=== PATIENT | male | born 1940 | race Caucasian/White ===

== ENCOUNTER 2023-04-25 12:57 | Inpatient (IN) | payer MEDICARE ==
[2023-04-25] MEDS ORDERED: ASPIRIN 300 MG SUPP RECTAL STA (13:10)
--- NOTE | 2023-04-25 13:12 | ED ---
CPR HPI - General Chief Complaint: Cardiac Arrest/CPR Stated Complaint: Cardiac Arrest Time Seen by Provider: 04/25/23 13:05 Source: EMS Mode of arrival: EMS Limitations: no limitations - History of Present Illness Initial Comments: 82-year-old male with unknown past medical history who presents to the emergency department after cardiac arrest. EMS states that the patient was at his home when he had a choking episode. Family was unable to clear his airway and the patient went into cardiac arrest. When EMS found the patient, they began CPR. He was found to be in V. fib and he was shocked back into normal sinus rhythm. Patient was brought into the emergency department and was being bagged. He does not follow commands or answer any questions. He was not provided with any medications. HPI is limited because of the patient's current condition. Upon speaking with family when they arrive they state that the patient was complaining of some jaw pain. He does not take any medications and does not see a doctor - Related Data Home Medications Medication Instructions Recorded Confirmed Cetirizine HCl [Zyrtec] 10 mg PO DAILY 04/25/23 04/25/23 Allergies Allergy/AdvReac Type Severity Reaction Status Date / Time No Known Allergies Allergy Verified 04/25/23 16:17 Review of Systems ROS Statement: Those systems with pertinent positive or pertinent negative responses have been documented in the HPI. ROS Other: All systems not noted in ROS Statement are negative. Past Medical History Past Medical History: No Reported History History of Any Multi-Drug Resistant Organisms: None Reported Past Surgical History: No Surgical Hx Reported Past Psychological History: No Psychological Hx Reported Smoking Status: Never smoker Past Alcohol Use History: None Reported Past Drug Use History: None Reported General Exam Limitations: altered mental status General appearance: obtunded, in distress Head exam: Present: atraumatic, normocephalic, normal inspection Eye exam: Present: other (3 mm, non-reactive) ENT exam: Present: mucous membranes moist, other (small amount of food material in mouth and posterior pharynx) Respiratory exam: Present: other (agonal, shallow breaths) Cardiovascular Exam: Present: regular rate, normal rhythm, normal heart sounds. Absent: systolic murmur, diastolic murmur, rubs, gallop, clicks GI/Abdominal exam: Present: soft, normal bowel sounds. Absent: distended, tenderness, guarding, rebound, rigid Extremities exam: Absent: pedal edema, joint swelling Neurological exam: Present: altered, other (does not follow commands. minimal withdrawal to pain. once intubated, patient does spontanous move arms and legs) Skin exam: Present: pallor Course Vital Signs 04/25/23 04/25/23 04/25/23 13:02 13:08 13:10 Temperature 96.8 F L Pulse Rate 109 H 102 H Pulse Rate [ 109 H Bilateral Dorsalis Pedis] Pulse Rate [ 109 H Superintendent [employer] ] Respiratory 5 L 15 5 L Rate Blood Pressure 176/130 156/113 O2 Sat by Pulse 98 98 Oximetry Fraction of 100 Inspired Oxygen (FIO2) 04/25/23 04/25/23 13:15 13:16 Temperature Pulse Rate 105 H Pulse Rate [ Bilateral Dorsalis Pedis] Pulse Rate [ [employer] ] Respiratory 16 Rate Blood Pressure 153/101 O2 Sat by Pulse 98 Oximetry Fraction of 100 Inspired Oxygen (FIO2) Procedures - Intubation Sedative: Etomidate Mg Given: 20 Paralytic: Succinylcholine Mg Given: 80 Laryngoscope: fiber optic video scope Size: 4 ET Tube Size: 7.5 ET Tube Uncuffed: No Tube Secured Depth (cm): 26 Tube Secured Location: teeth Tube Placement Confirmation: visualized tube passing through cords, equal breath sounds bilaterally, no breath sounds over epigastrium, confirmation by capnometry Patient Tolerated Procedure: well, no complications Medical Decision Making - Medical Decision Making Was pt. sent in by a medical professional or institution (CONCEPCION Reece, LONGWALL SHEARER OPERATOR, urgent care, hospital, or fpc...) When possible be specific @ -No Did you speak to anyone other than the patient for history (EMS, parent, family, police, friend...)? What history was obtained from this source @ -EMS and family Did you review nursing and triage notes (agree or disagree)? Why? @ -I reviewed and agree with nursing and triage notes Were old charts reviewed (outside hosp., previous admission, EMS record, old EKG, old radiological studies, urgent care reports/EKG's, fpc records)? Report findings @ -No old charts were reviewed Differential Diagnosis (chest pain, altered mental status, abdominal pain women, abdominal pain men, vaginal bleeding, weakness, fever, dyspnea, syncope, headache, dizziness, GI bleed, back pain, seizure, CVA, palpatations, mental health, musculoskeletal)? @ -choking episode, aspiration, cva, cardiac arrest, STEMI EKG interpreted by me (3pts min.). @ - EKG completed at 1258 demonstrates sinus tachycardia with a rate of 105. AR interval 214. QRS 98. QTC of 397. ST elevation 1 and aVL with inferior changes in 2, 3, aVF Repeat EKG done at 1303 continues to demonstrate sinus rhythm with rate of 99. AR interval 200. QRS 13. QTC of 4:15. ST elevation 1 and aVL with inferior and anterior reciprocal changes X-rays interpreted by me (1pt min.). @ -Yes and ET tube is too low therefore it is pulled back CT interpreted by me (1pt min.). @ -None done U/S interpreted by me (1pt. min.). @ -None done What testing was considered but not performed or refused? (CT, X-rays, U/S, labs)? Why? 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 Why? @ -None Did you discuss the management of the patient with other professionals (professionals i.e. , PA, LONGWALL SHEARER OPERATOR, lab, RT, psych nurse, high school social studies teacher, medical coding technician, teacher, property disposal officer, family service caseworker)? Give summary @ -Dr. Kiser, Dr. Oglesby, Dr. Ramírez Was smoking cessation discussed for >3mins.? @ -No Was critical care preformed (if so, how long)? @ -yes, 45 minutes Were there social determinants of health that impacted care today? How? (Homelessness, low income, unemployed, alcoholism, drug addiction, transportation, low edu. Level, literacy, decrease access to med. care, assisted, rehab)? @ -No Was there de-escalation of care discussed even if they declined (Discuss DNR or withdrawal of care, Hospice)? DNR status @ -No What co-morbidities impacted this encounter? (DM, HTN, Smoking, COPD, CAD, Cancer, CVA, ARF, Chemo, Hep., AIDS, mental health diagnosis, sleep apnea, morbid obesity)? @ -None Was patient admitted / discharged? Hospital course, mention meds given and route, prescriptions, significant lab abnormalities, going to OR and other pertinent info. @ -Upon arrival patient was promptly placed into trauma 2. A thorough history and physical exam was performed. Patient arrives being bagged. He is intubated for airway protection. Accu-Chek is performed. 12-lead EKG is performed which demonstrates ST segment elevation in the lateral leads. Patient is a Rosc patient and therefore we do completed a second EKG which continues to demonstrate STEMI changes. Because of this code STEMI is activated. I spoke with Dr. Kiser who will cath the patient. He is given 4000 units of heparin and a rectal aspirin. Goodson and NG tube is placed. Porbital chest x-ray was performed which demonstrated that the tube was at the kaylyn. Tube was retracted 2 cm before going to 3. I did update the family when they arrived at the emergency department and they were taken up to the Compliance Vice President waiting room. Patient was admitted to Dr. oglesby with cardiology and Dr. Ramírez to consult Undiagnosed new problem with uncertain prognosis? @ -Yes Drug Therapy requiring intensive monitoring for toxicity (Heparin, Nitro, Insulin, Cardizem)? @ -No Were any procedures done? @ -Patient was intubated with a 7-1/2-Montenegrin ET tube 26 cm at the teeth. Chest x-ray demonstrated that the tube was at the kaylyn. The tube was retracted 2 cm to 24 some liters at the teeth before the patient was taken to Compliance Vice President Diagnosis/symptom? @ -acute cardiac arrest - vifb, ventilator dependance, s/p choking episode, aspiration, STEMI Acute, or Chronic, or Acute on Chronic? @ -acute Uncomplicated (without systemic symptoms) or Complicated (systemic symptoms)? @ -complicated Side effects of treatment? @ -No Exacerbation, Progression, or Severe Exacerbation? @ -No Poses a threat to life or bodily function? How? (Chest pain, [place], [place], pneumonia, PE, COPD, DKA, ARF, appy, cholecystitis, CVA, Diverticulitis, Homicidal, Suicidal, threat to staff... and all critical care pts) @ -Yes, patient on life support - Lab Data Result diagrams: 04/26/23 04:42 04/26/23 04:42 Lab Results 04/25/23 04/25/23 04/25/23 Range/Units 13:08 13:11 13:11 WBC 14.4 H (3.8-10.6) k/uL RBC 5.54 (4.30-5.90) m/uL Hgb 17.2 (13.0-17.5) gm/dL Hct 52.0 (39.0-53.0) % MCV 93.9 (80.0-100.0) fL MCH 31.1 (25.0-35.0) pg MCHC 33.1 (31.0-37.0) g/dL RDW 12.5 (11.5-15.5) % Plt Count 228 (150-450) k/uL MPV 8.9 Neutrophils % 74 % Lymphocytes % 21 % Monocytes % 3 % Eosinophils % 1 % Basophils % 0 % Neutrophils # 10.6 H (1.3-7.7) k/uL Lymphocytes # 3.0 (1.0-4.8) k/uL Monocytes # 0.5 (0-1.0) k/uL Eosinophils # 0.1 (0-0.7) k/uL Basophils # 0.1 (0-0.2) k/uL PT 10.4 (9.0-12.0) sec INR 1.0 (<1.2) APTT 22.7 (22.0-30.0) sec Sodium (137-145) mmol/L Potassium (3.5-5.1) mmol/L Chloride (98-107) mmol/L Carbon Dioxide (22-30) mmol/L Anion Gap mmol/L BUN (9-20) mg/dL Creatinine (0.66-1.25) mg/dL Est GFR (CKD-EPI)AfAm (>60 ml/min/1.73 sqM) Est GFR (CKD-EPI)NonAf (>60 ml/min/1.73 sqM) Glucose (74-99) mg/dL POC Glucose (mg/dL) 153 H (70-110) mg/dL POC Glu [employer] Sales Representative ID Emy Domínguez Calcium (8.4-10.2) mg/dL Total Bilirubin (0.2-1.3) mg/dL AST (17-59) U/L ALT (4-49) U/L Alkaline Phosphatase (38-126) U/L Troponin I (0.000-0.034) ng/mL Total Protein (6.3-8.2) g/dL Albumin (3.5-5.0) g/dL 04/25/23 04/25/23 Range/Units 13:11 13:11 WBC (3.8-10.6) k/uL RBC (4.30-5.90) m/uL Hgb (13.0-17.5) gm/dL Hct (39.0-53.0) % MCV (80.0-100.0) fL MCH (25.0-35.0) pg MCHC (31.0-37.0) g/dL RDW (11.5-15.5) % Plt Count (150-450) k/uL MPV Neutrophils % % Lymphocytes % % Monocytes % % Eosinophils % % Basophils % % Neutrophils # (1.3-7.7) k/uL Lymphocytes # (1.0-4.8) k/uL Monocytes # (0-1.0) k/uL Eosinophils # (0-0.7) k/uL Basophils # (0-0.2) k/uL PT (9.0-12.0) sec INR (<1.2) APTT (22.0-30.0) sec Sodium 139 (137-145) mmol/L Potassium 3.7 (3.5-5.1) mmol/L Chloride 107 (98-107) mmol/L Carbon Dioxide 17 L (22-30) mmol/L Anion Gap 15 mmol/L BUN 18 (9-20) mg/dL Creatinine 1.33 H (0.66-1.25) mg/dL Est GFR (CKD-EPI)AfAm 58 (>60 ml/min/1.73 sqM) Est GFR (CKD-EPI)NonAf 50 (>60 ml/min/1.73 sqM) Glucose 199 H (74-99) mg/dL POC Glucose (mg/dL) (70-110) mg/dL POC Glu [employer] Sales Representative ID Calcium 8.5 (8.4-10.2) mg/dL Total Bilirubin 1.1 (0.2-1.3) mg/dL AST 216 H (17-59) U/L ALT 149 H (4-49) U/L Alkaline Phosphatase 92 (38-126) U/L Troponin I 0.018 (0.000-0.034) ng/mL Total Protein 7.4 (6.3-8.2) g/dL Albumin 4.3 (3.5-5.0) g/dL Disposition Clinical Impression: Cardiac arrest, Ventricular fibrillation, Choking episode, STEMI (ST elevation myocardial infarction) Disposition: ADMITTED IP TO THIS [facility] Condition: Critical Is patient prescribed a controlled substance at d/c from ED?: No Time of Disposition: 13:28 Decision to Admit Reason: Admit from EC Decision Date: 04/25/23 Decision Time: 13:28
[2023-04-25] MEDS ORDERED: ETOMIDATE 2 MG/ML 10 ML VIAL IVP STA (13:16)
[2023-04-25] MEDS ORDERED: SUCCINYLCHOLINE CHLORIDE 200 MG/10 ML VIAL IV STA (13:17)
[2023-04-25 13:18] LABS: Glucose,Whole Blood 153 mg/dL (70-110)
[2023-04-25] MEDS ORDERED: HEPARIN SODIUM 1,000 UN/ML (10ML VL) IV ONE (13:18)
[2023-04-25 13:24] LABS: Basophils # (A) 0.1 k/uL (0-0.2); Basophils % (A) 0 %; Eosinophils # (A) 0.1 k/uL (0-0.7); Eosinophils % (A) 1 %; HGB 17.2 gm/dL (13.0-17.5); Lymphocytes % (A) 21 %; MCH 31.1 pg (25.0-35.0); MCHC 33.1 g/dL (31.0-37.0); MCV 93.9 fL (80.0-100.0); Mean Platelet Volume 8.9; Monocytes # (A) 0.5 k/uL (0-1.0); Monocytes % (A) 3 %; Neutrophils # (A) 10.6 k/uL (1.3-7.7); Neutrophils % (A) 74 %; Platelet Count 228 k/uL (150-450); RBC 5.54 m/uL (4.30-5.90); RDW 12.5 % (11.5-15.5); WBC 14.4 k/uL (3.8-10.6)
--- NOTE | 2023-04-25 13:28 | XR ---
EXAMINATION TYPE: XR chest 1V portable DATE OF EXAM: 04/25/2023 COMPARISON: None INDICATION: Chest pain, cardiac arrest TECHNIQUE: Single frontal view of the chest is obtained. FINDINGS: The heart size is normal. The pulmonary vasculature is somewhat prominent. No acute pulmonary process. Endotracheal tube tip is at the kaylyn. This should be pulled back 2 to 3 cm. Nasogastric tube transv erses the thorax with tip in left upper quadrant of the abdomen. No rib fractures are identified. IMPRESSION: 1. No acute pulmonary process. 2. Mild prominence of the pulmonary vascular markings. 3. Endotracheal tube tip at the kaylyn. This should be pulled back 2 to 3 cm.
[2023-04-25] MEDS ORDERED: NALOXONE 0.4 MG/ML 1 ML VIAL IV PRN ×2 (13:35→14:59)
[2023-04-25] MEDS ORDERED: LIDOCAINE 1% INJ 10MG/ML (20 ML MDV) SQ ONE (13:39)
[2023-04-25 13:40] LABS: Partial Thromboplastin Time 22.7 sec (22.0-30.0); Prothrombin Time 10.4 sec (9.0-12.0)
[2023-04-25] MEDS ORDERED: VERAPAMIL SYRINGE (5 MG/10 ML) INTRAARTER ONE (13:40)
[2023-04-25 13:42] LABS: ALT 149 U/L (4-49); AST 216 U/L (17-59); African American GFR (CKD) 58 (>60 ml/min/1.73 sqM); Albumin 4.3 g/dL (3.5-5.0); Alkaline Phosphatase 92 U/L (38-126); Anion Gap 15 mmol/L; Blood Urea Nitrogen 18 mg/dL (9-20); Calcium 8.5 mg/dL (8.4-10.2); Carbon Dioxide 17 mmol/L (22-30); Chloride 107 mmol/L (98-107); Glucose 199 mg/dL (74-99); Non-African American GFR(CKD) 50 (>60 ml/min/1.73 sqM); Potassium 3.7 mmol/L (3.5-5.1); Sodium 139 mmol/L (137-145); Total Bilirubin 1.1 mg/dL (0.2-1.3); Total Protein 7.4 g/dL (6.3-8.2)
[2023-04-25] MEDS ORDERED: IV FLUID CONTINUATION 1,000 ML IV ONE (13:44)
[2023-04-25] MEDS ORDERED: SODIUM CHLORIDE 0.9% 1,000 ML IV ONE (13:44)
[2023-04-25] MEDS: HEPARIN SODIUM 1,000 UN/ML (10ML VL) IV ONE ×2 (13:47→14:17)
[2023-04-25] MEDS: NITROGLYCERIN 1000MCG/10ML SYRINGE INTRACORON ONE ×2 (13:53→13:57)
[2023-04-25] MEDS ORDERED: CLOPIDOGREL 75 MG TAB NG-TUBE ONE (13:55)
[2023-04-25] MEDS ORDERED: RX INFO: IV CONTRAST WAS GIVEN 1 EACH MISC MISCELLANE PRN (14:03)
[2023-04-25] MEDS ORDERED: ATROPINE SULFATE 0.1 MG/ML 10ML SYRINGE IV PRN (14:03)
[2023-04-25] MEDS ORDERED: ZOLPIDEM 5 MG TAB PO PRN (14:03)
[2023-04-25] MEDS ORDERED: MAG HYDROX/AL HYDROX/SIMETH 30 ML CUP PO PRN (14:03)
[2023-04-25] MEDS ORDERED: NITROGLYCERIN SL TABS 0.4 MG TAB SUBLINGUAL PRN (14:03)
[2023-04-25] MEDS ORDERED: IOPAMIDOL-370 100ML BTL INJ ONE (14:04)
[2023-04-25] MEDS ORDERED: cefTRIAXone 1,000 MG VIAL (IM USE) IM STA (14:13)
[2023-04-25] MEDS ORDERED: SODIUM CHLORIDE 0.9% 1,000 ML in EMPTY BAG 1 BAG IV SCH (14:15)
[2023-04-25 14:32] LABS: Glucose,Whole Blood 209 mg/dL (70-110)
[2023-04-25] MEDS: HYDROmorphone 1 MG/ML 1 ML SYRINGE IVP PRN ×3 (14:37→21:16)
--- NOTE | 2023-04-25 14:47 | P.CNPUL ---
History of Present Illness Consult date: 04/25/23 Requesting physician: Obie E Sheet Reason for consult: other Chief complaint: Cardiac arrest, myocardial infarction. History of present illness: Pulmonary consult dated 04/25/2023. 82-year-old male seen in the emergency room, after having an [id number] cardiac arrest. The patient apparently had a choking episode. Subsequent to that, the patient apparently went into cardiac arrest. EMS arrived, and started CPR, and the patient was found to have intrinsic either fibrillation, and was defibrillated back into sinus rhythm. In the emergency room, he was intubated by the ER physician, Dr. Vargas. She call me on the phone to give me report. The patient went to the catheterization laboratory, and had a stent placed in the LAD. The patient was admitted back to the intensive care unit. The patient had a downtime of about 12-15 minutes according to the ER physician. The patient apparently is an 82-year-old male, who does not have any major medical problems, and does not see a physician on a regular basis. I was told he takes no medications on a regular basis. The patient is currently seen in the ICU, and room 257 the patient is currently on the ventilator, settings, volume assist control, rate 18, tidal volume 450, FiO2 100%, and PEEP of 5. A blood gas is not yet been done. Endotracheal tube is too far down the trachea, and was pulled back by respiratory. The patient's currently on propofol at 50 mcg/kg/m. I have ordered a blood gas. I will also order some Dilaudid 1 mg every 1-2 hours as needed, and some lactated Ringer's at 75 mL an hour. White count 14.4, with a normal hemoglobin, hematocrit, and platelet count. Coagulation studies are normal. Sodium 139, potassium 3.7, chlorides 107, CO2 17, anion gap 15, BUN/creatinine were 18 and 1.33. AST is 216, ALT is 149. Glucose 209. Chest x-ray does not show an acute process. Endotracheal tube was at the tip of the kaylyn. It was pulled back by respiratory. EKG shows some significant ST changes, and 1, and aVL. Review of Systems REVIEW OF SYSTEMS: A review of systems cannot be obtained as the patient's currently sedated and intubated. Apparently according to the ER mirian, the patient had a choking episode at home, and was found by EMS to have ventricular fibrillation, and was defibrillated. CONSTITUTIONAL: [Negative.] NEUROLOGIC: [ Negative.] HEENT: [ Negative.] CARDIAC: [Negative.] PULMONARY: [Negative.] GI: [Negative.] : [Negative.] RHEUMATOLOGIC: [ Negative.] IMMUNOLOGIC: [ Negative.] ENDOCRINE: [Negative. ] DERMATOLOGIC: [Negative.] Past Medical History Past Medical History: No Reported History History of Any Multi-Drug Resistant Organisms: None Reported Past Surgical History: No Surgical Hx Reported Past Psychological History: No Psychological Hx Reported Smoking Status: Never smoker Past Alcohol Use History: None Reported Past Drug Use History: None Reported Medications and Allergies Allergies Allergy/AdvReac Type Severity Reaction Status Date / Time Unable to Assess Allergy Verified 04/25/23 14:06 Physical Exam Osteopathic Statement: *. No significant issues noted on an osteopathic structural exam other than those noted in the History and Physical/Consult. Vitals: Vital Signs Temp Pulse Resp BP Pulse Ox FiO2 04/25/23 13:20 106 H 16 162/113 98 04/25/23 13:16 100 04/25/23 13:15 105 H 16 153/101 98 04/25/23 13:10 100 04/25/23 13:08 102 H 15 156/113 98 04/25/23 13:02 96.8 F L 109 H 5 L 176/130 98 Intake and Output 04/24/23 04/25/23 04/25/23 22:59 06:59 14:59 Intake Total 120.816 Output Total 400 Balance -279.184 Intake: IV 120 Intake, IV Titration 0.816 Amount propofoL 1,000 mg In 0.816 Empty Bag 1 bag @ 15 MCG/ KG/MIN 7.348 mls/hr IV . [id number] [facility] Rx#:[id number] Output: Urine 400 Uretheral (Goodson) 400 Other: Weight 81.647 kg No acute distress, sedated, and intubated with an orally placed endotracheal tube. HEENT examination is grossly unremarkable. Neck supple. Full range of motion. No adenopathy thyromegaly or neck vein distention. Cardiovascular examination reveals regular rhythm rate. S1-S2 normal. No S3 or S4. No discernible murmur noted. Heart rate 106 bpm. Lungs reveal clear breath sounds. Breath sounds are equal bilaterally. No adventitious lung sounds including wheezes rhonchi or crackles. Saturations are 98% on the ventilator. Abdomen soft without bowel sounds. Extremities are intact. No cyanosis clubbing or edema. Skin is without rash or lesion. Neurologic examination cannot be adequately assessed. Results - Laboratory Findings CBC and BMP: 04/25/23 13:11 04/25/23 13:11 PT/INR, D-dimer PT 10.4 sec (9.0-12.0) 04/25/23 13:11 INR 1.0 (<1.2) 04/25/23 13:11 Abnormal lab findings: Abnormal Labs 04/25/23 04/25/23 04/25/23 13:08 13:11 13:11 WBC 14.4 H Neutrophils # 10.6 H Carbon Dioxide 17 L Creatinine 1.33 H Glucose 199 H POC Glucose (mg/dL) 153 H AST 216 H ALT 149 H 04/25/23 14:30 WBC Neutrophils # Carbon Dioxide Creatinine Glucose POC Glucose (mg/dL) 209 H AST ALT - Diagnostic Findings Chest x-ray: image reviewed Assessment and Plan Assessment: Gfw-rz-hervnclz cardiopulmonary arrest, secondary to a choking episode, with an ST segment elevation myocardial infarction, status post stent placement in the LAD. Acute hypoxemic respiratory failure, status post intubation and mechanical ventilation on 04/25/2023. No apparent past medical history. Plan: Plan dated 04/25/2023. The patient is evaluated in the intensive care unit, and labs, x-rays, and medications are reviewed. The patient had an nde-[id number] cardiopulmonary arrest, secondary to a choking episode. The patient had a downtime about 12-15 minutes, and was resuscitated by EMS, having received defibrillation, for the patient's ventricular fibrillation. The patient was intubated in the emergency room, by the ER physician. The patient went to the catheterization laboratory, and apparently had a plaque rupture, and had a stent placed in the LAD. The patient was seen in the intensive care unit, having been placed on the mechanical ventilator. Blood gases have been ordered. I've also ordered some lactated Ringer's at 75 mL an hour, as well as Dilaudid 1 mg every 1-2 hours when necessary. The patient's currently on propofol at 50 mcg/kg/m. The endotracheal tube was at the kaylyn and was pulled back by respiratory. Time with Patient: Greater than 30
[2023-04-25 14:48] LABS: Glucose,Whole Blood 129 mg/dL (70-110)
--- NOTE | 2023-04-25 15:04 | P.HPIM ---
History of Present Illness This is a pleasant gentleman of 82 years old, unknown past medical history. Patient currently intubated and cannot provide information As per records patient was eating he started choking and then collapsed, EMS was called and he got a shock with return of the pulse area he was been back and hereafter emergency room where he got intubated. As per ER staff that [place] was about 15 minutes Currently blood pressure 162/113, he is tachycardic around 106. He has mild leukocytosis of 14.4, rest of CBC, INR is unremarkable. Creatinine 1.3 which he had it before, possible patient has chronic kidney disease Glucose 199, liver enzymes AST mildly elevated 216 and ALT 149. Bilirubin is 1.1. Troponin is -0.018. No acute cardiopulmonary process. Endotracheal tube at the tip of the kaylyn EKG was showing ST elevation TX of the lateral limits at I, aVL with reciprocal changes Patient was taken to the Social Service Coordinator and he underwent emergent PCI to LAD Review of Systems ROS unobtainable: due to endotracheal tube Past Medical History Past Medical History: No Reported History History of Any Multi-Drug Resistant Organisms: None Reported Past Surgical History: No Surgical Hx Reported Past Psychological History: No Psychological Hx Reported Smoking Status: Never smoker Past Alcohol Use History: None Reported Past Drug Use History: None Reported Medications and Allergies Allergies Allergy/AdvReac Type Severity Reaction Status Date / Time Unable to Assess Allergy Verified 04/25/23 14:06 Physical Exam Vitals: Vital Signs Temp Pulse Resp BP Pulse Ox FiO2 04/25/23 13:20 106 H 16 162/113 98 04/25/23 13:16 100 04/25/23 13:15 105 H 16 153/101 98 04/25/23 13:10 100 04/25/23 13:08 102 H 15 156/113 98 04/25/23 13:02 96.8 F L 109 H 5 L 176/130 98 Intake and Output 04/24/23 04/25/23 04/25/23 22:59 06:59 14:59 Intake Total 120.816 Output Total 400 Balance -279.184 Intake: IV 120 Intake, IV Titration 0.816 Amount propofoL 1,000 mg In 0.816 Empty Bag 1 bag @ 15 MCG/ KG/MIN 7.348 mls/hr IV . [id number] [facility] Rx#:[id number] Output: Urine 400 Uretheral (Goodson) 400 Other: Weight 81.647 kg -GENERAL: The patient is intubated and sedated, HEENT: Pupils are round and equally reacting to light. EOMI. No scleral icterus. No conjunctival pallor. Normocephalic, atraumatic. No pharyngeal erythema. No thyromegaly. CARDIOVASCULAR: S1 and S2 present. No murmurs, rubs, or gallops. PULMONARY: Chest is clear to auscultation, no wheezing , no crackles. ABDOMEN: Soft, nontender, nondistended, normoactive bowel sounds. No palpable organomegaly. MUSCULOSKELETAL: No joint swelling or deformity. EXTREMITIES: No cyanosis, clubbing, or pedal edema. NEUROLOGICAL: Gross neurological examination did not reveal any focal deficits. SKIN: No rashes. no petechiae. Results CBC & Chem 7: 04/25/23 13:11 04/25/23 13:11 Labs: Abnormal Lab Results - Last 24 Hours (Table) 04/25/23 04/25/23 04/25/23 Range/Units 13:08 13:11 13:11 WBC 14.4 H (3.8-10.6) k/uL Neutrophils # 10.6 H (1.3-7.7) k/uL Carbon Dioxide 17 L (22-30) mmol/L Creatinine 1.33 H (0.66-1.25) mg/dL Glucose 199 H (74-99) mg/dL POC Glucose (mg/dL) 153 H (70-110) mg/dL AST 216 H (17-59) U/L ALT 149 H (4-49) U/L 04/25/23 Range/Units 14:30 WBC (3.8-10.6) k/uL Neutrophils # (1.3-7.7) k/uL Carbon Dioxide (22-30) mmol/L Creatinine (0.66-1.25) mg/dL Glucose (74-99) mg/dL POC Glucose (mg/dL) 209 H (70-110) mg/dL AST (17-59) U/L ALT (4-49) U/L Assessment and Plan Assessment: Cardiac arrest at home status post CPR and electric shock with return of circulation. [place] about 15 minutes Acute lateral STEMI status post emergent PCI to LAD Acute hypoxic respiratory failure secondary to above Metabolic encephalopathy secondary to above Mild leukocytosis Mild transaminitis Possible chronic kidney disease Plan: Continue on mechanical ventilation Pulmonary/critical care team with help with vent management Continue with dual antiplatelet therapy, currently on aspirin and Plavix Metoprolol Small dose lisinopril Labs and medication were reviewed.. Continue same treatment. Continue with sym ptomatic treatment. Resume home medication. Monitor labs and vitals. DVT and GI prophylaxis. Further recommendations as per clinical course of the patient DVT prophylaxis: Aspirin and Plavix GI Prophylaxis: Pepcid Prognosis is guarded
[2023-04-25] MEDS: LACTATED RINGERS 1,000 ML IV SCH (15:09)
[2023-04-25 15:11] LABS: ABG Base Excess -3.3 mmol/L; ABG HCO3 23 mmol/L (21-25); ABG PCO2 45 mmHg (35-45); ABG PH 7.32 (7.35-7.45); ABG PO2 94 mmHg (83-108); ABG TCO2 24 mmol/L (19-24)
--- NOTE | 2023-04-25 15:45 | XR ---
EXAMINATION TYPE: XR chest 1V portable DATE OF EXAM: 04/25/2023 COMPARISON: 04/25/2023 INDICATION: Tube placement TECHNIQUE: Single frontal view of the chest is obtained. FINDINGS: The heart size is normal. The pulmonary vasculature is normal. Small left pleural effusion is present. r endotracheal tube is been pulled back just to located 2.1 cm above the kaylyn. Nasogastric tube tra nsverses the thorax. EKG leads overlie the chest. IMPRESSION: 1. Endotracheal tube pulled back with tip 2 cm above kaylyn. 2. Small left pleural effusion
[2023-04-25] MEDS ORDERED: Magnesium Replacement Protocol 1 EACH MISC MISCELLANE PRN (16:28)
[2023-04-25] MEDS ORDERED: Potassium Replacement Protocol 1 EACH MISC MISCELLANE PRN (16:28)
[2023-04-25] MEDS ORDERED: POTASSIUM BICARBONATE/CIT AC 20 MEQ TABLET.EFF NG-TUBE ONE (16:45)
[2023-04-25 17:42] LABS: Glucose,Whole Blood 99 mg/dL (70-110)
--- NOTE | 2023-04-25 20:33 | P.PCN ---
Date of Procedure: 04/25/23 Operative Findings: Cardiac catheterization and percutaneous coronary intervention Performing physician Suhas Kiser MD Procedure performed 1. Selective right and left coronary angiogram 2. Left heart catheterization 3. Successful stenting of the mid LAD using 3.5 x 23 mm Xience MARLENY with an excellent angiographic results and reduction of stenosis from 99.9% to 0% with adjunctive use of intravascular imaging Indication Acute anterior ST elevation myocardial infarction complicated by cardiac arrest Level of sedation Moderate with a sedation length of 30 minutes Door to balloon 35 minutes Complications None Procedure description After obtaining informed consent the patient was brought to the cardiac laborer/key man. The right radial artery was cannulated using micropuncture technique under ultrasound guidance and micropuncture wire passed easily and then I placed a 6 [place] sheath at the right radial artery. After that I did selective right coronary angiogram using JR4 catheter and selective left coronary angiogram using CLS 3.0 guiding catheter. After that I did intervene on the left anterior descending artery. The procedure was completed was no complication. Selective coronary angiogram The RCA is a large caliber vessel and a dominant vessel with mild disease in the midportion The left main is angiographically normal. Bifurcates into LCx and LAD The LCx is a large caliber vessel and nondominant vessel with mild disease only The LAD has a critical lesion in the midportion with a thrombus burden. The LAD in the proximal and distal portions appear to have mild disease only PCI of the LAD Anticoagulation was initiated using heparin with continuous ACT monitoring. Subsequently I did wire the LAD using a run-through wire. I did pull angioplasty using 2.5 x 12 mm balloon. After that I did enter a vascular ultrasound which showed a diameter between 3.25-3.5 mm. I did stenting of the mid LAD using 3.5 x 23 mm stent were the stent was positioned under fluoroscopy guidance and deployed under its nominal pressure. Final angiogram was performed and showed good angiographic results and the procedure was completed with no complication Hemodynamic The LVEDP was 12 mmHg was no significant gradient across aortic valve Postprocedure management Dual antiplatelet therapy using aspirin and Plavix for at least 12 months Aggressive cholesterol control Risk factors modification Follow-up with the patient
[2023-04-25] MEDS: ATORVASTATIN 80 MG TAB PO SCH (21:10)
[2023-04-25] MEDS: METOPROLOL TARTRATE 25 MG TAB PO SCH (21:10)
[2023-04-25] MEDS: CHLORHEXIDINE GLUCONATE 15 ML CUP MUCOUS MEM SCH (21:10)
[2023-04-25 23:53] LABS: Glucose,Whole Blood 99 mg/dL (70-110)
[2023-04-26] MEDS ORDERED: SODIUM CHLORIDE 0.9% 500 ML 500 ML IV ONE ×2 (00:23→02:34)
[2023-04-26] MEDS: HYDROmorphone 1 MG/ML 1 ML SYRINGE IVP PRN (01:39)
[2023-04-26] MEDS: LACTATED RINGERS 1,000 ML IV SCH ×2 (02:48→18:53)
[2023-04-26] MEDS ORDERED: SODIUM CHLORIDE 0.9% 1,000 ML IV ONE (05:00)
[2023-04-26 05:04] LABS: Basophils # (A) 0.1 k/uL (0-0.2); Basophils % (A) 0 %; Eosinophils % (A) 0 %; HGB 14.2 gm/dL (13.0-17.5); Lymphocytes # (A) 0.9 k/uL (1.0-4.8); Lymphocytes % (A) 4 %; MCH 30.9 pg (25.0-35.0); MCHC 32.9 g/dL (31.0-37.0); Mean Platelet Volume 8.6; Monocytes # (A) 0.6 k/uL (0-1.0); Monocytes % (A) 3 %; Neutrophils # (A) 20.6 k/uL (1.3-7.7); Neutrophils % (A) 93 %; Platelet Count 185 k/uL (150-450); RBC 4.58 m/uL (4.30-5.90); RDW 12.8 % (11.5-15.5); WBC 22.3 k/uL (3.8-10.6)
[2023-04-26 05:08] LABS: African American GFR (CKD) 50 (>60 ml/min/1.73 sqM); Anion Gap 5 mmol/L; Blood Urea Nitrogen 22 mg/dL (9-20); Calcium 7.5 mg/dL (8.4-10.2); Carbon Dioxide 24 mmol/L (22-30); Chloride 110 mmol/L (98-107); Glucose 112 mg/dL (74-99); Magnesium 1.7 mg/dL (1.6-2.3); Non-African American GFR(CKD) 43 (>60 ml/min/1.73 sqM); Potassium 4.6 mmol/L (3.5-5.1); Sodium 139 mmol/L (137-145)
[2023-04-26 05:26] LABS: Glucose,Whole Blood 108 mg/dL (70-110)
[2023-04-26 06:03] LABS: ABG Base Excess -2.6 mmol/L; ABG HCO3 23 mmol/L (21-25); ABG Oxygen Saturation 97.7 % (94-97); ABG PCO2 44 mmHg (35-45); ABG PH 7.33 (7.35-7.45); ABG PO2 112 mmHg (83-108); ABG TCO2 25 mmol/L (19-24); Allen Test Performed? Yes
[2023-04-26] MEDS ORDERED: MAGNESIUM SULFATE-D5W PMX 1 GM in DEXTROSE/WATER 1 100ML.BAG IVPB ONE (06:10)
[2023-04-26] MEDS ORDERED: Magnesium Replacement Protocol 1 EACH MISC MISCELLANE PRN (06:10)
[2023-04-26] MEDS: NOREPINEPHRINE 4 MG in SODIUM CHLORIDE 0.9% 250 ML IV SCH (07:04)
[2023-04-26] MEDS: CLOPIDOGREL 75 MG TAB PO SCH (08:02)
[2023-04-26] MEDS: METOPROLOL TARTRATE 25 MG TAB PO SCH ×2 (08:03→21:10)
[2023-04-26] MEDS: FAMOTIDINE 20 MG/2 ML VIAL IV SCH (08:03)
[2023-04-26] MEDS: CHLORHEXIDINE GLUCONATE 15 ML CUP MUCOUS MEM SCH ×2 (08:03→22:10)
[2023-04-26] MEDS: ASPIRIN 81 MG PO SCH (08:03)
--- NOTE | 2023-04-26 09:09 | XR ---
EXAMINATION TYPE: XR chest 1V portable DATE OF EXAM: 04/26/2023 COMPARISON: 04/25/2023 HISTORY: Tube placement TECHNIQUE: Single frontal view of the chest is obtained. FINDINGS: ET and NG tube noted. There is bilateral consolidation and small effusion. No pneumothorax . Diffuse osteopenia with arthropathy of the shoulder. Hypertrophic and degenerative changes in the s pine. IMPRESSION: Bilateral infiltrate and small effusion correlate for COPD.
--- NOTE | 2023-04-26 10:48 | P.PN ---
Subjective Progress Note Date: 04/26/23 The patient is an 82-year-old male who suffered a V. fib arrest at home after a choking episode. Approximate downtime 15 minutes according to EMS. Patient was intubated in the emergency room. Initial EKG showed sinus tachycardia with ST elevation in leads 1 and aVL and inferior changes and to 3 and aVF. He was ruled in as an ST elevated myocardial infarction and therefore underwent coronary angiogram with Dr. Kiser. He was found to have a critical lesion in the mid LAD with thrombus, otherwise mild disease in the left circumflex and the RCA. Successful stenting was performed and he was transferred to the ICU for supportive management. At the time of my examination the patient remained intubated and sedated. According to nursing staff he does have low urine output despite having 2 L of fluid boluses. LVEDP was 12 mmHg GENERAL: Well-appearing, well-nourished and in no acute distress. NECK: Supple without JVD or thyromegaly. LUNGS: Breath sounds clear to auscultation bilaterally. Respiration equal and unlabored. No wheezes, rales or rhonchi. HEART: Regular rate and rhythm without murmurs, rubs or gallops. S1 and S2 heard. EXTREMITIES: Normal range of motion, no edema. No clubbing or cyanosis. Peripheral pulses intact and strong. Right radial site has no hematoma or bruit TELEMETRY: Sinus rhythm overnight LABS: WBC 22.3, hemoglobin 14.2, hematocrit 43.0, platelet 185, sodium 139, potassium 4.6, BUN 22, creatinine 1.52, magnesium 1.7, AST 216, ALT 149 IMPRESSION: Acute ST elevated myocardial infarction Status post stenting of the mid LAD Ventricular fibrillation cardiac arrest at home, approximate downtime 15 minutes PLAN: Continue IV fluids for low urine output Continue supportive treatment Awaiting echocardiogram results Further recommendations to be based on clinical course I am dictating on behalf of Dr Anselmo Dean's history/physical and assessment/plan. Objective - Vital Signs Vital signs: Vital Signs Temp 98.1 F 04/26/23 08:00 Pulse 71 04/26/23 10:00 Resp 25 H 04/26/23 10:00 BP 117/67 04/26/23 10:00 Pulse Ox 95 04/26/23 10:00 FiO2 50 04/26/23 10:00 Intake & Output 04/25/23 04/26/23 04/26/23 18:59 06:59 18:59 Intake Total 525.889 6689.399 270.068 Output Total 1400 270 80 Balance -690.827 0198.399 190.068 Weight 81.647 kg 97.5 kg Intake: IV 120 2899 225 Lactated Ringers 1,000 ml 900 225 @ 75 mls/hr IV .[id number] [facility] Rx#:[id number] Sodium Chloride 0.9% 1, 999 000 ml @ 999 mls/hr IV . Q1H1M ONE Rx#:[id number] Sodium Chloride 0.9% 500 500 ml 500 ml @ 999 mls/hr IV .Q31M ONE Rx#:[id number] Sodium Chloride 0.9% 500 500 ml 500 ml @ 999 mls/hr IV .Q31M ONE Rx#:[id number] Intake, IV Titration 373.092 286.399 45.068 Amount Lactated Ringers 1,000 ml 305 @ 75 mls/hr IV .[id number] [facility] Rx#:[id number] propofoL 1,000 mg In 68.092 286.399 45.068 Empty Bag 1 bag @ 15 MCG/ KG/MIN 7.348 mls/hr IV . [id number] [facility] Rx#:[id number] Output: Urine 1400 270 80 Uretheral (Goodson) 400 Other: Voiding Method Indwelling Catheter Indwelling Catheter Indwelling Catheter - Labs CBC & Chem 7: 04/26/23 04:42 04/26/23 04:42 Labs: Abnormal Lab Results - Last 24 Hours (Table) 04/25/23 04/25/23 04/25/23 Range/Units 13:08 13:11 13:11 WBC 14.4 H (3.8-10.6) k/uL Neutrophils # 10.6 H (1.3-7.7) k/uL Lymphocytes # (1.0-4.8) k/uL ABG pH (7.35-7.45) ABG pO2 (83-108) mmHg ABG Total CO2 (19-24) mmol/L ABG O2 Saturation (94-97) % Chloride (98-107) mmol/L Carbon Dioxide 17 L (22-30) mmol/L BUN (9-20) mg/dL Creatinine 1.33 H (0.66-1.25) mg/dL Glucose 199 H (74-99) mg/dL POC Glucose (mg/dL) 153 H (70-110) mg/dL Calcium (8.4-10.2) mg/dL AST 216 H (17-59) U/L ALT 149 H (4-49) U/L 04/25/23 04/25/23 04/25/23 Range/Units 14:30 14:46 15:02 WBC (3.8-10.6) k/uL Neutrophils # (1.3-7.7) k/uL Lymphocytes # (1.0-4.8) k/uL ABG pH 7.32 L (7.35-7.45) ABG pO2 (83-108) mmHg ABG Total CO2 (19-24) mmol/L ABG O2 Saturation (94-97) % Chloride (98-107) mmol/L Carbon Dioxide (22-30) mmol/L BUN (9-20) mg/dL Creatinine (0.66-1.25) mg/dL Glucose (74-99) mg/dL POC Glucose (mg/dL) 209 H 129 H (70-110) mg/dL Calcium (8.4-10.2) mg/dL AST (17-59) U/L ALT (4-49) U/L 04/26/23 04/26/23 04/26/23 Range/Units 04:42 04:42 05:58 WBC 22.3 H (3.8-10.6) k/uL Neutrophils # 20.6 H (1.3-7.7) k/uL Lymphocytes # 0.9 L (1.0-4.8) k/uL ABG pH 7.33 L (7.35-7.45) ABG pO2 112 H (83-108) mmHg ABG Total CO2 25 H (19-24) mmol/L ABG O2 Saturation 97.7 H (94-97) % Chloride 110 H (98-107) mmol/L Carbon Dioxide (22-30) mmol/L BUN 22 H (9-20) mg/dL Creatinine 1.52 H (0.66-1.25) mg/dL Glucose 112 H (74-99) mg/dL POC Glucose (mg/dL) (70-110) mg/dL Calcium 7.5 L (8.4-10.2) mg/dL AST (17-59) U/L ALT (4-49) U/L Microbiology - Last 24 Hours (Table) 04/25/23 13:10 Gram Stain - Preliminary Sputum
--- NOTE | 2023-04-26 11:21 | P.PN ---
Subjective This is a pleasant gentleman of 82 years old, unknown past medical history. Patient currently intubated and cannot provide information As per records patient was eating he started choking and then collapsed, EMS was called and he got a shock with return of the pulse area he was been back and hereafter emergency room where he got intubated. As per ER staff that [place] was about 15 minutes Currently blood pressure 162/113, he is tachycardic around 106. He has mild leukocytosis of 14.4, rest of CBC, INR is unremarkable. Creatinine 1.3 which he had it before, possible patient has chronic kidney disease Glucose 199, liver enzymes AST mildly elevated 216 and ALT 149. Bilirubin is 1.1. Troponin is -0.018. No acute cardiopulmonary process. Endotracheal tube at the tip of the kaylyn EKG was showing ST elevation OK of the lateral limits at I, aVL with reciprocal changes Patient was taken to the Stucco Plasterer and he underwent emergent PCI to LAD 04/26/2023 Patient remains in the ICU intubated and sedated. This P Rubio 8 and FiO2 is 50% Has a Goodson catheter draining yellow brown urine. He is also on small dose of pressors with Levophed at 0.03. Labs showing worsening mild leukocytosis at 22.3, creatinine went up to 1.3 up to 1.5. ABG showing combine metabolic acidosis and respiratory acidosis however the respiratory company and looks a chronic and both are mild. Patient is also mildly tachypneic. He remains on dual antiplatelet therapy ASPIRIN 81 and Plavix 75 blade to per hour Patient currently on finger lactates, however he might benefit from sodium bicarb drip, we will defer that to pulmonary/critical care team. Normal Active Medications Generic Name Dose Route Start Last Admin Trade Name Freq PRN Reason Stop Dose Admin Al Hydroxide/Mg Hydroxide 30 ml 04/25/23 14:03 Mag Hydrox/Al Hydrox/Simeth 30 Ml Cup PO 05/25/23 14:04 Q4HR PRN Heartburn Aspirin 81 mg 04/26/23 09:00 04/26/23 08:03 Aspirin 81 Mg PO 05/26/23 09:01 81 mg DAILY SHANNA Administration Atorvastatin Calcium 80 mg 04/25/23 21:00 04/25/23 21:10 Atorvastatin 80 Mg Tab PO 05/25/23 21:01 80 mg HS SHANNA Administration Atropine Sulfate 0.5 mg 04/25/23 14:03 Atropine Sulfate 0.1 Mg/Ml 10ml Syringe IV 05/25/23 14:04 ONCE PRN Symptomatic Bradycardia Chlorhexidine Gluconate 15 ml 04/25/23 21:00 04/26/23 08:03 Chlorhexidine Gluconate 15 Ml Cup MUCOUS MEM 15 ml BID SHANNA Administration Clopidogrel Bisulfate 75 mg 04/26/23 09:00 04/26/23 08:02 Clopidogrel 75 Mg Tab PO 05/26/23 09:01 75 mg DAILY SHANNA Administration Protocol Famotidine 20 mg 04/26/23 09:00 04/26/23 08:03 Famotidine 20 Mg/2 Ml Vial IV 20 mg DAILY SHANNA Administration Hydromorphone HCl 1 mg 04/25/23 14:33 04/26/23 01:39 Hydromorphone 1 Mg/Ml 1 Ml Syringe IVP 1 mg Q2H PRN Administration Pain Propofol 1,000 mg/ IV Solution 100 mls @ 7.348 mls/hr 04/25/23 13:15 04/26/23 10:00 IV 15 mcg/kg/min .[id number] SHANNA 7.348 mls/hr Titration Protocol 15 MCG/KG/MIN Lactated Ringer's 1,000 mls @ 75 mls/hr 04/25/23 15:15 04/26/23 02:48 Lactated Ringers IV 75 mls/hr .[id number] SHANNA Administration Norepinephrine Bitartrate 4 mg 254 mls @ 11.144 mls/hr 04/26/23 06:45 04/26/23 07:04 / Sodium Chloride IV 0.03 mcg/kg/min .[id number] SHANNA 11.144 mls/hr Administration Protocol 0.03 MCG/KG/MIN Lisinopril 2.5 mg 04/26/23 09:00 04/26/23 08:03 Lisinopril 2.5 Mg Tab PO 05/26/23 09:01 Not Given DAILY SHANNA Metoprolol Tartrate 25 mg 04/25/23 21:00 04/26/23 08:03 Metoprolol Tartrate 25 Mg Tab PO 05/25/23 21:01 Not Given BID [facility] Miscellaneous Information 1 each 04/25/23 14:03 Rx Info: Iv Contrast Was Given 1 Each Misc MISCELLANE 04/27/23 14:04 DAILY PRN Per Protocol Miscellaneous Information 1 each 04/25/23 16:28 Magnesium Replacement Protocol 1 Each [facility] MISCELLANE DAILY PRN Per Protocol Protocol Miscellaneous Information 1 each 04/25/23 16:28 Potassium Replacement Protocol 1 Each [facility] MISCELLANE DAILY PRN Per Protocol Protocol Miscellaneous Information 1 each 04/26/23 06:10 Magnesium Replacement Protocol 1 Each [facility] MISCELLANE DAILY PRN Per Protocol Protocol Naloxone HCl 0.2 mg 04/25/23 13:35 Naloxone 0.4 Mg/Ml 1 Ml Vial IV 05/25/23 13:36 Q2M PRN Opioid Reversal Naloxone HCl 0.2 mg 04/25/23 14:59 Naloxone 0.4 Mg/Ml 1 Ml Vial IV Q2M PRN Opioid Reversal Nitroglycerin 0.4 mg 04/25/23 14:03 Nitroglycerin Sl Tabs 0.4 Mg Tab SUBLINGUAL 05/25/23 14:04 Q5M PRN Chest Pain Zolpidem Tartrate 5 mg 04/25/23 14:03 Zolpidem 5 Mg Tab PO 05/25/23 14:04 HS PRN Insomnia Objective - Vital Signs Vital signs: Vital Signs Temp 98.1 F 04/26/23 08:00 Pulse 71 04/26/23 10:00 Resp 25 H 04/26/23 10:00 BP 117/67 04/26/23 10:00 Pulse Ox 95 04/26/23 10:00 FiO2 50 04/26/23 11:00 Intake & Output 04/25/23 04/26/23 04/26/23 18:59 06:59 18:59 Intake Total 700.379 0943.399 270.068 Output Total 1400 270 80 Balance -165.917 7565.399 190.068 Weight 81.647 kg 97.5 kg Intake: IV 120 2899 225 Lactated Ringers 1,000 ml 900 225 @ 75 mls/hr IV .[id number] [facility] Rx#:[id number] Sodium Chloride 0.9% 1, 999 000 ml @ 999 mls/hr IV . Q1H1M ONE Rx#:[id number] Sodium Chloride 0.9% 500 500 ml 500 ml @ 999 mls/hr IV .Q31M [facility] Rx#:[id number] Sodium Chloride 0.9% 500 500 ml 500 ml @ 999 mls/hr IV .Q31M ONE Rx#:[id number] Intake, IV Titration 373.092 286.399 45.068 Amount Lactated Ringers 1,000 ml 305 @ 75 mls/hr IV .[id number] [facility] Rx#:[id number] propofoL 1,000 mg In 68.092 286.399 45.068 Empty Bag 1 bag @ 15 MCG/ KG/MIN 7.348 mls/hr IV . [id number] [facility] Rx#:[id number] Output: Urine 1400 270 80 Uretheral (Goodson) 400 Other: Voiding Method Indwelling Catheter Indwelling Catheter Indwelling Catheter - Exam -GENERAL: The patient is intubated and sedated HEENT: Pupils are round and equally reacting to light. EOMI. No scleral icterus. No conjunctival pallor. Normocephalic, atraumatic. No pharyngeal erythema. No thyromegaly. CARDIOVASCULAR: S1 and S2 present. No murmurs, rubs, or gallops. -PULMONARY: Chest is clear to auscultation, no wheezing , no crackles. Mildly tachypneic ABDOMEN: Soft, nontender, nondistended, normoactive bowel sounds. No palpable organomegaly. MUSCULOSKELETAL: No joint swelling or deformity. EXTREMITIES: No cyanosis, clubbing, or pedal edema. NEUROLOGICAL: Gross neurological examination did not reveal any focal deficits. SKIN: No rashes. no petechiae. - Labs CBC & Chem 7: 04/26/23 04:42 04/26/23 04:42 Labs: Abnormal Lab Results - Last 24 Hours (Table) 04/25/23 04/25/23 04/25/23 Range/Units 13:08 13:11 13:11 WBC 14.4 H (3.8-10.6) k/uL Neutrophils # 10.6 H (1.3-7.7) k/uL Lymphocytes # (1.0-4.8) k/uL ABG pH (7.35-7.45) ABG pO2 (83-108) mmHg ABG Total CO2 (19-24) mmol/L ABG O2 Saturation (94-97) % Chloride (98-107) mmol/L Carbon Dioxide 17 L (22-30) mmol/L BUN (9-20) mg/dL Creatinine 1.33 H (0.66-1.25) mg/dL Glucose 199 H (74-99) mg/dL POC Glucose (mg/dL) 153 H (70-110) mg/dL Calcium (8.4-10.2) mg/dL AST 216 H (17-59) U/L ALT 149 H (4-49) U/L 04/25/23 04/25/23 04/25/23 Range/Units 14:30 14:46 15:02 WBC (3.8-10.6) k/uL Neutrophils # (1.3-7.7) k/uL Lymphocytes # (1.0-4.8) k/uL ABG pH 7.32 L (7.35-7.45) ABG pO2 (83-108) mmHg ABG Total CO2 (19-24) mmol/L ABG O2 Saturation (94-97) % Chloride (98-107) mmol/L Carbon Dioxide (22-30) mmol/L BUN (9-20) mg/dL Creatinine (0.66-1.25) mg/dL Glucose (74-99) mg/dL POC Glucose (mg/dL) 209 H 129 H (70-110) mg/dL Calcium (8.4-10.2) mg/dL AST (17-59) U/L ALT (4-49) U/L 04/26/23 04/26/23 04/26/23 Range/Units 04:42 04:42 05:58 WBC 22.3 H (3.8-10.6) k/uL Neutrophils # 20.6 H (1.3-7.7) k/uL Lymphocytes # 0.9 L (1.0-4.8) k/uL ABG pH 7.33 L (7.35-7.45) ABG pO2 112 H (83-108) mmHg ABG Total CO2 25 H (19-24) mmol/L ABG O2 Saturation 97.7 H (94-97) % Chloride 110 H (98-107) mmol/L Carbon Dioxide (22-30) mmol/L BUN 22 H (9-20) mg/dL Creatinine 1.52 H (0.66-1.25) mg/dL Glucose 112 H (74-99) mg/dL POC Glucose (mg/dL) (70-110) mg/dL Calcium 7.5 L (8.4-10.2) mg/dL AST (17-59) U/L ALT (4-49) U/L Microbiology - Last 24 Hours (Table) 04/25/23 13:10 Gram Stain - Preliminary Sputum Assessment and Plan Assessment: Cardiac arrest at home status post CPR and electric shock with return of circulation. [place] about 15 minutes Acute lateral STEMI status post emergent PCI to LAD Acute hypoxic respiratory failure secondary to above Mild combined metabolic acidosis which looks more acute and chronic respiratory acidosis. Mild acute kidney injury with good urine output Metabolic encephalopathy secondary to above Mild leukocytosis Mild transaminitis Possible chronic kidney disease Plan: Continue on mechanical ventilation Pulmonary/critical care team with help with vent management Continue with dual antiplatelet therapy, currently on aspirin and Plavix Metoprolol Small dose lisinopril continue with IV fluids, currently on Ringer lactate. Monitor creatinine Labs and medication were reviewed.. Continue same treatment. Continue with symptomatic treatment. Resume home medication. Monitor labs and vitals. DVT and GI prophylaxis. Further recommendations as per clinical course of the patient DVT prophylaxis: Aspirin and Plavix GI Prophylaxis: Pepcid Prognosis is guarded
[2023-04-26 11:41] LABS: Glucose,Whole Blood 113 mg/dL (70-110)
--- NOTE | 2023-04-26 12:21 | P.PN ---
Subjective Progress Note Date: 04/26/23 Principal diagnosis: Cardiopulmonary arrest. Pulmonary consult dated 04/25/2023. 82-year-old male seen in the emergency room, after having an yeo-xx-ggmeuwlc cardiac arrest. The patient apparently had a choking episode. Subsequent to that, the patient apparently went into cardiac arrest. EMS arrived, and started CPR, and the patient was found to have intrinsic either fibrillation, and was defibrillated back into sinus rhythm. In the emergency room, he was intubated by the ER physician, Dr. Vargas. She call me on the phone to give me report. The patient went to the catheterization laboratory, and had a stent placed in the LAD. The patient was admitted back to the intensive care unit. The patient had a downtime of about 12-15 minutes according to the ER physician. The patient apparently is an 82-year-old male, who does not have any major medical problems, and does not see a physician on a regular basis. I was told he takes no medications on a regular basis. The patient is currently seen in the ICU, and room 257 the patient is currently on the ventilator, settings, volume assist control, rate 18, tidal volume 450, FiO2 100%, and PEEP of 5. A blood gas is not yet been done. Endotracheal tube is too far down the trachea, and was pulled back by respiratory. The patient's currently on propofol at 50 mcg/kg/m. I have ordered a blood gas. I will also order some Dilaudid 1 mg every 1-2 hours as needed, and some lactated Ringer's at 75 mL an hour. White count 14.4, with a normal hemoglobin, hematocrit, and platelet count. Coagulation studies are normal. Sodium 139, potassium 3.7, chlorides 107, CO2 17, anion gap 15, BUN/creatinine were 18 and 1.33. AST is 216, ALT is 149. Glucose 209. Chest x-ray does not show an acute process. Endotracheal tube was at the tip of the kaylyn. It was pulled back by respiratory. EKG shows some significant ST changes, and 1, and aVL. Progress note dated 04/26/2023. 82-year-old male who was initially seen in consultation for a bak-lt-lrrmihbb cardiac arrest. The patient initially had a choking episode, and subsequently developed ventricular fibrillation, requiring defibrillation. The patient had about a 15 minute downtime. The patient came to the hospital, went to the catheterization laboratory, and had a stent placed in his LAD. Currently, he remains on mechanical ventilator. He is on assist control, rate 18, tidal volume 450, FiO2 50%, and PEEP of 8. Blood gases show pO2 112, pCO2 44, pH is 7.33. The patient's on propofol at 25 mcg/kg/m, and lactated Ringer's at 75 mL an hour. Norepinephrine has been weaned off. The patient does not have any tube feedings. Today, he'll get a daily interruption of sedation and a spontaneous breathing trial with pressure support of 8 and a CPAP of 5. White count 22.3, hemoglobin 14.2, hematocrit 43, and platelet count normal. Sodium 139, potassium 4.6, chlorides 110, CO2 24, BUN 22, and creatinine 1.52. TSH is normal. Chest x-ray shows bibasilar infiltrates or atelectasis. Objective - Vital Signs Vital signs: Vital Signs Temp 98.1 F 04/26/23 08:00 Pulse 71 04/26/23 10:00 Resp 25 H 04/26/23 10:00 BP 117/67 04/26/23 10:00 Pulse Ox 95 04/26/23 10:00 FiO2 50 04/26/23 11:00 Intake & Output 04/25/23 04/26/23 04/26/23 18:59 06:59 18:59 Intake Total 050.221 1776.399 270.068 Output Total 1400 270 80 Balance -810.420 1482.399 190.068 Weight 81.647 kg 97.5 kg Intake: IV 120 2899 225 Lactated Ringers 1,000 ml 900 225 @ 75 mls/hr IV [id number] [facility] Rx#:[id number] Sodium Chloride 0.9% 1, 999 000 ml @ 999 mls/hr IV . Q1H1M [facility] Rx#:[id number] Sodium Chloride 0.9% 500 500 ml 500 ml @ 999 mls/hr IV .Q31M [facility] Rx#:[id number] Sodium Chloride 0.9% 500 500 ml 500 ml @ 999 mls/hr IV .Q31M [facility] Rx#:[id number] Intake, IV Titration 373.092 286.399 45.068 Amount Lactated Ringers 1,000 ml 305 @ 75 mls/hr IV .[id number] [facility] Rx#:[id number] propofoL 1,000 mg In 68.092 286.399 45.068 Empty Bag 1 bag @ 15 MCG/ KG/MIN 7.348 mls/hr IV . [id number] [facility] Rx#:[id number] Output: Urine 1400 270 80 Uretheral ([place]) 400 Other: Voiding Method Indwelling Catheter Indwelling Catheter Indwelling Catheter - Exam No acute distress, sedated, and intubated with an orally placed endotracheal tube. HEENT examination is grossly unremarkable. Neck supple. Full range of motion. No adenopathy thyromegaly or neck vein distention. Cardiovascular examination reveals regular rhythm rate. S1-S2 normal. No S3 or S4. No discernible murmur noted. Heart rate 71 bpm. Lungs reveal clear breath sounds. Breath sounds are equal bilaterally. No adventitious lung sounds including wheezes rhonchi or crackles. Saturations are 95 % on the ventilator. Abdomen soft without bowel sounds. Extremities are intact. No cyanosis clubbing or edema. Skin is without rash or lesion. Neurologic examination cannot be adequately assessed. - Labs CBC & Chem 7: 04/26/23 04:42 04/26/23 04:42 Labs: Abnormal Lab Results - Last 24 Hours (Table) 04/25/23 04/25/23 04/25/23 Range/Units 13:08 13:11 13:11 WBC 14.4 H (3.8-10.6) k/uL Neutrophils # 10.6 H (1.3-7.7) k/uL Lymphocytes # (1.0-4.8) k/uL ABG pH (7.35-7.45) ABG pO2 (83-108) mmHg ABG Total CO2 (19-24) mmol/L ABG O2 Saturation (94-97) % Chloride (98-107) mmol/L Carbon Dioxide 17 L (22-30) mmol/L BUN (9-20) mg/dL Creatinine 1.33 H (0.66-1.25) mg/dL Glucose 199 H (74-99) mg/dL POC Glucose (mg/dL) 153 H (70-110) mg/dL Calcium (8.4-10.2) mg/dL AST 216 H (17-59) U/L ALT 149 H (4-49) U/L 04/25/23 04/25/23 04/25/23 Range/Units 14:30 14:46 15:02 WBC (3.8-10.6) k/uL Neutrophils # (1.3-7.7) k/uL Lymphocytes # (1.0-4.8) k/uL ABG pH 7.32 L (7.35-7.45) ABG pO2 (83-108) mmHg ABG Total CO2 (19-24) mmol/L ABG O2 Saturation (94-97) % Chloride (98-107) mmol/L Carbon Dioxide (22-30) mmol/L BUN (9-20) mg/dL Creatinine (0.66-1.25) mg/dL Glucose (74-99) mg/dL POC Glucose (mg/dL) 209 H 129 H (70-110) mg/dL Calcium (8.4-10.2) mg/dL AST (17-59) U/L ALT (4-49) U/L 04/26/23 04/26/23 04/26/23 Range/Units 04:42 04:42 05:58 WBC 22.3 H (3.8-10.6) k/uL Neutrophils # 20.6 H (1.3-7.7) k/uL Lymphocytes # 0.9 L (1.0-4.8) k/uL ABG pH 7.33 L (7.35-7.45) ABG pO2 112 H (83-108) mmHg ABG Total CO2 25 H (19-24) mmol/L ABG O2 Saturation 97.7 H (94-97) % Chloride 110 H (98-107) mmol/L Carbon Dioxide (22-30) mmol/L BUN 22 H (9-20) mg/dL Creatinine 1.52 H (0.66-1.25) mg/dL Glucose 112 H (74-99) mg/dL POC Glucose (mg/dL) (70-110) mg/dL Calcium 7.5 L (8.4-10.2) mg/dL AST (17-59) U/L ALT (4-49) U/L 04/26/23 Range/Units 11:39 WBC (3.8-10.6) k/uL Neutrophils # (1.3-7.7) k/uL Lymphocytes # (1.0-4.8) k/uL ABG pH (7.35-7.45) ABG pO2 (83-108) mmHg ABG Total CO2 (19-24) mmol/L ABG O2 Saturation (94-97) % Chloride (98-107) mmol/L Carbon Dioxide (22-30) mmol/L BUN (9-20) mg/dL Creatinine (0.66-1.25) mg/dL Glucose (74-99) mg/dL POC Glucose (mg/dL) 113 H (70-110) mg/dL Calcium (8.4-10.2) mg/dL AST (17-59) U/L ALT (4-49) U/L Microbiology - Last 24 Hours (Table) 04/25/23 13:10 Gram Stain - Preliminary Sputum Assessment and Plan Assessment: Ybv-qh-kaybzzsi cardiopulmonary arrest, secondary to a choking episode, with an ST segment elevation myocardial infarction, status post stent placement in the LAD. Rule out anoxic brain injury. Acute hypoxemic respiratory failure, status post intubation and mechanical ventilation on 04/25/2023. No apparent past medical history. Plan: Plan dated 04/25/2023. The patient is evaluated in the intensive care unit, and labs, x-rays, and medications are reviewed. The patient had an qun-lw-bsylszad cardiopulmonary arrest, secondary to a choking episode. The patient had a downtime about 12-15 minutes, and was resuscitated by EMS, having received defibrillation, for the patient's ventricular fibrillation. The patient was intubated in the emergency room, by the ER physician. The patient went to the catheterization laboratory, and apparently had a plaque rupture, and had a stent placed in the LAD. The patient was seen in the intensive care unit, having been placed on the mechanical ventilator. Blood gases have been ordered. I've also ordered some lactated Ringer's at 75 mL an hour, as well as Dilaudid 1 mg every 1-2 hours when necessary. The patient's currently on propofol at 50 mcg/kg/m. The endotracheal tube was at the kay[place] and was pulled back by respiratory. Plan dated 04/26/2023. The patient will have a daily interruption of sedation, and a spontaneous breathing trial, on both pressure support and CPAP. The patient remains on propofol at 25 mcg/kg/m. Norepinephrine has been weaned off. The patient's getting lactated Ringer's at 75 mL an hour. Labs, x-rays, and medications have all been reviewed. The patient had a stent placed in his LAD. We will continue to follow the patient and make recommendations along the way. Were hoping that we can get the patient extubated today. Prognosis is guarded. Time with Patient: Greater than 30
--- NOTE | 2023-04-26 12:23 | CA ---
Transthoracic Echo Report Name: Bryan Salmon Age: 82 Gender: M : 1940 Exam Date: 04/26/2023 09:12 Exam Location: [facility] Ht (in): 70 Wt (lb): 180 Ordering Physician: Suhas Kiser MD ([id number]) Attending/Referring Phys: Computerized Mill Recorder Pancho Moon Procedure CPT: Indications: lvef Cardiac Hx: Technical Quality: Technically difficult study Contrast 1: Total Dose (mL): Contrast 2: Total Dose (mL): MEASUREMENTS (Male / Female) Normal Values 2D ECHO LV Diastolic Diameter PLAX 4.4 cm 4.2 - 5.9 / 3.9 - 5.3 cm LV Systolic Diameter PLAX 2.3 cm IVS Diastolic Thickness 1.1 cm 0.6 - 1.0 / 0.6 - 0.9 cm LVPW Diastolic Thickness 1.2 cm 0.6 - 1.0 / 0.6 - 0.9 cm LV Relative Wall Thickness 0.5 RV Internal Dim ED PLAX 2.8 cm LVOT Diameter 2.1 cm Aortic Root Diameter 3.2 cm LA Systolic Diameter LX 2.0 cm 3.0 - 4.0 / 2.7 - 3.8 cm LV Diastolic Volume MOD BP 70.8 cm??? 67 - 155 / 56 - 104 cm??? LV Systolic Volume MOD BP 34.5 cm??? 22 - 58 / 19 - 49 cm??? LV Ejection Fraction MOD BP 51.3 % >= 55 % LV Cardiac Index MOD BP 1331.3 cm???/min???m??? LV Diastolic Volume MOD 4C 78.5 cm??? LV Systolic Volume MOD 4C 33.6 cm??? LV Ejection Fraction MOD 4C 57.2 % LV Cardiac Index MOD 4C 1645.0 cm???/min???m??? LV Diastolic Length 4C 8.0 cm LV Systolic Length 4C 6.4 cm LV Diastolic Volume MOD 2C 60.3 cm??? LV Systolic Volume MOD 2C 35.4 cm??? LV Ejection Fraction MOD 2C 41.3 % LV Cardiac Index MOD 2C 912.0 cm???/min???m??? LV Diastolic Length 2C 7.5 cm LV Systolic Length 2C 6.5 cm LA Volume 39.1 cm??? 18 - 58 / 22 - 52 cm??? Ascending Aorta Diameter 3.2 cm DOPPLER AV Peak Velocity 131.9 cm/s AV Peak Gradient 7.0 mmHg AI Peak Velocity 183.4 cm/s AI Peak Gradient 13.4 mmHg AI Pressure Half Time 475.9 ms LVOT Peak Velocity 110.2 cm/s LVOT Peak Gradient 4.9 mmHg LVOT Velocity Time Integral 23.9 cm LVOT Stroke Volume 86.8 cm??? LVOT Stroke Volume Index 43.5 ml/m??? LVOT Cardiac Index 3182.2 cm???/min???m??? AV Area Cont Eq pk 3.0 cm??? MV Peak Velocity 84.6 cm/s MV Peak Gradient 2.9 mmHg MV Mean Velocity 39.6 cm/s MV Mean Gradient 0.8 mmHg MV Velocity Time Integral 25.6 cm Mitral E Point Velocity 60.7 cm/s Mitral A Point Velocity 71.9 cm/s Mitral E to A Ratio 0.8 MV Deceleration Time 158.3 ms TR Peak Velocity 219.0 cm/s TR Peak Gradient 19.2 mmHg Right Ventricular Systolic Press 24.2 mmHg PV Peak Velocity 106.0 cm/s PV Peak Gradient 4.5 mmHg FINDINGS Left Ventricle Normal LV size and wall thickness. Left ventricular ejection fraction is estimated at 55 %. Right Ventricle Normal right ventricular size. RVSP= 21mmHg. Right Atrium Normal right atrial size. Left Atrium Normal left atrial size. Mitral Valve Structurally normal mitral valve. No mitral regurgitation. No mitral stenosis. Aortic Valve Trileaflet aortic valve. Mild AI. Tricuspid Valve Structurally normal tricuspid valve. Trace TR. Pulmonic Valve Pulmonic valve not well visualized. Mild PI. Pericardium Normal pericardium. Aorta Normal size aortic root and proximal ascending aorta. CONCLUSIONS Normal LV size and systolic function. Mild aortic valve sclerosis and mitral annular calcification. Mild aortic insufficiency. No pericardial effusion. No significant pulmonary hypertension. Previewed by: Dr. Bigg Felix MD (Electronically Signed) Final Date: 26 April 2023 12:22
[2023-04-26 16:48] LABS: Chol/HDL Ratio 3.21 Ratio; LDL Cholesterol,Calculated 91.2 mg/dL (0.0-131.0); VLDL Calculation 17.58 mg/dL (5.00-40.00)
--- NOTE | 2023-04-26 16:48 | CT ---
EXAMINATION TYPE: CT brain wo con DATE OF EXAM: 04/26/2023 COMPARISON: None INDICATION: Facial droop DLP: 1248.4 mGycm, Automated exposure control for dose reduction was used. CONTRAST: None CT of the brain is performed utilizing 3 mm thick sections through the posterior fossa and 3 mm thick sections through the remaining calvarium. Study is performed within 24 hours of arrival to the hosp ital. No abnormal hyperdensity is present to suggest an acute intracranial hemorrhage. No mass lesion is evident. No acute infarcts are evident. Periventricular white matter hypodensity is present, likely on the bas is of chronic white matter ischemic changes. Ventricles and sulci are somewhat prominent for the patient age. Paranasal sinuses and mastoid air cells within the gclhi-hj-srww are clear. IMPRESSION: 1. Atrophy with chronic appearing periventricular white matter ischemic changes. Follow-up MRI can be performed as clinically indicated.
[2023-04-26 17:25] LABS: Glucose,Whole Blood 112 mg/dL (70-110)
--- NOTE | 2023-04-26 19:00 | CT ---
EXAMINATION TYPE: CT angio head neck CT DLP: 628.9 mGycm, Automated exposure control for dose reduction was used. DATE OF EXAM: 04/26/2023 6:39 PM COMPARISON: CT brain same day. CLINICAL INDICATION:Male, 82 years old with history of stroke. right facial droop and dysarthria, str parker. right facial droop and dysarthria TECHNIQUE: Axially acquired helical CT angiogram of the head and neck was obtained with contrast. Axi al images are supplemented with 3D reconstructions which [facility] NASCET criteria used. Contrast used:65ml mL of Isovue 370 with IV Contrast, Oral contrast used: None. FINDINGS: CTA HEAD: No evidence of acute intracranial hemorrhage, mass effect, or midline shift. The ventricles, sulci, a nd cisterns are unremarkable. Atherosclerotic sclerosis of the carotid siphons without hemodynamicall y significant stenosis. The visualized portions of the internal carotid arteries, middle cerebral arteries, anterior cerebral arteries, and posterior cerebral arteries are patent. The basilar and vertebral arteries are patent. There is dominant right and diminutive left vertebral artery. The left vertebral artery appears to terminate as a posterior inferior cerebellar artery. CTA NECK: Right Carotid System: The common carotid and external carotid arteries are patent. There is less than 25% stenosis at the c arotid bifurcation secondary to calcified/noncalcified plaque. The rest of the internal carotid arter y is patent. Left Carotid System: The common carotid and external carotid arteries are patent. There is less than 25% stenosis at the c arotid bifurcation secondary to calcified/noncalcified plaque. The rest of the internal carotid arter y is patent. Vertebral arteries are patent without evidence hemodynamically significant stenosis. There is a three-vessel aortic arch. The origins of the great vessels are patent. No evidence of hemo dynamically significant stenosis. Pulmonary vascular congestion in the lung apices. The heart appears mildly enlarged for size. IMPRESSION: 1. No evidence of dissection of the cervical internal carotid arteries or vertebral arteries or any e vidence of significant stenosis at the carotid bifurcations. 2. No evidence of intracranial high-grade stenosis or intracranial aneurysm. 3. Pulmonary vascular congestion.
[2023-04-26] MEDS: HEPARIN SODIUM,PORCINE 5,000 UNIT/ML 1 ML VIAL SQ SCH (20:04)
--- NOTE | 2023-04-26 20:48 | US ---
EXAMINATION TYPE: US carotid duplex BILAT DATE OF EXAM: 04/26/2023 COMPARISON: CTA: Today CLINICAL INDICATION: Male, 82 years old with history of stroke; stroke TECHNIQUE: Carotid duplex ultrasound examination. Indirect Doppler criteria was utilized. FINDINGS: EXAM MEASUREMENTS: RIGHT: Peak Systolic Velocity (PSV) cm/sec ----- Right CCA: 77.4 ----- Right ICA: 91.8 ----- Right ECA: 147.6 ICA/CCA ratio: 1.2 RIGHT: End Diastole cm/sec ----- Right CCA: 14.4 ----- Right ICA: 21.9 ----- Right ECA: 0.0 LEFT: Peak Systolic Velocity (PSV) cm/sec ----- Left CCA: 77.4 ----- Left ICA: 74.1 ----- Left ECA: 112.9 ICA/CCA ratio: 1.0 LEFT: End Diastole cm/sec ----- Left CCA: 19.2 ----- Left ICA: 16.0 ----- Left ECA: 0.0 VERTEBRALS (direction of flow): Right Vertebral: Antegrade Left Vertebral: Not visualized Rhythm: Normal CATERING COORDINATOR NOTES: Mild plaque seen in bilateral bulbs. IMPRESSION: Less than 50% stenosis of the bilateral carotid bifurcations. Criteria for Assigning % of Stenosis / Diameter reduction (Estimation based on the indirect measurements of the internal carotid artery velocities (ICA PSV). 1. Normal (no stenosis)=ICA PSV < 125 cm/s: ratio < 2.0: ICA EDV<40 cm/s. 2. Less than 50% stenosis=ICA PSV < 125 cm/s: ratio < 2.0: ICA EDV<40 cm/s. 3. 50 to 69% stenosis=ICA PSV of 125 to 230 cm/s: ration 2.0 ? 4.0: ICA EDV 40-100 cm/s. 4. Greater than 70% stenosis to near occlusion= ICA PSV > 230 cm/s: ratio > 4.0: ICA EDV > 100 cm/s. 5. Near occlusion= ICA PSV velocities may be low or undetectable: variable ratio and ICA EDV. 6. Total occlusion=unable to detect flow.
[2023-04-26] MEDS: ATORVASTATIN 80 MG TAB PO SCH (22:10)
[2023-04-26 23:59] LABS: Glucose,Whole Blood 101 mg/dL (70-110)
[2023-04-27 05:00] LABS: African American GFR (CKD) 74 (>60 ml/min/1.73 sqM); Anion Gap 4 mmol/L; Blood Urea Nitrogen 21 mg/dL (9-20); Calcium 7.8 mg/dL (8.4-10.2); Carbon Dioxide 23 mmol/L (22-30); Chloride 111 mmol/L (98-107); Glucose 106 mg/dL (74-99); Non-African American GFR(CKD) 64 (>60 ml/min/1.73 sqM); Sodium 138 mmol/L (137-145)
[2023-04-27 05:27] LABS: Basophils % (A) 0 %; Eosinophils # (A) 0.1 k/uL (0-0.7); Eosinophils % (A) 1 %; HCT 39.5 % (39.0-53.0); HGB 13.3 gm/dL (13.0-17.5); Lymphocytes # (A) 0.6 k/uL (1.0-4.8); Lymphocytes % (A) 5 %; MCH 31.7 pg (25.0-35.0); MCHC 33.8 g/dL (31.0-37.0); MCV 93.9 fL (80.0-100.0); Mean Platelet Volume 9.3; Monocytes # (A) 0.5 k/uL (0-1.0); Monocytes % (A) 4 %; Neutrophils % (A) 90 %; Platelet Count 136 k/uL (150-450); WBC 13.4 k/uL (3.8-10.6)
[2023-04-27] MEDS: LACTATED RINGERS 1,000 ML IV SCH ×2 (06:00→20:12)
[2023-04-27] MEDS: POTASSIUM CHLORIDE 10 MEQ in WATER FOR INJECTION 1 100ML.BAG IVPB SCH ×2 (06:00→09:11)
[2023-04-27 06:11] LABS: Glucose,Whole Blood 103 mg/dL (70-110)
[2023-04-27 06:48] LABS: Glucose,Whole Blood 113 mg/dL (70-110)
[2023-04-27] MEDS: CHLORHEXIDINE GLUCONATE 15 ML CUP MUCOUS MEM SCH ×2 (09:10→20:04)
[2023-04-27] MEDS: NOREPINEPHRINE 4 MG in SODIUM CHLORIDE 0.9% 250 ML IV SCH (09:10)
[2023-04-27] MEDS: FAMOTIDINE 20 MG/2 ML VIAL IV SCH (09:10)
[2023-04-27] MEDS: HEPARIN SODIUM,PORCINE 5,000 UNIT/ML 1 ML VIAL SQ SCH ×2 (09:10→20:12)
[2023-04-27] MEDS: METOPROLOL TARTRATE 25 MG TAB PO SCH (09:42)
--- NOTE | 2023-04-27 09:51 | P.PN ---
Subjective Progress Note Date: 04/27/23 The patient is an 82-year-old male who suffered a V. fib arrest at home after a choking episode. Approximate downtime 15 minutes according to EMS. Patient was intubated in the emergency room. Initial EKG showed sinus tachycardia with ST elevation in leads 1 and aVL and inferior changes and to 3 and aVF. He was ruled in as an ST elevated myocardial infarction and therefore underwent coronary angiogram with Dr. Kiser. He was found to have a critical lesion in the mid LAD with thrombus, otherwise mild disease in the left circumflex and the RCA. Successful stenting was performed and he was transferred to the ICU for supportive management. The patient was extubated on 04/26/2023. Postextubation, code Stroke was notified for new right facial droop and garbled speech. This is a new finding for the patient. Echocardiogram reveals normal LV function with no significant valvular abnormalities. Carotid Doppler shows no significant disease. No infarcts noted on CT of the brain. The patient was interviewed and examined sitting up on the side of the bed. He denies any chest pain or pressure. No difficulty breathing. He is a little disoriented and off balance. GENERAL: Well-appearing, well-nourished and in no acute distress. NECK: Supple without JVD or thyromegaly. LUNGS: Breath sounds are coarse to auscultation bilaterally. Respiration equal and unlabored. Rhonchi throughout HEART: Regular rate and rhythm without murmurs, rubs or gallops. S1 and S2 heard. EXTREMITIES: Normal range of motion, no edema. No clubbing or cyanosis. Peripheral pulses intact and strong. TELEMETRY: Sinus rhythm overnight LABS: WBC 13.4, hemoglobin 13.3, hematocrit 39.5, platelet 136, sodium 138, potassium 4.0, BUN 21, creatinine 1.09, triglycerides 87, LDL 91, HDL 49, hemoglobin A1c 5.6 IMPRESSION: Acute ST elevated myocardial infarction Status post stenting of the mid LAD Ventricular fibrillation cardiac arrest at home, approximate downtime 15 minutes Possible TIA PLAN: Aggressive pulmonary hygiene Continue with neurological evaluation for possible TIA Further recommendations based on clinical course I am dictating on behalf of Dr Anselmo Dean's history/physical and assessment/plan. Objective - Vital Signs Vital signs: Vital Signs Temp 99.7 F H 04/27/23 04:00 Pulse 75 04/27/23 07:00 Resp 25 H 04/27/23 07:00 BP 144/80 04/27/23 07:00 Pulse Ox 93 L 04/27/23 07:00 FiO2 50 04/26/23 12:00 Intake & Output 04/26/23 04/27/23 04/27/23 18:59 06:59 18:59 Intake Total 870.068 900 Output Total 330 635 Balance 540.068 265 Weight 94 kg Intake: IV 825 900 Lactated Ringers 1,000 ml 825 900 @ 75 mls/hr IV .[id number] [facility] Rx#:[id number] Intake, IV Titration 45.068 Amount propofoL 1,000 mg In 45.068 Empty Bag 1 bag @ 15 MCG/ KG/MIN 7.348 mls/hr IV . [id number] [facility] Rx#:[id number] Output: Urine 330 635 Other: Voiding Method Indwelling Catheter Indwelling Catheter - Labs CBC & Chem 7: 04/27/23 04:09 04/27/23 04:09 Labs: Abnormal Lab Results - Last 24 Hours (Table) 04/26/23 04/26/23 04/27/23 Range/Units 11:39 17:24 04:09 WBC 13.4 H (3.8-10.6) k/uL RBC 4.20 L (4.30-5.90) m/uL Plt Count 136 L (150-450) k/uL Neutrophils # 12.0 H (1.3-7.7) k/uL Lymphocytes # 0.6 L (1.0-4.8) k/uL Chloride (98-107) mmol/L BUN (9-20) mg/dL Glucose (74-99) mg/dL POC Glucose (mg/dL) 113 H 112 H (70-110) mg/dL Calcium (8.4-10.2) mg/dL 04/27/23 04/27/23 Range/Units 04:09 06:46 WBC (3.8-10.6) k/uL RBC (4.30-5.90) m/uL Plt Count (150-450) k/uL Neutrophils # (1.3-7.7) k/uL Lymphocytes # (1.0-4.8) k/uL Chloride 111 H (98-107) mmol/L BUN 21 H (9-20) mg/dL Glucose 106 H (74-99) mg/dL POC Glucose (mg/dL) 113 H (70-110) mg/dL Calcium 7.8 L (8.4-10.2) mg/dL Microbiology - Last 24 Hours (Table) 04/25/23 13:10 Gram Stain - Preliminary Sputum Sputum Culture - Preliminary
--- NOTE | 2023-04-27 12:04 | P.CNNES ---
History of Present Illness Consult date: 04/27/23 Requesting physician: James Ramírez Reason for Consult: right facial droop History of Present Illness: This is an 82-year-old gentleman who had onset of the hospital cardiopulmonary arrest and yesterday had right facial droop yesterday. The history is obtained from the patient nurse and the the medical record. It seems that the patient presented to the hospital because of the out of the hospital cardiopulmonary arrest. Apparently he had a choking episode and then went into cardiac arrest so Cipro had to be done and according to patient nurse he was in V. fib and was shocked. He went for cardiac cath and had a stent on the LAD. During this hospital stay the patient was intubated and according the patient nurse she was extubated around 11 AM on 04/26/2023 and she noticed right facial droop with dysarthria around 12 PM and she was unsure if he had this upon extubation or prior. According to the nurse is right facial droop is better today compared to yesterday but continues to have facial droop and dysarthria. CT of the head and CT angiography of the head and neck was completed yesterday and there is no acute ischemia or any significant stenosis. No IV TPA since unknown last normal and the risk outweighed the benefit. Some other workup during this hospital visit consisted of: Lipid panel is triglyceride of 87, cholesterol is 158, LDL of 91 and HDL of 49. Hemoglobin A1c is 5.[address] of the head is reported as atrophy with chronic appearing periventricular white matter ischemic changes. CT angiography of the head and neck was reported as no evidence of dissection of the cervical internal carotid artery or vertebral artery or any evidence of significant stenosis at the carotid bifurcation. No evidence of intracranial high-grade stenosis or intracranial aneurysm. Pulmonary vascular congestion. Carotid duplex is reported as less than 50% stenosis of bilateral carotid bifurcation. 2-D echo was reported as normal left ventricular size and systolic function. Mild aortic valve sclerosis and mitral annular calcification. Mild aortic insufficiency. No pericardial effusion. No significant pulmonary hypertension. Review of Systems The pertinent positive and negative as per HPI. Past Medical History Past Medical History: No Reported History History of Any Multi-Drug Resistant Organisms: None Reported Past Surgical History: No Surgical Hx Reported Past Psychological History: No Psychological Hx Reported Smoking Status: Never smoker Past Alcohol Use History: None Reported Past Drug Use History: None Reported Medications and Allergies Home Medications Medication Instructions Recorded Confirmed Type Cetirizine HCl [Zyrtec] 10 mg PO DAILY 04/25/23 04/25/23 History Allergies Allergy/AdvReac Type Severity Reaction Status Date / Time No Known Allergies Allergy Verified 04/25/23 16:17 Physical Examination - Vital Signs Vital Signs: Vital Signs Temp Pulse Resp BP Pulse Ox FiO2 04/27/23 08:00 98.6 F 79 25 H 131/71 94 L 04/27/23 07:00 75 25 H 144/80 93 L 04/27/23 06:00 80 16 135/71 93 L 04/27/23 05:00 82 20 132/71 94 L 04/27/23 04:00 99.7 F H 81 10 L 124/62 93 L 04/27/23 03:00 81 21 136/74 92 L 04/27/23 02:00 73 22 127/65 95 04/27/23 01:00 76 25 H 122/63 94 L 04/27/23 00:00 99 F 77 23 130/66 94 L 04/26/23 23:00 76 16 121/67 95 04/26/23 22:00 75 25 H 124/66 96 04/26/23 21:00 77 10 L 130/65 94 L 04/26/23 20:00 98.6 F 78 20 131/66 96 04/26/23 19:00 76 18 130/66 93 L 04/26/23 18:00 123/72 04/26/23 17:00 21 129/79 94 L 04/26/23 16:00 97.4 F L 75 24 125/65 94 L 04/26/23 15:00 14 125/69 96 04/26/23 14:00 80 24 118/67 94 L 04/26/23 13:00 79 23 124/77 97 04/26/23 12:00 98.2 F 69 19 126/71 96 50 Intake and Output 04/26/23 04/27/23 04/27/23 22:59 06:59 14:59 Intake Total 525 675 0 Output Total 320 440 60 Balance 205 235 -60 Intake: IV 525 675 0 Lactated Ringers 1,000 ml 525 675 0 @ 75 mls/hr IV .[id number] Rx#:[id number] Output: Urine 320 440 60 Other: Voiding Method Indwelling Catheter Indwelling Catheter Indwelling Catheter Weight 94 kg GENERAL: The patient is sitting in a recliner chair and is not in acute distress. NEUROLOGICAL: Higher mental function: The patient is awake, alert, oriented to self, he stated he was in the hospital. He stated the month is July and year is 2023. Patient is following commands. No aphasia and no neglect. Cranial nerves: The pupils are round, equal and reactive to light. Visual han are full to confrontation throughout. Extraocular movement is intact no nystagmus is noted. Facial sensation is normal to touch throughout. Mild right lower facial droop. Hearing is moderately to severely decreased bilaterally to hand rub. Tongue is midline and moved [id number] without any difficulty. Mild to moderate dysarthria. Shoulder shrug is normal bilaterally. Motor: The strength is right upper extremity is 4+. Otherwise 5 over 5 throughout. Normal tone and bulk. Cerebellum: Normal finger to nose bilaterally. Sensation: Sensation is normal to touch throughout. Reflexes (right/left): 1+ throughout Plantars are mute bilaterally. Results - Laboratory Findings CBC and BMP: 04/27/23 04:09 04/27/23 04:09 Abnormal Lab Findings: Abnormal Labs 04/25/23 04/25/23 04/25/23 13:08 13:11 13:11 WBC 14.4 H RBC Plt Count Neutrophils # 10.6 H Lymphocytes # ABG pH ABG pO2 ABG Total CO2 ABG O2 Saturation Chloride Carbon Dioxide 17 L BUN Creatinine 1.33 H Glucose 199 H POC Glucose (mg/dL) 153 H Calcium AST 216 H ALT 149 H 04/25/23 04/25/23 04/25/23 14:30 14:46 15:02 WBC RBC Plt Count Neutrophils # Lymphocytes # ABG pH 7.32 L ABG pO2 ABG Total CO2 ABG O2 Saturation Chloride Carbon Dioxide BUN Creatinine Glucose POC Glucose (mg/dL) 209 H 129 H Calcium AST ALT 04/26/23 04/26/23 04/26/23 04:42 04:42 05:58 WBC 22.3 H RBC Plt Count Neutrophils # 20.6 H Lymphocytes # 0.9 L ABG pH 7.33 L ABG pO2 112 H ABG Total CO2 25 H ABG O2 Saturation 97.7 H Chloride 110 H Carbon Dioxide BUN 22 H Creatinine 1.52 H Glucose 112 H POC Glucose (mg/dL) Calcium 7.5 L AST ALT 04/26/23 04/26/23 04/27/23 11:39 17:24 04:09 WBC 13.4 H RBC 4.20 L Plt Count 136 L Neutrophils # 12.0 H Lymphocytes # 0.6 L ABG pH ABG pO2 ABG Total CO2 ABG O2 Saturation Chloride Carbon Dioxide BUN Creatinine Glucose POC Glucose (mg/dL) 113 H 112 H Calcium AST ALT 04/27/23 04/27/23 04:09 06:46 WBC RBC Plt Count Neutrophils # Lymphocytes # ABG pH ABG pO2 ABG Total CO2 ABG O2 Saturation Chloride 111 H Carbon Dioxide BUN 21 H Creatinine Glucose 106 H POC Glucose (mg/dL) 113 H Calcium 7.8 L AST ALT Assessment and Plan Assessment: This is a 82-year-old gentleman who had a out of hospital cardiopulmonary arrest secondary due to choking and yesterday was extubated and he was noted to have right facial weakness and dysarthria. Unknown last normal. Acute right facial weakness with dysarthria and on examination he had right upper extremity weakness likely due to acute ischemic stroke. No IV TPA since unknown last normal and the risk outweighed the benefit Out of the hospital cardiopulmonary arrest secondary due to choking episode with ST segment elevation myocardial infarction status post stent in the LAD Plan: MRI of the brain is ordered and is pending Patient was started on aspirin 81 mg and Plavix 75 mg as well as Lipitor 80 mg daily at bedtime cardiology team. Continue neuro checks Cardiac monitoring PT OT and PSYCHIATRIC NURSE are consulted Cardiology is on board We'll defer the rest of the medical management to the primary team and other specialists DVT prophylaxis I started the patient on subq heparin 5000U every 12 hours. The plan was discussed with the patient and his nurse Thank for the consultation Time with Patient: Greater than 30
[2023-04-27 12:23] LABS: Glucose,Whole Blood 97 mg/dL (70-110)
[2023-04-27] MEDS: ASPIRIN 81 MG PO SCH (12:24)
[2023-04-27] MEDS: CLOPIDOGREL 75 MG TAB PO SCH (12:24)
--- NOTE | 2023-04-27 13:08 | P.PN ---
Subjective Progress Note Date: 04/27/23 Principal diagnosis: Cardiopulmonary arrest. Pulmonary consult dated 04/25/2023. 82-year-old male seen in the emergency room, after having an ksi-go-igpuoyor cardiac arrest. The patient apparently had a choking episode. Subsequent to that, the patient apparently went into cardiac arrest. EMS arrived, and started CPR, and the patient was found to have intrinsic either fibrillation, and was defibrillated back into sinus rhythm. In the emergency room, he was intubated by the ER physician, Dr. Vargas. She call me on the phone to give me report. The patient went to the catheterization laboratory, and had a stent placed in the LAD. The patient was admitted back to the intensive care unit. The patient had a downtime of about 12-15 minutes according to the ER physician. The patient apparently is an 82-year-old male, who does not have any major medical problems, and does not see a physician on a regular basis. I was told he takes no medications on a regular basis. The patient is currently seen in the ICU, and room 257 the patient is currently on the ventilator, settings, volume assist control, rate 18, tidal volume 450, FiO2 100%, and PEEP of 5. A blood gas is not yet been done. Endotracheal tube is too far down the trachea, and was pulled back by respiratory. The patient's currently on propofol at 50 mcg/kg/m. I have ordered a blood gas. I will also order some Dilaudid 1 mg every 1-2 hours as needed, and some lactated Ringer's at 75 mL an hour. White count 14.4, with a normal hemoglobin, hematocrit, and platelet count. Coagulation studies are normal. Sodium 139, potassium 3.7, chlorides 107, CO2 17, anion gap 15, BUN/creatinine were 18 and 1.33. AST is 216, ALT is 149. Glucose 209. Chest x-ray does not show an acute process. Endotracheal tube was at the tip of the kaylyn. It was pulled back by respiratory. EKG shows some significant ST changes, and 1, and aVL. Progress note dated 04/26/2023. 82-year-old male who was initially seen in consultation for a [id number] cardiac arrest. The patient initially had a choking episode, and subsequently developed ventricular fibrillation, requiring defibrillation. The patient had about a 15 minute downtime. The patient came to the hospital, went to the catheterization laboratory, and had a stent placed in his LAD. Currently, he remains on mechanical ventilator. He is on assist control, rate 18, tidal volume 450, FiO2 50%, and PEEP of 8. Blood gases show pO2 112, pCO2 44, pH is 7.33. The patient's on propofol at 25 mcg/kg/m, and lactated Ringer's at 75 mL an hour. Norepinephrine has been weaned off. The patient does not have any tube feedings. Today, he'll get a daily interruption of sedation and a spontaneous breathing trial with pressure support of 8 and a CPAP of 5. White count 22.3, hemoglobin 14.2, hematocrit 43, and platelet count normal. Sodium 139, potassium 4.6, chlorides 110, CO2 24, BUN 22, and creatinine 1.52. TSH is normal. Chest x-ray shows bibasilar infiltrates or atelectasis. Progress note dated 04/27/2023. 82-year-old male who was initially seen in consultation for a [id number]-[id number]-[id number] cardiac arrest. The patient initially had a choking episode, and subsequently developed ventricular fibrillation, requiring defibrillation. The patient had about a 15 minute downtime. The patient came to the hospital, went to the catheterization laboratory, and had a stent placed in his LAD. Today, April 26, the patient was extubated. He is currently on 4 L of oxygen. He is getting lactated Ringer's at 75 mL an hour. After the extubation, the nurse noted that he had a right facial droop, and the patient had a computed tomography scan of the brain which was negative, and CT angiography which was also negative. Neurology was consulted. White count 13.4, hemoglobin 13.3, hematocrit 39.5, and platelet count 136,000. Sodium 138, potassium 4, chlorides 111, CO2 23, BUN 21, and creatinine 1.09. Objective - Vital Signs Vital signs: Vital Signs Temp 98.6 F 04/27/23 12:00 Pulse 83 04/27/23 12:00 Resp 11 L 04/27/23 12:00 BP 150/90 04/27/23 12:00 Pulse Ox 96 04/27/23 12:00 FiO2 50 04/26/23 12:00 Intake & Output 04/26/23 04/27/23 04/27/23 18:59 06:59 18:59 Intake Total 870.068 900 0 Output Total 330 635 60 Balance 540.068 265 -60 Weight 94 kg 94 kg Intake: IV 825 900 0 Lactated Ringers 1,000 ml 825 900 0 @ 75 mls/hr IV .[id number] [facility] Rx#:[id number] Intake, IV Titration 45.068 Amount propofoL 1,000 mg In 45.068 Empty Bag 1 bag @ 15 MCG/ KG/MIN 7.348 mls/hr IV . [id number] [facility] Rx#:[id number] Output: Urine 330 635 60 Other: Voiding Method Indwelling Catheter Indwelling Catheter Indwelling Catheter - Exam No acute distress, currently on 4 L of oxygen. Awake and alert. HEENT examination is grossly unremarkable. Neck supple. Full range of motion. No adenopathy thyromegaly or neck vein distention. Cardiovascular examination reveals regular rhythm rate. S1-S2 normal. No S3 or S4. No discernible murmur noted. Heart rate 83 bpm. Lungs reveal clear breath sounds. Breath sounds are equal bilaterally. No adventitious lung sounds including wheezes rhonchi or crackles. Abdomen soft without bowel sounds. Extremities are intact. No cyanosis clubbing or edema. Skin is without rash or lesion. Neurologic examination continues to revealed a mild right facial droop. The patient's awake and alert. - Labs CBC & Chem 7: 04/27/23 04:09 04/27/23 04:09 Labs: Abnormal Lab Results - Last 24 Hours (Table) 04/26/23 04/27/23 04/27/23 Range/Units 17:24 04:09 04:09 WBC 13.4 H (3.8-10.6) k/uL RBC 4.20 L (4.30-5.90) m/uL Plt Count 136 L (150-450) k/uL Neutrophils # 12.0 H (1.3-7.7) k/uL Lymphocytes # 0.6 L (1.0-4.8) k/uL Chloride 111 H (98-107) mmol/L BUN 21 H (9-20) mg/dL Glucose 106 H (74-99) mg/dL POC Glucose (mg/dL) 112 H (70-110) mg/dL Calcium 7.8 L (8.4-10.2) mg/dL 04/27/23 Range/Units 06:46 WBC (3.8-10.6) k/uL RBC (4.30-5.90) m/uL Plt Count (150-450) k/uL Neutrophils # (1.3-7.7) k/uL Lymphocytes # (1.0-4.8) k/uL Chloride (98-107) mmol/L BUN (9-20) mg/dL Glucose (74-99) mg/dL POC Glucose (mg/dL) 113 H (70-110) mg/dL Calcium (8.4-10.2) mg/dL Microbiology - Last 24 Hours (Table) 04/25/23 13:10 Gram Stain - Final Sputum Sputum Culture - Final Assessment and Plan Assessment: Yja-ed-fhqiinlz cardiopulmonary arrest, secondary to a choking episode, with an ST segment elevation myocardial infarction, status post stent placement in the LAD. S/P extubation, 04/26/2023. Right facial droop, rule out CVA. Rule out anoxic brain injury. Acute hypoxemic respiratory failure, status post intubation and mechanical ventilation on 04/25/2023. No apparent past medical history. Plan: Plan dated 04/25/2023. The patient is evaluated in the intensive care unit, and labs, x-rays, and medications are reviewed. The patient had an ery-fe-didgfhks cardiopulmonary arrest, secondary to a choking episode. The patient had a downtime about 12-15 minutes, and was resuscitated by EMS, having received defibrillation, for the patient's ventricular fibrillation. The patient was intubated in the emergency room, by the ER physician. The patient went to the catheterization laboratory, and apparently had a plaque rupture, and had a stent placed in the LAD. The patient was seen in the intensive care unit, having been placed on the [facility] ventilator. Blood gases have been ordered. I've also ordered some lactated Ringer's at 75 mL an hour, as well as Dilaudid 1 mg every 1-2 hours when necessary. The patient's currently on propofol at 50 mcg/kg/m. The endotracheal tube was at the [place] and was pulled back by respiratory. Plan dated 04/26/2023. The patient will have a daily interruption of sedation, and a spontaneous breathing trial, on both pressure support and CPAP. The patient remains on propofol at 25 mcg/kg/m. Norepinephrine has been weaned off. The patient's getting lactated Ringer's at 75 mL an hour. Labs, x-rays, and medications have all been reviewed. The patient had a stent placed in his LAD. We will continue to follow the patient and make recommendations along the way. Were hoping that we can get the patient extubated today. Prognosis is guarded. Plan dated 04/27/2023. The patient will be seen by neurology. The patient appears to have a new right facial droop, which is improved, compared to yesterday. The patient's brain scan was negative. CT angiography was negative. The patient will likely need an MRI. Labs, x-rays, and medications are reviewed. Overall prognosis remains guarded. The patient remains on oxygen at 4 L. Lactated Ringer's is running at 75 mL an hour. Labs, x-rays, and medications are all reviewed. Time with Patient: Greater than 30
--- NOTE | 2023-04-27 19:23 | P.PN ---
Subjective This is a pleasant gentleman of 82 years old, unknown past medical history. Patient currently intubated and cannot provide information As per records patient was eating he started choking and then collapsed, EMS was called and he got a shock with return of the pulse area he was been back and hereafter emergency room where he got intubated. As per ER staff that downtown was about 15 minutes Currently blood pressure 162/113, he is tachycardic around 106. He has mild leukocytosis of 14.4, rest of CBC, INR is unremarkable. Creatinine 1.3 which he had it before, possible patient has chronic kidney disease Glucose 199, liver enzymes AST mildly elevated 216 and ALT 149. Bilirubin is 1.1. Troponin is -0.018. No acute cardiopulmonary process. Endotracheal tube at the tip of the kaylyn EKG was showing ST elevation SC of the lateral limits at I, aVL with reciprocal changes Patient was taken to the [facility] and he underwent emergent PCI to LAD 04/26/2023 Patient remains in the ICU intubated and sedated. This P Rubio 8 and FiO2 is 50% Has a Goodson catheter draining yellow brown urine. He is also on small dose of pressors with Levophed at 0.03. Labs showing worsening mild leukocytosis at 22.3, creatinine went up to 1.3 up to 1.5. ABG showing combine metabolic acidosis and respiratory acidosis however the respiratory company and looks a chronic and both are mild. Patient is also mildly tachypneic. He remains on dual antiplatelet therapy ASPIRIN 81 and Plavix 75 blade to per hour Patient currently on finger lactates, however he might benefit from sodium bicarb drip, we will defer that to pulmonary/critical care team. Normal 04/27/2023 Patient status post extubation, he is lethargic. He denies chest pain. He says breathing is okay no coughing Patient noticed by staff to have right facial droop and neurological workup was ordered. Evidence of right upper extremity weakness and dysarthria. CT of the brain and CT of the brain were both negative for acute process. Patient already on aspirin Plavix and Lipitor. But not to be a since unknown duration. Labs showing WBCs 13, creatinine 1.0 which is improvement Carotid Doppler less than 50% stenosis and ejection fraction about 55%. Vital stable and patient is afebrile Active Medications Generic Name Dose Route Start Last Admin Trade Name Freq PRN Reason Stop Dose Admin Al Hydroxide/Mg Hydroxide 30 ml 04/25/23 14:03 Mag Hydrox/Al Hydrox/Simeth 30 Ml Cup PO 05/25/23 14:04 Q4HR PRN Heartburn Aspirin 81 mg 04/26/23 09:00 04/27/23 12:24 Aspirin 81 Mg PO 05/26/23 09:01 81 mg DAILY SHANNA Administration Atorvastatin Calcium 80 mg 04/25/23 21:00 04/26/23 22:10 Atorvastatin 80 Mg Tab PO 05/25/23 21:01 Not Given HS SHANNA Atropine Sulfate 0.5 mg 04/25/23 14:03 Atropine Sulfate 0.1 Mg/Ml 10ml Syringe IV 05/25/23 14:04 ONCE PRN Symptomatic Bradycardia Chlorhexidine Gluconate 15 ml 04/25/23 21:00 04/27/23 09:10 Chlorhexidine Gluconate 15 Ml Cup MUCOUS MEM 15 ml BID SHANNA Administration Clopidogrel Bisulfate 75 mg 04/26/23 09:00 04/27/23 12:24 Clopidogrel 75 Mg Tab PO 05/26/23 09:01 75 mg DAILY SHANNA Administration Protocol Famotidine 20 mg 04/26/23 09:00 04/27/23 09:10 Famotidine 20 Mg/2 Ml Vial IV 20 mg DAILY SHANNA Administration Heparin Sodium (Porcine) 5,000 unit 04/26/23 21:00 04/27/23 09:10 Heparin Sodium,Porcine 5,000 Unit/Ml 1 Ml Vial SQ 5,000 unit Q12HR SHANNA Administration Hydromorphone HCl 1 mg 04/25/23 14:33 04/26/23 01:39 Hydromorphone 1 Mg/Ml 1 Ml Syringe IVP 1 mg Q2H PRN Administration Pain Propofol 1,000 mg/ IV Solution 100 mls @ 7.348 mls/hr 04/25/23 13:15 04/26/23 10:00 IV 15 mcg/kg/min .[id number] SHANNA 7.348 mls/hr Titration Protocol 15 MCG/KG/MIN Lactated Ringer's 1,000 mls @ 75 mls/hr 04/25/23 15:15 04/27/23 06:00 Lactated Ringers IV 75 mls/hr .[id number] SHANNA Administration Norepinephrine Bitartrate 4 mg 254 mls @ 11.144 mls/hr 04/26/23 06:45 04/27/23 09:10 / Sodium Chloride IV Not Given .[id number] SHANNA Protocol 0.03 MCG/KG/MIN Lisinopril 2.5 mg 04/26/23 09:00 04/27/23 12:24 Lisinopril 2.5 Mg Tab PO 05/26/23 09:01 2.5 mg DAILY SHANNA Administration Metoprolol Tartrate 50 mg 04/27/23 21:00 Metoprolol Tartrate 50 Mg Tab PO 05/25/23 21:01 BID SHANNA Miscellaneous Information 1 each 04/25/23 16:28 Magnesium Replacement Protocol 1 Each Misc MISCELLANE DAILY PRN Per Protocol Protocol Miscellaneous Information 1 each 04/25/23 16:28 Potassium Replacement Protocol 1 Each Misc MISCELLANE DAILY PRN Per Protocol Protocol Miscellaneous Information 1 each 04/26/23 06:10 Magnesium Replacement Protocol 1 Each Misc MISCELLANE DAILY PRN Per Protocol Protocol Naloxone HCl 0.2 mg 04/25/23 13:35 Naloxone 0.4 Mg/Ml 1 Ml Vial IV 05/25/23 13:36 Q2M PRN Opioid Reversal Naloxone HCl 0.2 mg 04/25/23 14:59 Naloxone 0.4 Mg/Ml 1 Ml Vial IV Q2M PRN Opioid Reversal Nitroglycerin 0.4 mg 04/25/23 14:03 Nitroglycerin Sl Tabs 0.4 Mg Tab SUBLINGUAL 05/25/23 14:04 Q5M PRN Chest Pain Objective - Vital Signs Vital signs: Vital Signs Temp 98.6 F 04/27/23 08:00 Pulse 79 04/27/23 08:00 Resp 25 H 04/27/23 08:00 BP 131/71 04/27/23 08:00 Pulse Ox 94 L 04/27/23 08:00 FiO2 50 04/26/23 12:00 Intake & Output 04/26/23 04/27/23 04/27/23 18:59 06:59 18:59 Intake Total 870.068 900 0 Output Total 330 635 60 Balance 540.068 265 -60 Weight 94 kg Intake: IV 825 900 0 Lactated Ringers 1,000 ml 825 900 0 @ 75 mls/hr IV .[id number] [facility] Rx#:[id number] Intake, IV Titration 45.068 Amount propofoL 1,000 mg In 45.068 Empty Bag 1 bag @ 15 MCG/ KG/MIN 7.348 mls/hr IV . [id number] [facility] Rx#:[id number] Output: Urine 330 635 60 Other: Voiding Method Indwelling Catheter Indwelling Catheter Indwelling Catheter - Exam --GENERAL: The patient is awake alert, follow command, has difficulty talking with low [place]. But answers appropriately HEENT: Pupils are round and equally reacting to light. EOMI. No scleral icterus. No conjunctival pallor. Normocephalic, atraumatic. No pharyngeal erythema. No thyromegaly. CARDIOVASCULAR: S1 and S2 present. No murmurs, rubs, or gallops. -PULMONARY: Chest is clear to auscultation, no wheezing , no crackles. Mildly tachypneic ABDOMEN: Soft, nontender, nondistended, normoactive bowel sounds. No palpable organomegaly. MUSCULOSKELETAL: No joint swelling or deformity. EXTREMITIES: No cyanosis, clubbing, or pedal edema. -NEUROLOGICAL: Dysarthria, or extremity weakness. Motor exam of the other extremities 5/5. Right facial droop. Sensation intact. Meningeal signs are absent SKIN: No rashes. no petechiae. - Labs CBC & Chem 7: 04/27/23 04:09 04/27/23 04:09 Labs: Abnormal Lab Results - Last 24 Hours (Table) 04/26/23 04/26/23 04/27/23 Range/Units 11:39 17:24 04:09 WBC 13.4 H (3.8-10.6) k/uL RBC 4.20 L (4.30-5.90) m/uL Plt Count 136 L (150-450) k/uL Neutrophils # 12.0 H (1.3-7.7) k/uL Lymphocytes # 0.6 L (1.0-4.8) k/uL Chloride (98-107) mmol/L BUN (9-20) mg/dL Glucose (74-99) mg/dL POC Glucose (mg/dL) 113 H 112 H (70-110) mg/dL Calcium (8.4-10.2) mg/dL 04/27/23 04/27/23 Range/Units 04:09 06:46 WBC (3.8-10.6) k/uL RBC (4.30-5.90) m/uL Plt Count (150-450) k/uL Neutrophils # (1.3-7.7) k/uL Lymphocytes # (1.0-4.8) k/uL Chloride 111 H (98-107) mmol/L BUN 21 H (9-20) mg/dL Glucose 106 H (74-99) mg/dL POC Glucose (mg/dL) 113 H (70-110) mg/dL Calcium 7.8 L (8.4-10.2) mg/dL Microbiology - Last 24 Hours (Table) 04/25/23 13:10 Gram Stain - Final Sputum Sputum Culture - Final Assessment and Plan Assessment: Cardiac arrest at home status post CPR and electric shock with return of circulation. [place] about 15 minutes Acute lateral STEMI status post emergent PCI to LAD Acute stroke is suspected with right upper extremity weakness, right facial droop and dysarthria Acute hypoxic respiratory failure, improved Mild combined metabolic acidosis which looks more acute and chronic respiratory acidosis. Improved Mild acute kidney injury with good urine output. Resolved Mild leukocytosis Mild transaminitis Possible chronic kidney disease Plan: With aspirin and Plavix and Lipitor neurologist on the case and MRI of the brain is ordered Pulmonary/critical care team with help with vent management Continue with dual antiplatelet therapy, currently on aspirin and Plavix Metoprolol Small dose lisinopril continue with IV fluids, currently on Ringer lactate. Monitor creatinine Labs and medication were reviewed.. Continue same treatment. Continue with symptomatic treatment. Resume home medication. Monitor labs and vitals. DVT and GI prophylaxis. Further recommendations as per clinical course of the patient DVT prophylaxis: Aspirin and Plavix GI Prophylaxis: Pepcid Prognosis is guarded
[2023-04-27] MEDS: ATORVASTATIN 80 MG TAB PO SCH (20:12)
[2023-04-27] MEDS: METOPROLOL TARTRATE 50 MG TAB PO SCH (20:13)
[2023-04-27 23:42] LABS: Glucose,Whole Blood 104 mg/dL (70-110)
--- NOTE | 2023-04-28 01:28 | CT ---
EXAM: CT Head Without Intravenous Contrast CLINICAL HISTORY: ITS.REASON CT Reason: Neuro status TECHNIQUE: Axial computed tomography images of the head/brain without intravenous contrast. CTDI is 49.2 mGy and DLP is 1173.4 mGy-cm. This CT exam was performed using one or more of the following dose reduction techniques: automated exposure control, adjustment of the mA and/or kV according to patient size, and/or use of iterative reconstruction technique. COMPARISON: No relevant prior studies available. FINDINGS: Brain: No hemorrhage, herniation, or mass effect. Chronic microvascular ischemic changes. Ventricles: No hydrocephalus. Age related cerebral volume loss. Bones/joints: Unremarkable. Soft tissues: Unremarkable. Sinuses: Unremarkable. Mastoid air cells: Clear. IMPRESSION: No acute hemorrhage, hydrocephalus, or mass effect.
[2023-04-28 05:33] LABS: Basophils % (A) 0 %; Eosinophils # (A) 0.1 k/uL (0-0.7); Eosinophils % (A) 1 %; HCT 38.1 % (39.0-53.0); HGB 12.6 gm/dL (13.0-17.5); Lymphocytes # (A) 0.7 k/uL (1.0-4.8); Lymphocytes % (A) 6 %; MCH 30.9 pg (25.0-35.0); MCHC 33.2 g/dL (31.0-37.0); MCV 93.1 fL (80.0-100.0); Monocytes # (A) 0.6 k/uL (0-1.0); Monocytes % (A) 5 %; Neutrophils # (A) 10.4 k/uL (1.3-7.7); Neutrophils % (A) 87 %; Platelet Count 158 k/uL (150-450); RDW 12.6 % (11.5-15.5); WBC 11.8 k/uL (3.8-10.6)
[2023-04-28 06:27] LABS: Glucose,Whole Blood 108 mg/dL (70-110)
[2023-04-28 06:47] LABS: African American GFR (CKD) 86 (>60 ml/min/1.73 sqM); Anion Gap 3 mmol/L; Blood Urea Nitrogen 21 mg/dL (9-20); Calcium 7.9 mg/dL (8.4-10.2); Carbon Dioxide 24 mmol/L (22-30); Chloride 109 mmol/L (98-107); Glucose 103 mg/dL (74-99); Non-African American GFR(CKD) 74 (>60 ml/min/1.73 sqM); Sodium 136 mmol/L (137-145)
[2023-04-28] MEDS: NOREPINEPHRINE 4 MG in SODIUM CHLORIDE 0.9% 250 ML IV SCH (07:26)
[2023-04-28] MEDS: METOPROLOL TARTRATE 50 MG TAB PO SCH ×2 (08:51→20:55)
[2023-04-28] MEDS: CLOPIDOGREL 75 MG TAB PO SCH (08:51)
[2023-04-28] MEDS: ASPIRIN 81 MG PO SCH (08:51)
[2023-04-28] MEDS: FAMOTIDINE 20 MG/2 ML VIAL IV SCH (08:52)
[2023-04-28] MEDS: lisinopriL 5 MG TAB PO SCH (08:52)
[2023-04-28] MEDS: HEPARIN SODIUM,PORCINE 5,000 UNIT/ML 1 ML VIAL SQ SCH ×2 (08:52→20:55)
--- NOTE | 2023-04-28 09:16 | XR ---
EXAMINATION TYPE: XR chest 1V portable DATE OF EXAM: 04/28/2023 Comparison: 04/26/2023 Clinical History: 82-year-old male increased oxygen demands Findings: Interval removal of ET tube and NG tube. Heart borderline in size. Interstitial opacities and perihil ar opacities have increased. Ongoing retrocardiac opacity. Impression: 1. Interval extubation and removal of NG tube. 2. Interval increase in diffuse interstitial and perihilar opacities. Correlate for developing inters titial pulmonary edema. 3. Ongoing retrocardiac/left basilar consolidation/atelectasis.
--- NOTE | 2023-04-28 09:39 | P.PN ---
Subjective Progress Note Date: 04/28/23 The patient is an 82-year-old male who suffered a V. fib arrest at home after a choking episode. Approximate downtime 15 minutes according to EMS. Patient was intubated in the emergency room. Initial EKG showed sinus tachycardia with ST elevation in leads 1 and aVL and inferior changes and to 3 and aVF. He was ruled in as an ST elevated myocardial infarction and therefore underwent coronary angiogram with Dr. Kiser. He was found to have a critical lesion in the mid LAD with thrombus, otherwise mild disease in the left circumflex and the RCA. Successful stenting was performed and he was transferred to the ICU for supportive management. The patient was extubated on 04/26/2023. Postextubation, code Stroke was notified for new right facial droop and garbled speech. This is a new finding for the patient. Echocardiogram reveals normal LV function with no significant valvular abnormalities. Carotid Doppler shows no significant disease. No infarcts noted on CT of the brain. MRI of the brain pending The patient was interviewed and examined resting in bed. He is more alert today. No chest pain or difficulty breathing GENERAL: Well-appearing, well-nourished and in no acute distress. NECK: Supple without JVD or thyromegaly. LUNGS: Breath sounds are coarse to auscultation bilaterally. Respiration equal and unlabored. HEART: Regular rate and rhythm without murmurs, rubs or gallops. S1 and S2 heard. EXTREMITIES: Normal range of motion, no edema. No clubbing or cyanosis. Peripheral pulses intact and strong. TELEMETRY: Sinus rhythm overnight LABS: WBC 11.8, hemoglobin 12.6, hematocrit 38.1, platelet 158, sodium 136, potassium 4.0, BUN 21, creatinine 0.97 IMPRESSION: Acute ST elevated myocardial infarction Status post stenting of the mid LAD Ventricular fibrillation cardiac arrest at home, approximate downtime 15 minutes Possible TIA Hypertension PLAN: Maximize lisinopril for blood pressure control Aggressive pulmonary hygiene Further recommendations based upon clinical course I am dictating on behalf of Dr Anselmo Dean's history/physical and assessment/plan. Objective - Vital Signs Vital signs: Vital Signs Temp 98.2 F 04/28/23 08:00 Pulse 71 04/28/23 08:00 Resp 24 04/28/23 08:00 BP 139/67 04/28/23 08:00 Pulse Ox 98 09/28/23 08:11 FiO2 50 04/26/23 12:00 Intake & Output 04/27/23 04/28/23 04/28/23 18:59 06:59 18:59 Intake Total 100 675 Output Total 360 220 Balance -260 455 Weight 94 kg 92.6 kg Intake: IV 100 675 Lactated Ringers 1,000 ml 100 675 @ 75 mls/hr IV .[id number] [facility] Rx#:[id number] Output: Urine 360 220 Other: Voiding Method Indwelling Catheter Indwelling Catheter Indwelling Catheter - Labs CBC & Chem 7: 04/28/23 05:21 04/28/23 05:21 Labs: Abnormal Lab Results - Last 24 Hours (Table) 04/28/23 04/28/23 Range/Units 05:21 05:21 WBC 11.8 H (3.8-10.6) k/uL RBC 4.10 L (4.30-5.90) m/uL Hgb 12.6 L (13.0-17.5) gm/dL Hct 38.1 L (39.0-53.0) % Neutrophils # 10.4 H (1.3-7.7) k/uL Lymphocytes # 0.7 L (1.0-4.8) k/uL Sodium 136 L (137-145) mmol/L Chloride 109 H (98-107) mmol/L BUN 21 H (9-20) mg/dL Glucose 103 H (74-99) mg/dL Calcium 7.9 L (8.4-10.2) mg/dL Microbiology - Last 24 Hours (Table) 04/25/23 13:10 Gram Stain - Final Sputum Sputum Culture - Final
[2023-04-28 11:49] LABS: Glucose,Whole Blood 162 mg/dL (70-110)
--- NOTE | 2023-04-28 11:54 | P.PN ---
Subjective Progress Note Date: 04/28/23 Principal diagnosis: Cardiopulmonary arrest. Pulmonary consult dated 04/25/2023. 82-year-old male seen in the emergency room, after having an xts-zx-ocwtmail cardiac arrest. The patient apparently had a choking episode. Subsequent to that, the patient apparently went into cardiac arrest. EMS arrived, and started CPR, and the patient was found to have intrinsic either fibrillation, and was defibrillated back into sinus rhythm. In the emergency room, he was intubated by the ER physician, Dr. Vargas. She call me on the phone to give me report. The patient went to the catheterization laboratory, and had a stent placed in the LAD. The patient was admitted back to the intensive care unit. The patient had a downtime of about 12-15 minutes according to the ER physician. The patient apparently is an 82-year-old male, who does not have any major medical problems, and does not see a physician on a regular basis. I was told he takes no medications on a regular basis. The patient is currently seen in the ICU, and room 257 the patient is currently on the ventilator, settings, volume assist control, rate 18, tidal volume 450, FiO2 100%, and PEEP of 5. A blood gas is not yet been done. Endotracheal tube is too far down the trachea, and was pulled back by respiratory. The patient's currently on propofol at 50 mcg/kg/m. I have ordered a blood gas. I will also order some Dilaudid 1 mg every 1-2 hours as needed, and some lactated Ringer's at 75 mL an hour. White count 14.4, with a normal hemoglobin, hematocrit, and platelet count. Coagulation studies are normal. Sodium 139, potassium 3.7, chlorides 107, CO2 17, anion gap 15, BUN/creatinine were 18 and 1.33. AST is 216, ALT is 149. Glucose 209. Chest x-ray does not show an acute process. Endotracheal tube was at the tip of the kaylyn. It was pulled back by respiratory. EKG shows some significant ST changes, and 1, and aVL. Progress note dated 04/26/2023. 82-year-old male who was initially seen in consultation for a [id number] cardiac arrest. The patient initially had a choking episode, and subsequently developed ventricular fibrillation, requiring defibrillation. The patient had about a 15 minute downtime. The patient came to the hospital, went to the catheterization laboratory, and had a stent placed in his LAD. Currently, he remains on mechanical ventilator. He is on assist control, rate 18, tidal volume 450, FiO2 50%, and PEEP of 8. Blood gases show pO2 112, pCO2 44, pH is 7.33. The patient's on propofol at 25 mcg/kg/m, and lactated Ringer's at 75 mL an hour. Norepinephrine has been weaned off. The patient does not have any tube feedings. Today, he'll get a daily interruption of sedation and a spontaneous breathing trial with pressure support of 8 and a CPAP of 5. White count 22.3, hemoglobin 14.2, hematocrit 43, and platelet count normal. Sodium 139, potassium 4.6, chlorides 110, CO2 24, BUN 22, and creatinine 1.52. TSH is normal. Chest x-ray shows bibasilar infiltrates or atelectasis. Progress note dated 04/27/2023. 82-year-old male who was initially seen in consultation for a kag-hi-xyyoozst cardiac arrest. The patient initially had a choking episode, and subsequently developed ventricular fibrillation, requiring defibrillation. The patient had about a 15 minute downtime. The patient came to the hospital, went to the catheterization laboratory, and had a stent placed in his LAD. Today, April 26, the patient was extubated. He is currently on 4 L of oxygen. He is getting lactated Ringer's at 75 mL an hour. After the extubation, the nurse noted that he had a right facial droop, and the patient had a computed tomography scan of the brain which was negative, and CT angiography which was also negative. Neurology was consulted. White count 13.4, hemoglobin 13.3, hematocrit 39.5, and platelet count 136,000. Sodium 138, potassium 4, chlorides 111, CO2 23, BUN 21, and creatinine 1.09. Progress note dated 04/28/2023. 82-year-old male who was seen in consultation for an qec-pj-qovgdltg cardiac arrest. The patient initially presented with a choking episode, and subsequently developed ventricular fibrillation, requiring defibrillation. The patient had about a 15 minute downtime, and was intubated, in the emergency room. He went to the catheterization laboratory, and had stent placed to his LAD. The patient was extubated on April 26. He was noted to have a right facial droop, but a computed tomography scan, and CT angiography, were both negative. Currently, he is seen today in room 257. He is on 4 L of oxygen. He is getting lactated Ringer's at 75 mL an hour. Clinically, the patient has been stable, and had an uneventful night. White count 11.8, hemoglobin 12.6, hematocrit 38.1, with a normal platelet count. Sodium 136, potassium 4, chlorides 109, CO2 24, BUN 21, creatinine 0.97. Chest x-ray shows some mild interstitial edema. Computed tomography scan of the brain, showed nothing acute. Objective - Vital Signs Vital signs: Vital Signs Temp 98.2 F 04/28/23 08:00 Pulse 71 04/28/23 08:00 Resp 24 04/28/23 08:00 BP 139/67 04/28/23 08:00 Pulse Ox 98 04/28/23 08:11 FiO2 50 04/26/23 12:00 Intake & Output 04/27/23 04/28/23 04/28/23 18:59 06:59 18:59 Intake Total 100 675 0 Output Total 360 220 350 Balance -260 455 -350 Weight 94 kg 92.6 kg Intake: IV 100 675 0 Lactated Ringers 1,000 ml 100 675 0 @ 75 mls/hr IV .[id number] [facility] Rx#:[id number] Output: Urine 360 220 350 Other: Voiding Method Indwelling Catheter Indwelling Catheter Indwelling Catheter - Exam No acute distress, currently on 4 L of oxygen. Awake and alert. HEENT examination is grossly unremarkable. Neck supple. Full range of motion. No adenopathy thyromegaly or neck vein distention. Cardiovascular examination reveals regular rhythm rate. S1-S2 normal. No S3 or S4. No discernible murmur noted. Heart rate 71 bpm. Heart sounds are distant. Lungs reveal clear breath sounds. Breath sounds are equal bilaterally. No adventitious lung sounds including wheezes rhonchi or crackles. 4 L saturation is 98%. Abdomen soft without bowel sounds. Extremities are intact. No cyanosis clubbing or edema. Skin is without rash or lesion. Neurologic examination continues to revealed a mild right facial droop. The patient's awake and alert. - Labs CBC & Chem 7: 04/28/23 05:21 04/28/23 05:21 Labs: Abnormal Lab Results - Last 24 Hours (Table) 04/28/23 04/28/23 04/28/23 Range/Units 05:21 05:21 11:48 WBC 11.8 H (3.8-10.6) k/uL RBC 4.10 L (4.30-5.90) m/uL Hgb 12.6 L (13.0-17.5) gm/dL Hct 38.1 L (39.0-53.0) % Neutrophils # 10.4 H (1.3-7.7) k/uL Lymphocytes # 0.7 L (1.0-4.8) k/uL Sodium 136 L (137-145) mmol/L Chloride 109 H (98-107) mmol/L BUN 21 H (9-20) mg/dL Glucose 103 H (74-99) mg/dL POC Glucose (mg/dL) 162 H (70-110) mg/dL Calcium 7.9 L (8.4-10.2) mg/dL Microbiology - Last 24 Hours (Table) 04/25/23 13:10 Gram Stain - Final Sputum Sputum Culture - Final Assessment and Plan Assessment: Pmt-ut-bsvjfllc cardiopulmonary arrest, secondary to a choking episode, with an ST segment elevation myocardial infarction, status post stent placement in the LAD. S/P extubation, 04/26/2023. Right facial droop, rule out CVA. Rule out anoxic brain injury. Acute hypoxemic respiratory failure, status post intubation and mechanical angelic tilation on 04/25/2023. No apparent past medical history. Plan: Plan dated 04/25/2023. The patient is evaluated in the intensive care unit, and labs, x-rays, and medications are reviewed. The patient had an bvs-md-qzrmqzfk cardiopulmonary arrest, secondary to a choking episode. The patient had a downtime about 12-15 minutes, and was resuscitated by EMS, having received defibrillation, for the patient's ventricular fibrillation. The patient was intubated in the emergency room, by the ER physician. The patient went to the catheterization laboratory, and apparently had a plaque rupture, and had a stent placed in the LAD. The patient was seen in the intensive care unit, having been placed on the mechanical ventilator. Blood gases have been ordered. I've also ordered some lactated Ringer's at 75 mL an hour, as well as Dilaudid 1 mg every 1-2 hours when necessary. The patient's currently on propofol at 50 mcg/kg/m. The endotracheal tube was at the [place] and was pulled back by respiratory. Plan dated 04/26/2023. The patient will have a daily interruption of sedation, and a spontaneous breathing trial, on both pressure support and CPAP. The patient remains on p ropofol at 25 mcg/kg/m. Norepinephrine has been weaned off. The patient's getting lactated Ringer's at 75 mL an hour. Labs, x-rays, and medications have all been reviewed. The patient had a stent placed in his LAD. We will continue to follow the patient and make recommendations along the way. Were hoping that we can get the patient extubated today. Prognosis is guarded. Plan dated 04/27/2023. The patient will be seen by neurology. The patient appears to have a new right facial droop, which is improved, compared to yesterday. The patient's brain scan was negative. CT angiography was negative. The patient will likely need an MRI. Labs, x-rays, and medications are reviewed. Overall prognosis remains guarded. The patient remains on oxygen at 4 L. Lactated Ringer's is running at 75 mL an hour. Labs, x-rays, and medications are all reviewed. Plan dated 04/28/2023. The patient appears to be doing reasonably well. He stable from the respiratory status, and cardiovascular status. He continues to have a right facial droop. Labs, x-rays, and medications are reviewed. The patient continues on oxygen at 4 L. He is getting lactated Ringer's at 75 mL an hour, which will be discontinued. The patient will be seen by speech pathology. He continues with GI and DVT prophylaxis. The patient could be considered for transfer out of the intensive care unit. Time with Patient: Less than 30
--- NOTE | 2023-04-28 13:00 | P.PN ---
Subjective Progress Note Date: 04/28/23 I am following-up with patient and it seem overnight patient was having respiratory issues. He had repeat CT head and reported as negative. I reviewed and it and I did not feel there is acute changes and no bleeding. Objective - Vital Signs Vital signs: Vital Signs Temp 98.6 F 04/28/23 12:00 Pulse 75 04/28/23 12:00 Resp 24 04/28/23 12:00 BP 139/90 04/28/23 12:00 Pulse Ox 99 04/28/23 12:00 FiO2 50 04/26/23 12:00 Intake & Output 04/27/23 04/28/23 04/28/23 18:59 06:59 18:59 Intake Total 100 675 0 Output Total 360 220 350 Balance -260 455 -350 Weight 94 kg 92.6 kg Intake: IV 100 675 0 Lactated Ringers 1,000 ml 100 675 0 @ 75 mls/hr IV .[id number] [facility] Rx#:[id number] Output: Urine 360 220 350 Other: Voiding Method Indwelling Catheter Indwelling Catheter Indwelling Catheter - Exam GENERAL: The patient is sitting in a recliner chair and is not in acute distress. NEUROLOGICAL: Higher mental function: The patient is awake, oriented to self, He again did not know month or year. Patient is somewhat slow responding and appears confused. Patient is following few simple commands. No aphasia from limited language. Cranial nerves: The pupils are round, equal and reactive to light. Visual han are full to confrontation throughout. Extraocular movement is intact no nystagmus is noted.Mild right lower facial droop. Hearing is moderately to severely decreased bilaterally to hand rub. Tongue is midline and moved [id number] without any difficulty. Mild to moderate dysarthria. Shoulder shrug is normal bilaterally. Motor: The strength is right upper extremity is 4+. Otherwise 5 over 5 thr oughout. Normal tone and bulk. Some other workup during this hospital visit consisted of: Lipid panel is triglyceride of 87, cholesterol is 158, LDL of 91 and HDL of 49. Hemoglobin A1c is 5.[address] of the head is reported as atrophy with chronic appearing periventricular w otilio matter ischemic changes. CT angiography of the head and neck was reported as no evidence of dissection of the cervical internal carotid artery or vertebral artery or any evidence of significant stenosis at the carotid bifurcation. No evidence of intracranial high-grade stenosis or intracranial aneurysm. Pulmonary vascular congestion. Carotid duplex is reported as less than 50% stenosis of bilateral carotid bifurcation. 2-D echo was reported as normal left ventricular size and systolic function. Mild aortic valve sclerosis and mitral annular calcification. Mild aortic insufficiency. No pericardial effusion. No significant pulmonary hypertension. Repeat CT head: It is reported as No acute hemorrhage, hydrocephalus or mass effect. I felt patient has lacunar basal ganglia stroke - Labs CBC & Chem 7: 04/28/23 05:21 04/28/23 05:21 Labs: Abnormal Lab Results - Last 24 Hours (Table) 04/28/23 04/28/23 04/28/23 Range/Units 05:21 05:21 11:48 WBC 11.8 H (3.8-10.6) k/uL RBC 4.10 L (4.30-5.90) m/uL Hgb 12.6 L (13.0-17.5) gm/dL Hct 38.1 L (39.0-53.0) % Neutrophils # 10.4 H (1.3-7.7) k/uL Lymphocytes # 0.7 L (1.0-4.8) k/uL Sodium 136 L (137-145) mmol/L Chloride 109 H (98-107) mmol/L BUN 21 H (9-20) mg/dL Glucose 103 H (74-99) mg/dL POC Glucose (mg/dL) 162 H (70-110) mg/dL Calcium 7.9 L (8.4-10.2) mg/dL Microbiology - Last 24 Hours (Table) 04/25/23 13:10 Gram Stain - Final Sputum Sputum Culture - Final Assessment and Plan Assessment: This is a 82-year-old gentleman who had a out of hospital cardiopulmonary arrest secondary due to choking and yesterday was extubated and he was noted to have right facial weakness and dysarthria. Unknown last normal. Acute right facial weakness with dysarthria and on examination he had right upper extremity weakness likely due to acute ischemic stroke. No IV TPA since unknown last normal and the risk outweighed the benefit Out of the hospital cardiopulmonary arrest secondary due to choking episode with ST segment elevation myocardial infarction status post stent in the LAD Plan: MRI of the brain is ordered and is pending Patient was started on aspirin 81 mg and Plavix 75 mg as well as Lipitor 80 mg daily at bedtime cardiology team. Continue neuro checks Cardiac monitoring PT OT and [employer] are consulted Cardiology is on board We'll defer the rest of the medical management to the primary team and other specialists DVT prophylaxis On subq heparin 5000U every 12 hours. Will continue to follow. Time with Patient: Less than 30
--- NOTE | 2023-04-28 13:33 | P.PN ---
Subjective This is a pleasant gentleman of 82 years old, unknown past medical history. Patient currently intubated and cannot provide information As per records patient was eating he started choking and then collapsed, EMS was called and he got a shock with return of the pulse area he was been back and hereafter emergency room where he got intubated. As per ER staff that downtown was about 15 minutes Currently blood pressure 162/113, he is tachycardic around 106. He has mild leukocytosis of 14.4, rest of CBC, INR is unremarkable. Creatinine 1.3 which he had it before, possible patient has chronic kidney disease Glucose 199, liver enzymes AST mildly elevated 216 and ALT 149. Bilirubin is 1.1. Troponin is -0.018. No acute cardiopulmonary process. Endotracheal tube at the tip of the kaylyn EKG was showing ST elevation AR of the lateral limits at I, aVL with reciprocal changes Patient was taken to the [facility] and he underwent emergent PCI to LAD 04/26/2023 Patient remains in the ICU intubated and sedated. This P Rubio 8 and FiO2 is 50% Has a Goodson catheter draining yellow brown urine. He is also on small dose of pressors with Levophed at 0.03. Labs showing worsening mild leukocytosis at 22.3, creatinine went up to 1.3 up to 1.5. ABG showing combine metabolic acidosis and respiratory acidosis however the respiratory company and looks a chronic and both are mild. Patient is also mildly tachypneic. He remains on dual antiplatelet therapy ASPIRIN 81 and Plavix 75 blade to per hour Patient currently on finger lactates, however he might benefit from sodium bicarb drip, we will defer that to pulmonary/critical care team. Normal 04/27/2023 Patient status post extubation, he is lethargic. He denies chest pain. He says breathing is okay no coughing Patient noticed by staff to have right facial droop and neurological workup was ordered. Evidence of right upper extremity weakness and dysarthria. CT of the brain and CT of the brain were both negative for acute process. Patient already on aspirin Plavix and Lipitor. But not to be a since unknown duration. Labs showing WBCs 13, creatinine 1.0 which is improvement Carotid Doppler less than 50% stenosis and ejection fraction about 55%. Vital stable and patient is afebrile 04/28/2023 Patient lying in bed comfortable No chest pain or dyspnea. There is very minimal facial diffusion, there is minimal or no weakness of the right upper extremity. Patient himself denies any weakness in extremities or numbness. No headache or dizziness. His speech also looks close to baseline Vitals stable. Labs are stable as well. the Ringer lactate IV fluid to be discontinued Objective - Vital Signs Vital signs: Vital Signs Temp 98.5 F 04/28/23 04:00 Pulse 67 04/28/23 04:00 Resp 20 04/28/23 04:00 BP 148/94 04/28/23 04:00 Pulse Ox 98 04/28/23 08:11 FiO2 50 04/26/23 12:00 Intake & Output 04/27/23 04/28/23 04/28/23 18:59 06:59 18:59 Intake Total 100 675 Output Total 360 220 Balance -260 455 Weight 94 kg 92.6 kg Intake: IV 100 675 Lactated Ringers 1,000 ml 100 675 @ 75 mls/hr IV .[id number] [facility] Rx#:[id number] Output: Urine 360 220 Other: Voiding Method Indwelling Catheter Indwelling Catheter - Exam --GENERAL: The patient is awake alert, follow command, has difficulty talking with low Ryan. But answers appropriately HEENT: Pupils are round and equally reacting to light. EOMI. No scleral icterus. No conjunctival pallor. Normocephalic, atraumatic. No pharyngeal erythema. No thyromegaly. CARDIOVASCULAR: S1 and S2 present. No murmurs, rubs, or gallops. -PULMONARY: Chest is clear to auscultation, no wheezing , no crackles. Mildly tachypneic ABDOMEN: Soft, nontender, nondistended, normoactive bowel sounds. No palpable organomegaly. MUSCULOSKELETAL: No joint swelling or deformity. EXTREMITIES: No cyanosis, clubbing, or pedal edema. -NEUROLOGICAL: Dysarthria, or extremity weakness. Motor exam of the other extremities 5/5. Right facial droop. Sensation intact. Meningeal signs are absent SKIN: No rashes. no petechiae. - Labs CBC & Chem 7: 04/28/23 05:21 04/28/23 05:21 Labs: Abnormal Lab Results - Last 24 Hours (Table) 04/28/23 04/28/23 Range/Units 05:21 05:21 WBC 11.8 H (3.8-10.6) k/uL RBC 4.10 L (4.30-5.90) m/uL Hgb 12.6 L (13.0-17.5) gm/dL Hct 38.1 L (39.0-53.0) % Neutrophils # 10.4 H (1.3-7.7) k/uL Lymphocytes # 0.7 L (1.0-4.8) k/uL Sodium 136 L (137-145) mmol/L Chloride 109 H (98-107) mmol/L BUN 21 H (9-20) mg/dL Glucose 103 H (74-99) mg/dL Calcium 7.9 L (8.4-10.2) mg/dL Microbiology - Last 24 Hours (Table) 04/25/23 13:10 Gram Stain - Final Sputum Sputum Culture - Final Assessment and Plan Assessment: Cardiac arrest at home status post CPR and electric shock with return of circulation. [place] about 15 minutes Acute lateral STEMI status post emergent PCI to LAD Acute stroke is suspected with right upper extremity weakness, right facial d christiano and dysarthria Acute hypoxic respiratory failure, improved Mild combined metabolic acidosis which looks more acute and chronic respiratory acidosis. Improved Mild acute kidney injury with good urine output. Resolved Mild leukocytosis Mild transaminitis Possible chronic kidney disease Plan: With aspirin and Plavix and Lipitor neurologist on the case and MRI of the brain is ordered Pulmonary/critical care team with help with vent management Continue with dual antiplatelet therapy, currently on aspirin and Plavix Metoprolol Small dose lisinopril patient can be transferred out of the ICU continue with IV fluids, currently on Ringer lactate. Monitor creatinine Labs and medication were reviewed.. Continue same treatment. Continue with symptomatic treatment. Resume home medication. Monitor labs and vitals. DVT and GI prophylaxis. Further recommendations as per clinical course of the patient DVT prophylaxis: Aspirin and Plavix GI Prophylaxis: Pepcid Prognosis is guarded
[2023-04-28 17:42] LABS: Glucose,Whole Blood 127 mg/dL (70-110)
[2023-04-28] MEDS: ATORVASTATIN 80 MG TAB PO SCH (20:55)
[2023-04-29 00:01] LABS: Glucose,Whole Blood 107 mg/dL (70-110)
--- NOTE | 2023-04-29 05:31 | P.EN ---
A- team: Indication: Fall Arrived on Scene to find: Patient resting comfortably in bed Vital signs reviewed: BP 158/70, pulse 56, respiratory rate 24, temp 98.9F, SpO2 92% on room air Patient seen and examined at bedside. Patient reports that while using the commode, he slipped and fell onto his left hip. He denies experiencing head trauma. He also denies pain elsewhere including his hip. Denies chest discomfort, shortness of breath, palpitations. General: [non toxic], [no distress], [appears at stated age] Derm: [warm], [dry] Head: [atraumatic], [normocephalic], [symmetric] Eyes: [EOMI], [no lid lag], [anicteric sclera] Mouth: [no lip lesion], [mucus membranes moist] Cardiovascular: [S1S2 reg], [no murmur], [positive posterior tibial pulse bilateral], Lungs: [CTA bilateral], [no rhonchi, no rales] , [no accessory muscle use] Abdominal: [soft], [ nontender to palpation], [no guarding], [no appreciable organomegaly] Ext: [no gross muscle atrophy], [no edema], [no contractures] Neuro: [ CN II-XI grossly intact], [no focal neuro deficits] Psych: Sleepy, oriented to person, place, time Assessment: Mechanical fall Plan: Obtain CT brain without contrast
[2023-04-29 06:36] LABS: Glucose,Whole Blood 105 mg/dL (70-110)
--- NOTE | 2023-04-29 07:48 | CT ---
EXAMINATION TYPE: CT brain wo con DATE OF EXAM: 04/29/2023 COMPARISON: 04/20/2023 HISTORY: 82-year-old male fall from commode last night, injury and pain TECHNIQUE: Examination was done in axial plane without intravenous contrast. Coronal and sagittal r econstructions performed. CT DLP: 1173.4 mGycm Automated exposure control for dose reduction was used. FINDINGS: There is no evidence of acute intracranial hemorrhage, acute ischemic changes, mass, mass-effect, or extra-axial fluid collection. There is no effacement of cerebral sulci or basal subarachnoid cister ns. There is no hydrocephalus. There is no midline shift. Woodard-white matter distinction is preserv ed. There are moderate white matter hypodensities in both cerebral hemispheres. Discrete calcifications i n the carotid siphons. Rightward nasal septal deviation. Scattered mild mucosal thickening ethmoid air cells. Mastoid air ce lls are well pneumatized. No calvarial fracture. Suspected remote blowout fracture right orbital floo r. IMPRESSION: No acute intracranial abnormality seen. Similar moderate burden of chronic small vessel ischemic dise ase.
[2023-04-29] MEDS ORDERED: lisinopriL 5 MG TAB PO STA (09:20)
--- NOTE | 2023-04-29 09:24 | P.PN ---
Subjective Progress Note Date: 04/29/23 The patient is an 82-year-old male who suffered a V. fib arrest at home after a choking episode. Approximate downtime 15 minutes according to EMS. Patient was intubated in the emergency room. Initial EKG showed sinus tachycardia with ST elevation in leads 1 and aVL and inferior changes and to 3 and aVF. He was ruled in as an ST elevated myocardial infarction and therefore underwent coronary angiogram with Dr. Kiser. He was found to have a critical lesion in the mid LAD with thrombus, otherwise mild disease in the left circumflex and the RCA. Successful stenting was performed and he was transferred to the ICU for supportive management. The patient was extubated on 04/26/2023. Postextubation, code Stroke was notified for new right facial droop and garbled speech. This is a new finding for the patient. Echocardiogram reveals normal LV function with no significant valvular abnormalities. Carotid Doppler shows no significant disease. No infarcts noted on CT of the brain. The patient had a fall yesterday. He denies any dizziness prior. The patient was interviewed and examined sitting up in the recliner chair. He is more alert today and will be working with physical therapy. No chest pain or difficulty breathing GENERAL: Well-appearing, well-nourished and in no acute distress. NECK: Supple without JVD or thyromegaly. LUNGS: Breath sounds are coarse to auscultation bilaterally. Respiration equal and unlabored. HEART: Regular rate and rhythm without murmurs, rubs or gallops. S1 and S2 heard. EXTREMITIES: Normal range of motion, no edema. No clubbing or cyanosis. Peripheral pulses intact and strong. TELEMETRY: Sinus rhythm overnight IMPRESSION: Acute ST elevated myocardial infarction Status post stenting of the mid LAD Ventricular fibrillation cardiac arrest at home, approximate downtime 15 minutes Possible TIA Hypertension PLAN: Maximize lisinopril for blood pressure control Aggressive pulmonary hygiene May be transferred to stepdown Further recommendations based upon clinical course I am dictating on behalf of Dr Anselmo Dean's history/physical and asses sment/plan. Objective - Vital Signs Vital signs: Vital Signs Temp 97.9 F 04/29/23 08:00 Pulse 63 04/29/23 08:00 Resp 19 04/29/23 08:00 BP 153/86 04/29/23 08:00 Pulse Ox 92 L 04/29/23 08:00 FiO2 50 04/26/23 12:00 Intake & Output 04/28/23 04/29/23 04/29/23 18:59 06:59 18:59 Intake Total 100 Output Total 700 200 Balance -600 -200 Weight 92.6 kg 92.5 kg Intake: IV 100 Lactated Ringers 1,000 ml 100 @ 75 mls/hr IV .[id number] [facility] Rx#:[id number] Output: Urine 700 200 Other: Voiding Method Indwelling Catheter Urinal - Labs CBC & Chem 7: 04/28/23 05:21 04/28/23 05:21 Labs: Abnormal Lab Results - Last 24 Hours (Table) 04/28/23 04/28/23 Range/Units 11:48 17:40 POC Glucose (mg/dL) 162 H 127 H (70-110) mg/dL
[2023-04-29] MEDS: HEPARIN SODIUM,PORCINE 5,000 UNIT/ML 1 ML VIAL SQ SCH ×2 (10:40→21:23)
[2023-04-29] MEDS: FAMOTIDINE 20 MG/2 ML VIAL IV SCH (10:40)
[2023-04-29] MEDS: ASPIRIN 81 MG PO SCH (10:40)
[2023-04-29] MEDS: METOPROLOL TARTRATE 50 MG TAB PO SCH ×2 (10:41→21:23)
[2023-04-29] MEDS: CLOPIDOGREL 75 MG TAB PO SCH (10:41)
--- NOTE | 2023-04-29 11:04 | P.PN ---
Subjective Progress Note Date: 04/29/23 Principal diagnosis: Cardiopulmonary arrest. Pulmonary consult dated 04/25/2023. 82-year-old male seen in the emergency room, after having an low-sc-pygwxwks cardiac arrest. The patient apparently had a choking episode. Subsequent to that, the patient apparently went into cardiac arrest. EMS arrived, and started CPR, and the patient was found to have intrinsic either fibrillation, and was defibrillated back into sinus rhythm. In the emergency room, he was intubated by the ER physician, Dr. Vargas. She call me on the phone to give me report. The patient went to the catheterization laboratory, and had a stent placed in the LAD. The patient was admitted back to the intensive care unit. The patient had a downtime of about 12-15 minutes according to the ER physician. The patient apparently is an 82-year-old male, who does not have any major medical problems, and does not see a physician on a regular basis. I was told he takes no medications on a regular basis. The patient is currently seen in the ICU, and room 257 the patient is currently on the ventilator, settings, volume assist control, rate 18, tidal volume 450, FiO2 100%, and PEEP of 5. A blood gas is not yet been done. Endotracheal tube is too far down the trachea, and was pulled back by respiratory. The patient's currently on propofol at 50 mcg/kg/m. I have ordered a blood gas. I will also order some Dilaudid 1 mg every 1-2 hours as needed, and some lactated Ringer's at 75 mL an hour. White count 14.4, with a normal hemoglobin, hematocrit, and platelet count. Coagulation studies are normal. Sodium 139, potassium 3.7, chlorides 107, CO2 17, anion gap 15, BUN/creatinine were 18 and 1.33. AST is 216, ALT is 149. Glucose 209. Chest x-ray does not show an acute process. Endotracheal tube was at the tip of the kaylyn. It was pulled back by respiratory. EKG shows some significant ST changes, and 1, and aVL. Progress note dated 04/26/2023. 82-year-old male who was initially seen in consultation for a vku-fj-bnvddzfi cardiac arrest. The patient initially had a choking episode, and subsequently developed ventricular fibrillation, requiring defibrillation. The patient had about a 15 minute downtime. The patient came to the hospital, went to the catheterization laboratory, and had a stent placed in his LAD. Currently, he remains on mechanical ventilator. He is on assist control, rate 18, tidal volume 450, FiO2 50%, and PEEP of 8. Blood gases show pO2 112, pCO2 44, pH is 7.33. The patient's on propofol at 25 mcg/kg/m, and lactated Ringer's at 75 mL an hour. Norepinephrine has been weaned off. The patient does not have any tube feedings. Today, he'll get a daily interruption of sedation and a spontaneous breathing trial with pressure support of 8 and a CPAP of 5. White count 22.3, hemoglobin 14.2, hematocrit 43, and platelet count normal. Sodium 139, potassium 4.6, chlorides 110, CO2 24, BUN 22, and creatinine 1.52. TSH is normal. Chest x-ray shows bibasilar infiltrates or atelectasis. Progress note dated 04/27/2023. 82-year-old male who was initially seen in consultation for a dux-bp-gkcqvcff cardiac arrest. The patient initially had a choking episode, and subsequently developed ventricular fibrillation, requiring defibrillation. The patient had about a 15 minute downtime. The patient came to the hospital, went to the catheterization laboratory, and had a stent placed in his LAD. Today, April 26, the patient was extubated. He is currently on 4 L of oxygen. He is getting lactated Ringer's at 75 mL an hour. After the extubation, the nurse noted that he had a right facial droop, and the patient had a computed tomography scan of the brain which was negative, and CT angiography which was also negative. Neurology was consulted. White count 13.4, hemoglobin 13.3, hematocrit 39.5, and platelet count 136,000. Sodium 138, potassium 4, chlorides 111, CO2 23, BUN 21, and creatinine 1.09. Progress note dated 04/28/2023. 82-year-old male who was seen in consultation for an pwr-dl-vsenicfl cardiac arrest. The patient initially presented with a choking episode, and subsequently developed ventricular fibrillation, requiring defibrillation. The patient had about a 15 minute downtime, and was intubated, in the emergency room. He went to the catheterization laboratory, and had stent placed to his LAD. The patient was extubated on April 26. He was noted to have a right facial droop, but a computed tomography scan, and CT angiography, were both negative. Currently, he is seen today in room 257. He is on 4 L of oxygen. He is getting lactated Ringer's at 75 mL an hour. Clinically, the patient has been stable, and had an uneventful night. White count 11.8, hemoglobin 12.6, hematocrit 38.1, with a normal platelet count. Sodium 136, potassium 4, chlorides 109, CO2 24, BUN 21, creatinine 0.97. Chest x-ray shows some mild interstitial edema. Computed tomography scan of the brain, showed nothing acute. Progress note dated 04/29/2023. 82-year-old male who was seen in consultation for khk-kp-qmrdhhbs cardiac arrest. The patient apparently had a choking episode, and developed ventricular fibrillation, requiring defibrillation. He had about a 15 minute downtime, and was intubated in the emergency department. He went to the catheterization laboratory, and had a stent placed to his LAD. He was extubated successfully and April 26. He was noted to have a right facial droop, but computed to mography scan of the head, and CT angiography were both negative. The patient is scheduled for an MRI today. He's currently on room air, and not receiving any IV fluids. No new labs today other than a glucose of 105. Objective - Vital Signs Vital signs: Vital Signs Temp 97.9 F 04/29/23 08:00 Pulse 63 04/29/23 08:00 Resp 19 04/29/23 08:00 BP 153/86 04/29/23 08:00 Pulse Ox 92 L 04/29/23 08:00 FiO2 50 04/26/23 12:00 Intake & Output 04/28/23 04/29/23 04/29/23 18:59 06:59 18:59 Intake Total 100 Output Total 700 200 Balance -600 -200 Weight 92.6 kg 92.5 kg Intake: IV 100 Lactated Ringers 1,000 ml 100 @ 75 mls/hr IV .[id number] [facility] Rx#:[id number] Output: Urine 700 200 Other: Voiding Method Indwelling Catheter Urinal - Exam No acute distress, currently on room air. The patient is awake and alert. HEENT examination is grossly unremarkable. Neck supple. Full range of motion. No adenopathy thyromegaly or neck vein distention. Cardiovascular examination reveals regular rhythm rate. S1-S2 normal. No S3 or S4. No discernible murmur noted. Heart rate 75 bpm. Heart sounds are distant. Lungs reveal clear breath sounds. Breath sounds are equal bilaterally. No adventitious lung sounds including wheezes rhonchi or crackles. Room air saturation is 92%. Abdomen soft without bowel sounds. Extremities are intact. No cyanosis clubbing or edema. Skin is without rash or lesion. Neurologic examination continues to revealed a mild right facial droop. The p atient's awake and alert. - Labs CBC & Chem 7: 04/28/23 05:21 04/28/23 05:21 Labs: Abnormal Lab Results - Last 24 Hours (Table) 04/28/23 04/28/23 Range/Units 11:48 17:40 POC Glucose (mg/dL) 162 H 127 H (70-110) mg/dL Assessment and Plan Assessment: Vib-cj-ubsoowii cardiopulmonary arrest, secondary to a choking episode, with an ST segment elevation myocardial infarction, status post stent placement in the LAD. S/P extubation, 04/26/2023. Right facial droop, rule out CVA. Rule out anoxic brain injury. Acute hypoxemic respiratory failure, status post intubation and mechanical ventilation on 04/25/2023. No apparent past medical history. Plan: Plan dated 04/25/2023. The patient is evaluated in the intensive care unit, and labs, x-rays, and medications are reviewed. The patient had an yiy-nl-yceqclcj cardiopulmonary ar rest, secondary to a choking episode. The patient had a downtime about 12-15 minutes, and was resuscitated by EMS, having received defibrillation, for the patient's ventricular fibrillation. The patient was intubated in the emergency room, by the ER physician. The patient went to the catheterization laboratory, and apparently had a plaque rupture, and had a stent placed in the LAD. The patient was seen in the intensive care unit, having been placed on the mechanical ventilator. Blood gases have been ordered. I've also ordered some lactated Ringer's at 75 mL an hour, as well as Dilaudid 1 mg every 1-2 hours when necessary. The patient's currently on propofol at 50 mcg/kg/m. The endotr acheal tube was at the kaylyn and was pulled back by respiratory. Plan dated 04/26/2023. The patient will have a daily interruption of sedation, and a spontaneous breathing trial, on both pressure support and CPAP. The patient remains on propofol at 25 mcg/kg/m. Norepinephrine has been weaned off. The patient's getting lactated Ringer's at 75 mL an hour. Labs, x-rays, and medications have all been reviewed. The patient had a stent placed in his LAD. We will continue to follow the patient and make recommendations along the way. Were hoping that we can get the patient extubated today. Prognosis is guarded. Plan dated 04/27/2023. The patient will be seen by neurology. The patient appears to have a new right facial droop, which is improved, compared to yesterday. The patient's brain scan was negative. CT angiography was negative. The patient will likely need an MRI. Labs, x-rays, and medications are reviewed. Overall prognosis remains guarded. The patient remains on oxygen at 4 L. Lactated Ringer's is running at 75 mL an hour. Labs, x-rays, and medications are all reviewed. Plan dated 04/28/2023. The patient appears to be doing reasonably well. He stable from the respiratory status, and cardiovascular status. He continues to have a right facial droop. Labs, x-rays, and medications are reviewed. The patient continues on oxygen at 4 L. He is getting lactated Ringer's at 75 mL an hour, which will be discontinued. The patient will be seen by speech pathology. He continues with GI and DVT prophylaxis. The patient could be considered for transfer out of the intensive care unit. Plan dated 04/29/2023. The patient could be transferred out of the intensive care unit. The patient is not receiving any supplemental oxygen, or IV fluids. Labs, x-rays, medications are reviewed. Prognosis is guarded. The patient is going for an MRI of the brain today. We suspect that he's had a CVA. Continue with the right facial droop. We will continue to follow and make recommendations along the way. Prognosis is guarded. Time with Patient: Less than 30
--- NOTE | 2023-04-29 11:51 | P.CONS ---
History of Present Illness - Reason for Consult Consult date: 04/29/23 rehab recommendations - Chief Complaint debility - History of Present Illness Mr. Salmon is a 82 y.o. male , left handed, , who lives in a 2 story home, with his Radha and his sister in law Kaya. He has 3 PITO with railing. patient does have bed and bath on the main level. Prior to admission, he was ambulating without an assistive device. He was independent for basic/advanced ADLs. Current driving: yes. 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 Support system: and sister in law He was admitted to [facility] on 04/25 after cardiac arrest. He presented to the ED via EMS with c/o a choking episode at home. This episode was witnessed by family who was unable to clear his airway, which resulted in cardiac arrest. CPR was initiated on arrival of EMS. Patient was found to be in V-fib and was shocked once successfully. On arrival to the ED patient was being ventilated with an ambu-bag. Upon family arrival to the ED they reported that the patient was complaining of some jaw pain prior to the episode. Family reports that the patient's downtime was about 15 minutes. Family also reported that he does not take any medications nor does he see a doctor. Patient was intubated and admitted to the ICU. EKG showed ST elevation ME. The patient was taken to the [facility] and underwent emergency PCI to the LAD. Patient was extubated 04/26. He was noted to have right facial droop, therefore neurology was consulted. He had a CT of the head showing chronic appearing changes. CTA of the head and neck showed no evidence of dissection of the cervical internal carotid artery or vertebral artery or any evidence of significant stenosis of the carotid bifurcation. Carotid duplex showed no significant stenosis. 2D echo showed EF of 55%. Patient remains in ICU. He is now on room air. 04/29/23 AM: Patient was found sitting in the recliner at bedside resting. He easily woke to name. Appears very fatigued, required frequent name calling to stay awake and engaged in conversation. Patient denies CP, SOB and abdominal pain. He denies dizziness and headaches. He denies issues with bowels and urination. He reports that he is eating and sleeping well. He denies pain. Patient denies any concerns at this time. He states that he is willing to work with therapy and is looking forward to gaining strength back and returning home. Per patient, his and sister in law are both in good health and able to provide assist upon discharge. Of note, patient had fall this morning, with no known injury, CT of head showing nothing acute. 04/29/23 PM: He was much less fatigued and was able to follow simple commands including the ability to go through a more appropriate physical exam. PM&R consulted for rehab recommendations. Therapy evaluations reviewed; patient needing mod assistance for transfers, max assist for bed mobility, patient unabl e to ambulate at time of evaluation due to weakness in the lower extremities, bathing max assist, UB dressing mod assist, LB dressing total assist, grooming mod assist, toileting total assist, toilet transfer mod assist Review of Systems negative unless noted in HPI Past Medical History Past Medical History: No Reported History History of Any Multi-Drug Resistant Organisms: None Reported Past Surgical History: No Surgical Hx Reported Past Psychological History: No Psychological Hx Reported Smoking Status: Never smoker Past Alcohol Use History: None Reported Past Drug Use History: None Reported Medications and Allergies Home Medications Medication Instructions Recorded Confirmed Type Cetirizine HCl [Zyrtec] 10 mg PO DAILY 04/25/23 04/25/23 History Allergies Allergy/AdvReac Type Severity Reaction Status Date / Time No Known Allergies Allergy Verified 04/25/23 16:17 Physical Exam Osteopathic Statement: *. No significant issues noted on an osteopathic structural exam other than those noted in the History and Physical/Consult. Vitals: Vital Signs Temp Pulse Resp BP Pulse Ox 04/28/23 12:00 98.6 F 75 24 139/90 99 04/28/23 11:00 75 34 H 100 04/28/23 10:00 79 21 98 04/28/23 08:11 98 04/28/23 08:00 98.2 F 71 24 139/67 98 04/28/23 04:00 98.5 F 67 20 148/94 96 04/28/23 00:03 95 04/28/23 00:00 99 F 69 26 H 152/77 95 04/27/23 20:00 98.7 F 83 12 166/79 93 L Intake and Output 09/28/23 09/28/23 09/28/23 06:59 14:59 22:59 Intake Total 675 0 Output Total 220 350 Balance 455 -350 Intake: IV 675 0 Lactated Ringers 1,000 ml 675 0 @ 75 mls/hr IV .[id number] [facility] Rx#:[id number] Output: Urine 220 350 Other: Voiding Method Indwelling Catheter Indwelling Catheter Weight 92.6 kg 92.6 kg EXAM; General: WDWN, male, seen getting assisted from the recliner to his bed, NAD Head: Atraumatic. Slight right facial droop Eyes: Symmetric, glasses on Ears: Symmetric. Hearing within normal limits. Mouth: Clear, poor oral hygiene Neck: Supple. Cardiac: monitor technician on. Calves supple, non tender, no edema Lungs: Breathing comfortably on RA. Chest symmetric. Abdomen: Soft, nontender. Extremities: Arthritic changes consistent with age. Neurological: Alert and oriented x2-3; RUE dysmetria Speech is slurred, fluent without paraphasic errors, slightly delayed Cranial nerves: CN II-XII: intact. Sensation: Intact and symmetrical limbs. Musculoskeletal: ROM WFL EXCEPT: generalized weakness MMT UE Sh Abd EE EF FABD WE HG Right 4- 3- 4- 4- 4- 3 Left 4 3+ 4 4 4 4 MMT LE HF KE DF EHL Right 3- 3- 4 4 Left 3+ 3+ 4 4 Reflexes Biceps Triceps Brachioradialis Patella Achilles Babinski Hoffmans Right 2 2 2 2 Neg Neg Left 2 2 2 2 Neg Neg Skin: Skin intact where visible to head, neck, and bilateral upper and lower extremities EXCEPT: multiple areas of ecchymosis to bilat upper extremities, PIV Psych: Calm, cooperative Results CBC & Chem 7: 04/30/23 04:00 04/30/23 04:00 Labs: Abnormal Lab Results - Last 24 Hours (Table) 04/28/23 04/28/23 04/28/23 Range/Units 05:21 05:21 11:48 WBC 11.8 H (3.8-10.6) k/uL RBC 4.10 L (4.30-5.90) m/uL Hgb 12.6 L (13.0-17.5) gm/dL Hct 38.1 L (39.0-53.0) % Neutrophils # 10.4 H (1.3-7.7) k/uL Lymphocytes # 0.7 L (1.0-4.8) k/uL Sodium 136 L (137-145) mmol/L Chloride 109 H (98-107) mmol/L BUN 21 H (9-20) mg/dL Glucose 103 H (74-99) mg/dL POC Glucose (mg/dL) 162 H (70-110) mg/dL Calcium 7.9 L (8.4-10.2) mg/dL Assessment and Plan Assessment: #Critical illness myopathy s/p cardiac arrest with STEMI and cardiac catheterization with PCI to the LAD -Cardiology following -Aspirin, Lipitor, Plavix #Impaired gait/ADL deficit secondary to above #fall 04/29 with no known injury -fall precautions, CT negative #S/p cardiac arrest with ventricular fibrillation #STEMI s/p emergent cardiac catheterization with PCI to the LAD #Acute hypoxic respiratory failure s/p mechanical ventilation -on room air #Choking episode #Metabolic encephalopathy #Right facial droop with slight weakness on the right compared to the left -CT and CTA of head/ neck negative of acute findings, carotid Doppler negative for significant stenosis, MRI pending -Neurology following #Dysphagia secondary to above #Bowel/ Bladder: Nursing to monitor and report concerns if any. #Diet -Dysphagia level 1 pured diet, honey thick liquids, no straws, aspiration precautions, 1:1 supervision #Skin/wound: Skin/Wound care to follow as needed #Pain Management -Dilaudid 1 mg IV push every 2 hours as needed #DVT Prophylaxis: -Subq heparin #Comorbidities: Lack of healthcare as patient has not seen a doctor, possible underlying CAD #Your medical dx and mgt Goals: Modified Independent mobility and ADLS both basic and advanced; increased functional mobility/strength; increased balance, safety, endurance. Improvement in medical issues through your care. Barriers: Weakness, endurance, cardio/respiratory status, pain, right hemiparesis Discharge recommendation: patient requiring mod-max assistance for mobility/ADL's. Patient would benefit from structured IPR when medically cleared. He is still in the ICU at this time. Will continue to follow. Patient seen and examined in coordination with Dr. Pickard Author: Minal Waller NP
--- NOTE | 2023-04-29 13:03 | P.PN ---
Subjective Progress Note Date: 04/29/23 I am following-up with patient and per nurse it seems overnight patient was on a Camode then fell as result him being weak. No reported seizure-like activity or confusion. Today he sitting in a recliner chair and feels about the same. CT head is negative for any bleed. Objective - Vital Signs Vital signs: Vital Signs Temp 97.9 F 04/29/23 08:00 Pulse 79 04/29/23 12:00 Resp 18 04/29/23 12:00 BP 151/87 04/29/23 12:00 Pulse Ox 96 04/29/23 12:00 FiO2 50 04/26/23 12:00 Intake & Output 04/28/23 04/29/23 04/29/23 18:59 06:59 18:59 Intake Total 100 Output Total 700 200 Balance -600 -200 Weight 92.6 kg 92.5 kg Intake: IV 100 Lactated Ringers 1,000 ml 100 @ 75 mls/hr IV .[id number] [facility] Rx#:[id number] Output: Urine 700 200 Other: Voiding Method Indwelling Catheter Urinal - Exam GENERAL: The patient is sitting in a recliner chair and is not in acute distress. NEUROLOGICAL: Higher mental function: The patient is awake, oriented to self, He again did not know month or year. Patient is mildly slow responding and appears confused. Patient is following few simple commands. No aphasia from limited language. Cranial nerves: The pupils are round, equal and reactive to light. Visual han are full to confrontation throughout. Extraocular movement is intact no nystagmus is noted.Mild right lower facial droop. Hearing is moderately to severely decreased bilaterally to hand rub. Tongue is midline and moved [id number] without any difficulty. Mild to moderate dysarthria. Shoulder shrug is normal bilaterally. Motor: The strength is right upper extremity is 4+. Otherwise 5 over 5 th roughout. Normal tone and bulk. Some other workup during this hospital visit consisted of: Lipid panel is triglyceride of 87, cholesterol is 158, LDL of 91 and HDL of 49. Hemoglobin A1c is 5.[address] of the head is reported as atrophy with chronic appearing periventricular white matter ischemic changes. CT angiography of the head and neck was reported as no evidence of dissection of the cervical internal carotid artery or vertebral artery or any evidence of significant stenosis at the carotid bifurcation. No evidence of intracranial high-grade stenosis or intracranial aneurysm. Pulmonary vascular congestion. Carotid duplex is reported as less than 50% stenosis of bilateral carotid bifurcation. 2-D echo was reported as normal left ventricular size and systolic function. Mild aortic valve sclerosis and mitral annular calcification. Mild aortic insufficiency. No pericardial effusion. No significant pulmonary hypertension. Repeat CT head: It is reported as No acute hemorrhage, hydrocephalus or mass effect. I felt patient has lacunar basal ganglia stroke Repeat CT head today: As no acute intracranial normality seen. Similar moderate burden of chronic small vessel ischemic disease. - Labs CBC & Chem 7: 04/28/23 05:21 04/28/23 05:21 Labs: Abnormal Lab Results - Last 24 Hours (Table) 04/28/23 Range/Units 17:40 POC Glucose (mg/dL) 127 H (70-110) mg/dL Assessment and Plan Assessment: This is a 82-year-old gentleman who had a out of hospital cardiopulmonary arrest secondary due to choking and yesterday was extubated and he was noted to have right facial weakness and dysarthria. Unknown last normal. Acute right facial weakness with dysarthria and on examination he had right upper extremity weakness likely due to acute ischemic stroke. No IV TPA since unknown last normal and the risk outweighed the benefit Out of the hospital cardiopulmonary arrest secondary due to choking episode with ST segment elevation myocardial infarction status post stent in the LAD Plan: MRI of the brain is pending Patient was started on aspirin 81 mg and Plavix 75 mg as well as Lipitor 80 mg daily at bedtime cardiology team. Continue neuro checks Cardiac monitoring PT OT and COUNSELOR/ART THERAPIST are consulted Cardiology is on board We'll defer the rest of the medical management to the primary team and other specialists DVT prophylaxis On subq heparin 5000U every 12 hours. Plan discussed with the patient's brother was at bedside as well as his nurse. Will continue to follow. Time with Patient: Less than 30
--- NOTE | 2023-04-29 14:18 | MR ---
EXAMINATION TYPE: MR brain wo con DATE OF EXAM: 04/29/2023 12:51 PM COMPARISON: NONE HISTORY: Right facial droop. FINDINGS: The ventricles, basal cisterns and sulci overlying the cerebral convexities are mildly enlarged. There is evidence of moderate confluent periventricular white matter ischemic demyelination. Remote deep white matter insults are also noted. Diffusion-weighted Imaging demonstrates a approximately 7 date scattered foci of increased signal sma ll in size within the right cerebral hemisphere. Within the left cerebral hemisphere approximately 13 foci of increased signal are noted scattered throughout the largest being within the left globus pal lidus. This measures 1.9 cm maximal dimension. There is also a small focus of edema left cerebellar h emisphere. Findings are compatible with multifocal acute ischemic insult. Correlate for embolic proce ss. There is no evidence for midline shift or mass effect. Acute intracranial hemorrhage or extra-axial collection is not evident. The paranasal sinuses are well-aerated. Thickening of the mastoid air cells compatible with chronic m astoiditis. IMPRESSION: 1. Multiple bilateral foci of increased signal on diffusion-weighted imaging as discussed above with the largest within the left globus pallidus. The findings are compatible with multifocal acute ischem ic insults. Correlate for embolic process.
--- NOTE | 2023-04-29 15:21 | P.PN ---
Subjective Progress Note Date: 04/29/23 82 years old, unknown past medical history. Patient currently intubated and cannot provide information As per records patient was eating he started choking and then collapsed, EMS was called and he got a shock with return of the pulse area he was been back and hereafter emergency room where he got intubated. As per ER staff that downtown was about 15 minutes Currently blood pressure 162/113, he is tachycardic around 106. He has mild leukocytosis of 14.4, rest of CBC, INR is unremarkable. Creatinine 1.3 which he had it before, possible patient has chronic kidney disease Glucose 199, liver enzymes AST mildly elevated 216 and ALT 149. Bilirubin is 1.1. Troponin is -0.018. No acute cardiopulmonary process. Endotracheal tube at the tip of the kaylyn EKG was showing ST elevation [place] of the lateral limits at I, aVL with reciprocal changes Patient was taken to the [facility] and he underwent emergent PCI to LAD Objective - Vital Signs Vital signs: Vital Signs Temp 97.9 F 04/29/23 08:00 Pulse 63 04/29/23 08:00 Resp 19 04/29/23 08:00 BP 153/86 04/29/23 08:00 Pulse Ox 92 L 04/29/23 08:00 FiO2 50 04/26/23 12:00 Intake & Output 04/28/23 04/29/23 04/29/23 18:59 06:59 18:59 Intake Total 100 Output Total 700 200 Balance -600 -200 Weight 92.6 kg 92.5 kg Intake: IV 100 Lactated Ringers 1,000 ml 100 @ 75 mls/hr IV .[id number] [facility] Rx#:[id number] Output: Urine 700 200 Other: Voiding Method Indwelling Catheter Urinal - Exam --GENERAL: The patient is awake alert, follow command, has difficulty talking with low [place]. But answers appropriately HEENT: Pupils are round and equally reacting to light. EOMI. No scleral icterus. No conjunctival pallor. Normocephalic, atraumatic. No pharyngeal erythema. No thyromegaly. CARDIOVASCULAR: S1 and S2 present. No murmurs, rubs, or gallops. -PULMONARY: Chest is clear to auscultation, no wheezing , no crackles. Mildly tachypneic ABDOMEN: Soft, nontender, nondistended, normoactive bowel sounds. No palpable organomegaly. MUSCULOSKELETAL: No joint swelling or deformity. EXTREMITIES: No cyanosis, clubbing, or pedal edema. -NEUROLOGICAL: Dysarthria, or extremity weakness. Motor exam of the other extremities 5/5. Right facial droop. Sensation intact. Meningeal signs are absent SKIN: No rashes. no petechiae. - Labs CBC & Chem 7: 04/28/23 05:21 04/28/23 05:21 Labs: Abnormal Lab Results - Last 24 Hours (Table) 04/28/23 04/28/23 Range/Units 11:48 17:40 POC Glucose (mg/dL) 162 H 127 H (70-110) mg/dL Assessment and Plan Assessment: Cardiac arrest at home status post CPR and electric shock with return of circulation. [place] about 15 minutes Acute lateral STEMI status post emergent PCI to LAD Acute stroke is suspected with right upper extremity weakness, right facial droop and dysarthria Acute hypoxic respiratory failure, improved Mild combined metabolic acidosis which looks more acute and chronic respiratory acidosis. Improved Mild acute kidney injury with good urine output. Resolved Mild leukocytosis Mild transaminitis Possible chronic kidney disease Plan: With aspirin and Plavix and Lipitor neurologist on the case and MRI of the brain is ordered Pulmonary/critical care team with help with vent management Continue with dual antiplatelet therapy, currently on aspirin and Plavix Metoprolol Small dose lisinopril patient can be transferred out of the ICU continue with IV fluids, currently on Ringer lactate. Monitor creatinine Labs and medication were reviewed.. Continue same treatment. Continue with symptomatic treatment. Resume home medication. Monitor labs and vitals. DVT and GI prophylaxis. Further recommendations as per clinical course of the patient DVT prophylaxis: Aspirin and Plavix GI Prophylaxis: Pepcid Prognosis is guarded
[2023-04-29] MEDS: lisinopriL 5 MG TAB PO SCH (17:20)
[2023-04-29 18:44] LABS: Glucose,Whole Blood 111 mg/dL (70-110)
[2023-04-29] MEDS: ATORVASTATIN 80 MG TAB PO SCH (21:23)
[2023-04-29 23:09] LABS: Glucose,Whole Blood 121 mg/dL (70-110)
[2023-04-30 04:36] LABS: HCT 38.6 % (39.0-53.0); HGB 13.6 gm/dL (13.0-17.5); MCH 31.9 pg (25.0-35.0); MCHC 35.2 g/dL (31.0-37.0); MCV 90.8 fL (80.0-100.0); Mean Platelet Volume 9.5; Platelet Count 188 k/uL (150-450); RBC 4.26 m/uL (4.30-5.90); RDW 12.5 % (11.5-15.5); WBC 9.4 k/uL (3.8-10.6)
[2023-04-30 05:08] LABS: African American GFR (CKD) 83 (>60 ml/min/1.73 sqM); Anion Gap 6 mmol/L; Blood Urea Nitrogen 21 mg/dL (9-20); Carbon Dioxide 24 mmol/L (22-30); Chloride 107 mmol/L (98-107); Glucose 106 mg/dL (74-99); Non-African American GFR(CKD) 72 (>60 ml/min/1.73 sqM); Potassium 3.8 mmol/L (3.5-5.1); Sodium 137 mmol/L (137-145)
[2023-04-30 06:41] LABS: Glucose,Whole Blood 117 mg/dL (70-110)
[2023-04-30] MEDS: HEPARIN SODIUM,PORCINE 5,000 UNIT/ML 1 ML VIAL SQ SCH (10:21)
[2023-04-30] MEDS: ASPIRIN 81 MG PO SCH (10:22)
[2023-04-30] MEDS: FAMOTIDINE 20 MG/2 ML VIAL IV SCH (10:22)
[2023-04-30] MEDS: CLOPIDOGREL 75 MG TAB PO SCH (10:22)
--- NOTE | 2023-04-30 11:31 | P.PN ---
Subjective Progress Note Date: 04/30/23 Principal diagnosis: Cardiopulmonary arrest. Pulmonary consult dated 04/25/2023. 82-year-old male seen in the emergency room, after having an htq-fl-shoqtrte cardiac arrest. The patient apparently had a choking episode. Subsequent to that, the patient apparently went into cardiac arrest. EMS arrived, and started CPR, and the patient was found to have intrinsic either fibrillation, and was defibrillated back into sinus rhythm. In the emergency room, he was intubated by the ER physician, Dr. Vargas. She call me on the phone to give me report. The patient went to the catheterization laboratory, and had a stent placed in the LAD. The patient was admitted back to the intensive care unit. The patient had a downtime of about 12-15 minutes according to the ER physician. The patient apparently is an 82-year-old male, who does not have any major medical problems, and does not see a physician on a regular basis. I was told he takes no medications on a regular basis. The patient is currently seen in the ICU, and room 257 the patient is currently on the ventilator, settings, volume assist control, rate 18, tidal volume 450, FiO2 100%, and PEEP of 5. A blood gas is not yet been done. Endotracheal tube is too far down the trachea, and was pulled back by respiratory. The patient's currently on propofol at 50 mcg/kg/m. I have ordered a blood gas. I will also order some Dilaudid 1 mg every 1-2 hours as needed, and some lactated Ringer's at 75 mL an hour. White count 14.4, with a normal hemoglobin, hematocrit, and platelet count. Coagulation studies are normal. Sodium 139, potassium 3.7, chlorides 107, CO2 17, anion gap 15, BUN/creatinine were 18 and 1.33. AST is 216, ALT is 149. Glucose 209. Chest x-ray does not show an acute process. Endotracheal tube was at the tip of the kaylyn. It was pulled back by respiratory. EKG shows some significant ST changes, and 1, and aVL. Progress note dated 04/26/2023. 82-year-old male who was initially seen in consultation for a kas-vi-uvckgcot cardiac arrest. The patient initially had a choking episode, and subsequently developed ventricular fibrillation, requiring defibrillation. The patient had about a 15 minute downtime. The patient came to the hospital, went to the catheterization laboratory, and had a stent placed in his LAD. Currently, he remains on mechanical ventilator. He is on assist control, rate 18, tidal volume 450, FiO2 50%, and PEEP of 8. Blood gases show pO2 112, pCO2 44, pH is 7.33. The patient's on propofol at 25 mcg/kg/m, and lactated Ringer's at 75 mL an hour. Norepinephrine has been weaned off. The patient does not have any tube feedings. Today, he'll get a daily interruption of sedation and a spontaneous breathing trial with pressure support of 8 and a CPAP of 5. White count 22.3, hemoglobin 14.2, hematocrit 43, and platelet count normal. Sodium 139, potassium 4.6, chlorides 110, CO2 24, BUN 22, and creatinine 1.52. TSH is normal. Chest x-ray shows bibasilar infiltrates or atelectasis. Progress note dated 04/27/2023. 82-year-old male who was initially seen in consultation for a mys-pm-gwgcnhsy cardiac arrest. The patient initially had a choking episode, and subsequently developed ventricular fibrillation, requiring defibrillation. The patient had about a 15 minute downtime. The patient came to the hospital, went to the catheterization laboratory, and had a stent placed in his LAD. Today, April 26, the patient was extubated. He is currently on 4 L of oxygen. He is getting lactated Ringer's at 75 mL an hour. After the extubation, the nurse noted that he had a right facial droop, and the patient had a computed tomography scan of the brain which was negative, and CT angiography which was also negative. Neurology was consulted. White count 13.4, hemoglobin 13.3, hematocrit 39.5, and platelet count 136,000. Sodium 138, potassium 4, chlorides 111, CO2 23, BUN 21, and creatinine 1.09. Progress note dated 04/28/2023. 82-year-old male who was seen in consultation for an vxe-ix-lfknovjs cardiac arrest. The patient initially presented with a choking episode, and subsequently developed ventricular fibrillation, requiring defibrillation. The patient had about a 15 minute downtime, and was intubated, in the emergency room. He went to the catheterization laboratory, and had stent placed to his LAD. The patient was extubated on April 26. He was noted to have a right facial droop, but a computed tomography scan, and CT angiography, were both negative. Currently, he is seen today in room 257. He is on 4 L of oxygen. He is getting lactated Ringer's at 75 mL an hour. Clinically, the patient has been stable, and had an uneventful night. White count 11.8, hemoglobin 12.6, hematocrit 38.1, with a normal platelet count. Sodium 136, potassium 4, chlorides 109, CO2 24, BUN 21, creatinine 0.97. Chest x-ray shows some mild interstitial edema. Computed tomography scan of the brain, showed nothing acute. Progress note dated 04/29/2023. 82-year-old male who was seen in consultation for vpo-nm-deyrjtpr cardiac arrest. The patient apparently had a choking episode, and developed ventricular fibrillation, requiring defibrillation. He had about a 15 minute downtime, and was intubated in the emergency department. He went to the catheterization laboratory, and had a stent placed to his LAD. He was extubated successfully and April 26. He was noted to have a right facial droop, but computed to mography scan of the head, and CT angiography were both negative. The patient is scheduled for an MRI today. He's currently on room air, and not receiving any IV fluids. No new labs today other than a glucose of 105. Progress note dated 04/30/2023. 82-year-old male who was seen in consultation for ufz-jj-yoglsocr cardiac arrest. The patient apparently had a choking episode, and developed ventricular fibrillation, requiring defibrillation. He had about a 15 minute downtime, and was intubated in the emergency department. He went to the catheterization laboratory, and had a stent placed to his LAD. He was extubated successfully and April 26. He was noted to have a right facial droop, but computed tomography scan of the head, and CT angiography were both negative. The patient had a brain MRI on April 29, showing multiple areas of ischemic infarct. A ALIYAH was recommended by neurology, to rule out embolic disease. White count 9.4, he will 13.6, hematocrit 38.6, and platelet count is normal. Electrolytes look pretty good, including a BUN of 21 and a creatinine of 0.99. Potassium is 3.8. Calcium is 8.0. Objective - Vital Signs Vital signs: Vital Signs Temp 97.4 F L 04/30/23 08:00 Pulse 71 04/30/23 08:00 Resp 24 04/30/23 08:00 BP 153/77 04/30/23 08:00 Pulse Ox 94 L 04/30/23 08:00 FiO2 50 04/26/23 12:00 Intake & Output 04/29/23 04/30/23 04/30/23 18:59 06:59 18:59 Intake Total 450 200 Output Total 510 200 Balance 450 -510 0 Weight 91.7 kg Intake: Oral 450 200 Output: Urine 510 200 Other: Voiding Method Incontinent Incontinent External Catheter # Voids 1 - Exam No acute distress, currently on room air. The patient is awake and alert. Room air saturation is 94%. 2 L saturation is 98%. HEENT examination is grossly unremarkable. Neck supple. Full range of motion. No adenopathy thyromegaly or neck vein distention. Cardiovascular examination reveals regular rhythm rate. S1-S2 normal. No S3 or S4. No discernible murmur noted. Heart rate 71 bpm. Heart sounds are distant. Lungs reveal clear breath sounds. Breath sounds are equal bilaterally. No adventitious lung sounds including wheezes rhonchi or crackles. Room air saturation is 94 %. Abdomen soft without bowel sounds. Extremities are intact. No cyanosis clubbing or edema. Skin is without rash or lesion. Neurologic examination continues to revealed a mild right facial droop. The patient's awake and alert. - Labs CBC & Chem 7: 04/30/23 04:00 04/30/23 04:00 Labs: Abnormal Lab Results - Last 24 Hours (Table) 04/29/23 04/29/23 04/30/23 Range/Units 18:42 23:08 04:00 RBC 4.26 L (4.30-5.90) m/uL Hct 38.6 L (39.0-53.0) % BUN (9-20) mg/dL Glucose (74-99) mg/dL POC Glucose (mg/dL) 111 H 121 H (70-110) mg/dL Calcium (8.4-10.2) mg/dL 04/30/23 04/30/23 Range/Units 04:00 06:39 RBC (4.30-5.90) m/uL Hct (39.0-53.0) % BUN 21 H (9-20) mg/dL Glucose 106 H (74-99) mg/dL POC Glucose (mg/dL) 117 H (70-110) mg/dL Calcium 8.0 L (8.4-10.2) mg/dL Assessment and Plan Assessment: Zar-rt-rhbgzpmf cardiopulmonary arrest, secondary to a choking episode, with an ST segment elevation myocardial infarction, status post stent placement in the LAD. S/P extubation, 04/26/2023. Right facial droop, rule out CVA. MRI showing multiple areas of infarct, potentially consistent with embolic ischemic disease. Rule out anoxic brain injury. Acute hypoxemic respiratory failure, status post intubation and mechanical ventilation on 04/25/2023. No apparent past medical history. Plan: Plan dated 04/25/2023. The patient is evaluated in the intensive care unit, and labs, x-rays, and medications are reviewed. The patient had an end-uy-fvwstnzb cardiopulmonary arrest, secondary to a choking episode. The patient had a downtime about 12-15 minutes, and was resuscitated by EMS, having received defibrillation, for the patient's ventricular fibrillation. The patient was intubated in the emergency room, by the ER physician. The patient went to the catheterization laboratory, and apparently had a plaque rupture, and had a stent placed in the LAD. The patient was seen in the intensive care unit, having been placed on the mechanical ventilator. Blood gases have been ordered. I've also ordered some lactated Ringer's at 75 mL an hour, as well as Dilaudid 1 mg every 1-2 hours when necessary. The patient's currently on propofol at 50 mcg/kg/m. The endotracheal tube was at the kaylyn and was pulled back by respiratory. Plan dated 04/26/2023. The patient will have a daily interruption of sedation, and a spontaneous breathing trial, on both pressure support and CPAP. The patient remains on propofol at 25 mcg/kg/m. Norepinephrine has been weaned off. The patient's getting lactated Ringer's at 75 mL an hour. Labs, x-rays, and medications have all been reviewed. The patient had a stent placed in his LAD. We will continue to follow the patient and make recommendations along the way. Were hoping that we can get the patient extubated today. Prognosis is guarded. Plan dated 04/27/2023. The patient will be seen by neurology. The patient appears to have a new right facial droop, which is improved, compared to yesterday. The patient's brain scan was negative. CT angiography was negative. The patient will likely need an MRI. Labs, x-rays, and medications are reviewed. Overall prognosis remains guarded. The patient remains on oxygen at 4 L. Lactated Ringer's is running at 75 mL an hour. Labs, x-rays, and medications are all reviewed. Plan dated 04/28/2023. The patient appears to be doing reasonably well. He stable from the respiratory status, and cardiovascular status. He continues to have a right facial droop. Labs, x-rays, and medications are reviewed. The patient continues on oxygen at 4 L. He is getting lactated Ringer's at 75 mL an hour, which will be discontinued. The patient will be seen by speech pathology. He continues with GI and DVT prophylaxis. The patient could be considered for transfer out of the intensive care unit. Plan dated 04/29/2023. The patient could be transferred out of the intensive care unit. The patient is not receiving any supplemental oxygen, or IV fluids. Labs, x-rays, medications are reviewed. Prognosis is guarded. The patient is going for an MRI of the brain today. We suspect that he's had a CVA. Continue with the right facial droop. We will continue to follow and make recommendations along the way. Prognosis is guarded. Plan dated 04/30/2023. The patient remains stable in the intensive care unit. Brain MRI showed multiple areas of ischemic infarct, potentially consistent with embolic disease. A transesophageal echocardiogram was recommended. Labs, x-rays, and medications are reviewed. The patient's overall prognosis remains guarded. He still has a bit of a right facial droop. Labs, x-rays, and medications are reviewed. We will continue to follow. Prognosis is guarded. Time with Patient: Less than 30
--- NOTE | 2023-04-30 12:14 | P.PN ---
Subjective Progress Note Date: 04/30/23 This is Boris Leonard NP, I'm dictating on behalf of Dr. Dean's H&P and A&P. Patient was interviewed and examined. Patient is a pleasant 82-year-old male who suffered a ventricular fibrillation arrest at home after having a choking episode, with approximate down time of 15 minutes. Patient was diagnosed with an ST elevated myocardial infarction and underwent coronary angiogram with Dr. Victor. Patient was successfully stented, and transferred to the ICU for supportive management. Patient did he reports she's feeling okay. He is denying chest pain, and shortness of breath. He does state that he is breathing okay. His blood pressure has improved. GENERAL: Well-appearing, well-nourished and in no acute distress. NECK: Supple without JVD or thyromegaly. LUNGS: Breath sounds clear to auscultation bilaterally. Respiration equal and unlabored. No wheezes, rales or rhonchi. HEART: Regular rate and rhythm without murmurs, rubs or gallops. S1 and S2 heard. EXTREMITIES: Normal range of motion, no edema. No clubbing or cyanosis. Peripheral pulses intact and strong. VITALS: Temp 97.4, pulse 71, respirations 24, blood pressure 153/77, O2 saturation 94% on room air TELEMETRY: Normal sinus rhythm LABS: White count 9.4, hemoglobin 13.6, sodium 137, potassium 3.8, B1 21, creatinine 0.99, calcium 8.0 IMPRESSION: 1. Acute ST elevated IN 2. Status post stenting of the mid LAD 3. Ventricular fibrillation cardiac arrest at home, approximate down time 15 minutes 4. Possible TIA 5. Hypertension PLAN: Continue current medications as previously prescribed. Patient may be transferred to cardiac stepdown. Continue aggressive pulmonary hygiene. Further recommendations based on patient's clinical course. Objective - Vital Signs Vital signs: Vital Signs Temp 97.4 F L 04/30/23 08:00 Pulse 71 04/30/23 08:00 Resp 24 04/30/23 08:00 BP 153/77 04/30/23 08:00 Pulse Ox 94 L 04/30/23 08:00 FiO2 50 04/26/23 12:00 Intake & Output 04/29/23 04/30/23 04/30/23 18:59 06:59 18:59 Intake Total 450 200 Output Total 510 200 Balance 450 -510 0 Weight 91.7 kg Intake: Oral 450 200 Output: Urine 510 200 Other: Voiding Method Incontinent Incontinent Incontinent External Catheter External Catheter # Voids 1 - Labs CBC & Chem 7: 04/30/23 04:00 04/30/23 04:00 Labs: Abnormal Lab Results - Last 24 Hours (Table) 04/29/23 04/29/23 04/30/23 Range/Units 18:42 23:08 04:00 RBC 4.26 L (4.30-5.90) m/uL Hct 38.6 L (39.0-53.0) % BUN (9-20) mg/dL Glucose (74-99) mg/dL POC Glucose (mg/dL) 111 H 121 H (70-110) mg/dL Calcium (8.4-10.2) mg/dL 04/30/23 04/30/23 Range/Units 04:00 06:39 RBC (4.30-5.90) m/uL Hct (39.0-53.0) % BUN 21 H (9-20) mg/dL Glucose 106 H (74-99) mg/dL POC Glucose (mg/dL) 117 H (70-110) mg/dL Calcium 8.0 L (8.4-10.2) mg/dL
[2023-04-30 12:15] LABS: Glucose,Whole Blood 115 mg/dL (70-110)
--- NOTE | 2023-04-30 14:09 | P.PN ---
Subjective Progress Note Date: 04/30/23 I am following-up with patient and he feels he is doing well. Denies of any new neurological issues. Objective - Vital Signs Vital signs: Vital Signs Temp 97.6 F 04/30/23 12:00 Pulse 69 04/30/23 12:00 Resp 29 H 04/30/23 12:00 BP 84/63 04/30/23 12:00 Pulse Ox 90 L 04/30/23 12:00 FiO2 50 04/26/23 12:00 Intake & Output 04/29/23 04/30/23 04/30/23 18:59 06:59 18:59 Intake Total 450 200 Output Total 510 200 Balance 450 -510 0 Weight 91.7 kg Intake: Oral 450 200 Output: Urine 510 200 Other: Voiding Method Incontinent Incontinent Incontinent External Catheter External Catheter # Voids 1 - Exam GENERAL: The patient is sitting in a recliner chair and is not in acute distress. NEUROLOGICAL: Higher mental function: The patient is awake, oriented to self, He again did not know month or year. Patient is mildly slow responding and appears confused. Patient is following few simple commands. No aphasia from limited language. Cranial nerves: The pupils are round, equal and reactive to light. Visual han are full to confrontation throughout. Extraocular movement is intact no nystagmus is noted.Mild right lower facial droop. Hearing is moderately to severely decreased bilaterally to hand rub. Tongue is midline and moved [id number] without any difficulty. Mild to moderate dysarthria. Shoulder shrug is normal bilaterally. Motor: The strength is right upper extremity is 4+. Otherwise 5 over 5 thr oughout. Normal tone and bulk. Some other workup during this hospital visit consisted of: Lipid panel is triglyceride of 87, cholesterol is 158, LDL of 91 and HDL of 49. Hemoglobin A1c is 5.[address] of the head is reported as atrophy with chronic appearing periventricular w otilio matter ischemic changes. CT angiography of the head and neck was reported as no evidence of dissection of the cervical internal carotid artery or vertebral artery or any evidence of significant stenosis at the carotid bifurcation. No evidence of intracranial high-grade stenosis or intracranial aneurysm. Pulmonary vascular congestion. Carotid duplex is reported as less than 50% stenosis of bilateral carotid bifurcation. 2-D echo was reported as normal left ventricular size and systolic function. Mild aortic valve sclerosis and mitral annular calcification. Mild aortic insufficiency. No pericardial effusion. No significant pulmonary hypertension. Repeat CT head: It is reported as No acute hemorrhage, hydrocephalus or mass effect. I felt patient has lacunar basal ganglia stroke Repeat CT head today: As no acute intracranial normality seen. Similar moderate burden of chronic small vessel ischemic disease. MRI Brain reported as multiple bilateral foci of increased signal on diffusion weighted imaging as discussed above with largest in the left globus pallidus. The findings are compatible with multifocal acute ischemic insult. Correlate for embolic process. It's involving bilateral hemispheric in the body of the report. I personally reviewed the MRI and agree that the patient has multiple diffusion restriction of over bilateral hemisphere. - Labs CBC & Chem 7: 04/30/23 04:00 04/30/23 04:00 Labs: Abnormal Lab Results - Last 24 Hours (Table) 04/29/23 04/29/23 04/30/23 Range/Units 18:42 23:08 04:00 RBC 4.26 L (4.30-5.90) m/uL Hct 38.6 L (39.0-53.0) % BUN (9-20) mg/dL Glucose (74-99) mg/dL POC Glucose (mg/dL) 111 H 121 H (70-110) mg/dL Calcium (8.4-10.2) mg/dL 04/30/23 04/30/23 04/30/23 Range/Units 04:00 06:39 12:13 RBC (4.30-5.90) m/uL Hct (39.0-53.0) % BUN 21 H (9-20) mg/dL Glucose 106 H (74-99) mg/dL POC Glucose (mg/dL) 117 H 115 H (70-110) mg/dL Calcium 8.0 L (8.4-10.2) mg/dL Assessment and Plan Assessment: This is a 82-year-old gentleman who had a out of hospital cardiopulmonary arrest secondary due to choking and yesterday was extubated and he was noted to have right facial weakness and dysarthria. Unknown last normal. Acute right facial weakness with dysarthria and on examination he had right upper extremity weakness due to acute ischemic stroke. On MRI the patient had multiple bilateral hemispheric foci diffusion restriction compatible with multifocal acute ischemic insult and it appears ?cardioembolic in nature. No IV TPA since unknown last normal and the risk outweighed the benefit Out of the hospital cardiopulmonary arrest secondary due to choking episode with ST segment elevation myocardial infarction status post stent in the LAD Plan: Patient was started on aspirin 81 mg and Plavix 75 mg as well as Lipitor 80 mg daily at bedtime cardiology team. Continue neuro checks Cardiac monitoring. So far no A. fib or flutter per the ICU nurse. Recommend a transesophageal echocardiogram and if negative recommend a 30 minute event monitor or a loop recorder. Per nurse, ICU attending ordered ALIYAH. PT OT and CEO NA are consulted Cardiology is on board We'll defer the rest of the medical management to the primary team and other specialists DVT prophylaxis On subq heparin 5000U every 12 hours. The plan is discussed with patient's via phone and nurse. Will continue to follow. Dr. Olsen will start neurology service on 05/02/23 A.M. Time with Patient: Less than 30
[2023-04-30] MEDS ORDERED: HEPARIN SODIUM 1,000 UN/ML (10ML VL) IV ONE (14:21)
[2023-04-30] MEDS: METOPROLOL TARTRATE 50 MG TAB PO SCH ×2 (14:28→21:53)
[2023-04-30] MEDS: lisinopriL 10 MG TAB PO SCH (14:28)
[2023-04-30] MEDS: SODIUM CHLORIDE 0.9% 250 ML IV SCH ×2 (14:31→16:50)
[2023-04-30] MEDS: HEPARIN SOD,PORK IN 0.45% NACL 25,000 UNIT in 0.45% NACL 1 250ML.BAG IV SCH (14:43)
[2023-04-30 15:18] LABS: ABG Base Excess -2.9 mmol/L; ABG HCO3 22 mmol/L (21-25); ABG Oxygen Saturation 95.5 % (94-97); ABG PCO2 34 mmHg (35-45); ABG PH 7.41 (7.35-7.45); ABG PO2 78 mmHg (83-108); ABG TCO2 23 mmol/L (19-24); Allen Test Performed? Yes
--- NOTE | 2023-04-30 15:35 | XR ---
EXAMINATION TYPE: XR chest 1V portable DATE OF EXAM: 04/30/2023 COMPARISON: 04/20/2023 HISTORY: Shortness of breath TECHNIQUE: Single frontal view of the chest is obtained. FINDINGS: There is diffuse interstitial opacity and dense consolidative retrocardiac opacity. Degree of interst itial opacity has worsened in the interval particularly in the right lower lung zone and there may be a small right pleural effusion.. Heart size is normal. The osseous structures are intact IMPRESSION: Marked acute cardiopulmonary disease with interval worsening in the right lung as descri bed above.
[2023-04-30] MEDS: DEXMEDETOMIDINE/0.9% NACL(PMX) 400 MCG in EMPTY BAG 1 BAG IV SCH (16:24)
[2023-04-30 18:17] LABS: Glucose,Whole Blood 117 mg/dL (70-110)
[2023-04-30] MEDS: NOREPINEPHRINE 4 MG in SODIUM CHLORIDE 0.9% 250 ML IV SCH ×2 (18:53→22:55)
[2023-04-30] MEDS: HYDROmorphone 1 MG/ML 1 ML SYRINGE IVP PRN (19:05)
[2023-04-30] MEDS ORDERED: propofoL 100 ML IV ONE (19:35)
--- NOTE | 2023-04-30 20:03 | XR ---
EXAMINATION TYPE: XR chest 1V portable DATE OF EXAM: 04/30/2023 COMPARISON: 04/30/2023 HISTORY: Tube placement TECHNIQUE: Single frontal view of the chest is obtained. FINDINGS: ET tube with tip approximately 4 cm above kaylyn. NG tube seen extending the abdomen. Diffuse bilateral airspace disease with small effusion. Heart size stable. Hypertrophic and degenerat william change of the spine and bilateral shoulder. IMPRESSION: 1. ET tube in good position with diffuse bilateral airspace disease correlate for pulmonary edema, AR DS or diffuse pneumonia.
[2023-04-30 20:16] LABS: ABG Base Excess -5.6 mmol/L; ABG HCO3 20 mmol/L (21-25); ABG PCO2 37 mmHg (35-45); ABG PH 7.35 (7.35-7.45); ABG PO2 114 mmHg (83-108); ABG TCO2 21 mmol/L (19-24); Allen Test Performed? Yes
[2023-04-30] MEDS: HEPARIN SODIUM 1,000 UN/ML (10ML VL) IV PRN (21:36)
[2023-04-30] MEDS: CHLORHEXIDINE GLUCONATE 15 ML CUP MUCOUS MEM SCH (21:53)
[2023-04-30] MEDS: ATORVASTATIN 80 MG TAB PO SCH (21:53)
[2023-04-30] MEDS: VASOPRESSIN 20 UNIT in SODIUM CHLORIDE 0.9% 50 ML IV SCH (23:23)
[2023-05-01 00:37] LABS: Glucose,Whole Blood 118 mg/dL (70-110)
[2023-05-01] MEDS: NOREPINEPHRINE 4 MG in SODIUM CHLORIDE 0.9% 250 ML IV SCH ×7 (01:33→23:38)
[2023-05-01] MEDS: VASOPRESSIN 20 UNIT in SODIUM CHLORIDE 0.9% 50 ML IV SCH ×3 (02:57→23:39)
[2023-05-01] MEDS ORDERED: LACTATED RINGERS 1,000 ML IV SCH (04:15)
[2023-05-01] MEDS: HEPARIN SODIUM 1,000 UN/ML (10ML VL) IV PRN (04:34)
[2023-05-01 05:57] LABS: Basophils # (A) 0.1 k/uL (0-0.2); Basophils % (A) 0 %; Eosinophils % (A) 0 %; HCT 40.8 % (39.0-53.0); HGB 13.3 gm/dL (13.0-17.5); Lymphocytes # (A) 1.5 k/uL (1.0-4.8); Lymphocytes % (A) 7 %; MCH 30.3 pg (25.0-35.0); MCHC 32.6 g/dL (31.0-37.0); MCV 92.8 fL (80.0-100.0); Mean Platelet Volume 9.8; Monocytes # (A) 1.6 k/uL (0-1.0); Monocytes % (A) 8 %; Neutrophils # (A) 18.1 k/uL (1.3-7.7); Neutrophils % (A) 84 %; Platelet Count 237 k/uL (150-450); RDW 12.5 % (11.5-15.5); WBC 21.6 k/uL (3.8-10.6)
[2023-05-01 06:05] LABS: INR 1.2 (<1.2)
[2023-05-01 06:16] LABS: ALT 30 U/L (4-49); AST 43 U/L (17-59); African American GFR (CKD) 35 (>60 ml/min/1.73 sqM); Albumin 2.2 g/dL (3.5-5.0); Alkaline Phosphatase 64 U/L (38-126); Anion Gap 12 mmol/L; Blood Urea Nitrogen 39 mg/dL (9-20); Calcium 7.4 mg/dL (8.4-10.2); Carbon Dioxide 16 mmol/L (22-30); Chloride 113 mmol/L (98-107); Glucose 145 mg/dL (74-99); Non-African American GFR(CKD) 30 (>60 ml/min/1.73 sqM); Potassium 4.4 mmol/L (3.5-5.1); Sodium 141 mmol/L (137-145); Total Bilirubin 1.3 mg/dL (0.2-1.3); Total Protein 4.6 g/dL (6.3-8.2)
[2023-05-01 06:20] LABS: Glucose,Whole Blood 136 mg/dL (70-110)
[2023-05-01 06:28] LABS: ABG Base Excess -7.4 mmol/L; ABG HCO3 18 mmol/L (21-25); ABG Oxygen Saturation 97.9 % (94-97); ABG PCO2 34 mmHg (35-45); ABG PH 7.35 (7.35-7.45); ABG PO2 122 mmHg (83-108); ABG TCO2 19 mmol/L (19-24); Allen Test Performed? Yes
[2023-05-01] MEDS: HEPARIN SOD,PORK IN 0.45% NACL 25,000 UNIT in 0.45% NACL 1 250ML.BAG IV SCH (06:57)
[2023-05-01] MEDS ORDERED: IPRATROPIUM-ALBUTEROL 3 ML NEB INHALATION PRN (08:06)
--- NOTE | 2023-05-01 08:29 | XR ---
EXAMINATION TYPE: XR chest 1V portable DATE OF EXAM: 05/01/2023 COMPARISON: 04/30/2023 HISTORY: Tube placement and shortness of breath TECHNIQUE: Single frontal view of the chest is obtained. FINDINGS: ET tube is 5.5 cm above the kaylyn. There is an NG tube within the stomach.. There are marked bilateral infiltrates unchanged compared to previous. There is no large pleural effusion and no pneumothorax. The pulmonary vasculature is not appear conge sted. The osseous structures are intact IMPRESSION: . 1. ET tube 5.5 cm above the kaylyn. 2. Marked acute cardiopulmonary disease with bilateral lung infiltrates and no interval change.
[2023-05-01] MEDS: FAMOTIDINE 20 MG/2 ML VIAL IV SCH (08:43)
[2023-05-01] MEDS: CLOPIDOGREL 75 MG TAB PO SCH (08:43)
[2023-05-01] MEDS: CHLORHEXIDINE GLUCONATE 15 ML CUP MUCOUS MEM SCH ×2 (08:43→20:10)
[2023-05-01] MEDS: ASPIRIN 81 MG PO SCH (08:43)
[2023-05-01] MEDS: lisinopriL 10 MG TAB PO SCH (09:06)
[2023-05-01] MEDS: METOPROLOL TARTRATE 50 MG TAB PO SCH ×2 (09:06→20:10)
[2023-05-01] MEDS ORDERED: CISATRACURIUM 2 MG/ML 5 ML VIAL IV ONE ×2 (09:09→10:08)
[2023-05-01] MEDS: HYDROCORTISONE SUCCINATE 100 MG/2 ML VIAL IV SCH ×2 (09:11→17:47)
--- NOTE | 2023-05-01 09:37 | P.PN ---
Subjective Progress Note Date: 04/30/23 82 years old, unknown past medical history. Patient currently intubated and cannot provide information As per records patient was eating he started choking and then collapsed, EMS was called and he got a shock with return of the pulse area he was been back and hereafter emergency room where he got intubated. As per ER staff that [place] was about 15 minutes Currently blood pressure 162/113, he is tachycardic around 106. He has mild leukocytosis of 14.4, rest of CBC, INR is unremarkable. Creatinine 1.3 which he had it before, possible patient has chronic kidney disease Glucose 199, liver enzymes AST mildly elevated 216 and ALT 149. Bilirubin is 1.1. Troponin is -0.018. No acute cardiopulmonary process. Endotracheal tube at the tip of the kaylyn EKG was showing ST elevation [place] of the lateral limits at I, aVL with reciprocal changes Patient was taken to the [facility] and he underwent emergent PCI to LAD 04/30/2023 Patient is seen and evaluated resting in bed; discussed with nursing staff; no new concerns Vital signs are reviewed with temperature of 97.4, pulse 71, respiration 24 and blood pressure 153/77, O2 saturation of 94% Blood work reveals a WBC of 9.4, hemoglobin 30.6, hematocrit 38.6 and platelet count of 118, sodium 137, potassium 3.8, BUN/creatinine of 21/0.99 MRI of the brain reveals multiple areas of ischemic infarct consistent with embolic phenomena Neurology on board and recommending ALIYAH; if ALIYAH is negative patient is recommending at event monitor or loop recorder; cardiology is on board Patient is admitted with acute ST elevation AZ with V. fib cardiac arrest at home with an approximate downtime of 15 minutes; patient is status post stenting of mid LAD; cardiology recommending to continue with current medications -- Prognosis remains guarded Objective - Vital Signs Vital signs: Vital Signs Temp 98.4 F 04/30/23 04:00 Pulse 62 04/30/23 04:00 Resp 27 H 04/30/23 04:00 BP 153/77 04/30/23 04:00 Pulse Ox 92 L 04/30/23 04:00 FiO2 50 04/26/23 12:00 Intake & Output 04/29/23 04/30/23 04/30/23 18:59 06:59 18:59 Intake Total 450 Output Total 510 Balance 450 -510 Weight 91.7 kg Intake: Oral 450 Output: Urine 510 Other: Voiding Method Incontinent Incontinent External Catheter # Voids 1 - Exam --GENERAL: The patient is awake alert, follow command, has difficulty talking with low Roland. But answers appropriately HEENT: Pupils are round and equally reacting to light. EOMI. No scleral icterus. No conjunctival pallor. Normocephalic, atraumatic. No pharyngeal erythema. No thyromegaly. CARDIOVASCULAR: S1 and S2 present. No murmurs, rubs, or gallops. -PULMONARY: Chest is clear to auscultation, no wheezing , no crackles. Mildly tachypneic ABDOMEN: Soft, nontender, nondistended, normoactive bowel sounds. No palpable organomegaly. MUSCULOSKELETAL: No joint swelling or deformity. EXTREMITIES: No cyanosis, clubbing, or pedal edema. -NEUROLOGICAL: Dysarthria, or extremity weakness. Motor exam of the other extremities 5/5. Right facial droop. Sensation intact. Meningeal signs are absent SKIN: No rashes. no petechiae. - Labs CBC & Chem 7: 05/01/23 05:00 05/01/23 05:00 Labs: Abnormal Lab Results - Last 24 Hours (Table) 04/29/23 04/29/23 04/30/23 Range/Units 18:42 23:08 04:00 RBC 4.26 L (4.30-5.90) m/uL Hct 38.6 L (39.0-53.0) % BUN (9-20) mg/dL Glucose (74-99) mg/dL POC Glucose (mg/dL) 111 H 121 H (70-110) mg/dL Calcium (8.4-10.2) mg/dL 04/30/23 04/30/23 Range/Units 04:00 06:39 RBC (4.30-5.90) m/uL Hct (39.0-53.0) % BUN 21 H (9-20) mg/dL Glucose 106 H (74-99) mg/dL POC Glucose (mg/dL) 117 H (70-110) mg/dL Calcium 8.0 L (8.4-10.2) mg/dL Assessment and Plan Assessment: Cardiac arrest at home status post CPR and electric shock with return of circulation. [place] about 15 minutes Acute lateral STEMI status post emergent PCI to LAD Acute stroke is suspected with right upper extremity weakness, right facial droo p and dysarthria Acute hypoxic respiratory failure, improved Mild combined metabolic acidosis which looks more acute and chronic respiratory acidosis. Improved Mild acute kidney injury with good urine output. Resolved Mild leukocytosis Mild transaminitis Possible chronic kidney disease Plan: With aspirin and Plavix and Lipitor neurologist on the case and MRI of the brain is ordered Pulmonary/critical care team with help with vent management Continue with dual antiplatelet therapy, currently on aspirin and Plavix Metoprolol Small dose lisinopril patient can be transferred out of the ICU continue with IV fluids, currently on Ringer lactate. Monitor creatinine Labs and medication were reviewed.. Continue same treatment. Continue with symptomatic treatment. Resume home medication. Monitor labs and vitals. DVT and GI prophylaxis. Further recommendations as per clinical course of the patient DVT prophylaxis: Aspirin and Plavix GI Prophylaxis: Pepcid Prognosis is guarded
[2023-05-01 10:52] LABS: Magnesium 1.7 mg/dL (1.6-2.3); Phosphorus 5.2 mg/dL (2.5-4.5)
[2023-05-01 11:02] LABS: Amorphous Sediment,Urine Few /hpf; Appearance,Urine Turbid (Clear); Bilirubin,Urine 1+ (Negative); Blood,Urine Large (Negative); Color,Urine Dark Brown; Glucose,Urine (UA) Negative (Negative); Hyaline Casts,Urine 3 /lpf (0-2); Ketones,Urine Negative (Negative); Leukocyte Esterase,Urine Negative (Negative); Mucus,Urine Occasional /hpf; Nitrite,Urine Negative (Negative); PH, Urine 5.5 (5.0-8.0); Protein,Urine 1+ (Negative); RBC,Urine 38 /hpf (0-5); Specific Gravity,Urine 1.025 (1.001-1.035); Squamous Epithelial Cell,Urine 1 /hpf (0-4); WBC,Urine 3 /hpf (0-5)
--- NOTE | 2023-05-01 11:16 | XR ---
EXAMINATION TYPE: XR chest 1V confirm line [facility] DATE OF EXAM: 05/01/2023 COMPARISON: 04/30/2023 HISTORY: Tube placement TECHNIQUE: Single frontal view of the chest is obtained. FINDINGS: There is a left jugular central venous catheter the tip of which is in the SVC/R junction. There is a n NG tube within the stomach. ET tube is 6 cm above the kaylyn There is been no change in the diffuse bilateral infiltrates. There is no pneumothorax. IMPRESSION: 1. ET tube 6 cm above the kaylyn. 2. Left jugular central venous catheter in the SVC/R junction. 3. NG tube within the stomach. 4. Marked acute cardiopulmonary disease with diffuse bilateral infiltrates unchanged compared to prev ious.
--- NOTE | 2023-05-01 11:30 | P.PN ---
Subjective Progress Note Date: 05/01/23 I am following-up with patient and per nurse his cardiac condition has worsened and he is on IV heparin drip. EKG showed ST depression. Because of worsening of his condition he had to be intubated and is on IV propofol. Objective - Vital Signs Vital signs: Vital Signs Temp 99.5 F 05/01/23 08:00 Pulse 95 05/01/23 11:00 Resp 24 05/01/23 11:00 BP 105/67 05/01/23 11:00 Pulse Ox 95 05/01/23 11:00 FiO2 60 05/01/23 11:19 Intake & Output 04/30/23 05/01/23 05/01/23 18:59 06:59 18:59 Intake Total 277.441 7553.197 402.739 Output Total 440 185 100 Balance -005.431 4312.197 302.739 Weight 93 kg Intake: IV 1000 Lactated Ringers 1,000 ml 1000 @ 999 mls/hr IV .Q1H1M SHANNA Rx#:[id number] Intake, IV Titration 28.733 1346.197 402.739 Amount Dexmedetomidine/0.9% NaCl 28.733 23.307 (Pmx) 400 mcg In Empty Bag 1 bag @ 0.2 MCG/KG/HR 4.585 mls/hr IV .[id number] SHANNA Rx#:[id number] Heparin Sod,Pork in 0.45% 192.487 NaCl 25,000 unit In 0.45 % NaCl 1 250ml.bag @ 10. 905 UNITS/KG/HR 10 mls/hr IV .Q24H SHANNA Rx#: [id number] Norepinephrine 4 mg In 949.475 302.739 Sodium Chloride 0.9% 250 ml @ 0.03 MCG/KG/MIN 10. 481 mls/hr IV .Q24H SHANNA Rx#:[id number] Vasopressin 20 unit In 16.371 Sodium Chloride 0.9% 50 ml @ 0.03 UNITS/MIN 4.59 mls/hr IV .Q11H7M SHANNA Rx# :[id number] propofoL 1,000 mg In 164.557 100 Empty Bag 1 bag @ 15 MCG/ KG/MIN 8.253 mls/hr IV . Q12H8M SHANNA Rx#:[id number] Oral 200 Output: Urine 440 185 100 Other: Voiding Method Incontinent Indwelling Catheter Indwelling Catheter External Catheter ABP, PAP, CO, CI - Last Documented Arterial Blood Pressure 97/50 - Exam GENERAL: The patient is lying in bed and does not appear in acute distress. RESPIRATORY: Intubated on vent. NEUROLOGICAL: Limited because of his over condition and is on IV Propofol 40mcg/kg/min Pupils are 1-2mm and sluggishly reactive to light if any. No facial weakness. Otherwise limited. Some other workup during this hospital visit consisted of: Lipid panel is triglyceride of 87, cholesterol is 158, LDL of 91 and HDL of 49. Hemoglobin A1c is 5.6 [address] is [address] of the head is reported as atrophy with chronic appearing periventricular white matter ischemic changes. CT angiography of the head and neck was reported as no evidence of dissection of the cervical internal carotid artery or vertebral artery or any evidence of significant stenosis at the carotid bifurcation. No evidence of intracranial high-grade stenosis or intracranial aneurysm. Pulmonary vascular congestion. Carotid duplex is reported as less than 50% stenosis of bilateral carotid bifurcation. 2-D echo was reported as normal left ventricular size and systolic function. Mild aortic valve sclerosis and mitral annular calcification. Mild aortic ins ufficiency. No pericardial effusion. No significant pulmonary hypertension. Repeat CT head: It is reported as No acute hemorrhage, hydrocephalus or mass effect. I felt patient has lacunar basal ganglia stroke Repeat CT head today: As no acute intracranial normality seen. Similar moderate burden of chronic small vessel ischemic disease. MRI Brain reported as multiple bilateral foci of increased signal on diffusion weighted imaging as discussed above with largest in the left globus pallidus. The findings are compatible with multifocal acute ischemic insult. Correlate for embolic process. It's involving bilateral hemispheric in the body of the report. I personally reviewed the MRI and agree that the patient has multiple diffusion restriction of over bilateral hemisphere. - Labs CBC & Chem 7: 05/01/23 05:00 05/01/23 05:00 Labs: Abnormal Lab Results - Last 24 Hours (Table) 04/30/23 04/30/23 04/30/23 Range/Units 12:13 15:16 18:15 WBC (3.8-10.6) k/uL Neutrophils # (1.3-7.7) k/uL Monocytes # (0-1.0) k/uL INR (<1.2) APTT (22.0-30.0) sec ABG pCO2 34 L (35-45) mmHg ABG pO2 78 L (83-108) mmHg ABG HCO3 (21-25) mmol/L ABG O2 Saturation (94-97) % Chloride (98-107) mmol/L Carbon Dioxide (22-30) mmol/L BUN (9-20) mg/dL Creatinine (0.66-1.25) mg/dL Glucose (74-99) mg/dL POC Glucose (mg/dL) 115 H 117 H (70-110) mg/dL Calcium (8.4-10.2) mg/dL Phosphorus (2.5-4.5) mg/dL Total Protein (6.3-8.2) g/dL Albumin (3.5-5.0) g/dL Urine Protein (Negative) Urine Blood (Negative) Urine Bilirubin (Negative) Urine RBC (0-5) /hpf Amorphous Sediment (None) /hpf Hyaline Casts (0-2) /lpf Urine Mucus (None) /hpf 04/30/23 04/30/23 05/01/23 Range/Units 20:04 20:29 00:36 WBC (3.8-10.6) k/uL Neutrophils # (1.3-7.7) k/uL Monocytes # (0-1.0) k/uL INR (<1.2) APTT 30.3 H (22.0-30.0) sec ABG pCO2 (35-45) mmHg ABG pO2 114 H (83-108) mmHg ABG HCO3 20 L (21-25) mmol/L ABG O2 Saturation (94-97) % Chloride (98-107) mmol/L Carbon Dioxide (22-30) mmol/L BUN (9-20) mg/dL Creatinine (0.66-1.25) mg/dL Glucose (74-99) mg/dL POC Glucose (mg/dL) 118 H (70-110) mg/dL Calcium (8.4-10.2) mg/dL Phosphorus (2.5-4.5) mg/dL Total Protein (6.3-8.2) g/dL Albumin (3.5-5.0) g/dL Urine Protein (Negative) Urine Blood (Negative) Urine Bilirubin (Negative) Urine RBC (0-5) /hpf Amorphous Sediment (None) /hpf Hyaline Casts (0-2) /lpf Urine Mucus (None) /hpf 05/01/23 05/01/23 05/01/23 Range/Units 03:44 05:00 05:00 WBC 21.6 H (3.8-10.6) k/uL Neutrophils # 18.1 H (1.3-7.7) k/uL Monocytes # 1.6 H (0-1.0) k/uL INR 1.2 H (<1.2) APTT 39.2 H (22.0-30.0) sec ABG pCO2 (35-45) mmHg ABG pO2 (83-108) mmHg ABG HCO3 (21-25) mmol/L ABG O2 Saturation (94-97) % Chloride (98-107) mmol/L Carbon Dioxide (22-30) mmol/L BUN (9-20) mg/dL Creatinine (0.66-1.25) mg/dL Glucose (74-99) mg/dL POC Glucose (mg/dL) (70-110) mg/dL Calcium (8.4-10.2) mg/dL Phosphorus (2.5-4.5) mg/dL Total Protein (6.3-8.2) g/dL Albumin (3.5-5.0) g/dL Urine Protein (Negative) Urine Blood (Negative) Urine Bilirubin (Negative) Urine RBC (0-5) /hpf Amorphous Sediment (None) /hpf Hyaline Casts (0-2) /lpf Urine Mucus (None) /hpf 05/01/23 05/01/23 05/01/23 Range/Units 05:00 06:19 06:23 WBC (3.8-10.6) k/uL Neutrophils # (1.3-7.7) k/uL Monocytes # (0-1.0) k/uL INR (<1.2) APTT (22.0-30.0) sec ABG pCO2 34 L (35-45) mmHg ABG pO2 122 H (83-108) mmHg ABG HCO3 18 L (21-25) mmol/L ABG O2 Saturation 97.9 H (94-97) % Chloride 113 H (98-107) mmol/L Carbon Dioxide 16 L (22-30) mmol/L BUN 39 H (9-20) mg/dL Creatinine 2.02 H (0.66-1.25) mg/dL Glucose 145 H (74-99) mg/dL POC Glucose (mg/dL) 136 H (70-110) mg/dL Calcium 7.4 L (8.4-10.2) mg/dL Phosphorus 5.2 H (2.5-4.5) mg/dL Total Protein 4.6 L (6.3-8.2) g/dL Albumin 2.2 L (3.5-5.0) g/dL Urine Protein (Negative) Urine Blood (Negative) Urine Bilirubin (Negative) Urine RBC (0-5) /hpf Amorphous Sediment (None) /hpf Hyaline Casts (0-2) /lpf Urine Mucus (None) /hpf 05/01/23 05/01/23 Range/Units 10:00 10:25 WBC (3.8-10.6) k/uL Neutrophils # (1.3-7.7) k/uL Monocytes # (0-1.0) k/uL INR (<1.2) APTT 48.1 H (22.0-30.0) sec ABG pCO2 (35-45) mmHg ABG pO2 (83-108) mmHg ABG HCO3 (21-25) mmol/L ABG O2 Saturation (94-97) % Chloride (98-107) mmol/L Carbon Dioxide (22-30) mmol/L BUN (9-20) mg/dL Creatinine (0.66-1.25) mg/dL Glucose (74-99) mg/dL POC Glucose (mg/dL) (70-110) mg/dL Calcium (8.4-10.2) mg/dL Phosphorus (2.5-4.5) mg/dL Total Protein (6.3-8.2) g/dL Albumin (3.5-5.0) g/dL Urine Protein 1+ H (Negative) Urine Blood Large H (Negative) Urine Bilirubin 1+ H (Negative) Urine RBC 38 H (0-5) /hpf Amorphous Sediment Few H (None) /hpf Hyaline Casts 3 H (0-2) /lpf Urine Mucus Occasional H (None) /hpf Assessment and Plan Assessment: This is a 82-year-old gentleman who had a out of hospital cardiopulmonary arrest secondary due to choking and yesterday was extubated and he was noted to have right facial weakness and dysarthria. Unknown last normal. Acute right facial weakness with dysarthria and on examination he had right upper extremity weakness due to acute ischemic stroke. On MRI the patient had multiple bilateral hemispheric foci diffusion restriction compatible with multifocal acute ischemic insult and it appears ?cardioembolic in nature. No IV TPA since unknown last normal and the risk outweighed the benefit Out of the hospital cardiopulmonary arrest secondary due to choking episode with ST segment elevation myocardial infarction status post stent in the LAD ST depression on EKG and result placed on IV heparin drip. Plan: Patient was started on aspirin 81 mg and Plavix 75 mg as well as Lipitor 80 mg d aily at bedtime cardiology team. He was started on IV heparin drip for EKG changes. Continue neuro checks Cardiac monitoring. So far no A. fib or flutter per the ICU nurse. Recommend a transesophageal echocardiogram which is ordered by ICU attending and if negative recommend a 30 minute event monitor or a loop recorder. PT OT and GRAB HOOKER are consulted Cardiology is on board We'll defer the rest of the medical management to the primary team and other specialists DVT prophylaxis On heparin Overall condition is critical. I feels patient prognosis appears poor because of multifactorial events. The plan is discussed with patient's ICU attending and nurse. Will continue to follow. Dr. Olsen will start neurology service on 05/02/23 A.M. Time with Patient: Less than 30
[2023-05-01] MEDS: IPRATROPIUM-ALBUTEROL 3 ML NEB INHALATION SCH ×3 (11:39→20:35)
--- NOTE | 2023-05-01 12:04 | P.PN ---
Subjective Progress Note Date: 05/01/23 Principal diagnosis: Cardiopulmonary arrest. Pulmonary consult dated 04/25/2023. 82-year-old male seen in the emergency room, after having an ovy-lt-qlaejhgu cardiac arrest. The patient apparently had a choking episode. Subsequent to that, the patient apparently went into cardiac arrest. EMS arrived, and started CPR, and the patient was found to have intrinsic either fibrillation, and was defibrillated back into sinus rhythm. In the emergency room, he was intubated by the ER physician, Dr. Vargas. She call me on the phone to give me report. The patient went to the catheterization laboratory, and had a stent placed in the LAD. The patient was admitted back to the intensive care unit. The patient had a downtime of about 12-15 minutes according to the ER physician. The patient apparently is an 82-year-old male, who does not have any major medical problems, and does not see a physician on a regular basis. I was told he takes no medications on a regular basis. The patient is currently seen in the ICU, and room 257 the patient is currently on the ventilator, settings, volume assist control, rate 18, tidal volume 450, FiO2 100%, and PEEP of 5. A blood gas is not yet been done. Endotracheal tube is too far down the trachea, and was pulled back by respiratory. The patient's currently on propofol at 50 mcg/kg/m. I have ordered a blood gas. I will also order some Dilaudid 1 mg every 1-2 hours as needed, and some lactated Ringer's at 75 mL an hour. White count 14.4, with a normal hemoglobin, hematocrit, and platelet count. Coagulation studies are normal. Sodium 139, potassium 3.7, chlorides 107, CO2 17, anion gap 15, BUN/creatinine were 18 and 1.33. AST is 216, ALT is 149. Glucose 209. Chest x-ray does not show an acute process. Endotracheal tube was at the tip of the kaylyn. It was pulled back by respiratory. EKG shows some significant ST changes, and 1, and aVL. Progress note dated 04/26/2023. 82-year-old male who was initially seen in consultation for a pmv-jo-slxqrldz cardiac arrest. The patient initially had a choking episode, and subsequently developed ventricular fibrillation, requiring defibrillation. The patient had about a 15 minute downtime. The patient came to the hospital, went to the catheterization laboratory, and had a stent placed in his LAD. Currently, he remains on mechanical ventilator. He is on assist control, rate 18, tidal volume 450, FiO2 50%, and PEEP of 8. Blood gases show pO2 112, pCO2 44, pH is 7.33. The patient's on propofol at 25 mcg/kg/m, and lactated Ringer's at 75 mL an hour. Norepinephrine has been weaned off. The patient does not have any tube feedings. Today, he'll get a daily interruption of sedation and a spontaneous breathing trial with pressure support of 8 and a CPAP of 5. White count 22.3, hemoglobin 14.2, hematocrit 43, and platelet count normal. Sodium 139, potassium 4.6, chlorides 110, CO2 24, BUN 22, and creatinine 1.52. TSH is normal. Chest x-ray shows bibasilar infiltrates or atelectasis. Progress note dated 04/27/2023. 82-year-old male who was initially seen in consultation for a szc-de-dtrvnoml cardiac arrest. The patient initially had a choking episode, and subsequently developed ventricular fibrillation, requiring defibrillation. The patient had about a 15 minute downtime. The patient came to the hospital, went to the catheterization laboratory, and had a stent placed in his LAD. Today, April 26, the patient was extubated. He is currently on 4 L of oxygen. He is getting lactated Ringer's at 75 mL an hour. After the extubation, the nurse noted that he had a right facial droop, and the patient had a computed tomography scan of the brain which was negative, and CT angiography which was also negative. Neurology was consulted. White count 13.4, hemoglobin 13.3, hematocrit 39.5, and platelet count 136,000. Sodium 138, potassium 4, chlorides 111, CO2 23, BUN 21, and creatinine 1.09. Progress note dated 04/28/2023. 82-year-old male who was seen in consultation for an ewj-jo-cxqboyvj cardiac arrest. The patient initially presented with a choking episode, and subsequently developed ventricular fibrillation, requiring defibrillation. The patient had about a 15 minute downtime, and was intubated, in the emergency room. He went to the catheterization laboratory, and had stent placed to his LAD. The patient was extubated on April 26. He was noted to have a right facial droop, but a computed tomography scan, and CT angiography, were both negative. Currently, he is seen today in room 257. He is on 4 L of oxygen. He is getting lactated Ringer's at 75 mL an hour. Clinically, the patient has been stable, and had an uneventful night. White count 11.8, hemoglobin 12.6, hematocrit 38.1, with a normal platelet count. Sodium 136, potassium 4, chlorides 109, CO2 24, BUN 21, creatinine 0.97. Chest x-ray shows some mild interstitial edema. Computed tomography scan of the brain, showed nothing acute. Progress note dated 04/29/2023. 82-year-old male who was seen in consultation for dbq-dp-vsklrbxu cardiac arrest. The patient apparently had a choking episode, and developed ventricular fibrillation, requiring defibrillation. He had about a 15 minute downtime, and was intubated in the emergency department. He went to the catheterization laboratory, and had a stent placed to his LAD. He was extubated successfully and April 26. He was noted to have a right facial droop, but computed to mography scan of the head, and CT angiography were both negative. The patient is scheduled for an MRI today. He's currently on room air, and not receiving any IV fluids. No new labs today other than a glucose of 105. Progress note dated 04/30/2023. 82-year-old male who was seen in consultation for ekz-zh-vsrjijbv cardiac arrest. The patient apparently had a choking episode, and developed ventricular fibrillation, requiring defibrillation. He had about a 15 minute downtime, and was intubated in the emergency department. He went to the catheterization laboratory, and had a stent placed to his LAD. He was extubated successfully and April 26. He was noted to have a right facial droop, but computed tomography scan of the head, and CT angiography were both negative. The patient had a brain MRI on April 29, showing multiple areas of ischemic infarct. A ALIYAH was recommended by neurology, to rule out embolic disease. White count 9.4, he will 13.6, hematocrit 38.6, and platelet count is normal. Electrolytes look pretty good, including a BUN of 21 and a creatinine of 0.99. Potassium is 3.8. Calcium is 8.0. Progress note dated 05/01/2023. 82-year-old male who had an vvq-wd-bbgpfkmz cardiac arrest. The patient had a choking episode, followed by ventricular fibrillation, requiring defibrillation, at the scene, by EMS. The patient apparently had about a 15 minute downtime. In the ER, the patient was intubated for airway protection by the ER physician. He went to the catheterization laboratory and had a stent placed to his LAD. He was successfully extubated on April 26. Subsequent to extubation, he was noted to have a right facial droop, but computed tomography scan of the head and CT angiography were both negative. MRI, on April 29, showed multiple areas of ischemic infarct. Unfortunately, the patient's neurologic status deteriorated yesterday and he required reintubation. Currently, he is on the volume assist control, rate 24, tidal volume 450, FiO2 60%, and PEEP of 8. Blood gases, showed pO2 of 122, pCO2 of 34, and pH is 7.35. The blood gases were done on 70% oxygen. The patient's currently on 0.9 at 20 mL an hour, heparin via weightbase protocol, propofol at 40 mcg/kg/m, norepinephrine at 20 mcg/m, vasopressin at 0.03 units per minute, and tube feedings, will be started, at 10 mL an hour. White count 21.6, hemoglobin 13.3, hematocrit 40.8, with a normal platelet count. ETT is 48.1. Sodium 141, potassium 4.4, chlorides 113, CO2 16, BUN 39, and creatinine 2.02. Chest x-ray shows diffuse bilateral infiltrates. Objective - Vital Signs Vital signs: Vital Signs Temp 99.5 F 05/01/23 08:00 Pulse 93 05/01/23 11:49 Resp 24 05/01/23 11:00 BP 105/67 05/01/23 11:00 Pulse Ox 95 05/01/23 11:00 FiO2 60 05/01/23 11:19 Intake & Output 04/30/23 05/01/23 05/01/23 18:59 06:59 18:59 Intake Total 275.980 6744.197 402.739 Output Total 440 185 100 Balance -316.465 2389.197 302.739 Weight 93 kg Intake: IV 1000 Lactated Ringers 1,000 ml 1000 @ 999 mls/hr IV .Q1H1M SHANNA Rx#:[id number] Intake, IV Titration 28.733 1346.197 402.739 Amount Dexmedetomidine/0.9% NaCl 28.733 23.307 (Pmx) 400 mcg In Empty Bag 1 bag @ 0.2 MCG/KG/HR 4.585 mls/hr IV .[id number] SHANNA Rx#:[id number] Heparin Sod,Pork in 0.45% 192.487 NaCl 25,000 unit In 0.45 % NaCl 1 250ml.bag @ 10. 905 UNITS/KG/HR 10 mls/hr IV .Q24H SHANNA Rx#: [id number] Norepinephrine 4 mg In 949.475 302.739 Sodium Chloride 0.9% 250 ml @ 0.03 MCG/KG/MIN 10. 481 mls/hr IV .Q24H SHANNA Rx#:[id number] Vasopressin 20 unit In 16.371 Sodium Chloride 0.9% 50 ml @ 0.03 UNITS/MIN 4.59 mls/hr IV .Q11H7M SHANNA Rx# :[id number] propofoL 1,000 mg In 164.557 100 Empty Bag 1 bag @ 15 MCG/ KG/MIN 8.253 mls/hr IV . Q12H8M SHANNA Rx#:[id number] Oral 200 Output: Urine 440 185 100 Other: Voiding Method Incontinent Indwelling Catheter Indwelling Catheter External Catheter ABP, PAP, CO, CI - Last Documented Arterial Blood Pressure 97/50 - Exam No acute distress, currently on the ventilator. The patient's currently sedated, and has an orally placed endotracheal tube, and NG tube. HEENT examination is grossly unremarkable. Neck supple. Full range of motion. No adenopathy thyromegaly or neck vein distention. Cardiovascular examination reveals regular rhythm rate. S1-S2 normal. No S3 or S4. No discernible murmur noted. Heart rate 93 bpm. Heart sounds are distant. Lungs reveal clear breath sounds. Breath sounds are equal bilaterally. No adventitious lung sounds including wheezes rhonchi or crackles. Room air saturation is 95 %. Abdomen soft without bowel sounds. Extremities are intact. No cyanosis clubbing or edema. Skin is without rash or lesion. Neurologic examination cannot be assessed at this time, as the patient's currently mechanically ventilated. - Labs CBC & Chem 7: 05/01/23 05:00 05/01/23 05:00 Labs: Abnormal Lab Results - Last 24 Hours (Table) 04/30/23 04/30/23 04/30/23 Range/Units 12:13 15:16 18:15 WBC (3.8-10.6) k/uL Neutrophils # (1.3-7.7) k/uL Monocytes # (0-1.0) k/uL INR (<1.2) APTT (22.0-30.0) sec ABG pCO2 34 L (35-45) mmHg ABG pO2 78 L (83-108) mmHg ABG HCO3 (21-25) mmol/L ABG O2 Saturation (94-97) % Chloride (98-107) mmol/L Carbon Dioxide (22-30) mmol/L BUN (9-20) mg/dL Creatinine (0.66-1.25) mg/dL Glucose (74-99) mg/dL POC Glucose (mg/dL) 115 H 117 H (70-110) mg/dL Calcium (8.4-10.2) mg/dL Phosphorus (2.5-4.5) mg/dL Total Protein (6.3-8.2) g/dL Albumin (3.5-5.0) g/dL Urine Protein (Negative) Urine Blood (Negative) Urine Bilirubin (Negative) Urine RBC (0-5) /hpf Amorphous Sediment (None) /hpf Hyaline Casts (0-2) /lpf Urine Mucus (None) /hpf 04/30/23 04/30/23 05/01/23 Range/Units 20:04 20:29 00:36 WBC (3.8-10.6) k/uL Neutrophils # (1.3-7.7) k/uL Monocytes # (0-1.0) k/uL INR (<1.2) APTT 30.3 H (22.0-30.0) sec ABG pCO2 (35-45) mmHg ABG pO2 114 H (83-108) mmHg ABG HCO3 20 L (21-25) mmol/L ABG O2 Saturation (94-97) % Chloride (98-107) mmol/L Carbon Dioxide (22-30) mmol/L BUN (9-20) mg/dL Creatinine (0.66-1.25) mg/dL Glucose (74-99) mg/dL POC Glucose (mg/dL) 118 H (70-110) mg/dL Calcium (8.4-10.2) mg/dL Phosphorus (2.5-4.5) mg/dL Total Protein (6.3-8.2) g/dL Albumin (3.5-5.0) g/dL Urine Protein (Negative) Urine Blood (Negative) Urine Bilirubin (Negative) Urine RBC (0-5) /hpf Amorphous Sediment (None) /hpf Hyaline Casts (0-2) /lpf Urine Mucus (None) /hpf 05/01/23 05/01/23 05/01/23 Range/Units 03:44 05:00 05:00 WBC 21.6 H (3.8-10.6) k/uL Neutrophils # 18.1 H (1.3-7.7) k/uL Monocytes # 1.6 H (0-1.0) k/uL INR 1.2 H (<1.2) APTT 39.2 H (22.0-30.0) sec ABG pCO2 (35-45) mmHg ABG pO2 (83-108) mmHg ABG HCO3 (21-25) mmol/L ABG O2 Saturation (94-97) % Chloride (98-107) mmol/L Carbon Dioxide (22-30) mmol/L BUN (9-20) mg/dL Creatinine (0.66-1.25) mg/dL Glucose (74-99) mg/dL POC Glucose (mg/dL) (70-110) mg/dL Calcium (8.4-10.2) mg/dL Phosphorus (2.5-4.5) mg/dL Total Protein (6.3-8.2) g/dL Albumin (3.5-5.0) g/dL Urine Protein (Negative) Urine Blood (Negative) Urine Bilirubin (Negative) Urine RBC (0-5) /hpf Amorphous Sediment (None) /hpf Hyaline Casts (0-2) /lpf Urine Mucus (None) /hpf 05/01/23 05/01/23 05/01/23 Range/Units 05:00 06:19 06:23 WBC (3.8-10.6) k/uL Neutrophils # (1.3-7.7) k/uL Monocytes # (0-1.0) k/uL INR (<1.2) APTT (22.0-30.0) sec ABG pCO2 34 L (35-45) mmHg ABG pO2 122 H (83-108) mmHg ABG HCO3 18 L (21-25) mmol/L ABG O2 Saturation 97.9 H (94-97) % Chloride 113 H (98-107) mmol/L Carbon Dioxide 16 L (22-30) mmol/L BUN 39 H (9-20) mg/dL Creatinine 2.02 H (0.66-1.25) mg/dL Glucose 145 H (74-99) mg/dL POC Glucose (mg/dL) 136 H (70-110) mg/dL Calcium 7.4 L (8.4-10.2) mg/dL Phosphorus 5.2 H (2.5-4.5) mg/dL Total Protein 4.6 L (6.3-8.2) g/dL Albumin 2.2 L (3.5-5.0) g/dL Urine Protein (Negative) Urine Blood (Negative) Urine Bilirubin (Negative) Urine RBC (0-5) /hpf Amorphous Sediment (None) /hpf Hyaline Casts (0-2) /lpf Urine Mucus (None) /hpf 05/01/23 05/01/23 Range/Units 10:00 10:25 WBC (3.8-10.6) k/uL Neutrophils # (1.3-7.7) k/uL Monocytes # (0-1.0) k/uL INR (<1.2) APTT 48.1 H (22.0-30.0) sec ABG pCO2 (35-45) mmHg ABG pO2 (83-108) mmHg ABG HCO3 (21-25) mmol/L ABG O2 Saturation (94-97) % Chloride (98-107) mmol/L Carbon Dioxide (22-30) mmol/L BUN (9-20) mg/dL Creatinine (0.66-1.25) mg/dL Glucose (74-99) mg/dL POC Glucose (mg/dL) (70-110) mg/dL Calcium (8.4-10.2) mg/dL Phosphorus (2.5-4.5) mg/dL Total Protein (6.3-8.2) g/dL Albumin (3.5-5.0) g/dL Urine Protein 1+ H (Negative) Urine Blood Large H (Negative) Urine Bilirubin 1+ H (Negative) Urine RBC 38 H (0-5) /hpf Amorphous Sediment Few H (None) /hpf Hyaline Casts 3 H (0-2) /lpf Urine Mucus Occasional H (None) /hpf Assessment and Plan Assessment: Ymn-me-chybsruv cardiopulmonary arrest, secondary to a choking episode, with an ST segment elevation myocardial infarction, status post stent placement in the LAD. S/P extubation, 04/26/2023. Worsening neurologic status, requiring reintubation, 04/30/2023. Severe hypotension, rule out sepsis. Right facial droop, rule out CVA. MRI showing multiple areas of infarct, potentially consistent with embolic ischemic disease. Rule out anoxic brain injury. Acute hypoxemic respiratory failure, status post intubation and mechanical ventilation on 04/25/2023. No apparent past medical history. Plan: Plan dated 04/25/2023. The patient is evaluated in the intensive care unit, and labs, x-rays, and medications are reviewed. The patient had an yhk-vj-ntlzynhf cardiopulmonary arrest, secondary to a choking episode. The patient had a downtime about 12-15 minutes, and was resuscitated by EMS, having received defibrillation, for the patient's ventricular fibrillation. The patient was intubated in the emergency room, by the ER physician. The patient went to the catheterization laboratory, and apparently had a plaque rupture, and had a stent placed in the LAD. The patient was seen in the intensive care unit, having been placed on the mechanical ventilator. Blood gases have been ordered. I've also ordered some lactated Ringer's at 75 mL an hour, as well as Dilaudid 1 mg every 1-2 hours when necessary. The patient's currently on propofol at 50 mcg/kg/m. The endotracheal tube was at the kaylyn and was pulled back by respiratory. Plan dated 04/26/2023. The patient will have a daily interruption of sedation, and a spontaneous breathing trial, on both pressure support and CPAP. The patient remains on propofol at 25 mcg/kg/m. Norepinephrine has been weaned off. The patient's getting lactated Ringer's at 75 mL an hour. Labs, x-rays, and medications have all been reviewed. The patient had a stent placed in his LAD. We will continue to follow the patient and make recommendations along the way. Were hoping that we can get the patient extubated today. Prognosis is guarded. Plan dated 04/27/2023. The patient will be seen by neurology. The patient appears to have a new right facial droop, which is improved, compared to yesterday. The patient's brain scan was negative. CT angiography was negative. The patient will likely need an MRI. Labs, x-rays, and medications are reviewed. Overall prognosis remains guarded. The patient remains on oxygen at 4 L. Lactated Ringer's is running at 75 mL an hour. Labs, x-rays, and medications are all reviewed. Plan dated 04/28/2023. The patient appears to be doing reasonably well. He stable from the respiratory status, and cardiovascular status. He continues to have a right facial droop. Labs, x-rays, and medications are reviewed. The patient continues on oxygen at 4 L. He is getting lactated Ringer's at 75 mL an hour, which will be discontinued. The patient will be seen by speech pathology. He continues with GI and DVT prophylaxis. The patient could be considered for transfer out of the intensive care unit. Plan dated 04/29/2023. The patient could be transferred out of the intensive care unit. The patient is not receiving any supplemental oxygen, or IV fluids. Labs, x-rays, medications are reviewed. Prognosis is guarded. The patient is going for an MRI of the brain today. We suspect that he's had a CVA. Continue with the right facial droop. We will continue to follow and make recommendations along the way. Prognosis is guarded. Plan dated 04/30/2023. The patient remains stable in the intensive care unit. Brain MRI showed multiple areas of ischemic infarct, potentially consistent with embolic disease. A transesophageal echocardiogram was recommended. Labs, x-rays, and medications are reviewed. The patient's overall prognosis remains guarded. He still has a bit of a right facial droop. Labs, x-rays, and medications are reviewed. We will continue to follow. Prognosis is guarded. Plan dated 05/01/2023. The patient is started on Zosyn empirically. We will await culture data, including blood urine and sputum sampling, as well as a pro-calcitonin level. The patient's currently on both norepinephrine, and vasopressin. We will ask nephrology to see the patient, and put the patient on hydrocortisone, 50 mg, IV push, every 6 hours for relative adrenal insufficiency. The patient's cortisol level is relatively low, given the seriousness of his illness. In addition, we'll place a triple-lumen catheter. An art line was placed by the COYOTE HUNTER, who intubated the patient last night. No additional recommendations are made. Prognosis is very guarded. We will continue to follow make recommendations along the way. Time with Patient: Greater than 30
[2023-05-01 12:40] VITALS: BP 90/35
--- NOTE | 2023-05-01 14:31 | P.NPCON ---
History of Present Illness - Reason for Consult Consult date: 05/01/23 acute renal failure - Chief Complaint Acute kidney injury - History of Present Illness Admitted to the hospital on 04/25/2023 with out of hospital cardiac arrest, downtime of 15 minutes. He was intubated, cardiac cath showed LAD obstruction status post stent placement. He was extubated, reintubated yesterday for hypoxia. Chest x-ray showed worsening infiltrates. Also on vasopressors now. On 04/29/2023 he developed facial droop CT head was negative, MRI showed multiple infarct. He underwent CT angiogram. Baseline creatinine 0.9 MG per DL, 2.02 MG per DL today. Urine output dropped. Family at bedside. Review of Systems Constitutional: Reports as per HPI Past Medical History Past Medical History: No Reported History History of Any Multi-Drug Resistant Organisms: None Reported Past Surgical History: No Surgical Hx Reported Past Psychological History: No Psychological Hx Reported Smoking Status: Never smoker Past Alcohol Use History: None Reported Past Drug Use History: None Reported Medications and Allergies Home Medications Medication Instructions Recorded Confirmed Type Cetirizine HCl [Zyrtec] 10 mg PO DAILY 04/25/23 04/25/23 History Allergies Allergy/AdvReac Type Severity Reaction Status Date / Time No Known Allergies Allergy Verified 04/25/23 16:17 Physical Exam Vitals: Vital Signs Temp Pulse Pulse Resp BP BP Pulse Ox 05/01/23 13:00 105 H 28 H 90/35 96 05/01/23 12:00 99.5 F 105 H 17 90/35 92 L 05/01/23 11:49 93 05/01/23 11:40 93 05/01/23 11:19 05/01/23 11:00 95 24 105/67 95 05/01/23 10:00 87 26 H 109/77 94 L 05/01/23 09:00 96 30 H 106/71 92 L 05/01/23 08:00 99.5 F 90 26 H 99/61 94 L 05/01/23 07:47 05/01/23 07:00 83 25 H 102/65 96 05/01/23 06:45 90 26 H 96 05/01/23 06:30 85 25 H 97 05/01/23 06:15 85 26 H 96 05/01/23 06:00 85 25 H 103/64 97 05/01/23 05:45 87 25 H 103/64 96 05/01/23 05:30 89 25 H 96 05/01/23 05:15 85 26 H 103/64 96 05/01/23 05:00 81 26 H 110/42 96 05/01/23 04:45 92 31 H 96 05/01/23 04:30 85 24 97 05/01/23 04:15 85 26 H 110/42 97 05/01/23 04:00 98.6 F 89 27 H 97 05/01/23 03:45 89 26 H 97 05/01/23 03:30 86 26 H 97 05/01/23 03:29 05/01/23 03:15 90 25 H 97 05/01/23 03:00 90 28 H 112/67 97 05/01/23 02:45 86 24 97 05/01/23 02:30 86 27 H 97 05/01/23 02:15 89 25 H 97 05/01/23 02:00 90 25 H 112/65 97 05/01/23 01:45 96 24 98 05/01/23 01:30 89 26 H 97 05/01/23 01:15 87 26 H 97 05/01/23 01:00 87 27 H 116/76 98 05/01/23 00:45 87 26 H 98 05/01/23 00:30 89 25 H 98 05/01/23 00:15 90 24 97 05/01/23 00:14 89 25 H 97 05/01/23 00:00 98.5 F 91 26 H 97 04/30/23 23:52 04/30/23 23:45 91 26 H 97 04/30/23 23:30 91 25 H 96 04/30/23 23:15 93 20 96 04/30/23 23:00 87 25 H 94 L 04/30/23 22:45 90 25 H 95 04/30/23 22:30 85 24 97/64 96 04/30/23 22:15 92 25 H 102/69 96 04/30/23 22:14 04/30/23 22:00 92 25 H 103/71 96 04/30/23 21:45 93 14 96 04/30/23 21:30 25 H 95 04/30/23 21:15 93 25 H 96 04/30/23 21:00 26 H 92/62 95 04/30/23 20:45 92 28 H 95 09/30/23 20:30 91 17 95 04/30/23 20:15 92 23 95 04/30/23 20:05 04/30/23 20:00 89 24 93/69 99 04/30/23 19:25 04/30/23 19:00 64 43 H 76/55 91 L 04/30/23 18:00 77 59 H 82/54 93 L 04/30/23 17:00 76 27 H 91/65 93 L 04/30/23 16:00 98.8 F 79 34 H 85/64 95 04/30/23 15:43 04/30/23 15:00 93 31 H 84/64 92 L 04/30/23 14:51 90 21 84/64 93 L FiO2 05/01/23 13:00 05/01/23 12:00 05/01/23 11:49 05/01/23 11:40 05/01/23 11:19 60 05/01/23 11:00 05/01/23 10:00 05/01/23 09:00 05/01/23 08:00 60 05/01/23 07:47 60 05/01/23 07:00 05/01/23 06:45 05/01/23 06:30 70 05/01/23 06:15 70 05/01/23 06:00 05/01/23 05:45 05/01/23 05:30 05/01/23 05:15 05/01/23 05:00 05/01/23 04:45 05/01/23 04:30 05/01/23 04:15 05/01/23 04:00 80 05/01/23 03:45 05/01/23 03:30 05/01/23 03:29 80 05/01/23 03:15 05/01/23 03:00 05/01/23 02:45 05/01/23 02:30 05/01/23 02:15 05/01/23 02:00 05/01/23 01:45 05/01/23 01:30 05/01/23 01:15 05/01/23 01:00 05/01/23 00:45 05/01/23 00:30 05/01/23 00:15 05/01/23 00:14 05/01/23 00:00 80 04/30/23 23:52 80 04/30/23 23:45 04/30/23 23:30 04/30/23 23:15 04/30/23 23:00 04/30/23 22:45 04/30/23 22:30 04/30/23 22:15 04/30/23 22:14 90 04/30/23 22:00 04/30/23 21:45 04/30/23 21:30 04/30/23 21:15 04/30/23 21:00 04/30/23 20:45 04/30/23 20:30 04/30/23 20:15 04/30/23 20:05 100 04/30/23 20:00 100 04/30/23 19:25 100 04/30/23 19:00 04/30/23 18:00 04/30/23 17:00 04/30/23 16:00 04/30/23 15:43 60 04/30/23 15:00 04/30/23 14:51 Intake and Output 04/30/23 05/01/23 05/01/23 22:59 06:59 14:59 Intake Total 050.343 4074.196 595.479 Output Total 335 90 155 Balance 52.734 1897.196 440.479 Intake: IV 1000 Lactated Ringers 1,000 ml 1000 @ 999 mls/hr IV .Q1H1M [facility] Rx#:[id number] Intake, IV Titration 387.734 987.196 595.479 Amount Dexmedetomidine/0.9% NaCl 52.040 (Pmx) 400 mcg In Empty Bag 1 bag @ 0.2 MCG/KG/HR 4.585 mls/hr IV .[id number] [facility] Rx#:[id number] Heparin Sod,Pork in 0.45% 68.833 123.654 NaCl 25,000 unit In 0.45 % NaCl 1 250ml.bag @ 10. 905 UNITS/KG/HR 10 mls/hr IV .Q24H [facility] Rx#: [id number] Norepinephrine 4 mg In 256.911 692.564 495.479 Sodium Chloride 0.9% 250 ml @ 0.03 MCG/KG/MIN 10. 481 mls/hr IV .Q24H [facility] Rx#:[id number] Vasopressin 20 unit In 16.371 Sodium Chloride 0.9% 50 ml @ 0.03 UNITS/MIN 4.59 mls/hr IV .Q11H7M [facility] Rx# :[id number] propofoL 1,000 mg In 9.950 154.607 100 Empty Bag 1 bag @ 15 MCG/ KG/MIN 8.253 mls/hr IV . Q12H8M [facility] Rx#:[id number] Output: Urine 335 90 155 Other: Voiding Method Indwelling Catheter Indwelling Catheter Indwelling Catheter Weight 93 kg ABP, PAP, CO, CI - Last 8 Hours Arterial Blood Pressure 94/47 Arterial Blood Pressure 124/68 Arterial Blood Pressure 97/50 Arterial Blood Pressure 103/56 Arterial Blood Pressure 113/59 Arterial Blood Pressure 100/60 Arterial Blood Pressure 89/56 Arterial Blood Pressure 95/60 Arterial Blood Pressure 90/57 No acute distress, on ventilator S1-S2 heard Decreased breath sounds Abdomen soft No edema Results - Lab Results Most recent lab results ABG pH 7.35 (7.35-7.45) 05/01/23 06:23 ABG pCO2 34 mmHg (35-45) L 05/01/23 06:23 ABG pO2 122 mmHg (83-108) H 05/01/23 06:23 ABG HCO3 18 mmol/L (21-25) L 05/01/23 06:23 ABG O2 Saturation 97.9 % (94-97) H 05/01/23 06:23 Calcium 7.4 mg/dL (8.4-10.2) L 05/01/23 05:00 Phosphorus 5.2 mg/dL (2.5-4.5) H 05/01/23 05:00 Magnesium 1.7 mg/dL (1.6-2.3) 05/01/23 05:00 05/01/23 05:00 05/01/23 05:00 Assessment and Plan Assessment: #1 acute kidney injury secondary to hemodynamic ATN with low blood pressures, recent contrast use -Baseline creatinine 0.9 MG per DL #2 severe sepsis with septic shock #3 CAD status post stent #4 out of hospital cardiac arrest #5 ventilator dependent respiratory failure Plan: #1 renal function worsening with oliguria. #2 discontinue lisinopril #3 if renal function continues to worsen with oliguria, discussed with the family regarding the need for dialysis. #4 ICU care
[2023-05-01 14:49] LABS: Glucose,Whole Blood 155 mg/dL (70-110)
[2023-05-01] MEDS: DEXMEDETOMIDINE/0.9% NACL(PMX) 400 MCG in EMPTY BAG 1 BAG IV SCH (14:57)
--- NOTE | 2023-05-01 16:16 | P.PN ---
Subjective Progress Note Date: 05/01/23 The patient is an 82-year-old male who suffered a V. fib arrest at home after a choking episode. Approximate downtime 15 minutes according to EMS. Patient was intubated in the emergency room. Initial EKG showed sinus tachycardia with ST elevation in leads 1 and aVL and inferior changes and to 3 and aVF. He was ruled in as an ST elevated myocardial infarction and therefore underwent coronary angiogram with Dr. Kiser. He was found to have a critical lesion in the mid LAD with thrombus, otherwise mild disease in the left circumflex and the RCA. Successful stenting was performed and he was transferred to the ICU for supportive management. The patient was extubated on 04/26/2023. Postextubation, code Stroke was notified for new right facial droop and garbled speech. This is a new finding for the patient. Echocardiogram reveals normal LV function with no significant valvular abnormalities. Carotid Doppler shows no significant disease. No infarcts noted on CT of the brain. On 04/20/1923 the patient developed acute respiratory distress status post subsequently reintubated. He is now on vasopressor support. GENERAL: Well-appearing, well-nourished. Sedated on ventilator. NECK: Supple without JVD or thyromegaly. LUNGS: Breath sounds are coarse to auscultation bilaterally. Respiration equal and unlabored. HEART: Regular rate and rhythm without murmurs, rubs or gallops. S1 and S2 heard. EXTREMITIES: Normal range of motion, no edema. No clubbing or cyanosis. Peripheral pulses intact and strong. TELEMETRY: Sinus tachycardia IMPRESSION: Acute ST elevated myocardial infarction Status post stenting of the mid LAD Ventricular fibrillation cardiac arrest at home, approximate downtime 15 minutes Possible TIA Hypertension Acute kidney injury PLAN: Continue supportive treatment Wean vasopressors as tolerated Further recommendations to be based on clinical course I am dictating on behalf of Dr Anselmo Dean's history/physical and assessment/plan. Objective - Vital Signs Vital signs: Vital Signs Temp 99.5 F 05/01/23 12:00 Pulse 102 H 05/01/23 15:10 Resp 29 H 05/01/23 15:00 BP 90/35 05/01/23 13:00 Pulse Ox 96 05/01/23 15:00 FiO2 50 05/01/23 14:58 Intake & Output 04/30/23 05/01/2323 18:59 06:59 18:59 Intake Total 817.409 6455.197 783.466 Output Total 440 185 222 Balance -359.534 0701.197 561.466 Weight 93 kg Intake: IV 1000 Lactated Ringers 1,000 ml 1000 @ 999 mls/hr IV .Q1H1M [facility] Rx#:[id number] Intake, IV Titration 28.733 1346.197 753.466 Amount Dexmedetomidine/0.9% NaCl 28.733 23.307 (Pmx) 400 mcg In Empty Bag 1 bag @ 0.2 MCG/KG/HR 4.585 mls/hr IV .[id number] [facility] Rx#:[id number] Heparin Sod,Pork in 0.45% 192.487 NaCl 25,000 unit In 0.45 % NaCl 1 250ml.bag @ 10. 905 UNITS/KG/HR 10 mls/hr IV .Q24H [facility] Rx#: [id number] Norepinephrine 4 mg In 949.475 502.466 Sodium Chloride 0.9% 250 ml @ 0.03 MCG/KG/MIN 10. 481 mls/hr IV .Q24H [facility] Rx#:[id number] Vasopressin 20 unit In 16.371 51 Sodium Chloride 0.9% 50 ml @ 0.03 UNITS/MIN 4.59 mls/hr IV .Q11H7M [facility] Rx# :[id number] propofoL 1,000 mg In 164.557 200 Empty Bag 1 bag @ 15 MCG/ KG/MIN 8.253 mls/hr IV . Q12H8M [facility] Rx#:[id number] Oral 200 Tube Feeding 30 Output: Urine 440 185 222 Other: Voiding Method Incontinent Indwelling Catheter Indwelling Catheter External Catheter ABP, PAP, CO, CI - Last Documented Arterial Blood Pressure 106/58 - Labs CBC & Chem 7: 05/01/23 05:00 05/01/23 05:00 Labs: Abnormal Lab Results - Last 24 Hours (Table) 04/30/23 04/30/23 04/30/23 Range/Units 15:55 18:15 20:04 WBC (3.8-10.6) k/uL Neutrophils # (1.3-7.7) k/uL Monocytes # (0-1.0) k/uL INR (<1.2) APTT (22.0-30.0) sec ABG pCO2 (35-45) mmHg ABG pO2 114 H (83-108) mmHg ABG HCO3 20 L (21-25) mmol/L ABG O2 Saturation (94-97) % Chloride (98-107) mmol/L Carbon Dioxide (22-30) mmol/L BUN (9-20) mg/dL Creatinine (0.66-1.25) mg/dL Glucose (74-99) mg/dL POC Glucose (mg/dL) 117 H (70-110) mg/dL Calcium (8.4-10.2) mg/dL Phosphorus (2.5-4.5) mg/dL Total Protein (6.3-8.2) g/dL Albumin (3.5-5.0) g/dL Procalcitonin 0.38 H (0.02-0.09) ng/mL Urine Protein (Negative) Urine Blood (Negative) Urine Bilirubin (Negative) Urine RBC (0-5) /hpf Amorphous Sediment (None) /hpf Hyaline Casts (0-2) /lpf Urine Mucus (None) /hpf 04/30/23 05/01/23 05/01/23 Range/Units 20:29 00:36 03:44 WBC (3.8-10.6) k/uL Neutrophils # (1.3-7.7) k/uL Monocytes # (0-1.0) k/uL INR (<1.2) APTT 30.3 H 39.2 H (22.0-30.0) sec ABG pCO2 (35-45) mmHg ABG pO2 (83-108) mmHg ABG HCO3 (21-25) mmol/L ABG O2 Saturation (94-97) % Chloride (98-107) mmol/L Carbon Dioxide (22-30) mmol/L BUN (9-20) mg/dL Creatinine (0.66-1.25) mg/dL Glucose (74-99) mg/dL POC Glucose (mg/dL) 118 H (70-110) mg/dL Calcium (8.4-10.2) mg/dL Phosphorus (2.5-4.5) mg/dL Total Protein (6.3-8.2) g/dL Albumin (3.5-5.0) g/dL Procalcitonin (0.02-0.09) ng/mL Urine Protein (Negative) Urine Blood (Negative) Urine Bilirubin (Negative) Urine RBC (0-5) /hpf Amorphous Sediment (None) /hpf Hyaline Casts (0-2) /lpf Urine Mucus (None) /hpf 05/01/23 05/01/23 05/01/23 Range/Units 05:00 05:00 05:00 WBC 21.6 H (3.8-10.6) k/uL Neutrophils # 18.1 H (1.3-7.7) k/uL Monocytes # 1.6 H (0-1.0) k/uL INR 1.2 H (<1.2) APTT (22.0-30.0) sec ABG pCO2 (35-45) mmHg ABG pO2 (83-108) mmHg ABG HCO3 (21-25) mmol/L ABG O2 Saturation (94-97) % Chloride 113 H (98-107) mmol/L Carbon Dioxide 16 L (22-30) mmol/L BUN 39 H (9-20) mg/dL Creatinine 2.02 H (0.66-1.25) mg/dL Glucose 145 H (74-99) mg/dL POC Glucose (mg/dL) (70-110) mg/dL Calcium 7.4 L (8.4-10.2) mg/dL Phosphorus 5.2 H (2.5-4.5) mg/dL Total Protein 4.6 L (6.3-8.2) g/dL Albumin 2.2 L (3.5-5.0) g/dL Procalcitonin (0.02-0.09) ng/mL Urine Protein (Negative) Urine Blood (Negative) Urine Bilirubin (Negative) Urine RBC (0-5) /hpf Amorphous Sediment (None) /hpf Hyaline Casts (0-2) /lpf Urine Mucus (None) /hpf 05/01/23 05/01/23 05/01/23 Range/Units 06:19 06:23 10:00 WBC (3.8-10.6) k/uL Neutrophils # (1.3-7.7) k/uL Monocytes # (0-1.0) k/uL INR (<1.2) APTT 48.1 H (22.0-30.0) sec ABG pCO2 34 L (35-45) mmHg ABG pO2 122 H (83-108) mmHg ABG HCO3 18 L (21-25) mmol/L ABG O2 Saturation 97.9 H (94-97) % Chloride (98-107) mmol/L Carbon Dioxide (22-30) mmol/L BUN (9-20) mg/dL Creatinine (0.66-1.25) mg/dL Glucose (74-99) mg/dL POC Glucose (mg/dL) 136 H (70-110) mg/dL Calcium (8.4-10.2) mg/dL Phosphorus (2.5-4.5) mg/dL Total Protein (6.3-8.2) g/dL Albumin (3.5-5.0) g/dL Procalcitonin (0.02-0.09) ng/mL Urine Protein (Negative) Urine Blood (Negative) Urine Bilirubin (Negative) Urine RBC (0-5) /hpf Amorphous Sediment (None) /hpf Hyaline Casts (0-2) /lpf Urine Mucus (None) /hpf 05/01/23 05/01/23 Range/Units 10:25 14:46 WBC (3.8-10.6) k/uL Neutrophils # (1.3-7.7) k/uL Monocytes # (0-1.0) k/uL INR (<1.2) APTT (22.0-30.0) sec ABG pCO2 (35-45) mmHg ABG pO2 (83-108) mmHg ABG HCO3 (21-25) mmol/L ABG O2 Saturation (94-97) % Chloride (98-107) mmol/L Carbon Dioxide (22-30) mmol/L BUN (9-20) mg/dL Creatinine (0.66-1.25) mg/dL Glucose (74-99) mg/dL POC Glucose (mg/dL) 155 H (70-110) mg/dL Calcium (8.4-10.2) mg/dL Phosphorus (2.5-4.5) mg/dL Total Protein (6.3-8.2) g/dL Albumin (3.5-5.0) g/dL Procalcitonin (0.02-0.09) ng/mL Urine Protein 1+ H (Negative) Urine Blood Large H (Negative) Urine Bilirubin 1+ H (Negative) Urine RBC 38 H (0-5) /hpf Amorphous Sediment Few H (None) /hpf Hyaline Casts 3 H (0-2) /lpf Urine Mucus Occasional H (None) /hpf
[2023-05-01] MEDS: PIPERACILLIN-TAZOBACTAM 3.375 GM in SODIUM CHLORIDE 0.9% 100 ML IVPB SCH (16:35)
--- NOTE | 2023-05-01 16:47 | PCN ---
PROCEDURE NOTE PROCEDURE PERFORMED: Left internal jugular triple-lumen catheter. PREOPERATIVE DIAGNOSES: 1. Hypotension. 2. Administration of fluids and pressors. POSTOPERATIVE DIAGNOSES: 1. Hypotension. 2. Administration of fluids and pressors. CO-TYPE ROLLING MACHINE OPERATOR: Dr. Ho. There was informed consent and universal timeout. The patient's procedure took place in room 257. TRIPLE LUMEN CATHETER PLACEMENT: Indication: Hemodynamic monitoring/Intravenous access. A time-out was completed verifying correct patient, procedure, site, positioning, and implant(s) or special equipment if applicable. The patient was placed in a dependent position appropriate for triple lumen catheter placement based on the vein to be cannulated. The patient's left shoulder or left neck or left groin was prepped and draped in sterile fashion. 1% Lidocaine was used to anesthetize the surrounding skin area. A triple lumen 9F Cordis catheter was introduced into the left subclavian or internal jugular or common femoral vein using Seldinger technique. The catheter was threaded smoothly over the guide wire and appropriate blood return was obtained. Each lumen of the catheter was evacuated of air and flushed with sterile saline. The catheter was then sutured in place to the skin and a sterile dressing applied. Perfusion to the extremity distal to the point of catheter insertion was checked and found to be adequate. We used the left internal jugular vein. We went via the posterior approach. There was no immediate complication. There was good blood return from all 3 ports. The catheter was sutured in place and a sterile dressing was applied by the nurse. A chest x-ray was ordered. The tip of the catheter was seen at the junction of superior vena cava and right atrium. There was no immediate complication. MMODL / IJN: [id number] /
[2023-05-01] MEDS ORDERED: MAGNESIUM SULFATE-D5W PMX 1 GM in DEXTROSE/WATER 1 100ML.BAG IVPB ONE (17:29)
--- NOTE | 2023-05-01 17:59 | P.PN ---
Subjective Progress Note Date: 05/01/23 82 years old, unknown past medical history. Patient currently intubated and cannot provide information As per records patient was eating he started choking and then collapsed, EMS was called and he got a shock with return of the pulse area he was been back and hereafter emergency room where he got intubated. As per ER staff that downtown was about 15 minutes Currently blood pressure 162/113, he is tachycardic around 106. He has mild leukocytosis of 14.4, rest of CBC, INR is unremarkable. Creatinine 1.3 which he had it before, possible patient has chronic kidney disease Glucose 199, liver enzymes AST mildly elevated 216 and ALT 149. Bilirubin is 1.1. Troponin is -0.018. No acute cardiopulmonary process. Endotracheal tube at the tip of the kaylyn EKG was showing ST elevation SD of the lateral limits at I, aVL with reciprocal changes Patient was taken to the [facility] and he underwent emergent PCI to LAD 04/30/2023 Patient is seen and evaluated resting in bed; discussed with nursing staff; no new concerns Vital signs are reviewed with temperature of 97.4, pulse 71, respiration 24 and blood pressure 153/77, O2 saturation of 94% Blood work reveals a WBC of 9.4, hemoglobin 30.6, hematocrit 38.6 and platelet count of 118, sodium 137, potassium 3.8, BUN/creatinine of 21/0.99 MRI of the brain reveals multiple areas of ischemic infarct consistent with embolic phenomena Neurology on board and recommending ALIYAH; if ALIYAH is negative patient is recommending at event monitor or loop recorder; cardiology is on board Patient is admitted with acute ST elevation SD with V. fib cardiac arrest at home with an approximate downtime of 15 minutes; patient is status post stenting of mid LAD; cardiology recommending to continue with current medications -- Prognosis remains guarded 05/01/2023 Patient is seen and evaluated in room and bedside; has been intubated; family is present at bedside; patient's condition and updated Currently, he is on the volume assist control, rate 24, tidal volume 450, FiO2 60%, and PEEP of 8. Blood gases, showed pO2 of 122, pCO2 of 34, and pH is 7.35. White count 21.6, hemoglobin 13.3, hematocrit 40.8, with a normal platelet count. ETT is 48.1. Sodium 141, potassium 4.4, chlorides 113, CO2 16, BUN 39, and creatinine 2.02. Chest x-ray shows diffuse bilateral infiltrates. Patient has been placed on IV Zosyn empirically; has been pancultured; Procardia calcitonin is ordered and pending Nephrology is consulted for uptrending creatinine Critical care recommending hydrocortisone 50 mg IV every 6 hours for relative adrenal insufficiency Objective - Vital Signs Vital signs: Vital Signs Temp 99.5 F 05/01/23 08:00 Pulse 90 05/01/23 08:00 Resp 26 H 05/01/23 08:00 BP 99/61 05/01/23 08:00 Pulse Ox 94 L 05/01/23 08:00 FiO2 60 05/01/23 08:00 Intake & Output 04/30/23 05/01/23 05/01/23 18:59 06:59 18:59 Intake Total 942.909 0132.197 48.739 Output Total 440 185 0 Balance -017.174 1227.197 48.739 Weight 93 kg Intake: IV 1000 Lactated Ringers 1,000 ml 1000 @ 999 mls/hr IV .Q1H1M [facility] Rx#:[id number] Intake, IV Titration 28.733 1346.197 48.739 Amount Dexmedetomidine/0.9% NaCl 28.733 23.307 (Pmx) 400 mcg In Empty Bag 1 bag @ 0.2 MCG/KG/HR 4.585 mls/hr IV .[id number] [facility] Rx#:[id number] Heparin Sod,Pork in 0.45% 192.487 NaCl 25,000 unit In 0.45 % NaCl 1 250ml.bag @ 10. 905 UNITS/KG/HR 10 mls/hr IV .Q24H [facility] Rx#: [id number] Norepinephrine 4 mg In 949.475 48.739 Sodium Chloride 0.9% 250 ml @ 0.03 MCG/KG/MIN 10. 481 mls/hr IV .Q24H [facility] Rx#:[id number] Vasopressin 20 unit In 16.371 Sodium Chloride 0.9% 50 ml @ 0.03 UNITS/MIN 4.59 mls/hr IV .Q11H7M [facility] Rx# :[id number] propofoL 1,000 mg In 164.557 Empty Bag 1 bag @ 15 MCG/ KG/MIN 8.253 mls/hr IV . Q12H8M [facility] Rx#:[id number] Oral 200 Output: Urine 440 185 0 Other: Voiding Method Incontinent Indwelling Catheter Indwelling Catheter External Catheter ABP, PAP, CO, CI - Last Documented Arterial Blood Pressure 100/60 - Exam --GENERAL: The patient is awake alert, follow command, has difficulty talking with low Ryan. But answers appropriately HEENT: Pupils are round and equally reacting to light. EOMI. No scleral icterus. No conjunctival pallor. Normocephalic, atraumatic. No pharyngeal erythema. No thyromegaly. CARDIOVASCULAR: S1 and S2 present. No murmurs, rubs, or gallops. -PULMONARY: Chest is clear to auscultation, no wheezing , no crackles. Mildly tachypneic ABDOMEN: Soft, nontender, nondistended, normoactive bowel sounds. No palpable organomegaly. MUSCULOSKELETAL: No joint swelling or deformity. EXTREMITIES: No cyanosis, clubbing, or pedal edema. -NEUROLOGICAL: Dysarthria, or extremity weakness. Motor exam of the other extremities 5/5. Right facial droop. Sensation intact. Meningeal signs are absent SKIN: No rashes. no petechiae. - Labs CBC & Chem 7: 05/01/23 05:00 05/01/23 05:00 Labs: Abnormal Lab Results - Last 24 Hours (Table) 04/30/23 04/30/23 04/30/23 Range/Units 12:13 15:16 18:15 WBC (3.8-10.6) k/uL Neutrophils # (1.3-7.7) k/uL Monocytes # (0-1.0) k/uL INR (<1.2) APTT (22.0-30.0) sec ABG pCO2 34 L (35-45) mmHg ABG pO2 78 L (83-108) mmHg ABG HCO3 (21-25) mmol/L ABG O2 Saturation (94-97) % Chloride (98-107) mmol/L Carbon Dioxide (22-30) mmol/L BUN (9-20) mg/dL Creatinine (0.66-1.25) mg/dL Glucose (74-99) mg/dL POC Glucose (mg/dL) 115 H 117 H (70-110) mg/dL Calcium (8.4-10.2) mg/dL Total Protein (6.3-8.2) g/dL Albumin (3.5-5.0) g/dL 04/30/23 04/30/23 05/01/23 Range/Units 20:04 20:29 00:36 WBC (3.8-10.6) k/uL Neutrophils # (1.3-7.7) k/uL Monocytes # (0-1.0) k/uL INR (<1.2) APTT 30.3 H (22.0-30.0) sec ABG pCO2 (35-45) mmHg ABG pO2 114 H (83-108) mmHg ABG HCO3 20 L (21-25) mmol/L ABG O2 Saturation (94-97) % Chloride (98-107) mmol/L Carbon Dioxide (22-30) mmol/L BUN (9-20) mg/dL Creatinine (0.66-1.25) mg/dL Glucose (74-99) mg/dL POC Glucose (mg/dL) 118 H (70-110) mg/dL Calcium (8.4-10.2) mg/dL Total Protein (6.3-8.2) g/dL Albumin (3.5-5.0) g/dL 05/01/23 05/01/23 05/01/23 Range/Units 03:44 05:00 05:00 WBC 21.6 H (3.8-10.6) k/uL Neutrophils # 18.1 H (1.3-7.7) k/uL Monocytes # 1.6 H (0-1.0) k/uL INR 1.2 H (<1.2) APTT 39.2 H (22.0-30.0) sec ABG pCO2 (35-45) mmHg ABG pO2 (83-108) mmHg ABG HCO3 (21-25) mmol/L ABG O2 Saturation (94-97) % Chloride (98-107) mmol/L Carbon Dioxide (22-30) mmol/L BUN (9-20) mg/dL Creatinine (0.66-1.25) mg/dL Glucose (74-99) mg/dL POC Glucose (mg/dL) (70-110) mg/dL Calcium (8.4-10.2) mg/dL Total Protein (6.3-8.2) g/dL Albumin (3.5-5.0) g/dL 05/01/23 05/01/23 05/01/23 Range/Units 05:00 06:19 06:23 WBC (3.8-10.6) k/uL Neutrophils # (1.3-7.7) k/uL Monocytes # (0-1.0) k/uL INR (<1.2) APTT (22.0-30.0) sec ABG pCO2 34 L (35-45) mmHg ABG pO2 122 H (83-108) mmHg ABG HCO3 18 L (21-25) mmol/L ABG O2 Saturation 97.9 H (94-97) % Chloride 113 H (98-107) mmol/L Carbon Dioxide 16 L (22-30) mmol/L BUN 39 H (9-20) mg/dL Creatinine 2.02 H (0.66-1.25) mg/dL Glucose 145 H (74-99) mg/dL POC Glucose (mg/dL) 136 H (70-110) mg/dL Calcium 7.4 L (8.4-10.2) mg/dL Total Protein 4.6 L (6.3-8.2) g/dL Albumin 2.2 L (3.5-5.0) g/dL Assessment and Plan Assessment: Cardiac arrest at home status post CPR and electric shock with return of circul ation. [place] about 15 minutes Acute lateral STEMI status post emergent PCI to LAD Acute stroke is suspected with right upper extremity weakness, right facial droop and dysarthria Acute hypoxic respiratory failure, improved Mild combined metabolic acidosis which looks more acute and chronic respiratory acidosis. Improved Mild acute kidney injury with good urine output. Resolved Mild leukocytosis Mild transaminitis Possible chronic kidney disease Plan: With aspirin and Plavix and Lipitor neurologist on the case and MRI of the brain is ordered Pulmonary/critical care team with help with vent management Continue with dual antiplatelet therapy, currently on aspirin and Plavix Metoprolol Small dose lisinopril patient can be transferred out of the ICU continue with IV fluids, currently on Ringer lactate. Monitor creatinine Labs and medication were reviewed.. Continue same treatment. Continue with symptomatic treatment. Resume home medication. Monitor labs and vitals. DVT and GI prophylaxis. Further recommendations as per clinical course of the arthur ent DVT prophylaxis: Aspirin and Plavix GI Prophylaxis: Pepcid Prognosis is guarded
[2023-05-01 18:04] LABS: Glucose,Whole Blood 156 mg/dL (70-110)
[2023-05-01] MEDS: ATORVASTATIN 80 MG TAB PO SCH (20:10)
[2023-05-01] MEDS ORDERED: DEXTROSE 5% IN WATER 250 ML with AMIODARONE 300 MG IV ONE (20:29)
[2023-05-01] MEDS: fentaNYL (PF). 1,000 MCG in SODIUM CHLORIDE 0.9% 80 ML IV SCH (21:12)
[2023-05-01] MEDS ORDERED: AMIODARONE 360 MG in DEXTROSE 5% IN WATER 200 ML IV ONE ×2 (22:03)
[2023-05-01 22:17] LABS: ALT 26 U/L (4-49); AST 43 U/L (17-59); African American GFR (CKD) 34 (>60 ml/min/1.73 sqM); Albumin 2.4 g/dL (3.5-5.0); Alkaline Phosphatase 73 U/L (38-126); Anion Gap 11 mmol/L; Blood Urea Nitrogen 48 mg/dL (9-20); Calcium 7.5 mg/dL (8.4-10.2); Carbon Dioxide 16 mmol/L (22-30); Chloride 114 mmol/L (98-107); Glucose 172 mg/dL (74-99); Non-African American GFR(CKD) 29 (>60 ml/min/1.73 sqM); Potassium 4.5 mmol/L (3.5-5.1); Sodium 141 mmol/L (137-145); Total Bilirubin 1.3 mg/dL (0.2-1.3); Total Protein 4.9 g/dL (6.3-8.2)
[2023-05-01 22:40] LABS: ABG Base Excess -6.6 mmol/L; ABG HCO3 19 mmol/L (21-25); ABG Oxygen Saturation 90.9 % (94-97); ABG PCO2 37 mmHg (35-45); ABG PH 7.33 (7.35-7.45); ABG PO2 63 mmHg (83-108); ABG TCO2 21 mmol/L (19-24); Allen Test Performed? Yes
[2023-05-02] MEDS: IPRATROPIUM-ALBUTEROL 3 ML NEB INHALATION SCH ×7 (00:20→23:59)
[2023-05-02] MEDS: NOREPINEPHRINE 8 MG in SODIUM CHLORIDE 0.9% 250 ML IV SCH ×5 (01:30→22:15)
[2023-05-02] MEDS: PIPERACILLIN-TAZOBACTAM 3.375 GM in SODIUM CHLORIDE 0.9% 100 ML IVPB SCH ×5 (01:46→23:20)
[2023-05-02] MEDS: HYDROCORTISONE SUCCINATE 100 MG/2 ML VIAL IV SCH ×2 (01:46→06:08)
[2023-05-02] MEDS: HEPARIN SOD,PORK IN 0.45% NACL 25,000 UNIT in 0.45% NACL 1 250ML.BAG IV SCH (02:11)
[2023-05-02 03:04] LABS: Glucose,Whole Blood 153 mg/dL (70-110)
[2023-05-02 03:39] LABS: ABG Base Excess -7.3 mmol/L; ABG HCO3 20 mmol/L (21-25); ABG Oxygen Saturation 85.2 % (94-97); ABG PCO2 46 mmHg (35-45); ABG PH 7.25 (7.35-7.45); ABG TCO2 21 mmol/L (19-24); Allen Test Performed? Yes
[2023-05-02 03:59] LABS: ABG PO2 57 mmHg (83-108)
[2023-05-02] MEDS: AMIODARONE 450 MG in DEXTROSE 5% IN WATER 250 ML IV SCH ×4 (04:52→15:23)
[2023-05-02 05:45] LABS: Basophils # (A) 0.1 k/uL (0-0.2); Basophils % (A) 0 %; Eosinophils % (A) 0 %; HCT 41.6 % (39.0-53.0); HGB 13.6 gm/dL (13.0-17.5); Lymphocytes # (A) 0.7 k/uL (1.0-4.8); Lymphocytes % (A) 3 %; MCH 30.9 pg (25.0-35.0); MCHC 32.8 g/dL (31.0-37.0); MCV 94.2 fL (80.0-100.0); Mean Platelet Volume 10.3; Monocytes # (A) 1.5 k/uL (0-1.0); Monocytes % (A) 7 %; Neutrophils # (A) 19.1 k/uL (1.3-7.7); Neutrophils % (A) 88 %; Platelet Count 232 k/uL (150-450); RBC 4.42 m/uL (4.30-5.90); WBC 21.8 k/uL (3.8-10.6)
[2023-05-02] MEDS ORDERED: SODIUM CHLORIDE 0.9% 1,000 ML IV ONE (05:45)
[2023-05-02 06:15] LABS: ABG Base Excess -8.1 mmol/L; ABG HCO3 19 mmol/L (21-25); ABG Oxygen Saturation 94.4 % (94-97); ABG PCO2 46 mmHg (35-45); ABG PH 7.24 (7.35-7.45); ABG PO2 82 mmHg (83-108); ABG TCO2 21 mmol/L (19-24); Allen Test Performed? Yes
[2023-05-02 06:21] LABS: Glucose,Whole Blood 151 mg/dL (70-110)
[2023-05-02 06:30] LABS: ALT 26 U/L (4-49); AST 44 U/L (17-59); African American GFR (CKD) 29 (>60 ml/min/1.73 sqM); Albumin 2.4 g/dL (3.5-5.0); Alkaline Phosphatase 70 U/L (38-126); Anion Gap 13 mmol/L; Blood Urea Nitrogen 54 mg/dL (9-20); Calcium 7.3 mg/dL (8.4-10.2); Carbon Dioxide 15 mmol/L (22-30); Chloride 113 mmol/L (98-107); Glucose 177 mg/dL (74-99); Non-African American GFR(CKD) 25 (>60 ml/min/1.73 sqM); Potassium 5.2 mmol/L (3.5-5.1); Sodium 141 mmol/L (137-145); Total Bilirubin 1.3 mg/dL (0.2-1.3)
--- NOTE | 2023-05-02 07:09 | P.PN ---
Subjective Progress Note Date: 05/02/23 Principal diagnosis: Acute coronary syndrome This is an 82-year-old gentleman was admitted to the hospital with acute coronary syndrome after he had cardiac arrest at home. He underwent an emergent heart catheterization and was found to have plaque rupture in the LAD which was stented was mild disease involving the rest of his coronaries. The echo showed preserved LV systolic function. Subsequently the patient did have change in mental status concerning for stroke and he underwent a computed tomography scan and that showed no evidence of any stroke. Then he did have an episode last night of sustained ventricular tachycardia where he was started on amiodarone IV. May [id number] The patient was seen and evaluated this morning. He continues to be intubated and he continues to be sedated as well. He is on amiodarone IV at this point. Pressure remains low and required tubal vasopressors with norepinephrine and vasopressin. Beside that he is on dual antiplatelet therapy. He is on statin as well. He is on heparin IV for unknown reason at this point. Beside the computed tomography scan which showed no evidence of stroke in underwent carotid studies and that came in to be unremarkable as well. Overall the prognosis is poor. The chest x-ray showed bilateral infiltrate Assessment Acute coronary syndrome as described above Acute hypoxic respiratory failure Bilateral infiltrate in the lungs concerning for pneumonia Change in mental status with possible stroke Ventricular tachycardia Plan Continue the current medical regimen Possibly stop the heparin Repeat the echocardiogram Continue dual antiplatelet therapy Overall poor prognosis Objective - Vital Signs Vital signs: Vital Signs Temp 98.9 F 05/02/23 04:15 Pulse 117 H 05/02/23 06:00 Resp 28 H 05/02/23 06:00 BP 90/35 05/01/23 13:00 Pulse Ox 91 L 05/02/23 06:00 FiO2 70 05/02/23 04:30 Intake & Output 05/01/23 05/02/23 05/02/23 18:59 06:59 18:59 Intake Total 8034.775 3366.221 Output Total 321 315 Balance 477.740 0430.221 Intake: IV 100 1449 0.9 KVO 100 Dextrose 5% in Water 250 250 ml @ 128 mls/hr IV .Q2H [facility] with Amiodarone 300 mg Rx#:[id number] Piperacillin-Tazobactam 3 100 100 .375 gm In Sodium Chloride 0.9% 100 ml @ 25 mls/hr IVPB Q8HR [facility] Rx# :[id number] Sodium Chloride 0.9% 1, 999 000 ml @ 999 mls/hr IV . Q1H1M [facility] Rx#:[id number] Intake, IV Titration 313.129 6531.221 Amount Heparin Sod,Pork in 0.45% 250 NaCl 25,000 unit In 0.45 % NaCl 1 250ml.bag @ 10. 905 UNITS/KG/HR 10 mls/hr IV .Q24H [facility] Rx#: [id number] Norepinephrine 4 mg In 556.739 502.872 Sodium Chloride 0.9% 250 ml @ 0.03 MCG/KG/MIN 10. 481 mls/hr IV .Q24H [facility] Rx#:[id number] Norepinephrine 8 mg In 188.834 Sodium Chloride 0.9% 250 ml @ 0.03 MCG/KG/MIN 5. 399 mls/hr IV .Q24H [facility] Rx#:[id number] Vasopressin 20 unit In 51 39.78 Sodium Chloride 0.9% 50 ml @ 0.03 UNITS/MIN 4.59 mls/hr IV .Q11H7M [facility] Rx# :[id number] fentaNYL (PF). 1,000 mcg 28.21 In Sodium Chloride 0.9% 80 ml @ 0.5 MCG/KG/HR 4. 65 mls/hr IV .[id number] [facility] Rx#:[id number] propofoL 1,000 mg In 260.889 271.525 Empty Bag 1 bag @ 15 MCG/ KG/MIN 8.253 mls/hr IV . Q12H8M [facility] Rx#:[id number] Tube Feeding 70 Other 30 Output: Urine 321 315 Other: Voiding Method Indwelling Catheter ABP, PAP, CO, CI - Last Documented Arterial Blood Pressure 99/59 - Labs CBC & Chem 7: 05/02/23 05:13 05/02/23 05:13 Labs: Abnormal Lab Results - Last 24 Hours (Table) 04/30/23 05/01/23 05/01/23 Range/Units 15:55 05:00 10:00 WBC (3.8-10.6) k/uL Neutrophils # (1.3-7.7) k/uL Lymphocytes # (1.0-4.8) k/uL Monocytes # (0-1.0) k/uL APTT 48.1 H (22.0-30.0) sec ABG pH (7.35-7.45) ABG pCO2 (35-45) mmHg ABG pO2 (83-108) mmHg ABG HCO3 (21-25) mmol/L ABG O2 Saturation (94-97) % Potassium (3.5-5.1) mmol/L Chloride 113 H (98-107) mmol/L Carbon Dioxide 16 L (22-30) mmol/L BUN 39 H (9-20) mg/dL Creatinine 2.02 H (0.66-1.25) mg/dL Glucose 145 H (74-99) mg/dL POC Glucose (mg/dL) (70-110) mg/dL Calcium 7.4 L (8.4-10.2) mg/dL Phosphorus 5.2 H (2.5-4.5) mg/dL Total Protein 4.6 L (6.3-8.2) g/dL Albumin 2.2 L (3.5-5.0) g/dL Procalcitonin 0.38 H (0.02-0.09) ng/mL Urine Protein (Negative) Urine Blood (Negative) Urine Bilirubin (Negative) Urine RBC (0-5) /hpf Amorphous Sediment (None) /hpf Hyaline Casts (0-2) /lpf Urine Mucus (None) /hpf 05/01/23 05/01/23 05/01/23 Range/Units 10:25 14:46 18:03 WBC (3.8-10.6) k/uL Neutrophils # (1.3-7.7) k/uL Lymphocytes # (1.0-4.8) k/uL Monocytes # (0-1.0) k/uL APTT (22.0-30.0) sec ABG pH (7.35-7.45) ABG pCO2 (35-45) mmHg ABG pO2 (83-108) mmHg ABG HCO3 (21-25) mmol/L ABG O2 Saturation (94-97) % Potassium (3.5-5.1) mmol/L Chloride (98-107) mmol/L Carbon Dioxide (22-30) mmol/L BUN (9-20) mg/dL Creatinine (0.66-1.25) mg/dL Glucose (74-99) mg/dL POC Glucose (mg/dL) 155 H 156 H (70-110) mg/dL Calcium (8.4-10.2) mg/dL Phosphorus (2.5-4.5) mg/dL Total Protein (6.3-8.2) g/dL Albumin (3.5-5.0) g/dL Procalcitonin (0.02-0.09) ng/mL Urine Protein 1+ H (Negative) Urine Blood Large H (Negative) Urine Bilirubin 1+ H (Negative) Urine RBC 38 H (0-5) /hpf Amorphous Sediment Few H (None) /hpf Hyaline Casts 3 H (0-2) /lpf Urine Mucus Occasional H (None) /hpf 05/01/23 05/01/23 05/02/23 Range/Units 20:40 22:36 03:01 WBC (3.8-10.6) k/uL Neutrophils # (1.3-7.7) k/uL Lymphocytes # (1.0-4.8) k/uL Monocytes # (0-1.0) k/uL APTT (22.0-30.0) sec ABG pH 7.33 L (7.35-7.45) ABG pCO2 (35-45) mmHg ABG pO2 63 L (83-108) mmHg ABG HCO3 19 L (21-25) mmol/L ABG O2 Saturation 90.9 L (94-97) % Potassium (3.5-5.1) mmol/L Chloride 114 H (98-107) mmol/L Carbon Dioxide 16 L (22-30) mmol/L BUN 48 H (9-20) mg/dL Creatinine 2.09 H (0.66-1.25) mg/dL Glucose 172 H (74-99) mg/dL POC Glucose (mg/dL) 153 H (70-110) mg/dL Calcium 7.5 L (8.4-10.2) mg/dL Phosphorus (2.5-4.5) mg/dL Total Protein 4.9 L (6.3-8.2) g/dL Albumin 2.4 L (3.5-5.0) g/dL Procalcitonin (0.02-0.09) ng/mL Urine Protein (Negative) Urine Blood (Negative) Urine Bilirubin (Negative) Urine RBC (0-5) /hpf Amorphous Sediment (None) /hpf Hyaline Casts (0-2) /lpf Urine Mucus (None) /hpf 05/02/23 05/02/23 05/02/23 Range/Units 03:34 05:13 05:13 WBC 21.8 H (3.8-10.6) k/uL Neutrophils # 19.1 H (1.3-7.7) k/uL Lymphocytes # 0.7 L (1.0-4.8) k/uL Monocytes # 1.5 H (0-1.0) k/uL APTT (22.0-30.0) sec ABG pH 7.25 L (7.35-7.45) ABG pCO2 46 H (35-45) mmHg ABG pO2 57 L* (83-108) mmHg ABG HCO3 20 L (21-25) mmol/L ABG O2 Saturation 85.2 L (94-97) % Potassium 5.2 H (3.5-5.1) mmol/L Chloride 113 H (98-107) mmol/L Carbon Dioxide 15 L (22-30) mmol/L BUN 54 H (9-20) mg/dL Creatinine 2.38 H (0.66-1.25) mg/dL Glucose 177 H (74-99) mg/dL POC Glucose (mg/dL) (70-110) mg/dL Calcium 7.3 L (8.4-10.2) mg/dL Phosphorus (2.5-4.5) mg/dL Total Protein 5.0 L (6.3-8.2) g/dL Albumin 2.4 L (3.5-5.0) g/dL Procalcitonin (0.02-0.09) ng/mL Urine Protein (Negative) Urine Blood (Negative) Urine Bilirubin (Negative) Urine RBC (0-5) /hpf Amorphous Sediment (None) /hpf Hyaline Casts (0-2) /lpf Urine Mucus (None) /hpf 05/02/23 05/02/23 05/02/23 Range/Units 05:13 06:20 06:25 WBC (3.8-10.6) k/uL Neutrophils # (1.3-7.7) k/uL Lymphocytes # (1.0-4.8) k/uL Monocytes # (0-1.0) k/uL APTT 41.0 H (22.0-30.0) sec ABG pH 7.24 L (7.35-7.45) ABG pCO2 46 H (35-45) mmHg ABG pO2 82 L (83-108) mmHg ABG HCO3 19 L (21-25) mmol/L ABG O2 Saturation (94-97) % Potassium (3.5-5.1) mmol/L Chloride (98-107) mmol/L Carbon Dioxide (22-30) mmol/L BUN (9-20) mg/dL Creatinine (0.66-1.25) mg/dL Glucose (74-99) mg/dL POC Glucose (mg/dL) 151 H (70-110) mg/dL Calcium (8.4-10.2) mg/dL Phosphorus (2.5-4.5) mg/dL Total Protein (6.3-8.2) g/dL Albumin (3.5-5.0) g/dL Procalcitonin (0.02-0.09) ng/mL Urine Protein (Negative) Urine Blood (Negative) Urine Bilirubin (Negative) Urine RBC (0-5) /hpf Amorphous Sediment (None) /hpf Hyaline Casts (0-2) /lpf Urine Mucus (None) /hpf
[2023-05-02] MEDS: HEPARIN SODIUM 1,000 UN/ML (10ML VL) IV PRN (08:05)
[2023-05-02] MEDS: FAMOTIDINE 20 MG/2 ML VIAL IV SCH (08:16)
[2023-05-02] MEDS: ASPIRIN 81 MG PO SCH (08:16)
[2023-05-02] MEDS: CHLORHEXIDINE GLUCONATE 15 ML CUP MUCOUS MEM SCH ×2 (08:16→20:51)
[2023-05-02] MEDS: CLOPIDOGREL 75 MG TAB PO SCH (08:17)
--- NOTE | 2023-05-02 08:23 | XR ---
EXAMINATION TYPE: XR chest 1V portable DATE OF EXAM: 05/02/2023 COMPARISON: 05/01/2023 HISTORY: Shortness of breath TECHNIQUE: Single frontal view of the chest is obtained. FINDINGS: Diffuse bilateral airspace disease and pleural effusion stable. Heart size is prominent. E T tube, NG tube and central line stable. No sizable pneumothorax. Diffuse osteopenia throughout the s houlders. Hypertrophic and degenerative changes of the spine. IMPRESSION: Diffuse bilateral airspace disease is stable.
--- NOTE | 2023-05-02 09:11 | P.PN ---
Subjective Progress Note Date: 05/02/23 10-year-old male patient, with a complicated history, who initially presented to us with a out of hospital cardiac arrest. The patient was in V. fib cardiac arrest and the patient required defibrillation he was back into normal sinus rhythm. He had a downtime of around 15 minutes. He underwent cardiac c atheterization and stent was placed to his LAD. Noted at that time, the patient was intubated and placed on a mechanical ventilator. He was 62 clinically extubated without any major difficulties on 04/26/2023. However, his course was complicated by development of an acute CVA. Cataracts patient will and altered mentation. MRI of the brain showed evidence of multiple bilateral foci of increased signal density largest in the left globus pallidus and the findings were consistent with multifocal acute ischemic insult, likely of an embolic in nature. The patient had to be intubated on 04/30/2023 for acute hypoxic respiratory failure and altered mentation. This morning, the patient remains intubated on a mechanical ventilator. He is on a combination of propofol running at 40 mcg/kg/m and fentanyl as running at 1 mcg/kg/h. He is well sedated at this point in time and would suggest a mechanical ventilator. She remains on assist-control mode rate of 28, tidal volume of 450, FiO2 is at 70% with a PEEP of 12. The chest x-ray is showing diffuse bilateral pulmonary infiltrates and airspace disease and the patient hasn't orotracheal tube is in good location. There is a vague history of aspiration which probably contributed to his respiratory failure. His echocardiogram was done during the current admission has been within normal limits. The patient had blood work today that showed a white cell count of 21.8 with a hemoglobin 13.6. He has sustained acute kidney injury with a creatinine of 2.38 and a BUN of 54 and the sodium level is at 141. Blood gas shows a pH of 7.24 with a pCO2 of 46 and pO2 of 82 on the above-mentioned ventilator setting. Sputum Gram stain and culture has been negative. The patient has a bout of nonsustained V. tach yesterday and the patient remains on amiodarone at 0.5 mg/m. The patient is also on pressors and currently is on norepinephrine running at 0.31 mcg/kg/m and the patient is also on vasopressin physiologic dose. IV antibiotic coverage is with Zosyn. He remains on IV heparin. He is on EN vital at 10 cc/hr Objective - Vital Signs Vital signs: Vital Signs Temp 98.9 F 05/02/23 04:15 Pulse 118 H 05/02/23 07:47 Resp 24 05/02/23 07:45 BP 90/35 05/01/23 13:00 Pulse Ox 91 L 05/02/23 07:45 FiO2 70 05/02/23 07:35 Intake & Output 05/01/23 05/02/23 05/02/23 18:59 06:59 18:59 Intake Total 5185.293 0201.221 106.295 Output Total 321 315 30 Balance 731.030 5212.221 76.295 Intake: IV 100 1449 20 0.9 KVO 100 20 Dextrose 5% in Water 250 250 ml @ 128 mls/hr IV .Q2H ONE with Amiodarone 300 mg Rx#:[id number] Piperacillin-Tazobactam 3 100 100 .375 gm In Sodium Chloride 0.9% 100 ml @ 25 mls/hr IVPB Q8HR [facility] Rx# :[id number] Sodium Chloride 0.9% 1, 999 000 ml @ 999 mls/hr IV . Q1H1M [facility] Rx#:[id number] Intake, IV Titration 329.368 0328.221 86.295 Amount Heparin Sod,Pork in 0.45% 250 86.295 NaCl 25,000 unit In 0.45 % NaCl 1 250ml.bag @ 10. 905 UNITS/KG/HR 10 mls/hr IV .Q24H [facility] Rx#: [id number] Norepinephrine 4 mg In 556.739 502.872 Sodium Chloride 0.9% 250 ml @ 0.03 MCG/KG/MIN 10. 481 mls/hr IV .Q24H [facility] Rx#:[id number] Norepinephrine 8 mg In 188.834 Sodium Chloride 0.9% 250 ml @ 0.03 MCG/KG/MIN 5. 399 mls/hr IV .Q24H [facility] Rx#:[id number] Vasopressin 20 unit In 51 39.78 Sodium Chloride 0.9% 50 ml @ 0.03 UNITS/MIN 4.59 mls/hr IV .Q11H7M [facility] Rx# :[id number] fentaNYL (PF). 1,000 mcg 28.21 In Sodium Chloride 0.9% 80 ml @ 0.5 MCG/KG/HR 4. 65 mls/hr IV .[id number] [facility] Rx#:[id number] propofoL 1,000 mg In 260.889 271.525 Empty Bag 1 bag @ 15 MCG/ KG/MIN 8.253 mls/hr IV . Q12H8M [facility] Rx#:[id number] Tube Feeding 70 Other 30 Output: Urine 321 315 30 Other: Voiding Method Indwelling Catheter Indwelling Catheter ABP, PAP, CO, CI - Last Documented Arterial Blood Pressure 101/56 - Exam No acute distress, currently on the ventilator. The patient's currently sedated, and has an orally placed endotracheal tube, and NG tube. Head exam was generally normal. There was no scleral icterus or corneal arcus. Mucous membranes were moist. HEENT examination is grossly unremarkable. Neck supple. Full range of motion. No adenopathy thyromegaly or neck vein distention. Cardiovascular examination reveals regular rhythm rate. S1-S2 normal. No S3 or S4. No discernible murmur noted. Lungs reveal clear breath sounds. Breath sounds are equal bilaterally. No adventitious lung sounds including wheezes rhonchi or crackles. Abdomen soft without bowel sounds. Extremities are intact. No cyanosis clubbing or edema. Skin is without rash or lesion. Neurologic examination cannot be assessed at this time, as the patient's currently mechanically ventilated. - Labs CBC & Chem 7: 05/02/23 05:13 05/02/23 05:13 Labs: Abnormal Lab Results - Last 24 Hours (Table) 04/30/23 05/01/23 05/01/23 Range/Units 15:55 05:00 10:00 WBC (3.8-10.6) k/uL Neutrophils # (1.3-7.7) k/uL Lymphocytes # (1.0-4.8) k/uL Monocytes # (0-1.0) k/uL APTT 48.1 H (22.0-30.0) sec ABG pH (7.35-7.45) ABG pCO2 (35-45) mmHg ABG pO2 (83-108) mmHg ABG HCO3 (21-25) mmol/L ABG O2 Saturation (94-97) % Potassium (3.5-5.1) mmol/L Chloride 113 H (98-107) mmol/L Carbon Dioxide 16 L (22-30) mmol/L BUN 39 H (9-20) mg/dL Creatinine 2.02 H (0.66-1.25) mg/dL Glucose 145 H (74-99) mg/dL POC Glucose (mg/dL) (70-110) mg/dL Calcium 7.4 L (8.4-10.2) mg/dL Phosphorus 5.2 H (2.5-4.5) mg/dL Total Protein 4.6 L (6.3-8.2) g/dL Albumin 2.2 L (3.5-5.0) g/dL Procalcitonin 0.38 H (0.02-0.09) ng/mL Urine Protein (Negative) Urine Blood (Negative) Urine Bilirubin (Negative) Urine RBC (0-5) /hpf Amorphous Sediment (None) /hpf Hyaline Casts (0-2) /lpf Urine Mucus (None) /hpf 05/01/23 05/01/23 05/01/23 Range/Units 10:25 14:46 18:03 WBC (3.8-10.6) k/uL Neutrophils # (1.3-7.7) k/uL Lymphocytes # (1.0-4.8) k/uL Monocytes # (0-1.0) k/uL APTT (22.0-30.0) sec ABG pH (7.35-7.45) ABG pCO2 (35-45) mmHg ABG pO2 (83-108) mmHg ABG HCO3 (21-25) mmol/L ABG O2 Saturation (94-97) % Potassium (3.5-5.1) mmol/L Chloride (98-107) mmol/L Carbon Dioxide (22-30) mmol/L BUN (9-20) mg/dL Creatinine (0.66-1.25) mg/dL Glucose (74-99) mg/dL POC Glucose (mg/dL) 155 H 156 H (70-110) mg/dL Calcium (8.4-10.2) mg/dL Phosphorus (2.5-4.5) mg/dL Total Protein (6.3-8.2) g/dL Albumin (3.5-5.0) g/dL Procalcitonin (0.02-0.09) ng/mL Urine Protein 1+ H (Negative) Urine Blood Large H (Negative) Urine Bilirubin 1+ H (Negative) Urine RBC 38 H (0-5) /hpf Amorphous Sediment Few H (None) /hpf Hyaline Casts 3 H (0-2) /lpf Urine Mucus Occasional H (None) /hpf 05/01/23 05/01/23 05/02/23 Range/Units 20:40 22:36 03:01 WBC (3.8-10.6) k/uL Neutrophils # (1.3-7.7) k/uL Lymphocytes # (1.0-4.8) k/uL Monocytes # (0-1.0) k/uL APTT (22.0-30.0) sec ABG pH 7.33 L (7.35-7.45) ABG pCO2 (35-45) mmHg ABG pO2 63 L (83-108) mmHg ABG HCO3 19 L (21-25) mmol/L ABG O2 Saturation 90.9 L (94-97) % Potassium (3.5-5.1) mmol/L Chloride 114 H (98-107) mmol/L Carbon Dioxide 16 L (22-30) mmol/L BUN 48 H (9-20) mg/dL Creatinine 2.09 H (0.66-1.25) mg/dL Glucose 172 H (74-99) mg/dL POC Glucose (mg/dL) 153 H (70-110) mg/dL Calcium 7.5 L (8.4-10.2) mg/dL Phosphorus (2.5-4.5) mg/dL Total Protein 4.9 L (6.3-8.2) g/dL Albumin 2.4 L (3.5-5.0) g/dL Procalcitonin (0.02-0.09) ng/mL Urine Protein (Negative) Urine Blood (Negative) Urine Bilirubin (Negative) Urine RBC (0-5) /hpf Amorphous Sediment (None) /hpf Hyaline Casts (0-2) /lpf Urine Mucus (None) /hpf 05/02/23 05/02/23 05/02/23 Range/Units 03:34 05:13 05:13 WBC 21.8 H (3.8-10.6) k/uL Neutrophils # 19.1 H (1.3-7.7) k/uL Lymphocytes # 0.7 L (1.0-4.8) k/uL Monocytes # 1.5 H (0-1.0) k/uL APTT (22.0-30.0) sec ABG pH 7.25 L (7.35-7.45) ABG pCO2 46 H (35-45) mmHg ABG pO2 57 L* (83-108) mmHg ABG HCO3 20 L (21-25) mmol/L ABG O2 Saturation 85.2 L (94-97) % Potassium 5.2 H (3.5-5.1) mmol/L Chloride 113 H (98-107) mmol/L Carbon Dioxide 15 L (22-30) mmol/L BUN 54 H (9-20) mg/dL Creatinine 2.38 H (0.66-1.25) mg/dL Glucose 177 H (74-99) mg/dL POC Glucose (mg/dL) (70-110) mg/dL Calcium 7.3 L (8.4-10.2) mg/dL Phosphorus (2.5-4.5) mg/dL Total Protein 5.0 L (6.3-8.2) g/dL Albumin 2.4 L (3.5-5.0) g/dL Procalcitonin (0.02-0.09) ng/mL Urine Protein (Negative) Urine Blood (Negative) Urine Bilirubin (Negative) Urine RBC (0-5) /hpf Amorphous Sediment (None) /hpf Hyaline Casts (0-2) /lpf Urine Mucus (None) /hpf 05/02/23 05/02/23 05/02/23 Range/Units 05:13 06:20 06:25 WBC (3.8-10.6) k/uL Neutrophils # (1.3-7.7) k/uL Lymphocytes # (1.0-4.8) k/uL Monocytes # (0-1.0) k/uL APTT 41.0 H (22.0-30.0) sec ABG pH 7.24 L (7.35-7.45) ABG pCO2 46 H (35-45) mmHg ABG pO2 82 L (83-108) mmHg ABG HCO3 19 L (21-25) mmol/L ABG O2 Saturation (94-97) % Potassium (3.5-5.1) mmol/L Chloride (98-107) mmol/L Carbon Dioxide (22-30) mmol/L BUN (9-20) mg/dL Creatinine (0.66-1.25) mg/dL Glucose (74-99) mg/dL POC Glucose (mg/dL) 151 H (70-110) mg/dL Calcium (8.4-10.2) mg/dL Phosphorus (2.5-4.5) mg/dL Total Protein (6.3-8.2) g/dL Albumin (3.5-5.0) g/dL Procalcitonin (0.02-0.09) ng/mL Urine Protein (Negative) Urine Blood (Negative) Urine Bilirubin (Negative) Urine RBC (0-5) /hpf Amorphous Sediment (None) /hpf Hyaline Casts (0-2) /lpf Urine Mucus (None) /hpf Microbiology - Last 24 Hours (Table) 04/30/23 20:00 Gram Stain - Preliminary Sputum Assessment and Plan Plan: Acute hypoxic respiratory failure with development of diffuse but the pulmonary infiltrates and airspace disease, consider aspiration pneumonia/ARDS. Cardiogenic pulmonary edema is felt to be less likely. The patient was having some difficulties in swallowing especially following his extubation and following his acute CVA. Aspiration suspected. The patient remains on IV Zosy n. Currently intubated on a mechanical ventilator. Chest x-ray was noted and blood gases was also noted Acute on chronic hypoxic yesterday failure secondary to above, acute hypercapnic respiratory failure Acute shock, the patient is hypotensive on pressors, consider possibility of a septic shock Acute leukocytosis Acute kidney injury and the creatinine is on the rise and the patient is oligu rivera at this point in time. Acute embolic CVA. The patient had an MRI of the brain that showed multiple areas of infarcts largest in the globus pallidus on the left and the patient had altered mentation and subsequent respiratory failure Acute cardiac arrest secondary to be V. fib, post cardiac catheterization and stenting of the LAD Coronary artery disease post stenting of the LAD Present LV function, cardiac exam showing ejection fraction of 55-60% and this was obtained post cardiac arrest Episode of V. tach, currently back into normal sinus rhythm and the patient remains on a combination of amiodarone drip and IV heparin Plan Continue ventilator support Keep the patient a combination of propofol and fentanyl for sedation Start the patient on bicarb drip and increase the rate of 1 25 mL an hour Monitor renal function and electrolytes Continue ventilator support, no changes in the mechanical ventilator for now Continue IV Zosyn Blood cultures Sputum culture has been sent and the results are still pending for now Continue IV heparin Continue amiodarone drip Discontinue the hydrocortisone and put the patient on Solu-Medrol 40 mg every 12 hours for postinfectious ARDS, baseline serum cortisol is at 19, baseline pro- calcitonin level is at 0.38 Continue aspirin Continue Plavix Continue statin with Lipitor 80 mg by mouth daily Attempted to restart enteral feeding at a lower rate Hold metoprolol as the patient is profoundly hypotensive Condition is critical and we'll continue to follow make further recommendations based on his progress. Will likely need a bronchoscopy and a bronchial lavage with diffuse bilateral pulmonary infiltrates. We'll continue to follow. His e valuation within a more than 30 minutes. Time with Patient: Greater than 30
[2023-05-02] MEDS ORDERED: SODIUM BICARB 8.4% 50 ML SYR (1 MEQ/ML) IV STA (09:35)
[2023-05-02] MEDS: METOPROLOL TARTRATE 50 MG TAB PO SCH ×2 (09:40→20:52)
[2023-05-02] MEDS: DEXTROSE 5% IN WATER 1,000 ML with SODIUM BICARB (1 MEQ/ML) 150 ML IV SCH ×2 (09:46→18:41)
[2023-05-02] MEDS ORDERED: CALCIUM GLUCONATE IN NACL 1 GM in SALINE 1 100ML.BAG IVPB ONE ×2 (10:00→15:18)
[2023-05-02] MEDS ORDERED: SODIUM ZIRCONIUM CYCLOSILICATE 10 GM PACKET PO ONE (10:00)
--- NOTE | 2023-05-02 10:18 | P.PN ---
Subjective Patient is seen in follow-up for acute kidney injury. Creatinine 2.38. Urine output 10-30 mL an hour. On Levophed and vasopressin. Intubated. Bicarb drip started this morning. Potassium level 5.2 today. Receiving tube feeds. On amiodarone drip. Vital signs are stable. On vasopressor support. General: Resting in bed. HEENT: Intubated. LUNGS: Scattered rhonchi. HEART: Tachycardic. ABDOMEN: No distention. EXTREMITITES: No edema. Objective - Vital Signs Vital signs: Vital Signs Temp 98.9 F 05/02/23 04:15 Pulse 118 H 05/02/23 07:47 Resp 24 05/02/23 07:45 BP 90/35 05/01/23 13:00 Pulse Ox 91 L 05/02/23 07:45 FiO2 70 05/02/23 07:35 Intake & Output 05/01/23 05/02/23 05/02/23 18:59 06:59 18:59 Intake Total 6291.834 3436.221 401.212 Output Total 321 315 30 Balance 469.766 1594.221 371.212 Intake: IV 100 1449 20 0.9 KVO 100 20 Dextrose 5% in Water 250 250 ml @ 128 mls/hr IV .Q2H [facility] with Amiodarone 300 mg Rx#:[id number] Piperacillin-Tazobactam 3 100 100 .375 gm In Sodium Chloride 0.9% 100 ml @ 25 mls/hr IVPB Q8HR [facility] Rx# :[id number] Sodium Chloride 0.9% 1, 999 000 ml @ 999 mls/hr IV . Q1H1M [facility] Rx#:[id number] Intake, IV Titration 550.825 1869.221 381.212 Amount Heparin Sod,Pork in 0.45% 250 86.295 NaCl 25,000 unit In 0.45 % NaCl 1 250ml.bag @ 10. 905 UNITS/KG/HR 10 mls/hr IV .Q24H [facility] Rx#: [id number] Norepinephrine 4 mg In 556.739 502.872 Sodium Chloride 0.9% 250 ml @ 0.03 MCG/KG/MIN 10. 481 mls/hr IV .Q24H [facility] Rx#:[id number] Norepinephrine 8 mg In 188.834 227.793 Sodium Chloride 0.9% 250 ml @ 0.03 MCG/KG/MIN 5. 399 mls/hr IV .Q24H [facility] Rx#:[id number] Vasopressin 20 unit In 51 39.78 Sodium Chloride 0.9% 50 ml @ 0.03 UNITS/MIN 4.59 mls/hr IV .Q11H7M [facility] Rx# :[id number] fentaNYL (PF). 1,000 mcg 28.21 In Sodium Chloride 0.9% 80 ml @ 0.5 MCG/KG/HR 4. 65 mls/hr IV .[id number] [facility] Rx#:[id number] propofoL 1,000 mg In 260.889 271.525 67.124 Empty Bag 1 bag @ 15 MCG/ KG/MIN 8.253 mls/hr IV . Q12H8M [facility] Rx#:[id number] Tube Feeding 70 Other 30 Output: Urine 321 315 30 Other: Voiding Method Indwelling Catheter Indwelling Catheter ABP, PAP, CO, CI - Last Documented Arterial Blood Pressure 101/56 - Labs CBC & Chem 7: 05/02/23 05:13 05/02/23 05:13 Labs: Abnormal Lab Results - Last 24 Hours (Table) 04/30/23 05/01/23 05/01/23 Range/Units 15:55 05:00 10:00 WBC (3.8-10.6) k/uL Neutrophils # (1.3-7.7) k/uL Lymphocytes # (1.0-4.8) k/uL Monocytes # (0-1.0) k/uL APTT 48.1 H (22.0-30.0) sec ABG pH (7.35-7.45) ABG pCO2 (35-45) mmHg ABG pO2 (83-108) mmHg ABG HCO3 (21-25) mmol/L ABG O2 Saturation (94-97) % Potassium (3.5-5.1) mmol/L Chloride 113 H (98-107) mmol/L Carbon Dioxide 16 L (22-30) mmol/L BUN 39 H (9-20) mg/dL Creatinine 2.02 H (0.66-1.25) mg/dL Glucose 145 H (74-99) mg/dL POC Glucose (mg/dL) (70-110) mg/dL Calcium 7.4 L (8.4-10.2) mg/dL Phosphorus 5.2 H (2.5-4.5) mg/dL Total Protein 4.6 L (6.3-8.2) g/dL Albumin 2.2 L (3.5-5.0) g/dL Procalcitonin 0.38 H (0.02-0.09) ng/mL Urine Protein (Negative) Urine Blood (Negative) Urine Bilirubin (Negative) Urine RBC (0-5) /hpf Amorphous Sediment (None) /hpf Hyaline Casts (0-2) /lpf Urine Mucus (None) /hpf 05/01/23 05/01/23 05/01/23 Range/Units 10:25 14:46 18:03 WBC (3.8-10.6) k/uL Neutrophils # (1.3-7.7) k/uL Lymphocytes # (1.0-4.8) k/uL Monocytes # (0-1.0) k/uL APTT (22.0-30.0) sec ABG pH (7.35-7.45) ABG pCO2 (35-45) mmHg ABG pO2 (83-108) mmHg ABG HCO3 (21-25) mmol/L ABG O2 Saturation (94-97) % Potassium (3.5-5.1) mmol/L Chloride (98-107) mmol/L Carbon Dioxide (22-30) mmol/L BUN (9-20) mg/dL Creatinine (0.66-1.25) mg/dL Glucose (74-99) mg/dL POC Glucose (mg/dL) 155 H 156 H (70-110) mg/dL Calcium (8.4-10.2) mg/dL Phosphorus (2.5-4.5) mg/dL Total Protein (6.3-8.2) g/dL Albumin (3.5-5.0) g/dL Procalcitonin (0.02-0.09) ng/mL Urine Protein 1+ H (Negative) Urine Blood Large H (Negative) Urine Bilirubin 1+ H (Negative) Urine RBC 38 H (0-5) /hpf Amorphous Sediment Few H (None) /hpf Hyaline Casts 3 H (0-2) /lpf Urine Mucus Occasional H (None) /hpf 05/01/23 05/01/2305/02/23 Range/Units 20:40 22:36 03:01 WBC (3.8-10.6) k/uL Neutrophils # (1.3-7.7) k/uL Lymphocytes # (1.0-4.8) k/uL Monocytes # (0-1.0) k/uL APTT (22.0-30.0) sec ABG pH 7.33 L (7.35-7.45) ABG pCO2 (35-45) mmHg ABG pO2 63 L (83-108) mmHg ABG HCO3 19 L (21-25) mmol/L ABG O2 Saturation 90.9 L (94-97) % Potassium (3.5-5.1) mmol/L Chloride 114 H (98-107) mmol/L Carbon Dioxide 16 L (22-30) mmol/L BUN 48 H (9-20) mg/dL Creatinine 2.09 H (0.66-1.25) mg/dL Glucose 172 H (74-99) mg/dL POC Glucose (mg/dL) 153 H (70-110) mg/dL Calcium 7.5 L (8.4-10.2) mg/dL Phosphorus (2.5-4.5) mg/dL Total Protein 4.9 L (6.3-8.2) g/dL Albumin 2.4 L (3.5-5.0) g/dL Procalcitonin (0.02-0.09) ng/mL Urine Protein (Negative) Urine Blood (Negative) Urine Bilirubin (Negative) Urine RBC (0-5) /hpf Amorphous Sediment (None) /hpf Hyaline Casts (0-2) /lpf Urine Mucus (None) /hpf 05/02/23 05/02/23 05/02/23 Range/Units 03:34 05:13 05:13 WBC 21.8 H (3.8-10.6) k/uL Neutrophils # 19.1 H (1.3-7.7) k/uL Lymphocytes # 0.7 L (1.0-4.8) k/uL Monocytes # 1.5 H (0-1.0) k/uL APTT (22.0-30.0) sec ABG pH 7.25 L (7.35-7.45) ABG pCO2 46 H (35-45) mmHg ABG pO2 57 L* (83-108) mmHg ABG HCO3 20 L (21-25) mmol/L ABG O2 Saturation 85.2 L (94-97) % Potassium 5.2 H (3.5-5.1) mmol/L Chloride 113 H (98-107) mmol/L Carbon Dioxide 15 L (22-30) mmol/L BUN 54 H (9-20) mg/dL Creatinine 2.38 H (0.66-1.25) mg/dL Glucose 177 H (74-99) mg/dL POC Glucose (mg/dL) (70-110) mg/dL Calcium 7.3 L (8.4-10.2) mg/dL Phosphorus (2.5-4.5) mg/dL Total Protein 5.0 L (6.3-8.2) g/dL Albumin 2.4 L (3.5-5.0) g/dL Procalcitonin (0.02-0.09) ng/mL Urine Protein (Negative) Urine Blood (Negative) Urine Bilirubin (Negative) Urine RBC (0-5) /hpf Amorphous Sediment (None) /hpf Hyaline Casts (0-2) /lpf Urine Mucus (None) /hpf 05/02/23 05/02/23 05/02/23 Range/Units 05:13 06:20 06:25 WBC (3.8-10.6) k/uL Neutrophils # (1.3-7.7) k/uL Lymphocytes # (1.0-4.8) k/uL Monocytes # (0-1.0) k/uL APTT 41.0 H (22.0-30.0) sec ABG pH 7.24 L (7.35-7.45) ABG pCO2 46 H (35-45) mmHg ABG pO2 82 L (83-108) mmHg ABG HCO3 19 L (21-25) mmol/L ABG O2 Saturation (94-97) % Potassium (3.5-5.1) mmol/L Chloride (98-107) mmol/L Carbon Dioxide (22-30) mmol/L BUN (9-20) mg/dL Creatinine (0.66-1.25) mg/dL Glucose (74-99) mg/dL POC Glucose (mg/dL) 151 H (70-110) mg/dL Calcium (8.4-10.2) mg/dL Phosphorus (2.5-4.5) mg/dL Total Protein (6.3-8.2) g/dL Albumin (3.5-5.0) g/dL Procalcitonin (0.02-0.09) ng/mL Urine Protein (Negative) Urine Blood (Negative) Urine Bilirubin (Negative) Urine RBC (0-5) /hpf Amorphous Sediment (None) /hpf Hyaline Casts (0-2) /lpf Urine Mucus (None) /hpf Microbiology - Last 24 Hours (Table) 04/30/23 20:00 Gram Stain - Preliminary Sputum Assessment and Plan Plan: Assessment: 1. Acute kidney injury secondary to hemodynamic ATN. Creatinine 2.36 today. Urine output 10-30 mL an hour. Baseline creatinine near 1. 2. Metabolic acidosis secondary to acute kidney injury. 3. Status post cardiac arrest with acute coronary syndrome status post LAD stent placement 04/25/2023. 4. Ventricular tachycardia maintained on amiodarone drip. Cardiology following. 5. Acute hypoxic respiratory failure with concern for pneumonia/ARDS. 6. Acute CVA. 7. Shock maintained on vasopressors. Plan: Agree with bicarb drip which is being started. 10 g lokelma once now. 2 A of sodium bicarb IV push now. Wean FiO2 and vasopressors. Maintain tube feeds. Follow-up echocardiogram. Repeat BMP this afternoon. Continue to assess daily for need for renal replacement therapy.
[2023-05-02] MEDS: fentaNYL (PF). 1,000 MCG in SODIUM CHLORIDE 0.9% 80 ML IV SCH ×2 (11:15→22:39)
[2023-05-02 12:22] LABS: Glucose,Whole Blood 193 mg/dL (70-110)
[2023-05-02] MEDS ORDERED: DEXTROSE 50% SYRINGE 50 ML IVP PRN ×2 (12:25)
[2023-05-02 13:34] VITALS: BMI 29.4
[2023-05-02 14:40] LABS: African American GFR (CKD) 24 (>60 ml/min/1.73 sqM); Anion Gap 7 mmol/L; Blood Urea Nitrogen 57 mg/dL (9-20); Calcium 7.1 mg/dL (8.4-10.2); Carbon Dioxide 22 mmol/L (22-30); Chloride 111 mmol/L (98-107); Glucose 208 mg/dL (74-99); Magnesium 2.3 mg/dL (1.6-2.3); Non-African American GFR(CKD) 21 (>60 ml/min/1.73 sqM); Phosphorus 5.2 mg/dL (2.5-4.5); Potassium 4.5 mmol/L (3.5-5.1); Sodium 140 mmol/L (137-145)
[2023-05-02] MEDS ORDERED: CISATRACURIUM 2 MG/ML 5 ML VIAL IV ONE (15:42)
--- NOTE | 2023-05-02 15:50 | P.PCN ---
Date of Procedure: 05/02/23 Preoperative Diagnosis: Bilateral pneumonia/airspace disease/consolidation Postoperative Diagnosis: Same Procedure(s) Performed: Flexible bronchoscopy, bronchial ALVEOLAR lavage of the right middle lobe, therapeutic airway suctioning Anesthesia: MAC Surgeon: Chandni Allen Estimated Blood Loss (ml): 0 Pathology: other Condition: critical Disposition: ICU Operative Findings: This procedure was done in the intensive care unit. The patient was already intubated on a mechanical ventilator. The patient was placed on 100% FiO2 and the flexible bronchoscope was completed. Indication for the procedure is diffuse bilateral pulmonary infiltrates. Consider bilateral pneumonia versus cardiogenic pulmonary edema This procedure was done in the intensive care unit. A adapter was attached and orotracheal tube and following that a flexible bronchoscope was easily passed through the orotracheal tube and was advanced into the lower trachea. The tip of the orotracheal tube was seen about 2 cm above the kaylyn. Airway inspection was completed. The visualized airways included the distal trachea, bilateral mainstem bronchi, right upper lobe bronchus, bronchus intermedius, right middle lobe bronchus, right lower lobe bronchus, left mainstem bronchus, left upper lobe bronchus and left lobe bronchus. The various 10 segments on the right were inspected, the various 8 segments on the left were also inspected. No other there was loose liquidy frothy bloody secretions scattered throughout the airways. Those secretions were easily suctioned out without any major difficulties. Following that, the bronchoscope was moved to the right middle lobe and a bronchial alveolar lavage was done. A total of 40 mL of fluid was infused in the form of normal saline and more than 35 mL of output was obtained. As mentioned, the output was bloody. This raises concerns for the alveolar hemorrhage/pulmonary edema in combination with pneumonia. The patient is on a combination of aspirin, Plavix and anticoagulation with IV heparin Therapeutic airway suctioning was done. The rest or secretions were all suctioned out without any major difficulties. The flexible bronchoscope was removed and the patient was kept on a mechanical ventilator on sedatives. complications, no oxygen desaturation. the bronchial lavage will be sent for microbial cultures and analysis.
[2023-05-02] MEDS ORDERED: VANCOMYCIN IV PER PHARMACY 1 EACH MISC MISCELLANE PRN (16:18)
--- NOTE | 2023-05-02 16:34 | P.PN ---
Subjective Progress Note Date: 05/02/23 Patient was initially seen by Dr. Alfa Ramírez. Please refer to his note for details. Patient is a 82-year-old male with recent cardiopulmonary arrest who has recent bilateral hemispheric stroke. EEG is pending. Patient was on heparin drip because of EKG changes. Patient was seen for a follow-up. Patient currently on propofol 40 g per kg/min. Also on norepinephrine 0.23 mcg/kg per minute(39.54 mL per hour) patient also on vasopressin 0.03 units per minute (4.5 mL per hour), fentanyl 1 mcg/kg/h, amiodarone, bicarbonate and calcium gluconate drips. Some other workup during this hospital visit consisted of: Lipid panel is triglyceride of 87, cholesterol is 158, LDL of 91 and HDL of 49. Hemoglobin A1c is 5.[address] of the head is reported as atrophy with chronic appearing periventricular white matter ischemic changes. CT angiography of the head and neck was reported as no evidence of dissection of the cervical internal carotid artery or vertebral artery or any evidence of significant stenosis at the carotid bifurcation. No evidence of intracranial hi gh-grade stenosis or intracranial aneurysm. Pulmonary vascular congestion. Carotid duplex is reported as less than 50% stenosis of bilateral carotid bifurcation. 2-D echo was reported as normal left ventricular size and systolic function. Mild aortic valve sclerosis and mitral annular calcification. Mild aortic insufficiency. No pericardial effusion. No significant pulmonary hypertension. Repeat CT head: It is reported as No acute hemorrhage, hydrocephalus or mass effect. I felt patient has lacunar basal ganglia stroke Repeat CT head today: As no acute intracranial normality seen. Similar moderate burden of chronic small vessel ischemic disease. MRI Brain reported as multiple bilateral foci of increased signal on diffusion weighted imaging as discussed above with largest in the left globus pallidus. The findings are compatible with multifocal acute ischemic insult. Correlate fo r embolic process. It's involving bilateral hemispheric in the body of the report. I personally reviewed the MRI and agree that the patient has multiple diffusion restriction of over bilateral hemisphere. Objective - Vital Signs Vital signs: Vital Signs Temp 99.9 F H 05/02/23 08:00 Pulse 106 H 05/02/23 11:15 Resp 29 H 05/02/23 11:15 BP 90/35 05/01/23 13:00 Pulse Ox 96 05/02/23 11:15 FiO2 60 05/02/23 10:47 Intake & Output 05/01/23 05/02/23 05/02/23 18:59 06:59 18:59 Intake Total 3576.553 9448.221 868.282 Output Total 321 315 90 Balance 681.432 4906.221 778.282 Intake: IV 100 1449 175 0.9 KVO 100 100 Dextrose 5% in Water 250 250 ml @ 128 mls/hr IV .Q2H ONE with Amiodarone 300 mg Rx#:[id number] Piperacillin-Tazobactam 3 100 100 75 .375 gm In Sodium Chloride 0.9% 100 ml @ 25 mls/hr IVPB Q8HR [facility] Rx# :[id number] Sodium Chloride 0.9% 1, 999 000 ml @ 999 mls/hr IV . Q1H1M ONE Rx#:[id number] Intake, IV Titration 317.898 8028.221 623.282 Amount Amiodarone 450 mg In 49.8 Dextrose 5% in Water 250 ml @ 0.5 MG/MIN 16.667 mls/hr IV .Q15H [facility] Rx#: [id number] Dextrose 5% in Water 1, 125 000 ml @ 125 mls/hr IV . Q9H12M [facility] with Sodium Bicarb (1 Meq/ml) 150 ml Rx#:[id number] Heparin Sod,Pork in 0.45% 250 86.295 NaCl 25,000 unit In 0.45 % NaCl 1 250ml.bag @ 10. 905 UNITS/KG/HR 10 mls/hr IV .Q24H [facility] Rx#: [id number] Norepinephrine 4 mg In 556.739 502.872 Sodium Chloride 0.9% 250 ml @ 0.03 MCG/KG/MIN 10. 481 mls/hr IV .Q24H [facility] Rx#:[id number] Norepinephrine 8 mg In 188.834 227.793 Sodium Chloride 0.9% 250 ml @ 0.03 MCG/KG/MIN 5. 399 mls/hr IV .Q24H [facility] Rx#:[id number] Vasopressin 20 unit In 51 39.78 Sodium Chloride 0.9% 50 ml @ 0.03 UNITS/MIN 4.59 mls/hr IV .Q11H7M [facility] Rx# :[id number] fentaNYL (PF). 1,000 mcg 28.21 67.27 In Sodium Chloride 0.9% 80 ml @ 0.5 MCG/KG/HR 4. 65 mls/hr IV .[id number] [facility] Rx#:[id number] propofoL 1,000 mg In 260.889 271.525 67.124 Empty Bag 1 bag @ 15 MCG/ KG/MIN 8.253 mls/hr IV . Q12H8M [facility] Rx#:[id number] Tube Feeding 70 40 Other 30 30 Output: Urine 321 315 90 Other: Voiding Method Indwelling Catheter Indwelling Catheter Indwelling Catheter ABP, PAP, CO, CI - Last Documented Arterial Blood Pressure 99/58 - Exam Patient is intubated, sedated. Pupils are very small, very minimally reactive to light. Oculocephalics are absent. Corneals absent. Patientresponded to painful stimuli. Patient's GCS is 3. Patient's plantars are flat. No seizure- like activity noted. - Labs CBC & Chem 7: 05/02/23 05:13 05/02/23 14:18 Labs: Abnormal Lab Results - Last 24 Hours (Table) 05/01/23 05/01/23 05/01/23 Range/Units 14:46 18:03 20:40 WBC (3.8-10.6) k/uL Neutrophils # (1.3-7.7) k/uL Lymphocytes # (1.0-4.8) k/uL Monocytes # (0-1.0) k/uL APTT (22.0-30.0) sec ABG pH (7.35-7.45) ABG pCO2 (35-45) mmHg ABG pO2 (83-108) mmHg ABG HCO3 (21-25) mmol/L ABG O2 Saturation (94-97) % Potassium (3.5-5.1) mmol/L Chloride 114 H (98-107) mmol/L Carbon Dioxide 16 L (22-30) mmol/L BUN 48 H (9-20) mg/dL Creatinine 2.09 H (0.66-1.25) mg/dL Glucose 172 H (74-99) mg/dL POC Glucose (mg/dL) 155 H 156 H (70-110) mg/dL Calcium 7.5 L (8.4-10.2) mg/dL Total Protein 4.9 L (6.3-8.2) g/dL Albumin 2.4 L (3.5-5.0) g/dL 05/01/23 05/02/23 05/02/23 Range/Units 22:36 03:01 03:34 WBC (3.8-10.6) k/uL Neutrophils # (1.3-7.7) k/uL Lymphocytes # (1.0-4.8) k/uL Monocytes # (0-1.0) k/uL APTT (22.0-30.0) sec ABG pH 7.33 L 7.25 L (7.35-7.45) ABG pCO2 46 H (35-45) mmHg ABG pO2 63 L 57 L* (83-108) mmHg ABG HCO3 19 L 20 L (21-25) mmol/L ABG O2 Saturation 90.9 L 85.2 L (94-97) % Potassium (3.5-5.1) mmol/L Chloride (98-107) mmol/L Carbon Dioxide (22-30) mmol/L BUN (9-20) mg/dL Creatinine (0.66-1.25) mg/dL Glucose (74-99) mg/dL POC Glucose (mg/dL) 153 H (70-110) mg/dL Calcium (8.4-10.2) mg/dL Total Protein (6.3-8.2) g/dL Albumin (3.5-5.0) g/dL 05/02/23 05/02/23 05/02/23 Range/Units 05:13 05:13 05:13 WBC 21.8 H (3.8-10.6) k/uL Neutrophils # 19.1 H (1.3-7.7) k/uL Lymphocytes # 0.7 L (1.0-4.8) k/uL Monocytes # 1.5 H (0-1.0) k/uL APTT 41.0 H (22.0-30.0) sec ABG pH (7.35-7.45) ABG pCO2 (35-45) mmHg ABG pO2 (83-108) mmHg ABG HCO3 (21-25) mmol/L ABG O2 Saturation (94-97) % Potassium 5.2 H (3.5-5.1) mmol/L Chloride 113 H (98-107) mmol/L Carbon Dioxide 15 L (22-30) mmol/L BUN 54 H (9-20) mg/dL Creatinine 2.38 H (0.66-1.25) mg/dL Glucose 177 H (74-99) mg/dL POC Glucose (mg/dL) (70-110) mg/dL Calcium 7.3 L (8.4-10.2) mg/dL Total Protein 5.0 L (6.3-8.2) g/dL Albumin 2.4 L (3.5-5.0) g/dL 05/02/23 05/02/23 05/02/23 Range/Units 06:20 06:25 12:20 WBC (3.8-10.6) k/uL Neutrophils # (1.3-7.7) k/uL Lymphocytes # (1.0-4.8) k/uL Monocytes # (0-1.0) k/uL APTT (22.0-30.0) sec ABG pH 7.24 L (7.35-7.45) ABG pCO2 46 H (35-45) mmHg ABG pO2 82 L (83-108) mmHg ABG HCO3 19 L (21-25) mmol/L ABG O2 Saturation (94-97) % Potassium (3.5-5.1) mmol/L Chloride (98-107) mmol/L Carbon Dioxide (22-30) mmol/L BUN (9-20) mg/dL Creatinine (0.66-1.25) mg/dL Glucose (74-99) mg/dL POC Glucose (mg/dL) 151 H 193 H (70-110) mg/dL Calcium (8.4-10.2) mg/dL Total Protein (6.3-8.2) g/dL Albumin (3.5-5.0) g/dL Microbiology - Last 24 Hours (Table) 04/30/23 20:00 Gram Stain - Preliminary Sputum Assessment and Plan Assessment: This is a 82-year-old gentleman who had a out of hospital cardiopulmonary arrest secondary due to choking and yesterday was extubated and he was noted to have right facial weakness and dysarthria. Unknown last normal. Acute right facial weakness with dysarthria and on examination he had right upper extremity weakness due to acute ischemic stroke. On MRI the patient had multiple bilateral hemispheric foci diffusion restriction compatible with multifocal acute ischemic insult and it appears ?cardioembolic in nature. No IV TPA since unknown last normal and the risk outweighed the benefit Out of the hospital cardiopulmonary arrest secondary due to choking episode with ST segment elevation myocardial infarction status post stent in the LAD ST depression on EKG and result placed on IV heparin drip. Alveolar hemorrhage noted on bronchoscopy Plan: Repeat CT head today, per Dr. Ramírez. Patient currently on heparin GGT (initially started by cardiology for EKG changes), aspirin and Plavix. Patient has developed alveolar hemorrhage. Heparin gtt. has been discontinued. Patient was started on aspirin 81 mg and Plavix 75 mg as well as Lipitor 80 mg daily at bedtime cardiology team. Continue neuro checks Cardiac monitoring. So far no A. fib or flutter per the ICU nurse. Recommend a transesophageal echocardiogram which is ordered by ICU attending and if negative recommend a 30 minute event monitor or a loop recorder. PT OT and [employer]IL CAR REPA[employer]ER are consulted Cardiology is on board We'll defer the rest of the medical management to the primary team and other specialists DVT prophylaxis On heparin Overall condition is critical. I feels patient prognosis appears poor because of multifactorial events.
[2023-05-02] MEDS ORDERED: VANCOMYCIN 1,500 MG in SODIUM CHLORIDE 0.9% 500 ML 500 ML IVPB ONE (17:00)
[2023-05-02 17:30] LABS: Glucose,Whole Blood 183 mg/dL (70-110)
[2023-05-02] MEDS: INSULIN ASPART (NovoLOG) 100 UNIT/ML VIAL SQ SCH ×2 (17:37→23:21)
--- NOTE | 2023-05-02 17:38 | CA ---
Transthoracic Echo Report Name: Bryan Salmon Age: 82 Gender: M : 1940 Exam Date: 05/02/2023 15:51 Exam Location: [place] [facility] Ht (in): 70 Wt (lb): 205 Ordering Physician: Anselmo Dean MD ([id number]) Attending/Referring Phys: Administrative Support Technician Balbina Gallardo RDCS Procedure CPT: Indications: DO order Cardiac Hx: Technical Quality: Fair Contrast 1: Total Dose (mL): Contrast 2: Total Dose (mL): MEASUREMENTS (Male / Female) Normal Values 2D ECHO LV Diastolic Diameter PLAX 4.9 cm 4.2 - 5.9 / 3.9 - 5.3 cm LV Systolic Diameter PLAX 3.1 cm IVS Diastolic Thickness 1.0 cm 0.6 - 1.0 / 0.6 - 0.9 cm LVPW Diastolic Thickness 1.1 cm 0.6 - 1.0 / 0.6 - 0.9 cm LV Relative Wall Thickness 0.4 RV Internal Dim ED PLAX 3.9 cm LA Systolic Diameter LX 3.8 cm 3.0 - 4.0 / 2.7 - 3.8 cm LA Volume 76.3 cm??? 18 - 58 / 22 - 52 cm??? LA Volume Index 35.2 cm???/m??? 16 - 28 cm???/m??? M-MODE Aortic Root Diameter MM 3.5 cm AV Cusp Separation MM 2.2 cm DOPPLER AV Peak Velocity 133.1 cm/s AV Peak Gradient 7.1 mmHg MV Peak Velocity 194.6 cm/s MV Peak Gradient 15.1 mmHg MV Mean Velocity 113.8 cm/s MV Mean Gradient 6.3 mmHg MV Velocity Time Integral 31.5 cm MV Area PHT 5.3 cm??? Mitral E Point Velocity 178.6 cm/s Mitral A Point Velocity 79.6 cm/s Mitral E to A Ratio 2.2 MV Deceleration Time 143.9 ms MV E' Velocity 9.4 cm/s Mitral E to MV E' Ratio 19.0 TR Peak Velocity 391.9 cm/s TR Peak Gradient 61.4 mmHg Right Ventricular Systolic Press 66.4 mmHg FINDINGS Left Ventricle Left ventricular ejection fraction is estimated at 55 60 %. Left ventricular cavity size normal. Left ventricular wall thickness normal. Right Ventricle Moderate right ventricular dilatation. Severe pulmonary hypertension. Right ventricular systolic pressure estimated at 66 mm hg. Right Atrium Normal right atrial size. Left Atrium Moderately increased left atrial volume. Mitral Valve Mitral valve thickened. [id number] mitral regurgitation. Findings consistent with vegetation on the anterior leaflet of the mitral valve. Aortic Valve Trileaflet aortic valve. No aortic valve stenosis or regurgitation. Tricuspid Valve Structurally normal tricuspid valve. Moderate tricuspid regurgitation. Pulmonic Valve Pulmonic valve not well visualized. Pericardium No pericardial effusion. Aorta Normal size aortic root and proximal ascending aorta. CONCLUSIONS Left ventricular systolic function is normal with an ejection fraction of 55- 60% There is a large echodense lesion attached to the anterior mitral leaflet which could be due to a vegetation. There is mild to moderate eccentric jet of mitral regurgitation noted Moderate tricuspid regurgitation Severe pulmonary hypertension Consider transesophageal echo for further evaluation of the mitral valve, the vegetation mitral regurgitation and possible flail mitral leaflet Previewed by: Dr. Zeyad Brooks MD (Electronically Signed) Final Date: 02 May 2023 17:37
[2023-05-02] MEDS: VASOPRESSIN 20 UNIT in SODIUM CHLORIDE 0.9% 50 ML IV SCH ×2 (19:30→22:16)
[2023-05-02] MEDS: AMIODARONE 200 MG TAB PO SCH (20:52)
[2023-05-02] MEDS: ATORVASTATIN 80 MG TAB PO SCH (20:52)
[2023-05-02] MEDS ORDERED: methylPREDNISolone SOD SUCCI 40 MG/ML 1 ML VIAL IV SCH (21:00)
[2023-05-02] MEDS ORDERED: bisacodyL 10 MG SUPP RECTAL PRN (22:47)
--- NOTE | 2023-05-02 23:10 | P.PN ---
Subjective Progress Note Date: 05/02/23 82 years old, unknown past medical history. Patient currently intubated and cannot provide information As per records patient was eating he started choking and then collapsed, EMS was called and he got a shock with return of the pulse area he was been back and hereafter emergency room where he got intubated. As per ER staff that downtown was about 15 minutes Currently blood pressure 162/113, he is tachycardic around 106. He has mild leukocytosis of 14.4, rest of CBC, INR is unremarkable. Creatinine 1.3 which he had it before, possible patient has chronic kidney disease Glucose 199, liver enzymes AST mildly elevated 216 and ALT 149. Bilirubin is 1.1. Troponin is -0.018. No acute cardiopulmonary process. Endotracheal tube at the tip of the kaylyn EKG was showing ST elevation NH of the lateral limits at I, aVL with reciprocal changes Patient was taken to the [facility] and he underwent emergent PCI to LAD 04/30/2023 Patient is seen and evaluated resting in bed; discussed with nursing staff; no new concerns Vital signs are reviewed with temperature of 97.4, pulse 71, respiration 24 and blood pressure 153/77, O2 saturation of 94% Blood work reveals a WBC of 9.4, hemoglobin 30.6, hematocrit 38.6 and platelet count of 118, sodium 137, potassium 3.8, BUN/creatinine of 21/0.99 MRI of the brain reveals multiple areas of ischemic infarct consistent with embolic phenomena Neurology on board and recommending ALIYAH; if ALIYAH is negative patient is recommending at event monitor or loop recorder; cardiology is on board Patient is admitted with acute ST elevation NH with V. fib cardiac arrest at home with an approximate downtime of 15 minutes; patient is status post stenting of mid LAD; cardiology recommending to continue with current medications -- Prognosis remains guarded 05/01/2023 Patient is seen and evaluated in room and bedside; has been intubated; family is present at bedside; patient's condition and updated Currently, he is on the volume assist control, rate 24, tidal volume 450, FiO2 60%, and PEEP of 8. Blood gases, showed pO2 of 122, pCO2 of 34, and pH is 7.35. White count 21.6, hemoglobin 13.3, hematocrit 40.8, with a normal platelet count. ETT is 48.1. Sodium 141, potassium 4.4, chlorides 113, CO2 16, BUN 39, and creatinine 2.02. Chest x-ray shows diffuse bilateral infiltrates. Patient has been placed on IV Zosyn empirically; has been pancultured; Procardia calcitonin is ordered and pending Nephrology is consulted for uptrending creatinine Critical care recommending hydrocortisone 50 mg IV every 6 hours for relative adrenal insufficiency 05/02/2023 Patient is seen and evaluated in follow-up today continues on mechanical ventilation with family members present at the bedside. Multiple medical consul tations following his patient remains in ICU and FiO2 is currently 60% with a PEEP of 5. White count is elevated at 21.8 and hemoglobin is stable at 13.6. Patient also remains on heparin along with amiodarone drip with cardiology following. Patient is on sodium bicarb drip along with fentanyl IV heparin, IV steroids, low-dose Levophed, IV Zosyn and propofol along with pressor support. Prognosis is extremely poor and guarded and family has decided on no code at this time. Family discussed with pulmonary lcac operator about overall prognosis and plans are to monitor for the next few days if there are any improvements otherwise will consider hospice with comfort measures. Kidney functions are worsening and creatinine is 2.75 today with a BUN of 57 and sodium is 140. Nephrology is following and again patient is maintained on bicarb drip. Review of systems: Unable to obtain as patient is on mechanical ventilation and intubated with sedation Active Medications Al Hydroxide/Mg Hydroxide (Mag Hydrox/Al Hydrox/Simeth 30 Ml Cup) 30 ml PO Q4HR PRN PRN Reason: Heartburn Stop: 05/25/23 14:04 Albuterol/Ipratropium (Ipratropium-Albuterol 3 Ml Neb) 3 ml INHALATION RT-Q4H SHANNA Last Admin: 05/02/23 14:47 Dose: 3 ml Albuterol/Ipratropium (Ipratropium-Albuterol 3 Ml Neb) 3 ml INHALATION RT-Q2H PRN PRN Reason: Shortness Of Breath Or Wheezing Amiodarone HCl (Amiodarone 200 Mg Tab) 400 mg PO BID SHANNA Aspirin (Aspirin 81 Mg) 81 mg PO DAILY SHANNA Stop: 05/26/23 09:01 Last Admin: 05/02/23 08:16 Dose: 81 mg Atorvastatin Calcium (Atorvastatin 80 Mg Tab) 80 mg PO HS SHANNA Stop: 05/25/23 21:01 Last Admin: 05/01/23 20:10 Dose: 80 mg Atropine Sulfate (Atropine Sulfate 0.1 Mg/Ml 10ml Syringe) 0.5 mg IV ONCE PRN PRN Reason: Symptomatic Bradycardia Stop: 05/25/23 14:04 Chlorhexidine Gluconate (Chlorhexidine Gluconate 15 Ml Cup) 15 ml MUCOUS MEM BID SHANNA Last Admin: 05/02/23 08:16 Dose: 15 ml Clopidogrel Bisulfate (Clopidogrel 75 Mg Tab) 75 mg PO DAILY SHANNA; Protocol Stop: 05/26/23 09:01 Last Admin: 05/02/23 08:17 Dose: 75 mg Dextrose/Water (Dextrose 50% Syringe 50 Ml) 25 ml IVP PER PROTOCOL PRN; Protocol PRN Reason: Hypoglycemia Dextrose/Water (Dextrose 50% Syringe 50 Ml) 50 ml IVP PER PROTOCOL PRN; Protocol PRN Reason: Hypoglycemia Famotidine (Famotidine 20 Mg/2 Ml Vial) 20 mg IV DAILY [facility] Last Admin: 05/02/23 08:16 Dose: 20 mg Heparin Sodium (Porcine) (Heparin Sodium 1,000 Un/Ml (10ml Vl)) 0 unit IV PER PROTOCOL PRN; Protocol PRN Reason: Low PTT Last Admin: 05/02/23 08:05 Dose: 2,325 unit Heparin Sodium/Sodium Chloride (25,000 unit/ Sodium Chloride) 250 mls @ 10 mls/hr IV .Q24H SHANNA; Protocol Last Titration: 05/02/23 08:06 Dose: 17.9 units/kg/hr, 16.414 mls/hr Propofol 1,000 mg/ IV Solution 100 mls @ 8.253 mls/hr IV .Q12H8M SHANNA; Protocol Last Admin: 05/02/23 13:01 Dose: 40 mcg/kg/min, 22.008 mls/hr Vasopressin 20 unit/ Sodium (Chloride) 51 mls @ 4.59 mls/hr IV .Q11H7M SHANNA; Protocol Last Admin: 05/01/23 23:39 Dose: 0.03 units/min, 4.59 mls/hr Piperacillin Sod/Tazobactam (Sod 3.375 gm/ Sodium Chloride) 100 mls @ 25 mls/hr IVPB Q8HR SHANNA; Protocol Last Admin: 05/02/23 08:16 Dose: 25 mls/hr Fentanyl Citrate 1,000 mcg/ (Sodium Chloride) 100 mls @ 4.65 mls/hr IV .[id number] [facility]; Protocol Last Admin: 05/02/23 11:15 Dose: 1 mcg/kg/hr, 9.3 mls/hr Amiodarone HCl 450 mg/ (Dextrose/Water) 250 mls @ 16.667 mls/hr IV .Q15H [facility]; Protocol Stop: 05/02/23 16:14 Last Admin: 05/02/23 15:23 Dose: Not Given Norepinephrine Bitartrate 8 mg (/ Sodium Chloride) 258 mls @ 5.399 mls/hr IV .Q24H [facility]; Protocol Last Admin: 05/02/23 15:20 Dose: 0.23 mcg/kg/min, 41.39 mls/hr Sodium Bicarbonate 150 ml/ (Dextrose/Water) 1,150 mls @ 125 mls/hr IV .Q9H12M [facility] Last Admin: 05/02/23 09:46 Dose: 125 mls/hr Calcium Gluconate/Sodium (Chloride 1 gm/ IV Solution) 100 mls @ 100 mls/hr IVPB ONCE ONE Stop: 05/02/23 16:17 Last Admin: 05/02/23 15:31 Dose: 100 mls/hr Insulin Aspart (Insulin Aspart (Novolog) 100 Unit/Ml Vial) 0 unit SQ Q6HR [facility]; Protocol Methylprednisolone Sodium Succinate (Methylprednisolone Sod Succi 40 Mg/Ml 1 Ml Vial) 40 mg IV Q12HR [facility] Metoprolol Tartrate (Metoprolol Tartrate 50 Mg Tab) 50 mg PO BID [facility] Stop: 05/25/23 21:01 Last Admin: 05/02/23 09:40 Dose: Not Given Miscellaneous Information (Potassium Replacement Protocol 1 Each Misc) 1 each MISCELLANE DAILY PRN; Protocol PRN Reason: Per Protocol Miscellaneous Information (Magnesium Replacement Protocol 1 Each Misc) 1 each MISCELLANE DAILY PRN; Protocol PRN Reason: Per Protocol Naloxone HCl (Naloxone 0.4 Mg/Ml 1 Ml Vial) 0.2 mg IV Q2M PRN PRN Reason: Opioid Reversal Nitroglycerin (Nitroglycerin Sl Tabs 0.4 Mg Tab) 0.4 mg SUBLINGUAL Q5M PRN PRN Reason: Chest Pain Stop: 05/25/23 14:04 Physical exam: GENERAL: The patient is currently maintained on mechanical ventilation, intubated, sedated, elderly appearing, ill appearing, well-developed HEENT: Pupils are round and equally reacting to light. EOMI. No scleral icterus. No conjunctival pallor. Normocephalic, atraumatic. No pharyngeal erythema. No thyromegaly. CARDIOVASCULAR: S1 and S2 present. No murmurs, rubs, or gallops. PULMONARY: Chest is clear to auscultation, no wheezing , no crackles. Mildly tachypneic ABDOMEN: Soft, nontender, nondistended, normoactive bowel sounds. No palpable organomegaly. MUSCULOSKELETAL: No joint swelling or deformity. EXTREMITIES: No cyanosis, clubbing, or pedal edema. NEUROLOGICAL: Dysarthria, or extremity weakness. Motor exam of the other extremities 5/5. Right facial droop. Sensation intact. Meningeal signs are absent SKIN: No rashes. no petechiae. Assessment: Cardiac arrest at home status post CPR and electric shock with return of circulation. [place] about 15 minutes Acute lateral STEMI status post emergent PCI to LAD Acute stroke with right upper extremity weakness, right facial droop and dysarthria Acute hypoxic respiratory failure, with concerns of aspiration pneumonia, status post mechanical ventilation Mild combined metabolic acidosis which looks more acute and chronic respiratory acidosis acute kidney injury with worsening kidney functions leukocytosis secondary to aspiration pneumonia Mild transaminitis History of chronic kidney disease No code Plan: Patient remains in the ICU on mechanical ventilation with multiple medical consultations following. Patient had been started on IV heparin per cardiology and there is concern for alveolar hemorrhage and heparin being discontinued Patient continues on multiple drips as well as pressor support Cardiology considering ALIYAH as echo shows a large echodense lesion attached to the anterior mitral leaflet which could be due to a vegetation with severe pulmonary hypertension noted Patient is continued on aspirin and Plavix along with statin therapy with neurology following Pulmonary discussing bronchoscopy later today. Family has discussed CODE STATUS and patient is now no code. Per pulmonary recommend monitoring over the next few days and if showing no improvement then consider comfort measures and family is agreeable Overall prognosis is extremely poor and guarded at this time The impression and plan of care has been dictated by Amanda Davila, Nurse Practitioner as directed. Dr. Andrew MD I have performed a history and examination and MDM of this patient, discussed the same with the dictator, and agree with the dictator's assessment and plan as written ,documented as a scribe. Based on total visit time, I have performed more than 50% of the visit. Objective - Vital Signs Vital signs: Vital Signs Temp 98.9 F 05/02/23 04:15 Pulse 118 H 05/02/23 07:47 Resp 24 05/02/23 07:45 BP 90/35 05/01/23 13:00 Pulse Ox 91 L 05/02/23 07:45 FiO2 70 05/02/23 07:35 Intake & Output 05/01/23 05/02/23 05/02/23 18:59 06:59 18:59 Intake Total 6532.464 9936.221 401.212 Output Total 321 315 30 Balance 443.335 5467.221 371.212 Intake: IV 100 1449 20 0.9 KVO 100 20 Dextrose 5% in Water 250 250 ml @ 128 mls/hr IV .Q2H ONE with Amiodarone 300 mg Rx#:[id number] Piperacillin-Tazobactam 3 100 100 .375 gm In Sodium Chloride 0.9% 100 ml @ 25 mls/hr IVPB Q8HR SHANNA Rx# :[id number] Sodium Chloride 0.9% 1, 999 000 ml @ 999 mls/hr IV . Q1H1M ONE Rx#:[id number] Intake, IV Titration 833.873 5013.221 381.212 Amount Heparin Sod,Pork in 0.45% 250 86.295 NaCl 25,000 unit In 0.45 % NaCl 1 250ml.bag @ 10. 905 UNITS/KG/HR 10 mls/hr IV .Q24H SHANNA Rx#: [id number] Norepinephrine 4 mg In 556.739 502.872 Sodium Chloride 0.9% 250 ml @ 0.03 MCG/KG/MIN 10. 481 mls/hr IV .Q24H SHANNA Rx#:[id number] Norepinephrine 8 mg In 188.834 227.793 Sodium Chloride 0.9% 250 ml @ 0.03 MCG/KG/MIN 5. 399 mls/hr IV .Q24H SHANNA Rx#:[id number] Vasopressin 20 unit In 51 39.78 Sodium Chloride 0.9% 50 ml @ 0.03 UNITS/MIN 4.59 mls/hr IV .Q11H7M SHANNA Rx# :[id number] fentaNYL (PF). 1,000 mcg 28.21 In Sodium Chloride 0.9% 80 ml @ 0.5 MCG/KG/HR 4. 65 mls/hr IV .[id number] SHANNA Rx#:[id number] propofoL 1,000 mg In 260.889 271.525 67.124 Empty Bag 1 bag @ 15 MCG/ KG/MIN 8.253 mls/hr IV . Q12H8M SHANNA Rx#:[id number] Tube Feeding 70 Other 30 Output: Urine 321 315 30 Other: Voiding Method Indwelling Catheter Indwelling Catheter ABP, PAP, CO, CI - Last Documented Arterial Blood Pressure 101/56 - Labs CBC & Chem 7: 05/02/23 05:13 05/02/23 14:18 Labs: Abnormal Lab Results - Last 24 Hours (Table) 04/30/23 05/01/23 05/01/23 Range/Units 15:55 05:00 10:00 WBC (3.8-10.6) k/uL Neutrophils # (1.3-7.7) k/uL Lymphocytes # (1.0-4.8) k/uL Monocytes # (0-1.0) k/uL APTT 48.1 H (22.0-30.0) sec ABG pH (7.35-7.45) ABG pCO2 (35-45) mmHg ABG pO2 (83-108) mmHg ABG HCO3 (21-25) mmol/L ABG O2 Saturation (94-97) % Potassium (3.5-5.1) mmol/L Chloride 113 H (98-107) mmol/L Carbon Dioxide 16 L (22-30) mmol/L BUN 39 H (9-20) mg/dL Creatinine 2.02 H (0.66-1.25) mg/dL Glucose 145 H (74-99) mg/dL POC Glucose (mg/dL) (70-110) mg/dL Calcium 7.4 L (8.4-10.2) mg/dL Phosphorus 5.2 H (2.5-4.5) mg/dL Total Protein 4.6 L (6.3-8.2) g/dL Albumin 2.2 L (3.5-5.0) g/dL Procalcitonin 0.38 H (0.02-0.09) ng/mL Urine Protein (Negative) Urine Blood (Negative) Urine Bilirubin (Negative) Urine RBC (0-5) /hpf Amorphous Sediment (None) /hpf Hyaline Casts (0-2) /lpf Urine Mucus (None) /hpf 05/01/23 05/01/23 05/01/23 Range/Units 10:25 14:46 18:03 WBC (3.8-10.6) k/uL Neutrophils # (1.3-7.7) k/uL Lymphocytes # (1.0-4.8) k/uL Monocytes # (0-1.0) k/uL APTT (22.0-30.0) sec ABG pH (7.35-7.45) ABG pCO2 (35-45) mmHg ABG pO2 (83-108) mmHg ABG HCO3 (21-25) mmol/L ABG O2 Saturation (94-97) % Potassium (3.5-5.1) mmol/L Chloride (98-107) mmol/L Carbon Dioxide (22-30) mmol/L BUN (9-20) mg/dL Creatinine (0.66-1.25) mg/dL Glucose (74-99) mg/dL POC Glucose (mg/dL) 155 H 156 H (70-110) mg/dL Calcium (8.4-10.2) mg/dL Phosphorus (2.5-4.5) mg/dL Total Protein (6.3-8.2) g/dL Albumin (3.5-5.0) g/dL Procalcitonin (0.02-0.09) ng/mL Urine Protein 1+ H (Negative) Urine Blood Large H (Negative) Urine Bilirubin 1+ H (Negative) Urine RBC 38 H (0-5) /hpf Amorphous Sediment Few H (None) /hpf Hyaline Casts 3 H (0-2) /lpf Urine Mucus Occasional H (None) /hpf 05/01/23 05/01/23 05/02/23 Range/Units 20:40 22:36 03:01 WBC (3.8-10.6) k/uL Neutrophils # (1.3-7.7) k/uL Lymphocytes # (1.0-4.8) k/uL Monocytes # (0-1.0) k/uL APTT (22.0-30.0) sec ABG pH 7.33 L (7.35-7.45) ABG pCO2 (35-45) mmHg ABG pO2 63 L (83-108) mmHg ABG HCO3 19 L (21-25) mmol/L ABG O2 Saturation 90.9 L (94-97) % Potassium (3.5-5.1) mmol/L Chloride 114 H (98-107) mmol/L Carbon Dioxide 16 L (22-30) mmol/L BUN 48 H (9-20) mg/dL Creatinine 2.09 H (0.66-1.25) mg/dL Glucose 172 H (74-99) mg/dL POC Glucose (mg/dL) 153 H (70-110) mg/dL Calcium 7.5 L (8.4-10.2) mg/dL Phosphorus (2.5-4.5) mg/dL Total Protein 4.9 L (6.3-8.2) g/dL Albumin 2.4 L (3.5-5.0) g/dL Procalcitonin (0.02-0.09) ng/mL Urine Protein (Negative) Urine Blood (Negative) Urine Bilirubin (Negative) Urine RBC (0-5) /hpf Amorphous Sediment (None) /hpf Hyaline Casts (0-2) /lpf Urine Mucus (None) /hpf 05/02/23 05/02/23 05/02/23 Range/Units 03:34 05:13 05:13 WBC 21.8 H (3.8-10.6) k/uL Neutrophils # 19.1 H (1.3-7.7) k/uL Lymphocytes # 0.7 L (1.0-4.8) k/uL Monocytes # 1.5 H (0-1.0) k/uL APTT (22.0-30.0) sec ABG pH 7.25 L (7.35-7.45) ABG pCO2 46 H (35-45) mmHg ABG pO2 57 L* (83-108) mmHg ABG HCO3 20 L (21-25) mmol/L ABG O2 Saturation 85.2 L (94-97) % Potassium 5.2 H (3.5-5.1) mmol/L Chloride 113 H (98-107) mmol/L Carbon Dioxide 15 L (22-30) mmol/L BUN 54 H (9-20) mg/dL Creatinine 2.38 H (0.66-1.25) mg/dL Glucose 177 H (74-99) mg/dL POC Glucose (mg/dL) (70-110) mg/dL Calcium 7.3 L (8.4-10.2) mg/dL Phosphorus (2.5-4.5) mg/dL Total Protein 5.0 L (6.3-8.2) g/dL Albumin 2.4 L (3.5-5.0) g/dL Procalcitonin (0.02-0.09) ng/mL Urine Protein (Negative) Urine Blood (Negative) Urine Bilirubin (Negative) Urine RBC (0-5) /hpf Amorphous Sediment (None) /hpf Hyaline Casts (0-2) /lpf Urine Mucus (None) /hpf 05/02/23 05/02/23 05/02/23 Range/Units 05:13 06:20 06:25 WBC (3.8-10.6) k/uL Neutrophils # (1.3-7.7) k/uL Lymphocytes # (1.0-4.8) k/uL Monocytes # (0-1.0) k/uL APTT 41.0 H (22.0-30.0) sec ABG pH 7.24 L (7.35-7.45) ABG pCO2 46 H (35-45) mmHg ABG pO2 82 L (83-108) mmHg ABG HCO3 19 L (21-25) mmol/L ABG O2 Saturation (94-97) % Potassium (3.5-5.1) mmol/L Chloride (98-107) mmol/L Carbon Dioxide (22-30) mmol/L BUN (9-20) mg/dL Creatinine (0.66-1.25) mg/dL Glucose (74-99) mg/dL POC Glucose (mg/dL) 151 H (70-110) mg/dL Calcium (8.4-10.2) mg/dL Phosphorus (2.5-4.5) mg/dL Total Protein (6.3-8.2) g/dL Albumin (3.5-5.0) g/dL Procalcitonin (0.02-0.09) ng/mL Urine Protein (Negative) Urine Blood (Negative) Urine Bilirubin (Negative) Urine RBC (0-5) /hpf Amorphous Sediment (None) /hpf Hyaline Casts (0-2) /lpf Urine Mucus (None) /hpf Microbiology - Last 24 Hours (Table) 04/30/23 20:00 Gram Stain - Preliminary Sputum
[2023-05-02 23:13] LABS: Glucose,Whole Blood 188 mg/dL (70-110)
[2023-05-03 00:26] LABS: Appearance,BF Bloody (Clear); RBC, Body Fluid 103500 /UL (0-2000)
[2023-05-03] MEDS: DEXTROSE 5% IN WATER 1,000 ML with SODIUM BICARB (1 MEQ/ML) 150 ML IV SCH (02:39)
[2023-05-03] MEDS: IPRATROPIUM-ALBUTEROL 3 ML NEB INHALATION SCH ×6 (03:47→23:51)
[2023-05-03 04:22] LABS: Basophils % (A) 0 %; Eosinophils % (A) 0 %; HCT 34.6 % (39.0-53.0); HGB 11.3 gm/dL (13.0-17.5); Lymphocytes # (A) 0.5 k/uL (1.0-4.8); Lymphocytes % (A) 3 %; MCH 30.6 pg (25.0-35.0); MCHC 32.6 g/dL (31.0-37.0); MCV 93.8 fL (80.0-100.0); Monocytes # (A) 0.8 k/uL (0-1.0); Monocytes % (A) 4 %; Neutrophils # (A) 15.7 k/uL (1.3-7.7); Neutrophils % (A) 92 %; Platelet Count 197 k/uL (150-450); RBC 3.68 m/uL (4.30-5.90); WBC 17.2 k/uL (3.8-10.6)
[2023-05-03 05:06] LABS: ALT 18 U/L (4-49); AST 27 U/L (17-59); African American GFR (CKD) 18 (>60 ml/min/1.73 sqM); Albumin 2.1 g/dL (3.5-5.0); Alkaline Phosphatase 55 U/L (38-126); Anion Gap 10 mmol/L; Blood Urea Nitrogen 59 mg/dL (9-20); Calcium 6.9 mg/dL (8.4-10.2); Carbon Dioxide 23 mmol/L (22-30); Chloride 108 mmol/L (98-107); Glucose 200 mg/dL (74-99); Non-African American GFR(CKD) 16 (>60 ml/min/1.73 sqM); Potassium 4.5 mmol/L (3.5-5.1); Sodium 141 mmol/L (137-145); Total Bilirubin 0.9 mg/dL (0.2-1.3); Total Protein 4.4 g/dL (6.3-8.2)
[2023-05-03 05:43] LABS: ABG Base Excess 0.3 mmol/L; ABG HCO3 26 mmol/L (21-25); ABG Oxygen Saturation 94.2 % (94-97); ABG PCO2 49 mmHg (35-45); ABG PH 7.34 (7.35-7.45); ABG PO2 72 mmHg (83-108); ABG TCO2 28 mmol/L (19-24); Allen Test Performed? Yes
[2023-05-03] MEDS: INSULIN ASPART (NovoLOG) 100 UNIT/ML VIAL SQ SCH ×3 (06:03→17:55)
[2023-05-03] MEDS: NOREPINEPHRINE 8 MG in SODIUM CHLORIDE 0.9% 250 ML IV SCH ×3 (06:04→23:21)
--- NOTE | 2023-05-03 07:15 | P.PN ---
Subjective Progress Note Date: 05/03/23 Principal diagnosis: Acute coronary syndrome This is an 82-year-old gentleman was admitted to the hospital with acute coronary syndrome after he had cardiac arrest at home. He underwent an emergent heart catheterization and was found to have plaque rupture in the LAD which was stented was mild disease involving the rest of his coronaries. The echo showed preserved LV systolic function. Subsequently the patient did have change in mental status concerning for stroke and he underwent a computed tomography scan and that showed no evidence of any stroke. Then he did have an episode last night of sustained ventricular tachycardia where he was started on amiodarone IV. May [id number] The patient was seen and evaluated this morning. He continues to be intubated and he continues to be sedated as well. He is on amiodarone IV at this point. Pressure remains low and required tubal vasopressors with norepinephrine and vasopressin. Beside that he is on dual antiplatelet therapy. He is on statin as well. He is on heparin IV for unknown reason at this point. Beside the computed tomography scan which showed no evidence of stroke in underwent carotid studies and that came in to be unremarkable as well. Overall the prognosis is poor. The chest x-ray showed bilateral infiltrate May [id number] The patient was seen and evaluated this morning. Unfortunately he is not doing well. The echo revealed possible infective endocarditis with vegetation involving the mitral valve. The patient continues to be hemodynamically unstable and requiring to vasopressors. He continues to be intubated and sedated on mechanical ventilation. He has been maintaining sinus mechanism. Overall the prognosis is poor. The chest x-ray showed bilateral infiltrate as well. I am going to consult infectious disease to evaluate the patient. No more episodes of ventricular tachycardia Assessment Acute coronary syndrome as described above Acute hypoxic respiratory failure Bilateral infiltrate in the lungs concerning for pneumonia Change in mental status with possible stroke Ventricular tachycardia Infective endocarditis Plan Continue the current medical regimen Consult infectious disease for the evaluation of infective endocarditis Possible considering transesophageal echocardiogram Overall poor prognosis Objective - Vital Signs Vital signs: Vital Signs Temp 98.5 F 05/03/23 04:00 Pulse 102 H 05/03/23 07:00 Resp 28 H 05/03/23 07:00 BP 90/35 05/01/23 13:00 Pulse Ox 91 L 05/03/23 07:00 FiO2 70 05/03/23 03:46 Intake & Output 05/02/23 05/03/2323 18:59 06:59 18:59 Intake Total 3060.912 2658.000 151 Output Total 185 245 10 Balance 2875.912 2413.000 141 Weight 93 kg 105.5 kg Intake: IV 1605 1672 131 0.9 KVO 180 Calcium Gluconate in NaCl 100 1 gm In Saline 1 100ml. bag @ 100 mls/hr IVPB ONCE ONE Rx#:[id number] Dextrose 5% in Water 1, 625 1500 125 000 ml @ 125 mls/hr IV . Q9H12M SHANNA with Sodium Bicarb (1 Meq/ml) 150 ml Rx#:[id number] Piperacillin-Tazobactam 3 200 100 .375 gm In Sodium Chloride 0.9% 100 ml @ 25 mls/hr IVPB Q8HR SHANNA Rx# :[id number] Pressure Bag-Normal 72 6 Saline Vancomycin 1,500 mg In 500 Sodium Chloride 0.9% 500 ml 500 ml @ 167 mls/hr IVPB ONCE ONE Rx#: [id number] Intake, IV Titration 1315.912 716.000 Amount Amiodarone 360 mg In 200 Dextrose 5% in Water 200 ml @ 1 MG/MIN 33.333 mls/ hr IV .Q6H ONE Rx#: [id number] Amiodarone 450 mg In 49.8 Dextrose 5% in Water 250 ml @ 0.5 MG/MIN 16.667 mls/hr IV .Q15H SHANNA Rx#: [id number] Dextrose 5% in Water 1, 125 000 ml @ 125 mls/hr IV . Q9H12M SHANNA with Sodium Bicarb (1 Meq/ml) 150 ml Rx#:[id number] Heparin Sod,Pork in 0.45% 86.295 NaCl 25,000 unit In 0.45 % NaCl 1 250ml.bag @ 10. 905 UNITS/KG/HR 10 mls/hr IV .Q24H SHANNA Rx#: [id number] Norepinephrine 8 mg In 485.793 516.000 Sodium Chloride 0.9% 250 ml @ 0.03 MCG/KG/MIN 5. 399 mls/hr IV .Q24H SHANNA Rx#:[id number] Vasopressin 20 unit In 51 Sodium Chloride 0.9% 50 ml @ 0.03 UNITS/MIN 4.59 mls/hr IV .Q11H7M SHANNA Rx# :[id number] fentaNYL (PF). 1,000 mcg 67.27 100 In Sodium Chloride 0.9% 80 ml @ 0.5 MCG/KG/HR 4. 65 mls/hr IV .[id number] SHANNA Rx#:[id number] propofoL 1,000 mg In 250.754 100 Empty Bag 1 bag @ 15 MCG/ KG/MIN 8.253 mls/hr IV . Q12H8M SHANNA Rx#:[id number] Tube Feeding 110 180 20 Other 30 90 Output: Urine 185 245 10 Other: Voiding Method Indwelling Catheter Indwelling Catheter ABP, PAP, CO, CI - Last Documented Arterial Blood Pressure 108/55 - Labs CBC & Chem 7: 05/03/23 04:15 05/03/23 04:15 Labs: Abnormal Lab Results - Last 24 Hours (Table) 05/02/23 05/02/23 05/02/23 Range/Units 12:20 14:18 14:18 WBC (3.8-10.6) k/uL RBC (4.30-5.90) m/uL Hgb (13.0-17.5) gm/dL Hct (39.0-53.0) % Neutrophils # (1.3-7.7) k/uL Lymphocytes # (1.0-4.8) k/uL APTT 79.8 H (22.0-30.0) sec ABG pH (7.35-7.45) ABG pCO2 (35-45) mmHg ABG pO2 (83-108) mmHg ABG HCO3 (21-25) mmol/L ABG Total CO2 (19-24) mmol/L Chloride 111 H (98-107) mmol/L BUN 57 H (9-20) mg/dL Creatinine 2.75 H (0.66-1.25) mg/dL Glucose 208 H (74-99) mg/dL POC Glucose (mg/dL) 193 H (70-110) mg/dL Calcium 7.1 L (8.4-10.2) mg/dL Phosphorus 5.2 H (2.5-4.5) mg/dL Total Protein (6.3-8.2) g/dL Albumin (3.5-5.0) g/dL Fluid Appearance (Clear) 10/09/2305/02/23 05/02/23 Range/Units 15:55 17:28 23:12 WBC (3.8-10.6) k/uL RBC (4.30-5.90) m/uL Hgb (13.0-17.5) gm/dL Hct (39.0-53.0) % Neutrophils # (1.3-7.7) k/uL Lymphocytes # (1.0-4.8) k/uL APTT (22.0-30.0) sec ABG pH (7.35-7.45) ABG pCO2 (35-45) mmHg ABG pO2 (83-108) mmHg ABG HCO3 (21-25) mmol/L ABG Total CO2 (19-24) mmol/L Chloride (98-107) mmol/L BUN (9-20) mg/dL Creatinine (0.66-1.25) mg/dL Glucose (74-99) mg/dL POC Glucose (mg/dL) 183 H 188 H (70-110) mg/dL Calcium (8.4-10.2) mg/dL Phosphorus (2.5-4.5) mg/dL Total Protein (6.3-8.2) g/dL Albumin (3.5-5.0) g/dL Fluid Appearance Bloody A (Clear) 05/03/23 05/03/23 05/03/23 Range/Units 04:15 04:15 05:40 WBC 17.2 H (3.8-10.6) k/uL RBC 3.68 L (4.30-5.90) m/uL Hgb 11.3 L (13.0-17.5) gm/dL Hct 34.6 L (39.0-53.0) % Neutrophils # 15.7 H (1.3-7.7) k/uL Lymphocytes # 0.5 L (1.0-4.8) k/uL APTT (22.0-30.0) sec ABG pH 7.34 L (7.35-7.45) ABG pCO2 49 H (35-45) mmHg ABG pO2 72 L (83-108) mmHg ABG HCO3 26 H (21-25) mmol/L ABG Total CO2 28 H (19-24) mmol/L Chloride 108 H (98-107) mmol/L BUN 59 H (9-20) mg/dL Creatinine 3.47 H (0.66-1.25) mg/dL Glucose 200 H (74-99) mg/dL POC Glucose (mg/dL) (70-110) mg/dL Calcium 6.9 L (8.4-10.2) mg/dL Phosphorus (2.5-4.5) mg/dL Total Protein 4.4 L (6.3-8.2) g/dL Albumin 2.1 L (3.5-5.0) g/dL Fluid Appearance (Clear) Microbiology - Last 24 Hours (Table) 05/01/23 09:35 Blood Culture - Preliminary Blood 04/30/23 20:00 Gram Stain - Preliminary Sputum Sputum Culture - Preliminary
[2023-05-03 08:47] LABS: Nucleated Cells, Body Fluid 0 /UL
--- NOTE | 2023-05-03 09:06 | P.PN ---
Subjective Patient is seen in follow-up for acute kidney injury. Creatinine higher. Urine output 10-20 mL an hour. On Levophed and vasopressin. Intubated. On bicarb drip. Acidosis improved. Potassium level normal. Receiving tube feeds. Vital signs are stable. On vasopressor support. General: Resting in bed. HEENT: Intubated. LUNGS: Scattered rhonchi. HEART: Tachycardic. ABDOMEN: No distention. EXTREMITITES: No edema. Objective - Vital Signs Vital signs: Vital Signs Temp 98.5 F 05/03/23 04:00 Pulse 102 H 05/03/23 07:00 Resp 28 H 05/03/23 07:00 BP 90/35 05/01/23 13:00 Pulse Ox 91 L 05/03/23 07:00 FiO2 70 05/03/23 03:46 Intake & Output 05/02/23 05/03/23 05/03/23 18:59 06:59 18:59 Intake Total 3060.912 2658.000 151 Output Total 185 245 10 Balance 2875.912 2413.000 141 Weight 93 kg 105.5 kg Intake: IV 1605 1672 131 0.9 KVO 180 Calcium Gluconate in NaCl 100 1 gm In Saline 1 100ml. bag @ 100 mls/hr IVPB ONCE ONE Rx#:[id number] Dextrose 5% in Water 1, 625 1500 125 000 ml @ 125 mls/hr IV . Q9H12M [facility] with Sodium Bicarb (1 Meq/ml) 150 ml Rx#:[id number] Piperacillin-Tazobactam 3 200 100 .375 gm In Sodium Chloride 0.9% 100 ml @ 25 mls/hr IVPB Q8HR [facility] Rx# :[id number] Pressure Bag-Normal 72 6 Saline Vancomycin 1,500 mg In 500 Sodium Chloride 0.9% 500 ml 500 ml @ 167 mls/hr IVPB ONCE ONE Rx#: [id number] Intake, IV Titration 1315.912 716.000 Amount Amiodarone 360 mg In 200 Dextrose 5% in Water 200 ml @ 1 MG/MIN 33.333 mls/ hr IV .Q6H ONE Rx#: [id number] Amiodarone 450 mg In 49.8 Dextrose 5% in Water 250 ml @ 0.5 MG/MIN 16.667 mls/hr IV .Q15H [facility] Rx#: [id number] Dextrose 5% in Water 1, 125 000 ml @ 125 mls/hr IV . Q9H12M [facility] with Sodium Bicarb (1 Meq/ml) 150 ml Rx#:[id number] Heparin Sod,Pork in 0.45% 86.295 NaCl 25,000 unit In 0.45 % NaCl 1 250ml.bag @ 10. 905 UNITS/KG/HR 10 mls/hr IV .Q24H [facility] Rx#: [id number] Norepinephrine 8 mg In 485.793 516.000 Sodium Chloride 0.9% 250 ml @ 0.03 MCG/KG/MIN 5. 399 mls/hr IV .Q24H [facility] Rx#:[id number] Vasopressin 20 unit In 51 Sodium Chloride 0.9% 50 ml @ 0.03 UNITS/MIN 4.59 mls/hr IV .Q11H7M [facility] Rx# :[id number] fentaNYL (PF). 1,000 mcg 67.27 100 In Sodium Chloride 0.9% 80 ml @ 0.5 MCG/KG/HR 4. 65 mls/hr IV .[id number] [facility] Rx#:[id number] propofoL 1,000 mg In 250.754 100 Empty Bag 1 bag @ 15 MCG/ KG/MIN 8.253 mls/hr IV . Q12H8M [facility] Rx#:[id number] Tube Feeding 110 180 20 Other 30 90 Output: Urine 185 245 10 Other: Voiding Method Indwelling Catheter Indwelling Catheter ABP, PAP, CO, CI - Last Documented Arterial Blood Pressure 108/55 - Labs CBC & Chem 7: 05/03/23 04:15 05/03/23 04:15 Labs: Abnormal Lab Results - Last 24 Hours (Table) 05/02/23 05/02/23 05/02/23 Range/Units 12:20 14:18 14:18 WBC (3.8-10.6) k/uL RBC (4.30-5.90) m/uL Hgb (13.0-17.5) gm/dL Hct (39.0-53.0) % Neutrophils # (1.3-7.7) k/uL Lymphocytes # (1.0-4.8) k/uL APTT 79.8 H (22.0-30.0) sec ABG pH (7.35-7.45) ABG pCO2 (35-45) mmHg ABG pO2 (83-108) mmHg ABG HCO3 (21-25) mmol/L ABG Total CO2 (19-24) mmol/L Chloride 111 H (98-107) mmol/L BUN 57 H (9-20) mg/dL Creatinine 2.75 H (0.66-1.25) mg/dL Glucose 208 H (74-99) mg/dL POC Glucose (mg/dL) 193 H (70-110) mg/dL Calcium 7.1 L (8.4-10.2) mg/dL Phosphorus 5.2 H (2.5-4.5) mg/dL Total Protein (6.3-8.2) g/dL Albumin (3.5-5.0) g/dL Fluid Appearance (Clear) Fluid RBC (0-1999) /uL 05/02/23 05/02/23 05/02/23 Range/Units 15:55 17:28 23:12 WBC (3.8-10.6) k/uL RBC (4.30-5.90) m/uL Hgb (13.0-17.5) gm/dL Hct (39.0-53.0) % Neutrophils # (1.3-7.7) k/uL Lymphocytes # (1.0-4.8) k/uL APTT (22.0-30.0) sec ABG pH (7.35-7.45) ABG pCO2 (35-45) mmHg ABG pO2 (83-108) mmHg ABG HCO3 (21-25) mmol/L ABG Total CO2 (19-24) mmol/L Chloride (98-107) mmol/L BUN (9-20) mg/dL Creatinine (0.66-1.25) mg/dL Glucose (74-99) mg/dL POC Glucose (mg/dL) 183 H 188 H (70-110) mg/dL Calcium (8.4-10.2) mg/dL Phosphorus (2.5-4.5) mg/dL Total Protein (6.3-8.2) g/dL Albumin (3.5-5.0) g/dL Fluid Appearance Bloody A (Clear) Fluid RBC 196165 H (0-1999) /uL 1005/03/23 05/03/23 Range/Units 04:15 04:15 05:40 WBC 17.2 H (3.8-10.6) k/uL RBC 3.68 L (4.30-5.90) m/uL Hgb 11.3 L (13.0-17.5) gm/dL Hct 34.6 L (39.0-53.0) % Neutrophils # 15.7 H (1.3-7.7) k/uL Lymphocytes # 0.5 L (1.0-4.8) k/uL APTT (22.0-30.0) sec ABG pH 7.34 L (7.35-7.45) ABG pCO2 49 H (35-45) mmHg ABG pO2 72 L (83-108) mmHg ABG HCO3 26 H (21-25) mmol/L ABG Total CO2 28 H (19-24) mmol/L Chloride 108 H (98-107) mmol/L BUN 59 H (9-20) mg/dL Creatinine 3.47 H (0.66-1.25) mg/dL Glucose 200 H (74-99) mg/dL POC Glucose (mg/dL) (70-110) mg/dL Calcium 6.9 L (8.4-10.2) mg/dL Phosphorus (2.5-4.5) mg/dL Total Protein 4.4 L (6.3-8.2) g/dL Albumin 2.1 L (3.5-5.0) g/dL Fluid Appearance (Clear) Fluid RBC (0-2000) /uL Microbiology - Last 24 Hours (Table) 04/30/23 20:00 Gram Stain - Final Sputum Sputum Culture - Final Amna albicans 05/02/23 15:55 Gram Stain - Preliminary Bronchial Washings - Random 05/01/23 09:35 Blood Culture - Preliminary Blood Assessment and Plan Plan: Assessment: 1. Acute kidney injury secondary to hemodynamic ATN. Creatinine 3.47 today. Urine output 10-20 mL an hour. Baseline creatinine near 1. 2. Metabolic acidosis secondary to acute kidney injury. Improving with bicarb drip. 3. Status post cardiac arrest with acute coronary syndrome status post LAD stent placement 04/25/2023. 4. Ventricular tachycardia maintained on oral amiodarone. Cardiology following. 5. Acute hypoxic respiratory failure with concern for pneumonia/ARDS. Bronchoscopy done 05/02/2023 revealed bloody output. 6. Acute CVA. 7. Shock maintained on vasopressors. 8. Moderate mitral and tricuspid regurgitation and severe pulmonary hypertension. 9. Mitral valve vegetation concerning for infective endocarditis. Infectious disease consulted. 10. Hyperphosphatemia secondary to acute kidney injury. Plan: Stop bicarb drip. Start normal saline at 50 mL an hour. Wean FiO2 and vasopressors. Maintain tube feeds. Lasix 80 mg IV once today. Add PhosLo. Repeat BMP this afternoon. Continue to assess daily for need for renal replacement therapy. No urgency at this time. Patient also hemodynamically unstable. Will attempt SLED tomorrow if no improvement in renal function and urine output.
--- NOTE | 2023-05-03 09:09 | XR ---
EXAMINATION TYPE: XR chest 1V portable DATE OF EXAM: 05/03/2023 COMPARISON: 05/02/2023 HISTORY: Tube placement TECHNIQUE: Single frontal view of the chest is obtained. FINDINGS: Bilateral airspace disease with pleural effusion. ET and NG tube and central line stable. No sizable pneumothorax. There is a bilateral shoulder arthropathy. Hypertrophic degenerative changes spine. IMPRESSION: 1. Diffuse bilateral airspace disease stable.
--- NOTE | 2023-05-03 09:20 | P.PN ---
Subjective Progress Note Date: 05/03/23 10-year-old male patient, with a complicated history, who initially presented to us with a out of hospital cardiac arrest. The patient was in V. fib cardiac arrest and the patient required defibrillation he was back into normal sinus rhythm. He had a downtime of around 15 minutes. He underwent cardiac c atheterization and stent was placed to his LAD. Noted at that time, the patient was intubated and placed on a mechanical ventilator. He was 62 clinically extubated without any major difficulties on 04/26/2023. However, his course was complicated by development of an acute CVA. Cataracts patient will and altered mentation. MRI of the brain showed evidence of multiple bilateral foci of increased signal density largest in the left globus pallidus and the findings were consistent with multifocal acute ischemic insult, likely of an embolic in nature. The patient had to be intubated on 04/30/2023 for acute hypoxic respiratory failure and altered mentation. This morning, the patient remains intubated on a mechanical ventilator. He is on a combination of propofol running at 40 mcg/kg/m and fentanyl as running at 1 mcg/kg/h. He is well sedated at this point in time and would suggest a mechanical ventilator. She remains on assist-control mode rate of 28, tidal volume of 450, FiO2 is at 70% with a PEEP of 12. The chest x-ray is showing diffuse bilateral pulmonary infiltrates and airspace disease and the patient hasn't orotracheal tube is in good location. There is a vague history of aspiration which probably contributed to his respiratory failure. His echocardiogram was done during the current admission has been within normal limits. The patient had blood work today that showed a white cell count of 21.8 with a hemoglobin 13.6. He has sustained acute kidney injury with a creatinine of 2.38 and a BUN of 54 and the sodium level is at 141. Blood gas shows a pH of 7.24 with a pCO2 of 46 and pO2 of 82 on the above-mentioned ventilator setting. Sputum Gram stain and culture has been negative. The patient has a bout of nonsustained V. tach yesterday and the patient remains on amiodarone at 0.5 mg/m. The patient is also on pressors and currently is on norepinephrine running at 0.31 mcg/kg/m and the patient is also on vasopressin physiologic dose. IV antibiotic coverage is with Zosyn. He remains on IV heparin. He is on EN vital at 10 cc/hr On today's evaluation of 05/03/2023, the patient is clinically worse. Since yesterday, the patient has not done any major progress. In fact, an echocardiogram was repeated yesterday and further investigation revealed that the patient has developed a large echodense lesion in the anterior mitral leaflet consistent with vegetation. There is also [id number] eccentric jet of the mitral valve consistent with mitral regurgitation and there is also evidence of severe pulmonary hypertension. The patient did not have those abnormalities on an earlier echocardiogram. Today, the patient remains profoundly septic and hypotensive and has signs of multisystem organ failure. This morning, he is on propofol which is running at 40 mcg/kg/m. Is also on fentanyl running at 1 mcg/kg/h. He is currently off Nimbex. He remains on a mechanical ventilator. Assist-control mode at the rate of 28, tidal volume of 450, FiO2 of 70% and a PEEP of 12. The blood gas shows a pH of 7.34 with a pCO2 of 49 and pO2 of 72. Chest x-ray showed diffuse bilateral pulmonary infiltrates with obvious interval worsening compared to y day. 82 beats remains in a good location. Note that I performed a bronchoscopy on this patient yesterday. There was copious amount of respiratory secretions that were bloody and frothy. The patient was taken off the IV heparin. The patient had a bronchioloalveolar lavage and a microbial cultures are still pending. The Gram stain is negative for cultures at this point in time. For now, the patient is covered with broad-spectrum antibiotics. I added vancomycin yesterday. The patient remains on IV Zosyn. Noted the previous blood cultures have been negative. MRI of the brain was consistent with bilateral hypodense lesions and based on the overall clinical scenario, those could represent multiple foci of septic emboli. The patient has a largest lesion in the left globulus pallidus. In terms of hemodynamics, the patient remains septic and hemodynamic collapse. Norepinephrine is running at 0.18 mcg/kg/m. The patient is also on vasopressin physiologic dose of 0.03 units a m inute. Urine output is in order of 10 mL an hour. The white cell count at 17.2, hemoglobin is 11.3, platelet count is at 197, BUN is at 59 with a creatinine of 3.4 and there is interval worsening renal function. Sodium levels of 141 with a potassium level of 4.5. The patient is receiving enteral feeding for nutritional support and currently is on Nepro at the rate of 20 mL an hour. Objective - Vital Signs Vital signs: Vital Signs Temp 98.3 F 05/03/23 08:00 Pulse 92 05/03/23 09:04 Resp 28 H 05/03/23 08:45 BP 90/35 05/01/23 13:00 Pulse Ox 91 L 05/03/23 08:45 FiO2 70 05/03/23 08:59 Intake & Output 05/02/23 05/03/23 05/03/23 18:59 06:59 18:59 Intake Total 3060.912 2658.000 483 Output Total 185 245 30 Balance 2875.912 2413.000 453 Weight 93 kg 105.5 kg Intake: IV 1605 1672 393 0.9 KVO 180 Calcium Gluconate in NaCl 100 1 gm In Saline 1 100ml. bag @ 100 mls/hr IVPB ONCE ONE Rx#:[id number] Dextrose 5% in Water 1, 625 1500 375 000 ml @ 125 mls/hr IV . Q9H12M [facility] with Sodium Bicarb (1 Meq/ml) 150 ml Rx#:[id number] Piperacillin-Tazobactam 3 200 100 .375 gm In Sodium Chloride 0.9% 100 ml @ 25 mls/hr IVPB Q8HR [facility] Rx# :[id number] Pressure Bag-Normal 72 18 Saline Vancomycin 1,500 mg In 500 Sodium Chloride 0.9% 500 ml 500 ml @ 167 mls/hr IVPB ONCE ONE Rx#: [id number] Intake, IV Titration 1315.912 716.000 Amount Amiodarone 360 mg In 200 Dextrose 5% in Water 200 ml @ 1 MG/MIN 33.333 mls/ hr IV .Q6H ONE Rx#: [id number] Amiodarone 450 mg In 49.8 Dextrose 5% in Water 250 ml @ 0.5 MG/MIN 16.667 mls/hr IV .Q15H [facility] Rx#: [id number] Dextrose 5% in Water 1, 125 000 ml @ 125 mls/hr IV . Q9H12M [facility] with Sodium Bicarb (1 Meq/ml) 150 ml Rx#:[id number] Heparin Sod,Pork in 0.45% 86.295 NaCl 25,000 unit In 0.45 % NaCl 1 250ml.bag @ 10. 905 UNITS/KG/HR 10 mls/hr IV .Q24H [facility] Rx#: [id number] Norepinephrine 8 mg In 485.793 516.000 Sodium Chloride 0.9% 250 ml @ 0.03 MCG/KG/MIN 5. 399 mls/hr IV .Q24H [facility] Rx#:[id number] Vasopressin 20 unit In 51 Sodium Chloride 0.9% 50 ml @ 0.03 UNITS/MIN 4.59 mls/hr IV .Q11H7M [facility] Rx# :[id number] fentaNYL (PF). 1,000 mcg 67.27 100 In Sodium Chloride 0.9% 80 ml @ 0.5 MCG/KG/HR 4. 65 mls/hr IV .Q28M75V [facility] Rx#:[id number] propofoL 1,000 mg In 250.754 100 Empty Bag 1 bag @ 15 MCG/ KG/MIN 8.253 mls/hr IV . Q12H8M [facility] Rx#:[id number] Tube Feeding 110 180 60 Other 30 90 30 Output: Urine 185 245 30 Other: Voiding Method Indwelling Catheter Indwelling Catheter ABP, PAP, CO, CI - Last Documented Arterial Blood Pressure 112/56 - Exam No acute distress, currently on the ventilator. The patient's currently sedate d, and has an orally placed endotracheal tube, and NG tube. Head exam was generally normal. There was no scleral icterus or corneal arcus. Mucous membranes were moist. HEENT examination is grossly unremarkable. Neck supple. Full range of motion. No adenopathy thyromegaly or neck vein distention. Cardiovascular examination reveals regular rhythm rate. S1-S2 normal. No S3 or S4. No discernible murmur noted. Lungs reveal clear breath sounds. Breath sounds are equal bilaterally. No adventitious lung sounds including wheezes rhonchi or crackles. Abdomen soft without bowel sounds. Extremities are intact. No cyanosis clubbing or edema. Skin is without rash or lesion. Neurologic examination cannot be assessed at this time, as the patient's cu rrently mechanically ventilated. - Labs CBC & Chem 7: 05/03/23 04:15 05/03/23 04:15 Labs: Abnormal Lab Results - Last 24 Hours (Table) 05/02/23 05/02/23 05/02/23 Range/Units 12:20 14:18 14:18 WBC (3.8-10.6) k/uL RBC (4.30-5.90) m/uL Hgb (13.0-17.5) gm/dL Hct (39.0-53.0) % Neutrophils # (1.3-7.7) k/uL Lymphocytes # (1.0-4.8) k/uL APTT 79.8 H (22.0-30.0) sec ABG pH (7.35-7.45) ABG pCO2 (35-45) mmHg ABG pO2 (83-108) mmHg ABG HCO3 (21-25) mmol/L ABG Total CO2 (19-24) mmol/L Chloride 111 H (98-107) mmol/L BUN 57 H (9-20) mg/dL Creatinine 2.75 H (0.66-1.25) mg/dL Glucose 208 H (74-99) mg/dL POC Glucose (mg/dL) 193 H (70-110) mg/dL Calcium 7.1 L (8.4-10.2) mg/dL Phosphorus 5.2 H (2.5-4.5) mg/dL Total Protein (6.3-8.2) g/dL Albumin (3.5-5.0) g/dL Fluid Appearance (Clear) Fluid RBC (0-2000) /uL 05/02/23 05/02/23 05/02/23 Range/Units 15:55 17:28 23:12 WBC (3.8-10.6) k/uL RBC (4.30-5.90) m/uL Hgb (13.0-17.5) gm/dL Hct (39.0-53.0) % Neutrophils # (1.3-7.7) k/uL Lymphocytes # (1.0-4.8) k/uL APTT (22.0-30.0) sec ABG pH (7.35-7.45) ABG pCO2 (35-45) mmHg ABG pO2 (83-108) mmHg ABG HCO3 (21-25) mmol/L ABG Total CO2 (19-24) mmol/L Chloride (98-107) mmol/L BUN (9-20) mg/dL Creatinine (0.66-1.25) mg/dL Glucose (74-99) mg/dL POC Glucose (mg/dL) 183 H 188 H (70-110) mg/dL Calcium (8.4-10.2) mg/dL Phosphorus (2.5-4.5) mg/dL Total Protein (6.3-8.2) g/dL Albumin (3.5-5.0) g/dL Fluid Appearance Bloody A (Clear) Fluid RBC 362453 H (0-2000) /uL 05/03/23 05/03/23 05/03/23 Range/Units 04:15 04:15 05:40 WBC 17.2 H (3.8-10.6) k/uL RBC 3.68 L (4.30-5.90) m/uL Hgb 11.3 L (13.0-17.5) gm/dL Hct 34.6 L (39.0-53.0) % Neutrophils # 15.7 H (1.3-7.7) k/uL Lymphocytes # 0.5 L (1.0-4.8) k/uL APTT (22.0-30.0) sec ABG pH 7.34 L (7.35-7.45) ABG pCO2 49 H (35-45) mmHg ABG pO2 72 L (83-108) mmHg ABG HCO3 26 H (21-25) mmol/L ABG Total CO2 28 H (19-24) mmol/L Chloride 108 H (98-107) mmol/L BUN 59 H (9-20) mg/dL Creatinine 3.47 H (0.66-1.25) mg/dL Glucose 200 H (74-99) mg/dL POC Glucose (mg/dL) (70-110) mg/dL Calcium 6.9 L (8.4-10.2) mg/dL Phosphorus (2.5-4.5) mg/dL Total Protein 4.4 L (6.3-8.2) g/dL Albumin 2.1 L (3.5-5.0) g/dL Fluid Appearance (Clear) Fluid RBC (0-2000) /uL Microbiology - Last 24 Hours (Table) 04/30/23 20:00 Gram Stain - Final Sputum Sputum Culture - Final Amna albicans 05/02/23 15:55 Gram Stain - Preliminary Bronchial Washings - Random 05/01/23 09:35 Blood Culture - Preliminary Blood Assessment and Plan Plan: Acute hypoxic respiratory failure with development of diffuse but the pulmonary infiltrates and airspace disease,, post bronchoscopy with bloody rest or secretions. Rule out possibility of alveolar hemorrhage. Rule out pulmonary edema as the secretions were quite frothy. 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 and mitral regurgitation with severe pulmonary hypertension Acute on chronic hypoxic yesterday failure secondary to above, acute hypercapnic respiratory failure Acute shock, likely a combination of septic and cardiogenic in nature Multiple [employer] lesions/hypodensities consistent with septic emboli versus infarcts, The patient had an MRI of the brain that showed multiple areas of infarcts largest in the globus pallidus on the left and the patient had altered mentation and subsequent respiratory failure Acute leukocytosis Acute kidney injury and the creatinine is on the rise and the patient is oliguric at this point in time. There has been progressively worsening in renal function since yesterday and the patient remains oliguric. Acute cardiac arrest secondary to be V. fib, post cardiac catheterization and stenting of the LAD Coronary artery disease post stenting of the LAD Present LV function, cardiac exam showing ejection fraction of 55-60% and this was obtained post cardiac arrest Episode of V. tach, currently back into normal sinus rhythm and the patient remains on a combination of amiodarone po , and anticoagulation has been discontinued Acute leukocytosis secondary to above Non-anion gap metabolic acidosis and the patient's bicarb deficit is being replaced with a bicarb infusion and a serum bicarb is currently up to 23. Plan Continue ventilator support, no ventilator changes for today Keep the patient a combination of propofol and fentanyl for sedation No paralytics Discontinue the bicarb infusion and the patient is currently on normal saline at rate of 50 mL an hour Monitor renal function and electrolytes Continue ventilator support, no changes in the mechanical ventilator for now Continue IV Zosyn and vancomycin and consult infectious disease consultation ALIYAH may be of value to evaluate the extent of mitral regurgitation is a been negative Sputum culture has been sent and the results are still pending for now DC IV heparin Continue amiodarone po DC solumedrol Continue aspirin Continue Plavix Continue statin with Lipitor 80 mg by mouth daily Continue enteral feeding at a lower rate Hold metoprolol as the patient is profoundly hypotensive Condition is critical and we'll continue to follow make further recommendations based on his progress. Awaiting the results of the bronchoalveolar lavage Very poor prognosis patient with the presence of infective endocarditis, valvular disruption of November regurgitation and multisystem organ failure. Family to be updated I had a lengthy discussion with the family and the yesterday and explained to her the condition Very poor prognosis We'll continue to follow. His evaluation within a more than 30 minutes. Time with Patient: Greater than 30
[2023-05-03] MEDS: SODIUM CHLORIDE 0.9% 1,000 ML IV SCH (09:30)
[2023-05-03] MEDS: AMIODARONE 200 MG TAB PO SCH ×2 (09:49→20:59)
[2023-05-03] MEDS: ASPIRIN 81 MG PO SCH (09:49)
[2023-05-03] MEDS: CLOPIDOGREL 75 MG TAB PO SCH (09:50)
[2023-05-03] MEDS: FAMOTIDINE 20 MG/2 ML VIAL IV SCH (09:50)
[2023-05-03] MEDS: CHLORHEXIDINE GLUCONATE 15 ML CUP MUCOUS MEM SCH ×2 (09:55→20:59)
[2023-05-03] MEDS: CALCIUM ACETATE 667 MG TAB PO SCH ×2 (09:56→17:52)
[2023-05-03] MEDS: PIPERACILLIN-TAZOBACTAM 3.375 GM in SODIUM CHLORIDE 0.9% 100 ML IVPB SCH ×3 (09:56→23:26)
[2023-05-03] MEDS: VASOPRESSIN 20 UNIT in SODIUM CHLORIDE 0.9% 50 ML IV SCH ×2 (11:00→23:20)
[2023-05-03] MEDS: fentaNYL (PF). 1,000 MCG in SODIUM CHLORIDE 0.9% 80 ML IV SCH (12:00)
[2023-05-03] MEDS ORDERED: VANCOMYCIN 1,500 MG in SODIUM CHLORIDE 0.9% 500 ML 500 ML IVPB ONE (12:00)
--- NOTE | 2023-05-03 12:58 | US ---
EXAMINATION TYPE: US kidneys/renal and bladder DATE OF EXAM: 05/03/2023 COMPARISON: NONE CLINICAL INDICATION: Male, 82 years old with history of antwan; ANTWAN EXAM MEASUREMENTS: Right Kidney: 9.5x4.8x4.5 cm Left Kidney: 11.6x5.7x5.4 cm Right Kidney: anechoic area with irregular borders measured at inferior pole: 3.8x3.5x3.4cm Left Kidney: wnl Bladder: not visualized due to catheter Bilateral Jets seen: No exam limited by vented patient inability to alter positioning, bowel, and rib shadows Gross the renal cortex thickness is within normal limits. Good cortical medullary differentiation. IMPRESSION: Limited exam demonstrates no hydronephrosis or nephrolithiasis. 3.8 cm right renal lesion is indeterm inate by ultrasound. When the patient's condition tolerates a CT of the abdomen could be obtained.
[2023-05-03] MEDS ORDERED: FUROSEMIDE 10 MG/ML 10 ML VIAL IV STA (14:49)
[2023-05-03 15:21] VITALS: RESP 28
--- NOTE | 2023-05-03 19:20 | XR ---
EXAMINATION TYPE: XR chest 1V portable DATE OF EXAM: 05/03/2023 CLINICAL HISTORY: Increased hypoxia. TECHNIQUE: Single AP portable semiupright view of the chest is obtained. COMPARISON: Chest x-ray from earlier today FINDINGS: Stable endotracheal and orogastric tubes. Stable left-sided central venous catheter. Persistent bilateral increased opacities along with small right pleural effusion. Cardiac silhouette size is stable and within normal limits. Osseous structures are intact. IMPRESSION: Persistent diffuse bilateral edema and/or acute infiltrates and small right pleural effus ion. No significant change from study earlier today.
--- NOTE | 2023-05-03 20:30 | P.PN ---
Subjective Progress Note Date: 05/03/23 82 years old, unknown past medical history. Patient currently intubated and cannot provide information As per records patient was eating he started choking and then collapsed, EMS was called and he got a shock with return of the pulse area he was been back and hereafter emergency room where he got intubated. As per ER staff that downtown was about 15 minutes Currently blood pressure 162/113, he is tachycardic around 106. He has mild leukocytosis of 14.4, rest of CBC, INR is unremarkable. Creatinine 1.3 which he had it before, possible patient has chronic kidney disease Glucose 199, liver enzymes AST mildly elevated 216 and ALT 149. Bilirubin is 1.1. Troponin is -0.018. No acute cardiopulmonary process. Endotracheal tube at the tip of the kaylyn EKG was showing ST elevation ME of the lateral limits at I, aVL with reciprocal changes Patient was taken to the [facility] and he underwent emergent PCI to LAD 04/30/2023 Patient is seen and evaluated resting in bed; discussed with nursing staff; no new concerns Vital signs are reviewed with temperature of 97.4, pulse 71, respiration 24 and blood pressure 153/77, O2 saturation of 94% Blood work reveals a WBC of 9.4, hemoglobin 30.6, hematocrit 38.6 and platelet count of 118, sodium 137, potassium 3.8, BUN/creatinine of 21/0.99 MRI of the brain reveals multiple areas of ischemic infarct consistent with embolic phenomena Neurology on board and recommending ALIYAH; if ALIYAH is negative patient is recommending at event monitor or loop recorder; cardiology is on board Patient is admitted with acute ST elevation ME with V. fib cardiac arrest at home with an approximate downtime of 15 minutes; patient is status post stenting of mid LAD; cardiology recommending to continue with current medications -- Prognosis remains guarded 05/01/2023 Patient is seen and evaluated in room and bedside; has been intubated; family is present at bedside; patient's condition and updated Currently, he is on the volume assist control, rate 24, tidal volume 450, FiO2 60%, and PEEP of 8. Blood gases, showed pO2 of 122, pCO2 of 34, and pH is 7.35. White count 21.6, hemoglobin 13.3, hematocrit 40.8, with a normal platelet count. ETT is 48.1. Sodium 141, potassium 4.4, chlorides 113, CO2 16, BUN 39, and creatinine 2.02. Chest x-ray shows diffuse bilateral infiltrates. Patient has been placed on IV Zosyn empirically; has been pancultured; Procardia calcitonin is ordered and pending Nephrology is consulted for uptrending creatinine Critical care recommending hydrocortisone 50 mg IV every 6 hours for relative adrenal insufficiency 05/02/2023 Patient is seen and evaluated in follow-up today continues on mechanical ventilation with family members present at the bedside. Multiple medical consul tations following his patient remains in ICU and FiO2 is currently 60% with a PEEP of 5. White count is elevated at 21.8 and hemoglobin is stable at 13.6. Patient also remains on heparin along with amiodarone drip with cardiology following. Patient is on sodium bicarb drip along with fentanyl IV heparin, IV steroids, low-dose Levophed, IV Zosyn and propofol along with pressor support. Prognosis is extremely poor and guarded and family has decided on no code at this time. Family discussed with pulmonary medical scientific liaison about overall prognosis and plans are to monitor for the next few days if there are any improvements otherwise will consider hospice with comfort measures. Kidney functions are worsening and creatinine is 2.75 today with a BUN of 57 and sodium is 140. Nephrology is following and again patient is maintained on bicarb drip. 05/03/2023 Patient is seen and evaluated in follow-up maintained on mechanical ventilation with an FiO2 of 60% and PEEP is 5. Multiple drips ongoing and patient remains in critical condition. Kidney functions are worsening with nephrology following and sodium bicarb has been discontinued and patient is maintained on gentle IV hydration. Urine output is minimal and being given a dose of IV Lasix per nephrology. Will follow up on repeat labs. Patient remains on pressor support and IV heparin has been discontinued. Patient is status post bronchoscopy with BAL with pending cultures. Patient on antibiotics and pulmonary has consulted infectious disease. Review of systems: Unable to obtain as patient is on mechanical ventilation and intubated with sedation Active Medications Al Hydroxide/Mg Hydroxide (Mag Hydrox/Al Hydrox/Simeth 30 Ml Cup) 30 ml PO Q4HR PRN PRN Reason: Heartburn Stop: 05/25/23 14:04 Albuterol/Ipratropium (Ipratropium-Albuterol 3 Ml Neb) 3 ml INHALATION RT-Q4H [facility] Last Admin: 10/03/23 20:21 Dose: 3 ml Albuterol/Ipratropium (Ipratropium-Albuterol 3 Ml Neb) 3 ml INHALATION RT-Q2H PRN PRN Reason: Shortness Of Breath Or Wheezing Amiodarone HCl (Amiodarone 200 Mg Tab) 400 mg PO BID [facility] Last Admin: 05/03/23 09:49 Dose: 400 mg Aspirin (Aspirin 81 Mg) 81 mg PO DAILY [facility] Stop: 05/26/23 09:01 Last Admin: 05/03/23 09:49 Dose: 81 mg Atorvastatin Calcium (Atorvastatin 80 Mg Tab) 80 mg PO HS [facility] Stop: 05/25/23 21:01 Last Admin: 05/02/23 20:52 Dose: 80 mg Atropine Sulfate (Atropine Sulfate 0.1 Mg/Ml 10ml Syringe) 0.5 mg IV ONCE PRN PRN Reason: Symptomatic Bradycardia Stop: 05/25/23 14:04 Bisacodyl (Bisacodyl 10 Mg Supp) 10 mg RECTAL HS PRN PRN Reason: Constipation Last Admin: 05/03/23 01:02 Dose: 10 mg Calcium Acetate (Calcium Acetate 667 Mg Tab) 667 mg PO BID-W/MEALS [facility] Last Admin: 05/03/23 17:52 Dose: 667 mg Chlorhexidine Gluconate (Chlorhexidine Gluconate 15 Ml Cup) 15 ml MUCOUS MEM BID [facility] Last Admin: 05/03/23 09:55 Dose: 15 ml Clopidogrel Bisulfate (Clopidogrel 75 Mg Tab) 75 mg PO DAILY [facility]; Protocol Stop: 05/26/23 09:01 Last Admin: 05/03/23 09:50 Dose: 75 mg Dextrose/Water (Dextrose 50% Syringe 50 Ml) 25 ml IVP PER PROTOCOL PRN; Protocol PRN Reason: Hypoglycemia Dextrose/Water (Dextrose 50% Syringe 50 Ml) 50 ml IVP PER PROTOCOL PRN; Protocol PRN Reason: Hypoglycemia Famotidine (Famotidine 20 Mg/2 Ml Vial) 20 mg IV DAILY [facility] Last Admin: 05/03/23 09:50 Dose: 20 mg Propofol 1,000 mg/ IV Solution 100 mls @ 8.253 mls/hr IV .Q12H8M [facility]; Protocol Last Admin: 05/03/23 19:47 Dose: 40 mcg/kg/min, 22.008 mls/hr Vasopressin 20 unit/ Sodium (Chloride) 51 mls @ 4.59 mls/hr IV .Q11H7M [facility]; Protocol Last Admin: 05/03/23 11:00 Dose: 0.03 units/min, 4.59 mls/hr Fentanyl Citrate 1,000 mcg/ (Sodium Chloride) 100 mls @ 4.65 mls/hr IV .N06E12M [facility]; Protocol Last Admin: 05/03/23 12:00 Dose: 1 mcg/kg/hr, 9.3 mls/hr Norepinephrine Bitartrate 8 mg (/ Sodium Chloride) 258 mls @ 5.399 mls/hr IV .Q24H [facility]; Protocol Last Titration: 05/03/23 18:30 Dose: 0.16 mcg/kg/min, 28.793 mls/hr Sodium Chloride (Saline 0.9%) 1,000 mls @ 50 mls/hr IV .Q20H [facility] Last Admin: 05/03/23 09:30 Dose: 50 mls/hr Piperacillin Sod/Tazobactam (Sod 3.375 gm/ Sodium Chloride) 100 mls @ 25 mls/hr IVPB Q12H [facility]; Protocol Last Admin: 05/03/23 12:54 Dose: 25 mls/hr Insulin Aspart (Insulin Aspart (Novolog) 100 Unit/Ml Vial) 0 unit SQ Q6HR [facility]; Protocol Last Admin: 05/03/23 17:55 Dose: Not Given Miscellaneous Information (Potassium Replacement Protocol 1 Each Misc) 1 each MISCELLANE DAILY PRN; Protocol PRN Reason: Per Protocol Miscellaneous Information (Magnesium Replacement Protocol 1 Each Misc) 1 each MISCELLANE DAILY PRN; Protocol PRN Reason: Per Protocol Naloxone HCl (Naloxone 0.4 Mg/Ml 1 Ml Vial) 0.2 mg IV Q2M PRN PRN Reason: Opioid Reversal Nitroglycerin (Nitroglycerin Sl Tabs 0.4 Mg Tab) 0.4 mg SUBLINGUAL Q5M PRN PRN Reason: Chest Pain Stop: 05/25/23 14:04 Physical exam: GENERAL: The patient is currently maintained on mechanical ventilation, intubated, sedated, elderly appearing, ill appearing, well-developed HEENT: Pupils are round and equally reacting to light. EOMI. No scleral icterus. No conjunctival pallor. Normocephalic, atraumatic. No pharyngeal erythema. No thyromegaly. CARDIOVASCULAR: S1 and S2 present. No murmurs, rubs, or gallops. PULMONARY: Chest is clear to auscultation, no wheezing , no crackles. Mildly tachypneic ABDOMEN: Soft, nontender, nondistended, normoactive bowel sounds. No palpable organomegaly. MUSCULOSKELETAL: No joint swelling or deformity. EXTREMITIES: No cyanosis, clubbing, or pedal edema. NEUROLOGICAL: Unable to completely assess as patient maintained on sedation SKIN: No rashes. no petechiae. Assessment: Cardiac arrest at home status post CPR and electric shock with return of circulation. 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 Patient is status post bronchoscopy with BAL currently awaiting cultures. Patient maintained on antibiotics and pulmonary has consulted infectious disease Patient continues on multiple drips as well as pressor support Cardiology considering ALIYAH as echo shows a large echodense lesion attached to the anterior mitral leaflet which could be due to a vegetation with severe pulmonary hypertension noted Worsening kidney functions on top of chronic kidney disease with minimal output noted. Nephrology following patient does have indwelling Goodson catheter and is being given a dose of 80 mg IV Lasix Family has discussed CODE STATUS and patient is no code. Per pulmonary recommend monitoring over the next few days and if showing no improvement then consider comfort measures and family is agreeable Overall prognosis is extremely poor and guarded at this time The impression and plan of care has been dictated by Nurse Facundo Pra ctitioner as directed. Dr. Andrew MD I have performed a history and examination and MDM of this patient, discussed the same with the dictator, and agree with the dictator's assessment and plan as written ,documented as a scribe. Based on total visit time, I have performed more than 50% of the visit. Objective - Vital Signs Vital signs: Vital Signs Temp 98.3 F 05/03/23 08:00 Pulse 92 05/03/23 09:04 Resp 28 H 05/03/23 08:45 BP 90/35 05/01/23 13:00 Pulse Ox 91 L 05/03/23 08:45 FiO2 70 05/03/23 08:59 Intake & Output 05/02/23 05/03/23 05/03/23 18:59 06:59 18:59 Intake Total 3060.912 2658.000 483 Output Total 185 245 30 Balance 2875.912 2413.000 453 Weight 93 kg 105.5 kg Intake: IV 1605 1672 393 0.9 KVO 180 Calcium Gluconate in NaCl 100 1 gm In Saline 1 100ml. bag @ 100 mls/hr IVPB ONCE ONE Rx#:[id number] Dextrose 5% in Water 1, 625 1500 375 000 ml @ 125 mls/hr IV . Q9H12M [facility] with Sodium Bicarb (1 Meq/ml) 150 ml Rx#:[id number] Piperacillin-Tazobactam 3 200 100 .375 gm In Sodium Chloride 0.9% 100 ml @ 25 mls/hr IVPB Q8HR [facility] Rx# :[id number] Pressure Bag-Normal 72 18 Saline Vancomycin 1,500 mg In 500 Sodium Chloride 0.9% 500 ml 500 ml @ 167 mls/hr IVPB ONCE ONE Rx#: [id number] Intake, IV Titration 1315.912 716.000 Amount Amiodarone 360 mg In 200 Dextrose 5% in Water 200 ml @ 1 MG/MIN 33.333 mls/ hr IV .Q6H ONE Rx#: [id number] Amiodarone 450 mg In 49.8 Dextrose 5% in Water 250 ml @ 0.5 MG/MIN 16.667 mls/hr IV .Q15H [facility] Rx#: [id number] Dextrose 5% in Water 1, 125 000 ml @ 125 mls/hr IV . Q9H12M [facility] with Sodium Bicarb (1 Meq/ml) 150 ml Rx#:[id number] Heparin Sod,Pork in 0.45% 86.295 NaCl 25,000 unit In 0.45 % NaCl 1 250ml.bag @ 10. 905 UNITS/KG/HR 10 mls/hr IV .Q24H [facility] Rx#: [id number] Norepinephrine 8 mg In 485.793 516.000 Sodium Chloride 0.9% 250 ml @ 0.03 MCG/KG/MIN 5. 399 mls/hr IV .Q24H [facility] Rx#:[id number] Vasopressin 20 unit In 51 Sodium Chloride 0.9% 50 ml @ 0.03 UNITS/MIN 4.59 mls/hr IV .Q11H7M [facility] Rx# :[id number] fentaNYL (PF). 1,000 mcg 67.27 100 In Sodium Chloride 0.9% 80 ml @ 0.5 MCG/KG/HR 4. 65 mls/hr IV .M61N90S [facility] Rx#:[id number] propofoL 1,000 mg In 250.754 100 Empty Bag 1 bag @ 15 MCG/ KG/MIN 8.253 mls/hr IV . Q12H8M [facility] Rx#:[id number] Tube Feeding 110 180 60 Other 30 90 30 Output: Urine 185 245 30 Other: Voiding Method Indwelling Catheter Indwelling Catheter ABP, PAP, CO, CI - Last Documented Arterial Blood Pressure 112/56 - Labs CBC & Chem 7: 05/03/23 04:15 05/03/23 04:15 Labs: Abnormal Lab Results - Last 24 Hours (Table) 05/02/23 05/02/23 05/02/23 Range/Units 12:20 14:18 14:18 WBC (3.8-10.6) k/uL RBC (4.30-5.90) m/uL Hgb (13.0-17.5) gm/dL Hct (39.0-53.0) % Neutrophils # (1.3-7.7) k/uL Lymphocytes # (1.0-4.8) k/uL APTT 79.8 H (22.0-30.0) sec ABG pH (7.35-7.45) ABG pCO2 (35-45) mmHg ABG pO2 (83-108) mmHg ABG HCO3 (21-25) mmol/L ABG Total CO2 (19-24) mmol/L Chloride 111 H (98-107) mmol/L BUN 57 H (9-20) mg/dL Creatinine 2.75 H (0.66-1.25) mg/dL Glucose 208 H (74-99) mg/dL POC Glucose (mg/dL) 193 H (70-110) mg/dL Calcium 7.1 L (8.4-10.2) mg/dL Phosphorus 5.2 H (2.5-4.5) mg/dL Total Protein (6.3-8.2) g/dL Albumin (3.5-5.0) g/dL Fluid Appearance (Clear) Fluid RBC (0-1999) /uL 05/02/23 05/02/23 05/02/23 Range/Units 15:55 17:28 23:12 WBC (3.8-10.6) k/uL RBC (4.30-5.90) m/uL Hgb (13.0-17.5) gm/dL Hct (39.0-53.0) % Neutrophils # (1.3-7.7) k/uL Lymphocytes # (1.0-4.8) k/uL APTT (22.0-30.0) sec ABG pH (7.35-7.45) ABG pCO2 (35-45) mmHg ABG pO2 (83-108) mmHg ABG HCO3 (21-25) mmol/L ABG Total CO2 (19-24) mmol/L Chloride (98-107) mmol/L BUN (9-20) mg/dL Creatinine (0.66-1.25) mg/dL Glucose (74-99) mg/dL POC Glucose (mg/dL) 183 H 188 H (70-110) mg/dL Calcium (8.4-10.2) mg/dL Phosphorus (2.5-4.5) mg/dL Total Protein (6.3-8.2) g/dL Albumin (3.5-5.0) g/dL Fluid Appearance Bloody A (Clear) Fluid RBC 250799 H (0-1999) /uL 05/03/23 05/03/23 05/03/23 Range/Units 04:15 04:15 05:40 WBC 17.2 H (3.8-10.6) k/uL RBC 3.68 L (4.30-5.90) m/uL Hgb 11.3 L (13.0-17.5) gm/dL Hct 34.6 L (39.0-53.0) % Neutrophils # 15.7 H (1.3-7.7) k/uL Lymphocytes # 0.5 L (1.0-4.8) k/uL APTT (22.0-30.0) sec ABG pH 7.34 L (7.35-7.45) ABG pCO2 49 H (35-45) mmHg ABG pO2 72 L (83-108) mmHg ABG HCO3 26 H (21-25) mmol/L ABG Total CO2 28 H (19-24) mmol/L Chloride 108 H (98-107) mmol/L BUN 59 H (9-20) mg/dL Creatinine 3.47 H (0.66-1.25) mg/dL Glucose 200 H (74-99) mg/dL POC Glucose (mg/dL) (70-110) mg/dL Calcium 6.9 L (8.4-10.2) mg/dL Phosphorus (2.5-4.5) mg/dL Total Protein 4.4 L (6.3-8.2) g/dL Albumin 2.1 L (3.5-5.0) g/dL Fluid Appearance (Clear) Fluid RBC (0-2000) /uL Microbiology - Last 24 Hours (Table) 04/30/23 20:00 Gram Stain - Final Sputum Sputum Culture - Final Amna albicans 05/02/23 15:55 Gram Stain - Preliminary Bronchial Washings - Random 05/01/23 09:35 Blood Culture - Preliminary Blood
[2023-05-03] MEDS: ATORVASTATIN 80 MG TAB PO SCH (20:59)
[2023-05-03] MEDS ORDERED: ACETAMINOPHEN TAB 325 MG TAB PO PRN (23:39)
[2023-05-04] MEDS: fentaNYL (PF). 1,000 MCG in SODIUM CHLORIDE 0.9% 80 ML IV SCH ×2 (01:45→08:14)
[2023-05-04] MEDS: INSULIN ASPART (NovoLOG) 100 UNIT/ML VIAL SQ SCH ×2 (02:11→06:05)
[2023-05-04 04:07] LABS: Basophils # (A) 0.1 k/uL (0-0.2); Basophils % (A) 0 %; Eosinophils # (A) 0.1 k/uL (0-0.7); Eosinophils % (A) 0 %; HCT 35.6 % (39.0-53.0); HGB 11.6 gm/dL (13.0-17.5); Lymphocytes # (A) 0.9 k/uL (1.0-4.8); Lymphocytes % (A) 6 %; MCH 31.3 pg (25.0-35.0); MCHC 32.7 g/dL (31.0-37.0); MCV 95.6 fL (80.0-100.0); Mean Platelet Volume 9.7; Monocytes # (A) 0.8 k/uL (0-1.0); Monocytes % (A) 6 %; Neutrophils # (A) 13.2 k/uL (1.3-7.7); Neutrophils % (A) 87 %; Platelet Count 212 k/uL (150-450); RBC 3.72 m/uL (4.30-5.90); RDW 13.1 % (11.5-15.5); WBC 15.3 k/uL (3.8-10.6)
[2023-05-04] MEDS: IPRATROPIUM-ALBUTEROL 3 ML NEB INHALATION SCH ×3 (04:07→10:53)
[2023-05-04 04:16] LABS: ALT 15 U/L (4-49); AST 27 U/L (17-59); African American GFR (CKD) 13 (>60 ml/min/1.73 sqM); Albumin 2.3 g/dL (3.5-5.0); Alkaline Phosphatase 71 U/L (38-126); Anion Gap 15 mmol/L; Blood Urea Nitrogen 73 mg/dL (9-20); Carbon Dioxide 20 mmol/L (22-30); Chloride 106 mmol/L (98-107); Glucose 129 mg/dL (74-99); Magnesium 2.1 mg/dL (1.6-2.3); Non-African American GFR(CKD) 11 (>60 ml/min/1.73 sqM); Potassium 4.6 mmol/L (3.5-5.1); Sodium 141 mmol/L (137-145); Total Bilirubin 0.9 mg/dL (0.2-1.3); Total Protein 4.6 g/dL (6.3-8.2)
[2023-05-04 04:22] LABS: Vancomycin,Random 22.1 ug/mL
[2023-05-04 04:38] LABS: Prothrombin Time 10.6 sec (9.0-12.0)
[2023-05-04] MEDS: SODIUM CHLORIDE 0.9% 1,000 ML IV SCH (04:45)
[2023-05-04 05:28] LABS: ABG HCO3 24 mmol/L (21-25); ABG PCO2 56 mmHg (35-45); ABG PH 7.23 (7.35-7.45); ABG PO2 79 mmHg (83-108); ABG TCO2 25 mmol/L (19-24)
[2023-05-04] MEDS: CALCIUM ACETATE 667 MG TAB PO SCH (06:30)
--- NOTE | 2023-05-04 07:14 | P.PN ---
Subjective Progress Note Date: 05/04/23 Principal diagnosis: Acute coronary syndrome This is an 82-year-old gentleman was admitted to the hospital with acute coronary syndrome after he had cardiac arrest at home. He underwent an emergent heart catheterization and was found to have plaque rupture in the LAD which was stented was mild disease involving the rest of his coronaries. The echo showed preserved LV systolic function. Subsequently the patient did have change in mental status concerning for stroke and he underwent a computed tomography scan and that showed no evidence of any stroke. Then he did have an episode last night of sustained ventricular tachycardia where he was started on amiodarone IV. May [id number] The patient was seen and evaluated this morning. He continues to be intubated and he continues to be sedated as well. He is on amiodarone IV at this point. Pressure remains low and required tubal vasopressors with norepinephrine and vasopressin. Beside that he is on dual antiplatelet therapy. He is on statin as well. He is on heparin IV for unknown reason at this point. Beside the computed tomography scan which showed no evidence of stroke in underwent carotid studies and that came in to be unremarkable as well. Overall the prognosis is poor. The chest x-ray showed bilateral infiltrate May 032022 The patient was seen and evaluated this morning. Unfortunately he is not doing well. The echo revealed possible infective endocarditis with vegetation involving the mitral valve. The patient continues to be hemodynamically unstable and requiring to vasopressors. He continues to be intubated and sedated on mechanical ventilation. He has been maintaining sinus mechanism. Overall the prognosis is poor. The chest x-ray showed bilateral infiltrate as well. I am going to consult infectious disease to evaluate the patient. No more episodes of ventricular tachycardia May 042022 The patient was seen this morning. Unfortunately he continues not doing well. He continues to be hemodynamically unstable. He continues to be on vasopressors including norepinephrine and vasopressin speech he continues to be intubated and on mechanical ventilation. The chest x-ray continues to show bilateral infiltrates. The family is going to me today for potential of the patient to go hospice/comported care. The examination is remarkable for bilateral crackles as well as bilateral lower extremities edema Assessment Acute coronary syndrome as described above Acute hypoxic respiratory failure Bilateral infiltrate in the lungs concerning for pneumonia Change in mental status with possible stroke Ventricular tachycardia Infective endocarditis Plan Continue the current medical regimen Objective - Vital Signs Vital signs: Vital Signs Temp 38.0 F L 05/04/23 04:00 Pulse 105 H 05/04/23 07:00 Resp 28 H 05/04/23 07:00 BP 90/35 05/01/23 13:00 Pulse Ox 93 L 05/04/23 07:00 FiO2 80 05/04/23 04:03 Intake & Output 05/03/23 05/04/23 05/04/23 18:59 06:59 18:59 Intake Total 2626.98 1839.660 66 Output Total 170 75 Balance 2456.98 1764.660 66 Weight 106.4 kg 108.1 kg Intake: IV 1497 817 66 0.9 KVO 45 10 Dextrose 5% in Water 1, 375 000 ml @ 125 mls/hr IV . Q9H12M [facility] with Sodium Bicarb (1 Meq/ml) 150 ml Rx#:[id number] Piperacillin-Tazobactam 3 100 100 .375 gm In Sodium Chloride 0.9% 100 ml @ 25 mls/hr IVPB Q8HR [facility] Rx# :[id number] Pressure Bag-Normal 72 72 6 Saline Sodium Chloride 0.9% 1, 450 600 50 000 ml @ 50 mls/hr IV . Q20H [facility] Rx#:[id number] Vancomycin 1,500 mg In 500 Sodium Chloride 0.9% 500 ml 500 ml @ 167 mls/hr IVPB ONCE ONE Rx#: [id number] Intake, IV Titration 689.98 542.660 Amount Norepinephrine 8 mg In 338.98 309.130 Sodium Chloride 0.9% 250 ml @ 0.03 MCG/KG/MIN 5. 399 mls/hr IV .Q24H [facility] Rx#:[id number] Vasopressin 20 unit In 51 51 Sodium Chloride 0.9% 50 ml @ 0.03 UNITS/MIN 4.59 mls/hr IV .Q11H7M [facility] Rx# :[id number] fentaNYL (PF). 1,000 mcg 100 In Sodium Chloride 0.9% 80 ml @ 8.51 mls/hr IV . [id number] [facility] Rx#:[id number] propofoL 1,000 mg In 200 182.53 Empty Bag 1 bag @ 15 MCG/ KG/MIN 8.253 mls/hr IV . Q12H8M [facility] Rx#:[id number] Tube Feeding 320 390 Other 120 90 Output: Urine 170 75 Other: Voiding Method Indwelling Catheter Indwelling Catheter ABP, PAP, CO, CI - Last Documented Arterial Blood Pressure 106/53 - Labs CBC & Chem 7: 05/04/23 03:58 05/04/23 03:58 Labs: Abnormal Lab Results - Last 24 Hours (Table) 05/02/23 05/03/23 05/03/23 Range/Units 15:55 11:49 11:49 WBC (3.8-10.6) k/uL RBC (4.30-5.90) m/uL Hgb (13.0-17.5) gm/dL Hct (39.0-53.0) % Neutrophils # (1.3-7.7) k/uL Lymphocytes # (1.0-4.8) k/uL ABG pH (7.35-7.45) ABG pCO2 (35-45) mmHg ABG pO2 (83-108) mmHg ABG Total CO2 (19-24) mmol/L Carbon Dioxide (22-30) mmol/L BUN (9-20) mg/dL Creatinine (0.66-1.25) mg/dL Glucose (74-99) mg/dL Calcium (8.4-10.2) mg/dL C-Reactive Protein 20.0 H (<1.0) mg/dL Total Protein (6.3-8.2) g/dL Albumin (3.5-5.0) g/dL Procalcitonin 1.22 H (0.02-0.09) ng/mL Fluid RBC 953676 H (0-2000) /uL 05/04/23 05/04/23 05/04/23 Range/Units 03:58 03:58 04:03 WBC 15.3 H (3.8-10.6) k/uL RBC 3.72 L (4.30-5.90) m/uL Hgb 11.6 L (13.0-17.5) gm/dL Hct 35.6 L (39.0-53.0) % Neutrophils # 13.2 H (1.3-7.7) k/uL Lymphocytes # 0.9 L (1.0-4.8) k/uL ABG pH 7.23 L (7.35-7.45) ABG pCO2 56 H (35-45) mmHg ABG pO2 79 L (83-108) mmHg ABG Total CO2 25 H (19-24) mmol/L Carbon Dioxide 20 L (22-30) mmol/L BUN 73 H (9-20) mg/dL Creatinine 4.61 H (0.66-1.25) mg/dL Glucose 129 H (74-99) mg/dL Calcium 7.0 L (8.4-10.2) mg/dL C-Reactive Protein (<1.0) mg/dL Total Protein 4.6 L (6.3-8.2) g/dL Albumin 2.3 L (3.5-5.0) g/dL Procalcitonin (0.02-0.09) ng/mL Fluid RBC (0-2000) /uL Microbiology - Last 24 Hours (Table) 05/02/23 15:55 Acid Fast Bacilli Smear - Preliminary Bronchial Washings - Random 05/01/23 09:35 Blood Culture - Preliminary Blood 05/02/23 15:55 Gram Stain - Preliminary Bronchial Washings - Random Bronchial Washings Culture - Preliminary 05/01/23 10:25 Urine Culture - Final Urine,Catheterized 04/30/23 20:00 Gram Stain - Final Sputum Sputum Culture - Final Amna albicans
[2023-05-04] MEDS: NOREPINEPHRINE 8 MG in SODIUM CHLORIDE 0.9% 250 ML IV SCH (07:54)
[2023-05-04 08:24] VITALS: TEMP 98.8
--- NOTE | 2023-05-04 08:24 | P.CONS ---
History of Present Illness - Reason for Consult Consult date: 05/03/23 Vegetation of the mitral valve Requesting physician: Suhas Kiser - Chief Complaint Abnormal Echo x 1 day - History of Present Illness Patient is a 82-year-old male with unknown past medical history presenting to the hospital 8 days ago on 04/25/2023 patient apparently was eating started choking and then collapsed EMS was called and patient did received a shock with return of pulse subsequently patient got intubated and has been transferred to [facility] patient did have evidence of ST elevated NE he was taken to the Wildlife [facility] underwent emergent PCI and stenting to the LAD patient has been in the ICU since then and has been afebrile initially however he did spike a fever of 101.1 F yesterday morning and low-grade fever 100.1 degrees following height this morning the patient has been tachycardic and tachypneic remains to be on the vent FiO2 is currently at 100% patient did have vital of 14.4 admission white count normalized to 9.4 on 04/30/2023 however has been trending up up to 17.2 today with a left shift patient also noticed to have a worsening of his creatinine which was normal on 04/30/2023 however is trending up and is up to 3.47 as of this morning procalcitonin 0.38 urine has been negative patient did have a bronchoscopy done on 05/02/2023 those cultures are currently pending patient did have blood culture on 05/01/2020 those has been negative so far sputum on 930 is growing Amna albicans patient did have an echocardiogram done on 04/26/2023 normal LV size and function mild aortic valve sclerosis and mitral valve calcification no effusion did not mention any vegetation patient did have an echocardiogram repeated yesterday afternoon there is a large echodense lesion attached to the anterior mild to the left which could be a vegetation that has prompted this infectious disease consultation most information has been obtained from review the chart talking nursing staff the patient is currently intubated on the vent and cannot provide any history Review of Systems Positive points has been mentioned in HPI complete review could not be obtained because patient is intubated on the vent Past Medical History Past Medical History: No Reported History History of Any Multi-Drug Resistant Organisms: None Reported Past Surgical History: No Surgical Hx Reported Past Psychological History: No Psychological Hx Reported Smoking Status: Never smoker Past Alcohol Use History: None Reported Past Drug Use History: None Reported Medications and Allergies Home Medications Medication Instructions Recorded Confirmed Type Cetirizine HCl [Zyrtec] 10 mg PO DAILY 04/25/23 04/25/23 History Allergies Allergy/AdvReac Type Severity Reaction Status Date / Time No Known Allergies Allergy Verified 04/25/23 16:17 Physical Exam Vitals: Vital Signs Temp Pulse Resp Pulse Ox FiO2 05/03/23 16:30 102 H 28 H 92 L 05/03/23 16:28 99 05/03/23 16:18 70 05/03/23 16:17 102 H 05/03/23 16:15 102 H 28 H 91 L 05/03/23 16:00 98.7 F 101 H 28 H 92 L 70 05/03/23 15:45 102 H 28 H 93 L 05/03/23 15:30 101 H 28 H 92 L 05/03/23 15:15 101 H 28 H 91 L 05/03/23 15:00 104 H 28 H 89 L 05/03/23 14:45 105 H 28 H 86 L 05/03/23 14:30 105 H 28 H 87 L 05/03/23 14:15 105 H 28 H 88 L 05/03/23 14:00 101 H 28 H 88 L 05/03/23 13:45 101 H 28 H 89 L 05/03/23 13:30 101 H 28 H 90 L 05/03/23 13:15 101 H 28 H 89 L 05/03/23 13:00 105 H 28 H 90 L 05/03/23 12:45 104 H 28 H 89 L 05/03/23 12:30 101 H 28 H 89 L 05/03/23 12:15 99 28 H 94 L 05/03/23 12:09 70 05/03/23 12:07 99 05/03/23 12:00 98.3 F 100 28 H 90 L 70 05/03/23 11:45 101 H 28 H 90 L 05/03/23 11:30 100 28 H 90 L 05/03/23 11:15 99 28 H 91 L 05/03/23 11:00 101 H 28 H 91 L 05/03/23 10:45 104 H 28 H 91 L 05/03/23 10:30 105 H 28 H 91 L 05/03/23 10:15 106 H 28 H 90 L 05/03/23 10:00 105 H 28 H 90 L 05/03/23 09:45 104 H 28 H 92 L 05/03/23 09:30 102 H 28 H 91 L 05/03/23 09:15 104 H 28 H 91 L 05/03/23 09:04 92 05/03/23 09:00 28 H 91 L 05/03/23 08:59 70 05/03/23 08:53 101 H 05/03/23 08:45 103 H 28 H 91 L 05/03/23 08:30 103 H 28 H 91 L 05/03/23 08:15 105 H 28 H 91 L 05/03/23 08:00 98.3 F 102 H 28 H 91 L 70 05/03/23 07:45 101 H 28 H 91 L 05/03/23 07:30 100 28 H 92 L 05/03/23 07:15 99 28 H 91 L 05/03/23 07:00 102 H 28 H 91 L 05/03/23 06:45 98 28 H 91 L 05/03/23 06:30 98 28 H 91 L 05/03/23 06:15 99 28 H 91 L 05/03/23 06:00 102 H 28 H 93 L 05/03/23 05:45 101 H 28 H 92 L 05/03/23 05:30 101 H 28 H 93 L 05/03/23 05:15 104 H 28 H 92 L 05/03/23 05:00 102 H 28 H 92 L 05/03/23 04:45 100 28 H 91 L 05/03/23 04:30 102 H 28 H 92 L 05/03/23 04:15 100 28 H 91 L 05/03/23 04:03 104 H 05/03/23 04:00 98.5 F 101 H 28 H 92 L 05/03/23 03:50 98 05/03/23 03:46 70 05/03/23 03:45 101 H 28 H 93 L 05/03/23 03:30 101 H 28 H 92 L 05/03/23 03:15 103 H 28 H 92 L 05/03/23 03:00 104 H 28 H 92 L 05/03/23 02:45 105 H 28 H 92 L 05/03/23 02:30 105 H 28 H 92 L 05/03/23 02:15 107 H 28 H 91 L 10/03/23 02:00 107 H 28 H 91 L 05/03/23 01:45 114 H 28 H 91 L 05/03/23 01:30 107 H 28 H 90 L 05/03/23 01:15 28 H 94 L 05/03/23 01:00 105 H 28 H 92 L 05/03/23 00:45 106 H 28 H 93 L 05/03/23 00:30 104 H 28 H 93 L 05/03/23 00:15 105 H 28 H 93 L 05/03/23 00:11 103 H 28 H 93 L 05/03/23 00:01 70 05/03/23 00:00 100.1 F H 100 28 H 95 70 05/02/23 23:45 101 H 28 H 94 L 05/02/23 23:30 105 H 28 H 94 L 05/02/23 23:15 99 28 H 94 L 05/02/23 23:00 102 H 28 H 95 05/02/23 22:45 102 H 28 H 96 05/02/23 22:30 106 H 28 H 96 05/02/23 22:15 107 H 28 H 96 05/02/23 22:00 107 H 28 H 97 05/02/23 21:45 105 H 28 H 97 05/02/23 21:30 108 H 28 H 96 05/02/23 21:15 106 H 27 H 96 05/02/23 21:00 107 H 28 H 96 05/02/23 20:45 106 H 28 H 97 05/02/23 20:30 110 H 28 H 97 05/02/23 20:25 105 H 05/02/23 20:15 109 H 28 H 97 05/02/23 20:13 106 H 05/02/23 20:12 80 05/02/23 20:00 99.7 F H 104 H 28 H 97 80 05/02/23 19:45 108 H 28 H 96 05/02/23 19:30 124 H 28 H 95 05/02/23 19:15 106 H 28 H 95 05/02/23 19:00 110 H 28 H 96 80 05/02/23 18:45 108 H 28 H 96 05/02/23 18:30 115 H 28 H 96 05/02/23 18:15 107 H 28 H 95 05/02/23 18:00 112 H 28 H 95 80 05/02/23 17:45 114 H 28 H 95 Intake and Output 05/03/23 05/03/23 05/03/23 06:59 14:59 22:59 Intake Total 5162.122 0876 116 Output Total 140 125 35 Balance 9959.112 7639 81 Intake: IV 1148 829 56 Dextrose 5% in Water 1, 1000 375 000 ml @ 125 mls/hr IV . Q9H12M SHANNA with Sodium Bicarb (1 Meq/ml) 150 ml Rx#:[id number] Piperacillin-Tazobactam 3 100 100 .375 gm In Sodium Chloride 0.9% 100 ml @ 25 mls/hr IVPB Q8HR SHANNA Rx# :[id number] Pressure Bag-Normal 48 54 6 Saline Sodium Chloride 0.9% 1, 300 50 000 ml @ 50 mls/hr IV . Q20H [facility] Rx#:[id number] Intake, IV Titration 358.000 251 Amount Norepinephrine 8 mg In 258.000 Sodium Chloride 0.9% 250 ml @ 0.03 MCG/KG/MIN 5. 399 mls/hr IV .Q24H [facility] Rx#:[id number] Vasopressin 20 unit In 51 Sodium Chloride 0.9% 50 ml @ 0.03 UNITS/MIN 4.59 mls/hr IV .Q11H7M [facility] Rx# :[id number] fentaNYL (PF). 1,000 mcg 100 In Sodium Chloride 0.9% 80 ml @ 0.5 MCG/KG/HR 4. 65 mls/hr IV .H53O15D [facility] Rx#:[id number] propofoL 1,000 mg In 100 100 Empty Bag 1 bag @ 15 MCG/ KG/MIN 8.253 mls/hr IV . Q12H8M [facility] Rx#:[id number] Tube Feeding 140 230 30 Other 60 90 30 Output: Urine 140 125 35 Other: Voiding Method Indwelling Catheter Weight 105.5 kg 106.4 kg ABP, PAP, CO, CI - Last 8 Hours Arterial Blood Pressure 113/55 Arterial Blood Pressure 118/61 Arterial Blood Pressure 115/60 Arterial Blood Pressure 114/60 Arterial Blood Pressure 114/60 Arterial Blood Pressure 117/60 Arterial Blood Pressure 125/63 Arterial Blood Pressure 125/63 Arterial Blood Pressure 122/60 Arterial Blood Pressure 126/63 Arterial Blood Pressure 122/60 Arterial Blood Pressure 116/59 Arterial Blood Pressure 117/59 Arterial Blood Pressure 118/62 Arterial Blood Pressure 121/61 Arterial Blood Pressure 119/59 Arterial Blood Pressure 122/60 Arterial Blood Pressure 114/57 Arterial Blood Pressure 110/57 Arterial Blood Pressure 115/59 Arterial Blood Pressure 106/57 Arterial Blood Pressure 117/60 Arterial Blood Pressure 112/57 Arterial Blood Pressure 104/58 Arterial Blood Pressure 117/59 Arterial Blood Pressure 121/59 Arterial Blood Pressure 120/58 Arterial Blood Pressure 117/58 GENERAL DESCRIPTION: Elderly male intubated on the vent HEENT: Shows Pallor , no scleral icterus. Oral mucous membrane is dry. NECK: Trachea central, no thyromegaly. LUNGS: Unlabored breathing. Decreased breath sounds at the base HEART: S1, S2, regular rate and rhythm. ABDOMEN: Soft, no tenderness , guarding or rigidity, no organomegaly EXTREMITIES: No edema of feet. SKIN: No rash, no masses palpable. NEUROLOGICAL: The patient is sedated on the vent Results CBC & Chem 7: 05/04/23 03:58 05/04/23 03:58 Labs: Abnormal Lab Results - Last 24 Hours (Table) 05/02/23 05/02/23 05/02/23 Range/Units 15:55 17:28 23:12 WBC (3.8-10.6) k/uL RBC (4.30-5.90) m/uL Hgb (13.0-17.5) gm/dL Hct (39.0-53.0) % Neutrophils # (1.3-7.7) k/uL Lymphocytes # (1.0-4.8) k/uL ABG pH (7.35-7.45) ABG pCO2 (35-45) mmHg ABG pO2 (83-108) mmHg ABG HCO3 (21-25) mmol/L ABG Total CO2 (19-24) mmol/L Chloride (98-107) mmol/L BUN (9-20) mg/dL Creatinine (0.66-1.25) mg/dL Glucose (74-99) mg/dL POC Glucose (mg/dL) 183 H 188 H (70-110) mg/dL Calcium (8.4-10.2) mg/dL C-Reactive Protein (<1.0) mg/dL Total Protein (6.3-8.2) g/dL Albumin (3.5-5.0) g/dL Procalcitonin (0.02-0.09) ng/mL Fluid Appearance Bloody A (Clear) Fluid RBC 687879 H (0-2000) /uL 05/03/23 05/03/23 05/03/23 Range/Units 04:15 04:15 05:40 WBC 17.2 H (3.8-10.6) k/uL RBC 3.68 L (4.30-5.90) m/uL Hgb 11.3 L (13.0-17.5) gm/dL Hct 34.6 L (39.0-53.0) % Neutrophils # 15.7 H (1.3-7.7) k/uL Lymphocytes # 0.5 L (1.0-4.8) k/uL ABG pH 7.34 L (7.35-7.45) ABG pCO2 49 H (35-45) mmHg ABG pO2 72 L (83-108) mmHg ABG HCO3 26 H (21-25) mmol/L ABG Total CO2 28 H (19-24) mmol/L Chloride 108 H (98-107) mmol/L BUN 59 H (9-20) mg/dL Creatinine 3.47 H (0.66-1.25) mg/dL Glucose 200 H (74-99) mg/dL POC Glucose (mg/dL) (70-110) mg/dL Calcium 6.9 L (8.4-10.2) mg/dL C-Reactive Protein (<1.0) mg/dL Total Protein 4.4 L (6.3-8.2) g/dL Albumin 2.1 L (3.5-5.0) g/dL Procalcitonin (0.02-0.09) ng/mL Fluid Appearance (Clear) Fluid RBC (0-2000) /uL 05/03/23 05/03/23 Range/Units 11:49 11:49 WBC (3.8-10.6) k/uL RBC (4.30-5.90) m/uL Hgb (13.0-17.5) gm/dL Hct (39.0-53.0) % Neutrophils # (1.3-7.7) k/uL Lymphocytes # (1.0-4.8) k/uL ABG pH (7.35-7.45) ABG pCO2 (35-45) mmHg ABG pO2 (83-108) mmHg ABG HCO3 (21-25) mmol/L ABG Total CO2 (19-24) mmol/L Chloride (98-107) mmol/L BUN (9-20) mg/dL Creatinine (0.66-1.25) mg/dL Glucose (74-99) mg/dL POC Glucose (mg/dL) (70-110) mg/dL Calcium (8.4-10.2) mg/dL C-Reactive Protein 20.0 H (<1.0) mg/dL Total Protein (6.3-8.2) g/dL Albumin (3.5-5.0) g/dL Procalcitonin 1.22 H (0.02-0.09) ng/mL Fluid Appearance (Clear) Fluid RBC (0-2000) /uL Microbiology - Last 24 Hours (Table) 05/01/23 09:35 Blood Culture - Preliminary Blood 05/02/23 15:55 Gram Stain - Preliminary Bronchial Washings - Random Bronchial Washings Culture - Preliminary 05/01/23 10:25 Urine Culture - Final Urine,Catheterized 04/30/23 20:00 Gram Stain - Final Sputum Sputum Culture - Final Amna albicans Assessment and Plan (1) Abnormal echocardiogram Status: Acute Code(s): R93.1 - ABNORMAL FINDINGS ON DX IMAGING OF HEART AND COR CIRC SNOMED Code(s): 363233157 Plan: 1patient with initially presented to the hospital after the patient collapse did require shock and the patient's subsequently [employer] and did have a stenting to the LAD seem to have some improvement initially however did have worsening of his clinical condition since 05/01/2023 with any fever or worsening of his white count and worsening of his kidney function, patient did have an echocardiogram done on 04/26/2023 did not show any vegetation however the echo done yesterday on 05/02/2023 did shows a large echodense lesion on the mitral valve with question of possible vegetation clinically very unlikely for the patient to follow-up vegetation that back that quickly and needs to be further work-up patient benefit from a ALIYAH for better definition of that abnormality 2-blood culture has been obtained x2 we will also check a CRP and a procalcitonin and a sed rate 3-continue with the Zosyn to cover for possible gram-negative pneumonia however keeping in mind his worsening kidney function we will discontinue vancomycin, cannot use Zyvox as the patient is on medication that is interacting with them We will follow on clinical condition and cultures to further adjust medication if needed Thank you for this consultation we will follow the patient along with you Dictation was produced using [employer] dictation software. please excuse any grammatical, word or spelling errors. Time with Patient: Greater than 30
--- NOTE | 2023-05-04 08:34 | XR ---
EXAMINATION TYPE: XR chest 1V portable DATE OF EXAM: 05/04/2023 COMPARISON: 05/03/2023 HISTORY: Shortness of breath TECHNIQUE: Single frontal view of the chest is obtained. FINDINGS: Diffuse bilateral airspace disease. ET tube, NG tube and central line stable. Hypertrophic degenerative changes spine. No pneumothorax. Bilateral shoulder arthropathy. Hypertrophic and degene rative changes in the spine. Small bilateral pleural effusions. IMPRESSION: Diffuse bilateral airspace disease stable correlate for ARDS, pulmonary edema or diffuse pneumonia.
[2023-05-04] MEDS: CHLORHEXIDINE GLUCONATE 15 ML CUP MUCOUS MEM SCH (09:14)
[2023-05-04] MEDS: AMIODARONE 200 MG TAB PO SCH (09:14)
[2023-05-04] MEDS: CLOPIDOGREL 75 MG TAB PO SCH (09:14)
[2023-05-04] MEDS: FAMOTIDINE 20 MG/2 ML VIAL IV SCH (09:14)
[2023-05-04] MEDS: ASPIRIN 81 MG PO SCH (09:14)
--- NOTE | 2023-05-04 09:38 | P.PN ---
Subjective Progress Note Date: 05/04/23 10-year-old male patient, with a complicated history, who initially presented to us with a out of hospital cardiac arrest. The patient was in V. fib cardiac arrest and the patient required defibrillation he was back into normal sinus rhythm. He had a downtime of around 15 minutes. He underwent cardiac c atheterization and stent was placed to his LAD. Noted at that time, the patient was intubated and placed on a mechanical ventilator. He was 62 clinically extubated without any major difficulties on 04/26/2023. However, his course was complicated by development of an acute CVA. Cataracts patient will and altered mentation. MRI of the brain showed evidence of multiple bilateral foci of increased signal density largest in the left globus pallidus and the findings were consistent with multifocal acute ischemic insult, likely of an embolic in nature. The patient had to be intubated on 04/30/2023 for acute hypoxic respiratory failure and altered mentation. This morning, the patient remains intubated on a mechanical ventilator. He is on a combination of propofol running at 40 mcg/kg/m and fentanyl as running at 1 mcg/kg/h. He is well sedated at this point in time and would suggest a mechanical ventilator. She remains on assist-control mode rate of 28, tidal volume of 450, FiO2 is at 70% with a PEEP of 12. The chest x-ray is showing diffuse bilateral pulmonary infiltrates and airspace disease and the patient hasn't orotracheal tube is in good location. There is a vague history of aspiration which probably contributed to his respiratory failure. His echocardiogram was done during the current admission has been within normal limits. The patient had blood work today that showed a white cell count of 21.8 with a hemoglobin 13.6. He has sustained acute kidney injury with a creatinine of 2.38 and a BUN of 54 and the sodium level is at 141. Blood gas shows a pH of 7.24 with a pCO2 of 46 and pO2 of 82 on the above-mentioned ventilator setting. Sputum Gram stain and culture has been negative. The patient has a bout of nonsustained V. tach yesterday and the patient remains on amiodarone at 0.5 mg/m. The patient is also on pressors and currently is on norepinephrine running at 0.31 mcg/kg/m and the patient is also on vasopressin physiologic dose. IV antibiotic coverage is with Zosyn. He remains on IV heparin. He is on EN vital at 10 cc/hr On today's evaluation of 05/03/2023, the patient is clinically worse. Since yesterday, the patient has not done any major progress. In fact, an echocardiogram was repeated yesterday and further investigation revealed that the patient has developed a large echodense lesion in the anterior mitral leaflet consistent with vegetation. There is also [id number] eccentric jet of the mitral valve consistent with mitral regurgitation and there is also evidence of severe pulmonary hypertension. The patient did not have those abnormalities on an earlier echocardiogram. Today, the patient remains profoundly septic and hypotensive and has signs of multisystem organ failure. This morning, he is on propofol which is running at 40 mcg/kg/m. Is also on fentanyl running at 1 mcg/kg/h. He is currently off Nimbex. He remains on a mechanical ventilator. Assist-control mode at the rate of 28, tidal volume of 450, FiO2 of 70% and a PEEP of 12. The blood gas shows a pH of 7.34 with a pCO2 of 49 and pO2 of 72. Chest x-ray showed diffuse bilateral pulmonary infiltrates with obvious interval worsening compared to y day. 82 beats remains in a good location. Note that I performed a bronchoscopy on this patient yesterday. There was copious amount of respiratory secretions that were bloody and frothy. The patient was taken off the IV heparin. The patient had a bronchioloalveolar lavage and a microbial cultures are still pending. The Gram stain is negative for cultures at this point in time. For now, the patient is covered with broad-spectrum antibiotics. I added vancomycin yesterday. The patient remains on IV Zosyn. Noted the previous blood cultures have been negative. MRI of the brain was consistent with bilateral hypodense lesions and based on the overall clinical scenario, those could represent multiple foci of septic emboli. The patient has a largest lesion in the left globulus pallidus. In terms of hemodynamics, the patient remains septic and hemodynamic collapse. Norepinephrine is running at 0.18 mcg/kg/m. The patient is also on vasopressin physiologic dose of 0.03 units a m inute. Urine output is in order of 10 mL an hour. The white cell count at 17.2, hemoglobin is 11.3, platelet count is at 197, BUN is at 59 with a creatinine of 3.4 and there is interval worsening renal function. Sodium levels of 141 with a potassium level of 4.5. The patient is receiving enteral feeding for nutritional support and currently is on Nepro at the rate of 20 mL an hour. On today's evaluation of 05/04/2023, the patient is being seen in follow-up in the intensive care unit. Obviously, his condition is progressively getting worse and is decompensating. 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 This isnexplained to the at length, and based on his age and comorbidities, he carries a very poor prognosis. This morning, he remains on a combination of propofol and fentanyl. Propofol is running at 40 mcg/kg/m and fentanyl is running at 1 mcg/kg/h. He is not paralyzed at this point in time. He remains on a mechanical ventilator. Is quite comfortable on a mechanical ventilator and synchronous and he is at the rate of 28, tidal volume of 450, FiO2 of 80% with a PEEP of 12. Is chest x-rays showing diffuse bilateral pulmonary infiltrates consistent with pulmonary edema. Note that performed a bronchoscopy on this patient earlier and a bronchial lavage was quite bloody as the patient had frothy bloody secretions. The cultures are still negative from the bronchial alveolar lavage that was collected on 05/02/2023. Meanwhile, his blood cultures are also negative. He remains on examination Zosyn and vancomycin. His repeat chest x-ray from today is e ssentially unchanged with diffuse bilateral airspace disease consistent with CHF/pulmonary edema. The blood gas shows a pH of 7.23 with a pCO2 56 and pO2 of 79. Progressive worsening renal function with a BUN of 73 and a creatinine of 4.6 and his sodium levels of 141 with a potassium level of 4.6. The echoes at 15.3 with a hemoglobin of 11.6. Remains on norepinephrine running at 0.2 mcg/kg/m. IV fluids are also running at 50 mL an hour. Cardiac rhythm is sinus and the patient is currently on oral amiodarone 400 mg by mouth twice a day. Objective - Vital Signs Vital signs: Vital Signs Temp 98.8 F 05/04/23 08:00 Pulse 115 H 05/04/23 09:00 Resp 28 H 05/04/23 09:00 BP 90/35 05/01/23 13:00 Pulse Ox 90 L 05/04/23 09:00 FiO2 80 05/04/23 09:00 Intake & Output 05/03/23 05/04/23 05/04/23 18:59 06:59 18:59 Intake Total 2626.98 1932.404 336.983 Output Total 170 75 2 Balance 2456.98 1857.404 334.983 Weight 106.4 kg 108.1 kg Intake: IV 1497 817 198 0.9 KVO 45 30 Dextrose 5% in Water 1, 375 000 ml @ 125 mls/hr IV . Q9H12M [facility] with Sodium Bicarb (1 Meq/ml) 150 ml Rx#:[id number] Piperacillin-Tazobactam 3 100 100 .375 gm In Sodium Chloride 0.9% 100 ml @ 25 mls/hr IVPB Q8HR [facility] Rx# :[id number] Pressure Bag-Normal 72 72 18 Saline Sodium Chloride 0.9% 1, 450 600 150 000 ml @ 50 mls/hr IV . Q20H [facility] Rx#:[id number] Vancomycin 1,500 mg In 500 Sodium Chloride 0.9% 500 ml 500 ml @ 167 mls/hr IVPB ONCE ONE Rx#: [id number] Intake, IV Titration 689.98 635.404 68.983 Amount Norepinephrine 8 mg In 338.98 401.874 Sodium Chloride 0.9% 250 ml @ 0.03 MCG/KG/MIN 5. 399 mls/hr IV .Q24H [facility] Rx#:[id number] Vasopressin 20 unit In 51 51 Sodium Chloride 0.9% 50 ml @ 0.03 UNITS/MIN 4.59 mls/hr IV .Q11H7M [facility] Rx# :[id number] fentaNYL (PF). 1,000 mcg 100 68.983 In Sodium Chloride 0.9% 80 ml @ 8.51 mls/hr IV . [id number] [facility] Rx#:[id number] propofoL 1,000 mg In 200 182.53 Empty Bag 1 bag @ 15 MCG/ KG/MIN 8.253 mls/hr IV . Q12H8M [facility] Rx#:[id number] Tube Feeding 320 390 70 Other 120 90 Output: Urine 170 75 2 Other: Voiding Method Indwelling Catheter Indwelling Catheter ABP, PAP, CO, CI - Last Documented Arterial Blood Pressure 129/60 - Exam No acute distress, currently on the ventilator. The patient's currently sedated, and has an orally placed endotracheal tube, and NG tube. Head exam was generally normal. There was no scleral icterus or corneal arcus. Mucous membranes were moist. HEENT examination is grossly unremarkable. Neck supple. Full range of motion. No adenopathy thyromegaly or neck vein distention. Cardiovascular examination reveals regular rhythm rate. S1-S2 normal. No S3 or S4. There is a systolic ejection murmur grade 3/6 heard over the precordium. Lungs reveal clear breath sounds. Breath sounds are equal bilaterally. No adventitious lung sounds including wheezes rhonchi or crackles. Abdomen soft without bowel sounds. Extremities are intact. No cyanosis clubbing and some increased edema in the LE bilaterally Skin is without rash or lesion. Neurologic examination cannot be assessed at this time, as the patient's currently mechanically ventilated. - Labs CBC & Chem 7: 05/04/23 03:58 05/04/23 03:58 Labs: Abnormal Lab Results - Last 24 Hours (Table) 05/03/23 05/03/23 05/04/23 Range/Units 11:49 11:49 03:58 WBC (3.8-10.6) k/uL RBC (4.30-5.90) m/uL Hgb (13.0-17.5) gm/dL Hct (39.0-53.0) % Neutrophils # (1.3-7.7) k/uL Lymphocytes # (1.0-4.8) k/uL ABG pH (7.35-7.45) ABG pCO2 (35-45) mmHg ABG pO2 (83-108) mmHg ABG Total CO2 (19-24) mmol/L Carbon Dioxide 20 L (22-30) mmol/L BUN 73 H (9-20) mg/dL Creatinine 4.61 H (0.66-1.25) mg/dL Glucose 129 H (74-99) mg/dL Calcium 7.0 L (8.4-10.2) mg/dL C-Reactive Protein 20.0 H (<1.0) mg/dL Total Protein 4.6 L (6.3-8.2) g/dL Albumin 2.3 L (3.5-5.0) g/dL Procalcitonin 1.22 H (0.02-0.09) ng/mL 05/04/23 05/04/23 Range/Units 03:58 04:03 WBC 15.3 H (3.8-10.6) k/uL RBC 3.72 L (4.30-5.90) m/uL Hgb 11.6 L (13.0-17.5) gm/dL Hct 35.6 L (39.0-53.0) % Neutrophils # 13.2 H (1.3-7.7) k/uL Lymphocytes # 0.9 L (1.0-4.8) k/uL ABG pH 7.23 L (7.35-7.45) ABG pCO2 56 H (35-45) mmHg ABG pO2 79 L (83-108) mmHg ABG Total CO2 25 H (19-24) mmol/L Carbon Dioxide (22-30) mmol/L BUN (9-20) mg/dL Creatinine (0.66-1.25) mg/dL Glucose (74-99) mg/dL Calcium (8.4-10.2) mg/dL C-Reactive Protein (<1.0) mg/dL Total Protein (6.3-8.2) g/dL Albumin (3.5-5.0) g/dL Procalcitonin (0.02-0.09) ng/mL Microbiology - Last 24 Hours (Table) 05/02/23 15:55 Acid Fast Bacilli Smear - Preliminary Bronchial Washings - Random 05/01/23 09:35 Blood Culture - Preliminary Blood 05/02/23 15:55 Gram Stain - Preliminary Bronchial Washings - Random Bronchial Washings Culture - Preliminary 05/01/23 10:25 Urine Culture - Final Urine,Catheterized 04/30/23 20:00 Gram Stain - Final Sputum Sputum Culture - Final Amna albicans Assessment and Plan Plan: Acute hypoxic respiratory failure with development of diffuse but the pulmonary infiltrates and airspace disease,, post bronchoscopy with bloody rest or se cretions. Rule out possibility of alveolar hemorrhage. Rule out pulmonary edema as the secretions were quite frothy. The superinfection with pneumonia cannot be completely excluded. The bronchoscopy and the bronchial lavage was done and it microbial cultures are negative. The bilateral airspace disease most likely due to cardiogenic pulmonary edema in the setting of infective endocarditis of mitral regurgitation. No changes condition. Patient remains on a PEEP of 12 with an FiO2 of 80%. Blood gases were noted. Infective endocarditis with a vegetation involving the anterior mitral valve leaflet and mitral regurgitation with severe pulmonary hypertension Acute on chronic hypoxic yesterday failure secondary to above, acute hypercapnic respiratory failure Acute shock, likely a combination of septic and cardiogenic in nature, the patient continues to be on pressors and norepinephrine is running at 0.2 mcg/kg/m. Multiple [employer] lesions/hypodensities consistent with septic emboli versus infarcts, The patient had an MRI of the brain that showed multiple areas of infarcts largest in the globus pallidus on the left and the patient had altered mentation and subsequent respiratory failure Acute leukocytosis, the white cell count today is at 15.3, slightly improved since yesterday Acute kidney injury and the creatinine is on the rise and the patient is oliguric at this point in time. There has been progressively worsening in renal function since yesterday and the patient remains oliguric. The creatinine is on the rise and the patient remains oliguric at this point in time. Acute cardiac arrest secondary to be V. fib, post cardiac catheterization and stenting of the LAD Coronary artery disease post stenting of the LAD Present LV function, cardiac exam showing ejection fraction of 55-60% and this was obtained post cardiac arrest Episode of V. tach, currently back into normal sinus rhythm and the patient remains on a combination of amiodarone po , and anticoagulation has been discontinued Acute leukocytosis secondary to above Non-anion gap metabolic acidosis and the patient's bicarb deficit is being replaced with a bicarb infusion and a serum bicarb is currently up to 20 Plan Continue ventilator support, no ventilator changes for today Keep the patient a combination of propofol and fentanyl for sedation No paralytics NSS at 50 mL an hour Monitor renal function and electrolytes Continue ventilator support, no changes in the mechanical ventilator for now Continue IV Zosyn and vancomycin Continue amiodarone po Continue aspirin Continue Plavix Lipitor 80 mg by mouth daily Continue enteral feeding at a lower rate Hold metoprolol as the patient is profoundly hypotensive Keep processes and titrate the norepinephrine bronchoalveolar lavage was negative for any microbial growth Very poor prognosis patient with the presence of infective endocarditis, valvular disruption of November regurgitation and multisystem organ failure. Family to be updated and they are considering comfort care measures today DO NOT RESUSCITATE was status I had a lengthy discussion with the family and the yesterday and explained to her the condition Very poor prognosis We'll continue to follow. His evaluation within a more than 30 minutes. Time with Patient: Greater than 30
[2023-05-04 10:09] VITALS: PULSE 121
[2023-05-04] MEDS ORDERED: LORazepam 2 MG/ML INJ IV PRN (10:20)
[2023-05-04] MEDS ORDERED: MORPHINE SULFATE 4 MG/ML SYRINGE IV PRN (10:20)
[2023-05-04] MEDS ORDERED: MORPHINE SULFATE 4 MG/ML SYRINGE IVP ONE (10:20)
[2023-05-04] MEDS ORDERED: GLYCOPYRROLATE 0.2 MG/ML 2 ML VIAL IVP PRN (10:20)
[2023-05-04] MEDS ORDERED: SCOPOLAMINE 1 MG/72 HR PATCH TRANSDERM SCH (10:30)
[2023-05-04 14:45] LABS: C-ANCA <1:20 Titer (<1:20)
[2023-05-04 14:59] LABS: Anti-Glomerular Basement Memb <1.5 U/mL (<7.0)
--- NOTE | 2023-05-05 14:31 | CDI ---
Documentation Clarification Form Date: 05/05/2023 02:01:02 PM From: Yaz Saha Phone: Admit Date: 04/25/2023 01:35:00 PM Patient Name: Bryan Salmon Visit Number: [id number] Discharge Date: 05/04/2023 03:41:00 PM ATTENTION: The Clinical Documentation Specialists (CDI) and [facility] Coding Staff appreciate your assistance in clarifying documentation. Please respond to the clarification below the line at the bottom and electronically sign. The CDI & [facility] Coding staff will review the response and follow-up if needed. Please note: Queries are made part of the Legal Health Record. If you have any questions, please contact the author of this message via ITS. Dr. Ragland E Sheet Your patient has the documented diagnosis of CHF/pulmonary edema per Dr. Warren Progress Note 05/04. Additional information regarding the most appropriate diagnosis requested. History/Risk Factors: 82yo M, PEA at home, STEMI, ARDS, metabolic enceph, transaminitis, CKD, septic shock w cardiogenic shock, HTN, septic arterial embolism, V Tach, Asp & Gram- PNA, MR, TR, Clinical Indicators: VS/Pulse OX: 98 BNP: [id number] Echocardiogram Results: 04/26 Normal LV size and Sy Fx. MildAVSandmitral annular calcification. Mild AI. Nopericardial effusion. No significantPHTN. Echocardiogram Results: 05/02 LV systolic function is normal with an ejection fraction of 55-60%. There is a large echo denselesionattached to the anterior mitral leaflet which could be due toavegetation. There is mild to moderate eccentric jet of MR, moderateTR, SeverePHTN. ConsiderTEEfor furtherevaluationof the MV, the vegetationMRand possible flail mitral leaflet. Chest X Ray: 04/25 No acute pulmonary process. Mild prominence of the pulmonary vascular markings. ET tip at the kay[place]. This should be pulled back. Chest x ray: 05/04 His repeatchest x-rayfrom today is essentially unchanged with diffuse bilateral airspace disease consistent withCHF/Pulm edema. Treatment: The blood gas shows a pH of 7.23 with a pCO2 56 and pO2 of 79. Progressive worsening renal fx with a BUN of 73 and a creatinine of 4.6 and his NA levels of 141 with a potassium level of 4.6.The echoes at 15.3 with a hemoglobin of 11.6. Remains onnorepinephrinerunning at 0.2 mcg/kg/m. IV fluids are also running at 50 mL an hour. Cardiacrhythmis sinus and the patient is currently on oral amiodarone 400 mg by mouth twice a day. In your professional opinion, can you please clarify the appropriate diagnosis? [ ] Pulmonary edema [ ] Acute [ ] Chronic [ ] Acute Systolic Heart Failure (reduced EF) [ ] Chronic Systolic Heart Failure (reduced EF) [ ] Acute on Chronic Systolic Heart Failure (reduced EF) [ ] Acute Diastolic Heart Failure (preserved EF) [ ] Chronic Diastolic Heart Failure (preserved EF) [ ] Acute on Chronic Diastolic Heart Failure (preserved EF) [ ] Acute Systolic & Diastolic Heart Failure [ ] Chronic Systolic & Diastolic Heart Failure [ ] Acute on Chronic Heart Failure Systolic & Diastolic Heart Failure [ ] Other, please specify [ ] Unable to determine (Template Last Revised: September 2020) acute pulmonary edema MTDD
--- NOTE | 2023-05-05 14:39 | CDI ---
Documentation Clarification Form Date: 05/05/2023 02:01:02 PM From: Yaz Saha Phone: Admit Date: 04/25/2023 01:35:00 PM Patient Name: Bryan Salmon Visit Number: [id number] Discharge Date: 05/04/2023 03:41:00 PM ATTENTION: The Clinical Documentation Specialists (CDI) and [facility] Coding Staff appreciate your assistance in clarifying documentation. Please respond to the clarification below the line at the bottom and electronically sign. The CDI & [facility] Coding staff will review the response and follow-up if needed. Please note: Queries are made part of the Legal Health Record. If you have any questions, please contact the author of this message via ITS. Dr. Ragland E Sheet Unspecified CKD is documented per H&P. Additional clarification regarding the stage of CKD is requested. History/Risk Factors: 82yo M, PEA at home, STEMI, ARDS, metabolic enceph, transaminitis, CKD, septic shock w cardiogenic shock, HTN, Septic arterial embolism, V Tach, Asp & Gram- PNA, MR, TR, Clinical Indicators: Current BUN: 18 CR: 1.33 AfAm GFR: 58 NonAf GFR: 50 Treatment: Worsening kidney functions on top ofchronic kidney diseasewith minimal output noted. Nephrology following patient does have indwellingFoley catheterand is being given a dose of 80 mg IV Lasix. Nephrology Consult: if renal function continues to worsen witholiguria, discussed with the family regarding the need fordialysis. Please clarify the stage of the CKD, if known: [ ] CKD Stage 2 (GFR 60-89) [ ] CKD Stage 3a (GFR 45-59) [ ] Other, please specify [ ] Unable to determine (Template Last revised: September 2020) CKD Stage 3a (GFR 45-59) MTDD
--- NOTE | 2023-05-05 14:54 | CDI ---
Documentation Clarification Form Date: 05/05/2023 02:41:00 PM From: Yaz Saha Phone: Admit Date: 04/25/2023 01:35:00 PM Patient Name: Bryan Salmon Visit Number: [id number] Discharge Date: 05/04/2023 03:41:00 PM ATTENTION: The Clinical Documentation Specialists (CDI) and [facility] Coding Staff appreciate your assistance in clarifying documentation. Please respond to the clarification below the line at the bottom and electronically sign. The CDI & [facility] Coding staff will review the response and follow-up if needed. Please note: Queries are made part of the Legal Health Record. If you have any questions, please contact the author of this message via ITS. Dr. Ragland E Sheet Your patient has diagnostic/radiology results: elevated glucose 199 per ED Note. Please clarify if there is an additional diagnosis and/or clinical significance related to this result. History/Risk Factors: 82yo M, PEA at home, STEMI, ARDS, metabolic enceph, transaminitis, CKD, septic shock w cardiogenic shock, HTN, Septic arterial embolism, V Tach, Asp & Candidaalbicans, PNA, MR, TR, Clinical indicators: 199 04/25 209 04/25 106-113 04/27 162 04/29 115-145 05/01 Treatment: Insulin Aspart (Novolog) 100 Unit/Ml Vial 0 unit SQ Q6HR SHANNA; Protocol 05/02 Is there an additional diagnosis and/or clinical significance related to the above diagnostic/radiology result? [ ] Hyperglycemia [ ] Diabetes Mellitus II with Hyperglycemia [ ] Result is not clinically significant (no additional diagnosis) [ ] Other, please specify [ ] Unable to determine (Template Last Reviewed: September 2020) Hyperglycemia, no diabetes mellitus ( normal Hb A1c) [facility]
--- NOTE | 2023-05-05 15:07 | CDI ---
Documentation Clarification Form Date: 05/05/2023 02:55:00 PM From: Yaz Shaa Phone: Admit Date: 04/25/2023 01:35:00 PM Patient Name: Bryan Salmon Visit Number: [id number] Discharge Date: 05/04/2023 03:41:00 PM ATTENTION: The Clinical Documentation Specialists (CDI) and [facility] Coding Staff appreciate your assistance in clarifying documentation. Please respond to the clarification below the line at the bottom and electronically sign. The CDI & [facility] Coding staff will review the response and follow-up if needed. Please note: Queries are made part of the Legal Health Record. If you have any questions, please contact the author of this message via ITS. Dr. Chandni Allen Your patient is received: Therapeuticairway suctioning. Please clarify which specific airways were suctioned. History/Risk Factors: 82yo M, PEA at home, STEMI, ARDS, metabolic enceph, transaminitis, CKD, septic shock w cardiogenic shock, HTN, Septic arterial embolism, V Tach, Asp & Amna albicans, PNA, MR, TR, Clinical indicators: Bilateralpneumonia/airspace disease/consolidation Treatment: Flexible bronchoscopy,bronchial ALVEOLAR lavageof the right middle lobe, therapeuticairway suctioning Please clarify which specific airways were suctioned: [ ] Trachea [ ] Bilateral mainstem bronchi [ ] Right upper lobe bronchus [ ] Bronchus intermedius [x ] Right middle lobe bronchus [ ] Right lower lobe bronchus [ ] Left mainstem bronchus [ ] Left upper lobe bronchus [ ] Left lobe bronchus [ ] Other, please specify [ ] Unable to determine (Template Last Reviewed: September 2020) MTDD
--- NOTE | 2023-05-05 15:58 | P.DS ---
Providers Date of admission: 04/25/23 13:35 Expected date of discharge: 05/04/23 Attending physician: Obie Sierra MD Consults: 04/25/23 13:35 Consult Physician Stat Consulting Provider: James Ramírez Consult Reason/Comments: choking episode, vfib arrest, stemu Do you want consulting provider notified?: Already Contacted 04/25/23 13:47 Consult Physician Stat Consulting Provider: [facility] Consult Reason/Comments: stemi Do you want consulting provider notified?: Already Contacted 04/25/23 14:03 Consult Physician Routine Consulting Provider: [facility] Consult Reason/Comments: Vent Management Do you want consulting provider notified?: Yes 04/26/23 17:41 Consult Physician Routine Consulting Provider: Alfa Ramírez Consult Reason/Comments: right sided droop Do you want consulting provider notified?: Yes 04/28/23 12:13 Consult Physician Stat Consulting Provider: Kj Eric Consult Reason/Comments: IPR Do you want consulting provider notified?: Yes 05/01/23 10:28 Consult Physician Stat Consulting Provider: Aleyda Mcgowan Consult Reason/Comments: severe sepsis, ANTWAN Do you want consulting provider notified?: Yes 05/03/23 07:44 Consult Physician Stat Consulting Provider: Yvon Donahue Consult Reason/Comments: Vegetation of mitral valve Do you want consulting provider notified?: Yes, Notify in am Primary care physician: Stated None Hospital Course: Preliminary cause of Cardiogenic shock with sepsis Final diagnosis Cardiac arrest at home status post CPR and electric shock with return of circulation. 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 According to nursing documentation, time of was 1104 on 05/04/2023. Patient was on comfort care with family at bedside. Hospital course This is an 82-year-old patient who had an out of hospital cardiac arrest status post return of circulation with approximate downtime of 15 minutes requiring defibrillation. Patient was brought to the hospital and underwent cardiac catheterization with stenting to the LAD. Patient was extubated without difficulty although had a coughing spell with concerns of aspiration and respiratory distress requiring reintubation due to hypoxic respiratory failure and altered mentation. Patient was maintained on ventilation as well as requiring pressor support and multiple drips. Patient most likely with ca rdiogenic shock with sepsis. Patient also was noted to have multiple emboli and lesions on MRI of the brain versus possible infarcts. Patient continued on multiple drips including antibiotics and pressor support with worsening kidney function and multiple medical consultations following. Patient started making almost no urine became oliguric with creatinine of up to 4.6. Patient also noted to have bilateral pulmonary infiltrates with significant pulmonary edema. Patient underwent bronchoscopy and was noted to have possible alveolar hemorrhage and IV heparin was discontinued. Patient was also noted to have infective endocarditis with vegetation on the anterior mitral valve with severe pulmonary hypertension on echo. Patient continued to deteriorate with no significant improvement and patient was made no code. Given patient's clinical condition and poor prognosis family chose comfort care. Please refer to other consultation notes for further HPI. The impression and plan of care has been dictated by Amanda Davila, Nurse Practitioner as directed. Dr. Andrew MD I have performed a history and examination and MDM of this patient, discussed the same with the dictator, and agree with the dictator's assessment and plan as written ,documented as a scribe. Based on total visit time, I have performed more than 50% of the visit. Patient Condition at Discharge: Critical Plan - Discharge Summary Discharge Rx Participant: No New Discharge Prescriptions: No Action Cetirizine HCl [Zyrtec] 10 mg PO DAILY Discharge Medication List Cetirizine HCl [Zyrtec] 10 mg PO DAILY 04/25/23 [History] Follow up Appointment(s)/Referral(s): None,Stated [Primary Care Provider] - 1-2 days Discharge Disposition: - Preliminary Cause of Preliminary Cause of : Cardiogenic shock with sepsis
== END 2023-05-04 15:41 | disposition expired | DRG 321 ==
LOC: CATHCVL 12:57 → MERGE 13:35 → 2SICU 13:35
PROVIDERS: ADMIT Internal Medicine; ATTEND Internal Medicine
PROC: 4A023N7 Measurement of Cardiac Sampling and Pressure, Left Heart, Percutaneous Approach (ICD-10-PCS; 2023-04-25)
PROC: B2111ZZ Fluoroscopy of Multiple Coronary Arteries using Low Osmolar Contrast (ICD-10-PCS; 2023-04-25)
PROC: 027034Z Dilation of Coronary Artery, One Artery with Drug-eluting Intraluminal Device, Percutaneous Approach (ICD-10-PCS; principal; 2023-04-25 12:00)
PROC: 0BH18EZ Insertion of Endotracheal Airway into Trachea, Via Natural or Artificial Opening Endoscopic (ICD-10-PCS; 2023-04-25 12:00)
PROC: 5A1935Z Respiratory Ventilation, Less than 24 Consecutive Hours (ICD-10-PCS; 2023-04-25 12:00)
PROC: 3E043XZ Introduction of Vasopressor into Central Vein, Percutaneous Approach (ICD-10-PCS; 2023-04-26)
PROC: 0BH18EZ Insertion of Endotracheal Airway into Trachea, Via Natural or Artificial Opening Endoscopic (ICD-10-PCS; 2023-04-30)
PROC: 5A1945Z Respiratory Ventilation, 24-96 Consecutive Hours (ICD-10-PCS; 2023-04-30)
PROC: 02HV33Z Insertion of Infusion Device into Superior Vena Cava, Percutaneous Approach (ICD-10-PCS; 2023-05-01)
PROC: 3E0G76Z Introduction of Nutritional Substance into Upper GI, Via Natural or Artificial Opening (ICD-10-PCS; 2023-05-01)
PROC: 0B9D8ZX Drainage of Right Middle Lung Lobe, Via Natural or Artificial Opening Endoscopic, Diagnostic (ICD-10-PCS; 2023-05-02)
DX: I21.02 ST elevation (STEMI) myocardial infarction involving left anterior descending coronary artery (principal); A41.9 Sepsis, unspecified organism; B37.1 Pulmonary candidiasis; J80 Acute respiratory distress syndrome; N17.0 Acute kidney failure with tubular necrosis; R65.21 Severe sepsis with septic shock; I63.40 Cerebral infarction due to embolism of unspecified cerebral artery; J69.0 Pneumonitis due to inhalation of food and vomit; I33.0 Acute and subacute infective endocarditis; G93.41 Metabolic encephalopathy; I76 Septic arterial embolism; I47.20 Ventricular tachycardia, unspecified; G72.81 Critical illness myopathy; E87.4 Mixed disorder of acid-base balance; R57.0 Cardiogenic shock; I27.20 Pulmonary hypertension, unspecified; Z86.74 Personal history of sudden cardiac arrest; G31.9 Degenerative disease of nervous system, unspecified; N18.31 Chronic kidney disease, stage 3a; G83.21 Monoplegia of upper limb affecting right dominant side; Z66 Do not resuscitate; Z51.5 Encounter for palliative care; E83.39 Other disorders of phosphorus metabolism; I12.9 Hypertensive chronic kidney disease with stage 1 through stage 4 chronic kidney disease, or unspecified chronic kidney disease; I08.3 Combined rheumatic disorders of mitral, aortic and tricuspid valves; R13.10 Dysphagia, unspecified; R73.9 Hyperglycemia, unspecified; I25.10 Atherosclerotic heart disease of native coronary artery without angina pectoris; R00.1 Bradycardia, unspecified; W01.0XXA Fall on same level from slipping, tripping and stumbling without subsequent striking against object, initial encounter; R29.810 Facial weakness; R47.1 Dysarthria and anarthria; Y92.231 Patient bathroom in hospital as the place of occurrence of the external cause; R74.01 Elevation of levels of liver transaminase levels; Z28.310 Unvaccinated for COVID-19; Z86.73 Personal history of transient ischemic attack (TIA), and cerebral infarction without residual deficits; Z79.899 Other long term (current) drug therapy
CPT/HCPCS: 31500; 36600; 70450; 70496; 70498; 70551; 71045; 76770; 80048; 80053; 80061; 80202; 81001; 82533; 82805; 83036; 83516; 83735; 83880; 84100; 84145; 84443; 84484; 85025; 85027; 85610; 85730; 86140; 86255; 87040; 87070; 87086; 87102; 87116; 87205; 87206; 87496; 87498; 87502; 87529; 87634; 87798; 89050; 92978; 93005; 93306; 93458; 93880; 94002; 94003; 94640; 94660; 96374; 99291